=== PATIENT | female | born 1990 | race Caucasian/White ===

== ENCOUNTER 2022-08-12 18:39 | Emergency (ER) | payer OTHER, SELFPAY ==
[2022-08-12] VITALS (19 sets, daily range): BP systolic 127; BP diastolic 62; PULSE 65–81; RESP 13–24; TEMP 36.7; O2SAT 95–100; BMI 27.4
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
--- NOTE | 2022-08-12 19:44 | PC.NURSE ---
physician at bedside
--- NOTE | 2022-08-12 20:02 | ECG_ITS ---
The 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
== END 2022-08-12 22:10 | disposition home or self-care (01) ==
PROVIDERS: Emergency Provider Emergency Medicine; PCP Nurse Practitioner Family
DX: S40.012A Contusion of left shoulder, initial encounter (principal); S09.8XXA Other specified injuries of head, initial encounter; V86.65XA Passenger of 3- or 4- wheeled all-terrain vehicle (ATV) injured in nontraffic accident, initial encounter
CPT/HCPCS: 70450; 71101; 73030; 93005; 99284

== ENCOUNTER 2022-09-10 18:04 | Emergency (ER) | payer OTHER, SELFPAY ==
[2022-09-10 18:13] VITALS: BP 124/83; PULSE 79; RESP 16; TEMP 36.7; O2SAT 98; BMI 26.7
--- NOTE | 2022-09-10 18:18 | ED_ITS ---
HPI - General Adult General Chief complaint: Urogenital-Female Stated complaint: PRESSURE WHEN URINATING Time Seen by Provider: 09/10/22 18:16 Source: patient Mode of arrival: walk-in Limitations: no limitations History of Present Illness HPI narrative: patient is a 32-year-old female well-known to this emergency department who presents to the Emergency Room for two day history of abdominal pain, urinary urgency and dysuria. She states she has diffuse abdominal pain, nausea but no vomiting and has had some diarrhea. No fevers or upper respiratory symptoms. She is not concerned for . No medications taken prior to arrival. Her daughter is being evaluated for an unrelated complaint. Related Data Home Medications Medication Instructions Recorded Confirmed Unobtainable 09/10/22 09/10/22 Previous Rx's Medication Instructions Recorded ciprofloxacin HCl 500 mg tablet 500 mg PO BID #20 tabs 09/10/22 (Cipro) ondansetron 4 mg disintegrating 4 mg PO Q6H PRN nausea and 09/10/22 tablet vomiting #12 tabs phenazopyridine 200 mg tablet 200 mg PO Q8H 2 days #6 tabs 09/10/22 (Pyridium) Allergies Allergy/AdvReac Type Severity Reaction Status Date / Time cefaclor [From [facility]] Allergy Hives Verified 08/12/22 18:58 Review of Systems ROS Constitutional Denies: fever or chills Ears, nose, mouth, and throat Denies: throat pain or neck pain Cardiovascular Denies: chest pain Respiratory Denies: shortness of breath or cough Gastrointestinal Reports: abdominal pain, nausea and diarrhea; Denies: vomiting Genitourinary Reports: painful urination and urinary urgency Musculoskeletal Denies: back pain Integumentary/Breast Denies: rash PFSH PFS Surgical History (Updated 08/12/22 @ 21:07 by Ana Das) (2019) (2016) Social History Smoking status: Current every day smoker Exam Narrative Exam Narrative: Gen.: Awake, alert, in no distress Head: Normocephalic, atraumatic ENT: Moist mucous membranes Respiratory: No respiratory distress Gastrointestinal: Abdomen is soft, nondistended and diffusely mildly tender to palpation Extremities: Moves extremities equally Psych: Normal mood and affect Neuro: No focal neuro deficit Skin: Warm, dry, intact Constitutional Vital Signs - 24 hr 09/10/22 18:13 Temperature 98.0 F Pulse Rate [Monitor] 79 Respiratory Rate 16 Blood Pressure [Right Arm] 124/83 H Pulse Oximetry 98 Oxygen Delivery Method Room Air Course Vital Signs Vital signs: Vital Signs Temperature 98.0 F 09/10/22 18:13 Pulse Rate 79 09/10/22 18:13 Respiratory Rate 16 09/10/22 18:13 Blood Pressure 124/83 H 09/10/22 18:13 Pulse Oximetry 98 09/10/22 18:13 Oxygen Delivery Method Room Air 09/10/22 18:13 Temperature 98.0 F 09/10/22 18:13 Pulse Rate 79 09/10/22 18:13 Respiratory Rate 16 09/10/22 18:13 Blood Pressure 124/83 H 09/10/22 18:13 Pulse Oximetry 98 09/10/22 18:13 Oxygen Delivery Method Room Air 09/10/22 18:13 Medical Decision Making MDM Narrative Medical decision making narrative: labs are within normal limits although patient is noted to have a urinary tract infection. She is treated with Cipro, Pyridium, Zofran. Follow-up PCP and return to the Emergency Room if symptoms change or worsen. Medical Records Medical records reviewed: Yes I reviewed the patient's medical records Lab Data Lab results reviewed: Yes I reviewed the patient's lab results Labs: Lab Results 09/10/22 Range/Units 18:25 WBC 6.7 (4.0-11.0) 10^3/uL RBC 4.68 (4.20-5.40) 10^6/uL Hgb 14.4 (12.0-16.0) g/dL Hct 41.9 (36.0-48.0) % MCV 89.5 (81.0-99.0) fL MCH 30.8 (26.7-34.0) pg MCHC 34.4 (29.9-35.2) g/dL RDW 13.3 (11.0-15.0) % Plt Count 217 (150-450) 10^3/uL MPV 10.5 (9.5-13.5) fL Neut % (Auto) 65.0 (43.0-75.0) % Lymph % (Auto) 22.4 (20.5-60.0) % [place] % (Auto) 10.0 (1.7-12.0) % Eos % (Auto) 1.8 (0.9-7.0) % Baso % (Auto) 0.4 (0.2-2.0) % Neut # (Auto) 4.4 (1.4-6.5) 10^3/uL Lymph # (Auto) 1.5 (1.2-3.8) 10^3/uL Noble # (Auto) 0.7 (0.3-0.8) 10^3/uL Eos # (Auto) 0.1 (0.0-0.7) 10^3/uL Baso # (Auto) 0.0 (0.0-0.1) 10^3/uL Abs Immat Gran (auto) 0.03 (0.00-0.03) 10^3/uL Imm/Tot Granulo (auto) 0.4 (0.0-0.5) % Sodium 138 (136-145) mmol/L Potassium 3.8 (3.5-5.1) mmol/L Chloride 103 (98-107) mmol/L Carbon Dioxide 27.3 (21.0-32.0) mmol/L Anion Gap 11.5 BUN 13.0 (7.0-18.0) mg/dL Creatinine 0.86 (0.55-1.02) mg/dL Est GFR ( Amer) >60 (>=60) Est GFR (Non-Af Amer) >60 (>=60) BUN/Creatinine Ratio 15.1 Glucose 102 (74-106) mg/dL Calcium 8.8 (8.5-10.1) mg/dL Total Bilirubin 0.2 (0.2-1.0) mg/dL AST 20 (15-37) U/L ALT 24 (14-59) U/L Alkaline Phosphatase 71 (46-116) U/L Total Protein 7.3 (6.4-8.2) g/dL Albumin 3.5 (3.4-5.0) g/dL Globulin 3.8 g/dL Albumin/Globulin Ratio 0.9 Lipase 100.0 (73.0-393.0) U/L Urine Color Lt. yellow (YELLOW) Urine Clarity Clear (CLEAR) Urine pH 6.0 (5.0-9.0) Ur Specific [place] 1.020 (1.005-1.025) Urine Protein Negative (NEG/TRACE) mg/dL Urine Glucose (UA) Negative (NEGATIVE) mg/dL Urine Ketones Negative (NEGATIVE) mg/dL Urine Occult Blood Moderate A (NEGATIVE) Urine Nitrite Positive A (NEGATIVE) Urine Bilirubin Negative (NEGATIVE) Urine Urobilinogen 1.0 (0.2-1.0) EU/dL Ur Leukocyte Esterase Small A (NEGATIVE) Urine RBC 5-10 A (0-2) #/HPF Urine WBC 10-20 A (NONE SEEN) #/HPF Ur Squamous Epith Cells Few A (NONE/RARE) #/LPF Urine Crystals None seen (None Seen) #/HPF Urine Bacteria Moderate A (NONE SEEN) #/HPF Urine Casts None seen (NONE SEEN) #/LPF Urine Mucus None seen (NONE SEEN) Ur Culture Indicated? Yes Urine HCG, Qual Negative (NEGATIVE) Discharge Plan Discharge Chief Complaint: Urogenital-Female Clinical Impression: Urinary tract infection Patient Disposition: Home, Self-Care Time of Disposition Decision: 18:59 Condition: Good Prescriptions / Home Meds: New ciprofloxacin HCl [Cipro] 500 mg tablet 500 mg PO BID Qty: 20 0RF ondansetron 4 mg tablet,disintegrating 4 mg PO Q6H PRN (Reason: nausea and vomiting) Qty: 12 0RF phenazopyridine [Pyridium] 200 mg tablet 200 mg PO Q8H 2 Days Qty: 6 0RF No Action Unobtainable Instructions: Urinary Tract Infection in Women (ED) Stand Alone Forms: Portal Instructions Referrals: ARYA LOPEZ [Primary Care Provider] - 1 week
[2022-09-10] MEDS: KETOROLAC TROMETHAMINE 60 MG/2 ML VIAL IM (18:35)
[2022-09-10] MEDS: ONDANSETRON 4 MG RAPDIS TABLET PO (18:35)
[2022-09-10] MEDS: HYOSCYAMINE SULFATE 0.125 MG TAB.SUBL SL (18:35)
[2022-09-10 18:37] LABS: Basophils Percent Auto 0.4 % (0.2-2.0); Eosinophils Absolute Auto 0.1 10^3/uL (0.0-0.7); Eosinophils Percent Auto 1.8 % (0.9-7.0); Hematocrit 41.9 % (36.0-48.0); Hemoglobin 14.4 g/dL (12.0-16.0); Immature Granulocytes Abs Auto 0.03 10^3/uL (0.00-0.03); Immature Granulocytes Pct Auto 0.4 % (0.0-0.5); Lymphocytes Absolute Auto 1.5 10^3/uL (1.2-3.8); Lymphocytes Percent Auto 22.4 % (20.5-60.0); Mean Corpuscular HGB Conc 34.4 g/dL (29.9-35.2); Mean Corpuscular Hemoglobin 30.8 pg (26.7-34.0); Mean Corpuscular Volume 89.5 fL (81.0-99.0); Mean Platelet Volume 10.5 fL (9.5-13.5); Monocytes Absolute Auto 0.7 10^3/uL (0.3-0.8); Neutrophils Absolute Auto 4.4 10^3/uL (1.4-6.5); Platelet Count 217 10^3/uL (150-450); Red Blood Count 4.68 10^6/uL (4.20-5.40); Red Cell Distribution Width 13.3 % (11.0-15.0); White Blood Count 6.7 10^3/uL (4.0-11.0)
[2022-09-10 18:38] LABS: Bilirubin Urine NEGATIVE (NEGATIVE); Blood Urine MODERATE (NEGATIVE); Clarity Urine CLEAR (CLEAR); Color Urine LT. YELLOW (YELLOW); Glucose Urine UA NEGATIVE (NEGATIVE); Ketones Urine NEGATIVE (NEGATIVE); Leukocyte Esterase Urine SMALL (NEGATIVE); Nitrite Urine POSITIVE (NEGATIVE); Protein Urine NEGATIVE (NEG/TRACE)
[2022-09-10 18:42] LABS: HCG Qualitative Urine* NEGATIVE (NEGATIVE); Urine Microscopic Indicated YES
[2022-09-10 18:48] LABS: Alanine Aminotransferase 24 U/L (14-59); Albumin Globulin Ratio 0.9; Albumin Level 3.5 g/dL (3.4-5.0); Alkaline Phosphatase 71 U/L (46-116); Anion Gap 11.5; Aspartate Amino Transferase 20 U/L (15-37); BUN Creatinine Ratio 15.1; Bacteria Urine MODERATE #/HPF (NONE SEEN); Bilirubin Total 0.2 mg/dL (0.2-1.0); Calcium 8.8 mg/dL (8.5-10.1); Carbon Dioxide 27.3 mmol/L (21.0-32.0); Cast Seen? NONE SEEN #/LPF (NONE SEEN); Chloride 103 mmol/L (98-107); Crystals Seen? None Seen #/HPF (None Seen); Estimated GFR (African America >60 (>=60); Estimated GFR (Non-African Ame >60 (>=60); Globulin 3.8 g/dL; Glucose 102 mg/dL (74-106); Mucus Urine NONE SEEN (NONE SEEN); Potassium 3.8 mmol/L (3.5-5.1); Sodium 138 mmol/L (136-145); Squamous Epithelial Cell Urine FEW #/LPF (NONE/RARE); Total Protein 7.3 g/dL (6.4-8.2); Urine Culture Indicated YES
== END 2022-09-10 19:18 | disposition home or self-care (01) ==
PROVIDERS: Physician Assistant; Emergency Provider Emergency Medicine; PCP Nurse Practitioner Family
DX: N39.0 Urinary tract infection, site not specified (principal); F17.210 Nicotine dependence, cigarettes, uncomplicated
CPT/HCPCS: 36415; 80053; 81003; 81015; 83690; 84703; 85025; 87086; 87150; 87186; 96372; 99284

== ENCOUNTER 2022-09-28 15:33 | Emergency (ER) | payer OTHER, SELFPAY ==
[2022-09-28] VITALS (18 sets, daily range): BP systolic 78–130; BP diastolic 47–89; PULSE 68–109; RESP 11–30; TEMP 36.9; O2SAT 94–100; BMI 27.5
--- NOTE | 2022-09-28 15:45 | ECG_ITS ---
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
--- NOTE | 2022-09-28 15:54 | PC.NURSE ---
POISON CONTROL CALLED AT THIS TIME.
[2022-09-28 16:00] LABS: Basophils Percent Auto 0.3 % (0.2-2.0); Eosinophils Percent Auto 0.5 % (0.9-7.0); Hematocrit 42.5 % (36.0-48.0); Hemoglobin 14.1 g/dL (12.0-16.0); Immature Granulocytes Abs Auto 0.02 10^3/uL (0.00-0.03); Immature Granulocytes Pct Auto 0.3 % (0.0-0.5); Lymphocytes Absolute Auto 0.9 10^3/uL (1.2-3.8); Lymphocytes Percent Auto 15.9 % (20.5-60.0); Mean Corpuscular HGB Conc 33.2 g/dL (29.9-35.2); Mean Corpuscular Hemoglobin 30.5 pg (26.7-34.0); Mean Platelet Volume 9.3 fL (9.5-13.5); Monocytes Absolute Auto 0.7 10^3/uL (0.3-0.8); Neutrophils Absolute Auto 4.3 10^3/uL (1.4-6.5); Platelet Count 246 10^3/uL (150-450); Red Blood Count 4.62 10^6/uL (4.20-5.40); Red Cell Distribution Width 13.4 % (11.0-15.0); White Blood Count 5.9 10^3/uL (4.0-11.0)
[2022-09-28 16:08] LABS: Bilirubin Urine NEGATIVE (NEGATIVE); Blood Urine NEGATIVE (NEGATIVE); Clarity Urine CLEAR (CLEAR); Color Urine YELLOW (YELLOW); Glucose Urine UA NEGATIVE (NEGATIVE); Ketones Urine NEGATIVE (NEGATIVE); Leukocyte Esterase Urine NEGATIVE (NEGATIVE); Nitrite Urine NEGATIVE (NEGATIVE); Protein Urine NEGATIVE (NEG/TRACE); Specific Gravity Urine 1.015 (1.005-1.025); Urobilinogen Urine 0.2 EU/dL (0.2-1.0); pH Urine 6.5 (5.0-9.0)
[2022-09-28 16:11] LABS: Urine Microscopic Indicated NO
[2022-09-28 16:18] LABS: Amphetamine Screen Urine NEGATIVE (NEGATIVE); Barbiturates Screen Urine NEGATIVE (NEGATIVE); Benzodiazepines Screen Urine NEGATIVE (NEGATIVE); Buprenorphine Screen Urine NEGATIVE (NEGATIVE); Cannabinoid Screen Urine POSITIVE (NEGATIVE); Cocaine Screen Urine POSITIVE (NEGATIVE); Methadone Screen Urine NEGATIVE (NEGATIVE); Methamphetamines Screen Urine NEGATIVE (NEGATIVE); Opiate Screen Urine POSITIVE (NEGATIVE); Oxycodone Screen Urine NEGATIVE (NEGATIVE); Phencyclidine Screen Urine NEGATIVE (NEGATIVE); Tricyclic Antidepressant Urine NEGATIVE (NEGATIVE)
[2022-09-28 16:18] LABS: Alanine Aminotransferase 15 U/L (14-59); Albumin Globulin Ratio 1.1; Albumin Level 3.8 g/dL (3.4-5.0); Alkaline Phosphatase 57 U/L (46-116); Anion Gap 10.8; Aspartate Amino Transferase 13 U/L (15-37); BUN Creatinine Ratio 12.2; Bilirubin Total 0.5 mg/dL (0.2-1.0); Calcium 8.7 mg/dL (8.5-10.1); Carbon Dioxide 25.9 mmol/L (21.0-32.0); Chloride 104 mmol/L (98-107); Estimated GFR (African America >60 (>=60); Estimated GFR (Non-African Ame >60 (>=60); Globulin 3.5 g/dL; Glucose 95 mg/dL (74-106); Potassium 3.7 mmol/L (3.5-5.1); Salicylate <2.8 mg/dL (<=19.9); Sodium 137 mmol/L (136-145); Total Protein 7.3 g/dL (6.4-8.2)
[2022-09-28] MEDS: ONDANSETRON PF 4 MG/2 ML VIAL IV (16:21)
[2022-09-28 16:25] LABS: Troponin I High Sensitivity 74.5 pg/mL (4.0-51.3)
[2022-09-28 16:31] LABS: Acetaminophen <2.0 ug/mL (10.0-30.0); Ethanol <3 mg/dL
--- NOTE | 2022-09-28 17:00 | ED_ITS ---
Documented by User: LOLA Bakns 09/28/22 21:52 HPI - Psych General Chief Complaint: Psychiatric Symptoms Stated Complaint: suicidal Time Seen by Provider: 09/28/22 15:43 Source: Reports patient Mode of arrival: ambulance Limitations: Reports no limitations History of Present Illness HPI Narrative: patient is a 32-year-old female who presents to the emergency department by kelly snowden after an intentional overdose and suicidal ideation. Patient is well-known to this emergency department, she has a history of hypertrophic cardiomyopathy and defibrillator. She states she was seen this morning for chest pain at [place] emergency department and after discharge, she states she got into an argument with her so she went to her grandmother's home where they continued arguing and she took her regular prescribed medications, she states she took six tablets of Flexeril as well as 3-4 tablets of Neurontin and 3-4 tablets of trazodone. She is awake, alert and answering questions in no distress at time of initial interview. she is not concerned for , she states she has been hearing voices from her [id number]-wlg who has telling her that it is okay to go . Related Data Home Medications Medication Instructions Recorded Confirmed diclofenac sodium 1 % topical gel 2 g topical DAILY 09/28/22 09/28/22 diclofenac sodium 75 mg 75 mg PO DAILY 09/28/22 09/28/22 tablet,delayed release diphenhydramine HCl 25 mg tablet 25 mg PO DAILY 09/28/22 09/28/22 docusate sodium 100 mg capsule 100 mg PO DAILY 09/28/22 09/28/22 duloxetine 30 mg capsule,delayed 30 mg PO DAILY 09/28/22 09/28/22 release gabapentin 100 mg capsule 100 mg PO DAILY 09/28/22 09/28/22 hydroxyzine pamoate 50 mg capsule 50 mg PO DAILY 09/28/22 09/28/22 melatonin 5 mg tablet 5 mg PO DAILY 09/28/22 09/28/22 metoprolol succinate 50 mg 50 mg PO DAILY 09/28/22 09/28/22 tablet,extended release 24 hr nicotine (polacrilex) 4 mg gum 4 mg mucous membrane DAILY 09/28/22 09/28/22 olanzapine 5 mg tablet 5 mg PO DAILY 09/28/22 09/28/22 sertraline 50 mg tablet 50 mg PO DAILY 09/28/22 09/28/22 trazodone 50 mg tablet 50 mg PO DAILY 09/28/22 09/28/22 Allergies Allergy/AdvReac Type Severity Reaction Status Date / Time c[place] [[place] [facility] [place] Allergy Hives Verified 08/12/22 18:58 Review of Systems ROS Constitutional Denies: fever or chills Ears, nose, mouth, and throat Denies: throat pain or neck pain Respiratory Denies: shortness of breath Gastrointestinal Denies: nausea or vomiting Integumentary/Breast Denies: rash Psychiatric Reports: [facility] Medical History (Updated 09/28/22 @ 22:36 by Dena No) Surgical History (Updated 08/12/22 @ 21:07 by Ana Das) (2019) (2016) Social History Smoking status: Current every day smoker Exam Narrative Exam Narrative: Gen.: Awake, alert, in no distress Head: Normocephalic, atraumatic ENT: Moist mucous membranes Respiratory: No respiratory distress, lungs clear bilaterally Cardio: Regular rate and rhythm Gastrointestinal: Abdomen is soft, nondistended and nontender to palpation Extremities: Moves extremities equally, no injuries noted Psych: Normal mood and affect Neuro: No focal neuro deficit Skin: Warm, dry, intact Constitutional Vital Signs, click to edit/add: Last Vital Signs Temp 98.5 F 09/29/22 01:45 Pulse 80 09/29/22 05:23 Resp 16 09/29/22 05:23 BP 105/61 09/29/22 05:23 Pulse Ox 96 09/29/22 05:23 O2 Del Method Room Air 09/28/22 15:34 Course Vital Signs Vital signs: Vital Signs Blood Pressure 130/85 H 09/28/22 15:33 Temperature 98.5 F 09/29/22 01:45 Pulse Rate 80 09/29/22 05:23 Respiratory Rate 16 09/29/22 05:23 Blood Pressure 105/61 09/29/22 05:23 Pulse Oximetry 96 09/29/22 05:23 Oxygen Delivery Method Room Air 09/28/22 15:34 MDM - Psych MDM Narrative Medical decision making narrative: poison control was contacted immediately on the patient's arrival to the emergen cy department. Based on her ingestion, it was recommended that she be observed for 4-6 hours. Patient was observed for six hours from her initial presentation to the Emergency Department. She maintained stable vital signs, she is calm and cooperative in the Emergency Room. Labs were ordered showing the patient has an elevated troponin, although she has a drug screen is positive for cocaine and her previous lab studies were reviewed. Patient had multiple troponins taken on 06/06/22 for similar ingestion and she was noted to have three troponins at or above 100. A 2nd troponin was ordered for the patient in the Emergency Room, this has decreased. She has EKG showing ST depression which was present on a previous EKG from 06/06/22. Patient was treated with IV fluids, Zofran and Phenergan. She had no episodes of emesis in the emergency department, although due to her nausea she was not given any charcoal. Patient is medically clear for psychiatric evaluation and we anticipate transfer given the patient's intentional overdose and suicidal ideation with auditory hallucinations. 2150: case is turned over to attending physician at this time pending psychiatric evaluation and transfer. Lab Data Labs: Lab Results 09/28/22 09/28/22 09/28/22 Range/Units 15:45 15:53 15:57 WBC 5.9 (4.0-11.0) 10^3/uL RBC 4.62 (4.20-5.40) 10^6/uL Hgb 14.1 (12.0-16.0) g/dL Hct 42.5 (36.0-48.0) % MCV 92.0 (81.0-99.0) fL MCH 30.5 (26.7-34.0) pg MCHC 33.2 (29.9-35.2) g/dL RDW 13.4 (11.0-15.0) % Plt Count 246 (150-450) 10^3/uL MPV 9.3 L (9.5-13.5) fL Neut % (Auto) 72.0 (43.0-75.0) % Lymph % (Auto) 15.9 L (20.5-60.0) % [place] % (Auto) 11.0 (1.7-12.0) % Eos % (Auto) 0.5 L (0.9-7.0) % Baso % (Auto) 0.3 (0.2-2.0) % Neut # (Auto) 4.3 (1.4-6.5) 10^3/uL Lymph # (Auto) 0.9 L (1.2-3.8) 10^3/uL [place] # (Auto) 0.7 (0.3-0.8) 10^3/uL Eos # (Auto) 0.0 (0.0-0.7) 10^3/uL Baso # (Auto) 0.0 (0.0-0.1) 10^3/uL Abs Immat Gran (auto) 0.02 (0.00-0.03) 10^3/uL Imm/Tot Granulo (auto) 0.3 (0.0-0.5) % Sodium 137 (136-145) mmol/L Potassium 3.7 (3.5-5.1) mmol/L Chloride 104 (98-107) mmol/L Carbon Dioxide 25.9 (21.0-32.0) mmol/L Anion Gap 10.8 BUN 11.0 (7.0-18.0) mg/dL Creatinine 0.90 (0.55-1.02) mg/dL Est GFR ( Amer) >60 (>=60) Est GFR (Non-Af Amer) >60 (>=60) BUN/Creatinine Ratio 12.2 Glucose 95 (74-106) mg/dL Calcium 8.7 (8.5-10.1) mg/dL Total Bilirubin 0.5 (0.2-1.0) mg/dL AST 13 L (15-37) U/L ALT 15 (14-59) U/L Alkaline Phosphatase 57 (46-116) U/L Total Creatine Kinase (26-192) U/L CK-MB (CK-2) (<=3.60) ng/mL Troponin I High Sens 74.5 H* (4.0-51.3) pg/mL Total Protein 7.3 (6.4-8.2) g/dL Albumin 3.8 (3.4-5.0) g/dL Globulin 3.5 g/dL Albumin/Globulin Ratio 1.1 Urine Color Yellow (YELLOW) Urine Clarity Clear (CLEAR) Urine pH 6.5 (5.0-9.0) Ur Specific [place] 1.015 (1.005-1.025) Urine Protein Negative (NEG/TRACE) mg/dL Urine Glucose (UA) Negative (NEGATIVE) mg/dL Urine Ketones Negative (NEGATIVE) mg/dL Urine Occult Blood Negative (NEGATIVE) Urine Nitrite Negative (NEGATIVE) Urine Bilirubin Negative (NEGATIVE) Urine Urobilinogen 0.2 (0.2-1.0) EU/dL Ur Leukocyte Esterase Negative (NEGATIVE) Urine HCG, Qual Negative (NEGATIVE) Salicylates <2.8 (<=19.9) mg/dL Urine Opiates Screen Positive A (NEGATIVE) Ur Buprenorphine Scrn Negative (NEGATIVE) Ur Oxycodone Screen Negative (NEGATIVE) Urine Methadone Screen Negative (NEGATIVE) Ur Propoxyphene Screen Negative (NEGATIVE) Acetaminophen <2.0 L (10.0-30.0) ug/mL Ur Barbiturates Screen Negative (NEGATIVE) U Tricyclic Antidepress Negative (NEGATIVE) Ur Phencyclidine Scrn Negative (NEGATIVE) Ur Amphetamines Screen Negative (NEGATIVE) U Methamphetamines Scrn Negative (NEGATIVE) U Benzodiazepines Scrn Negative (NEGATIVE) Urine Cocaine Screen Positive A (NEGATIVE) U Cannabinoids Screen Positive A (NEGATIVE) Ethanol Quant <3 mg/dL 09/28/22 Range/Units 18:20 WBC (4.0-11.0) 10^3/uL RBC (4.20-5.40) 10^6/uL Hgb (12.0-16.0) g/dL Hct (36.0-48.0) % MCV (81.0-99.0) fL MCH (26.7-34.0) pg MCHC (29.9-35.2) g/dL RDW (11.0-15.0) % Plt Count (150-450) 10^3/uL MPV (9.5-13.5) fL Neut % (Auto) (43.0-75.0) % Lymph % (Auto) (20.5-60.0) % [place] % (Auto) (1.7-12.0) % Eos % (Auto) (0.9-7.0) % Baso % (Auto) (0.2-2.0) % Neut # (Auto) (1.4-6.5) 10^3/uL Lymph # (Auto) (1.2-3.8) 10^3/uL [place] # (Auto) (0.3-0.8) 10^3/uL Eos # (Auto) (0.0-0.7) 10^3/uL Baso # (Auto) (0.0-0.1) 10^3/uL Abs Immat Gran (auto) (0.00-0.03) 10^3/uL Imm/Tot Granulo (auto) (0.0-0.5) % Sodium (136-145) mmol/L Potassium (3.5-5.1) mmol/L Chloride (98-107) mmol/L Carbon Dioxide (21.0-32.0) mmol/L Anion Gap BUN (7.0-18.0) mg/dL Creatinine (0.55-1.02) mg/dL Est GFR ( Amer) (>=60) Est GFR (Non-Af Amer) (>=60) BUN/Creatinine Ratio Glucose (74-106) mg/dL Calcium (8.5-10.1) mg/dL Total Bilirubin (0.2-1.0) mg/dL AST (15-37) U/L ALT (14-59) U/L Alkaline Phosphatase (46-116) U/L Total Creatine Kinase 62 (26-192) U/L CK-MB (CK-2) 1.13 (<=3.60) ng/mL Troponin I High Sens 72.5 H* (4.0-51.3) pg/mL Total Protein (6.4-8.2) g/dL Albumin (3.4-5.0) g/dL Globulin g/dL Albumin/Globulin Ratio Urine Color (YELLOW) Urine Clarity (CLEAR) Urine pH (5.0-9.0) Ur Specific [place] (1.005-1.025) Urine Protein (NEG/TRACE) mg/dL Urine Glucose (UA) (NEGATIVE) mg/dL Urine Ketones (NEGATIVE) mg/dL Urine Occult Blood (NEGATIVE) Urine Nitrite (NEGATIVE) Urine Bilirubin (NEGATIVE) Urine Urobilinogen (0.2-1.0) EU/dL Ur Leukocyte Esterase (NEGATIVE) Urine HCG, Qual (NEGATIVE) Salicylates (<=19.9) mg/dL Urine Opiates Screen (NEGATIVE) Ur Buprenorphine Scrn (NEGATIVE) Ur Oxycodone Screen (NEGATIVE) Urine Methadone Screen (NEGATIVE) Ur Propoxyphene Screen (NEGATIVE) Acetaminophen (10.0-30.0) ug/mL Ur Barbiturates Screen (NEGATIVE) U Tricyclic Antidepress (NEGATIVE) Ur Phencyclidine Scrn (NEGATIVE) Ur Amphetamines Screen (NEGATIVE) U Methamphetamines Scrn (NEGATIVE) U Benzodiazepines Scrn (NEGATIVE) Urine Cocaine Screen (NEGATIVE) U Cannabinoids Screen (NEGATIVE) Ethanol Quant mg/dL Critical Care Time Critical Care Time Critical Care Time: Yes Total Critical Care Time: 35 Attestation: thirty-five minutes of critical care time attributed to this case for intentional overdose with multiple medications, continuous cardiac monitoring and bedside sitter for over six hours with transfer to tertiary care facility Discharge Plan Discharge Chief Complaint: Psychiatric Symptoms Clinical Impression: Intentional drug overdose, Suicidal ideation Patient Disposition: er Psychiatric Hosp Time of Disposition Decision: 21:52 [facility] Mode of Transportation: Mental Health Car Discharge Date/Time: 09/29/22 10:42 Documented by User: Dakotah Han MD 09/29/22 09:50 HPI - Psych General Chief Complaint: Psychiatric Symptoms Stated Complaint: suicidal Time Seen by Provider: 09/28/22 15:43 Related Data Home Medications Medication Instructions Recorded Confirmed diclofenac sodium 1 % topical gel 2 g topical DAILY 09/28/22 09/28/22 diclofenac sodium 75 mg 75 mg PO DAILY 09/28/22 09/28/22 tablet,delayed release diphenhydramine HCl 25 mg tablet 25 mg PO DAILY 09/28/22 09/28/22 docusate sodium 100 mg capsule 100 mg PO DAILY 09/28/22 09/28/22 duloxetine 30 mg capsule,delayed 30 mg PO DAILY 09/28/22 09/28/22 release gabapentin 100 mg capsule 100 mg PO DAILY 09/28/22 09/28/22 hydroxyzine pamoate 50 mg capsule 50 mg PO DAILY 09/28/22 09/28/22 melatonin 5 mg tablet 5 mg PO DAILY 09/28/22 09/28/22 metoprolol succinate 50 mg 50 mg PO DAILY 09/28/22 09/28/22 tablet,extended release 24 hr nicotine (polacrilex) 4 mg gum 4 mg mucous membrane DAILY 09/28/22 09/28/22 olanzapine 5 mg tablet 5 mg PO DAILY 09/28/22 09/28/22 sertraline 50 mg tablet 50 mg PO DAILY 09/28/22 09/28/22 trazodone 50 mg tablet 50 mg PO DAILY 09/28/22 09/28/22 Allergies Allergy/AdvReac Type Severity Reaction Status Date / Time cefaclor [From [facility]] Allergy Hives Verified 08/12/22 18:58 [facility] Medical History (Updated 09/28/22 @ 22:36 by Dena No) Surgical History (Updated 08/12/22 @ 21:07 by Ana Das) (2019) (2016) Social History Smoking status: Current every day smoker Exam Constitutional Vital Signs, click to edit/add: Last Vital Signs Temp 98.5 F 09/29/22 01:45 Pulse 80 09/29/22 05:23 Resp 16 09/29/22 05:23 BP 105/61 09/29/22 05:23 Pulse Ox 96 09/29/22 05:23 O2 Del Method Room Air 09/28/22 15:34 Course Vital Signs Vital signs: Vital Signs Blood Pressure 130/85 H 09/28/22 15:33 Temperature 98.5 F 09/29/22 01:45 Pulse Rate 80 09/29/22 05:23 Respiratory Rate 16 09/29/22 05:23 Blood Pressure 105/61 09/29/22 05:23 Pulse Oximetry 96 09/29/22 05:23 Oxygen Delivery Method Room Air 09/28/22 15:34 MDM - Psych MDM Narrative Medical decision making narrative: poison control was contacted immediately on the patient's arrival to the emergency department. Based on her ingestion, it was recommended that she be observed for 4-6 hours. Patient was observed for six hours from her initial presentation to the Emergency Department. She maintained stable vital signs, she is calm and cooperative in the Emergency Room. Labs were ordered showing the patient has an elevated troponin, although she has a drug screen is positive for cocaine and her previous lab studies were reviewed. Patient had multiple troponins taken on 06/06/22 for similar ingestion and she was noted to have three troponins at or above 100. A 2nd troponin was ordered for the patient in the Emergency Room, this has decreased. She has EKG showing ST depression which was present on a previous EKG from 06/06/22. Patient was treated with IV fluids, Zofran and Phenergan. She had no episodes of emesis in the emergency department, although due to her nausea she was not given any charcoal. Patient is medically clear for psychiatric evaluation and we anticipate transfer given the patient's intentional overdose and suicidal ideation with auditory hallucinations. 2149: case is turned over to attending physician Dr Austin at this time pending psychiatric evaluation and transfer. 94909/29/22 Dr HAN NOTE Patient will be picked up at approximately 10 AM for transfer. [facility] is [facility] to [facility], Dr. Harrington . There is concern that patient had positive illicit drugs in her urine drug testing. We have called children's services, Vannesa العراقي spoke to yvonne Saravanan From [place] children's services. There have been several other reports on this patient to children's services as well. Today's Emergency Room visit, urine drug testing was discussed with children's services on behalf of the safety of the children at home. Patient will be transferred to psychiatric facility for further evaluation and treatment. Patient had a mild headache, she is given Tylenol. Patient has been eating and drinking with breakfast no difficulty. There is been no difficulties to the night time babysitter for Dr. Austin as reported to me and transition this morning at 7 AM. Patient has been in the Emergency Room for over 19 hours. Critical care time >75 minutes exclusive from separate billable procedures that were performed. The following was considered in the determination of critical care but not limited to the level of medical decision making, intensive cardiac and/or respiratory monitoring, frequent vital sign monitoring, evaluation of laboratory studies, evaluation of radiographic studies, oxygen monitoring, and constant monitoring and speaking to family at bedside Lab Data Labs: Lab Results 09/28/22 09/28/22 09/28/22 Range/Units 15:45 15:53 15:57 WBC 5.9 (4.0-11.0) 10^3/uL RBC 4.62 (4.20-5.40) 10^6/uL Hgb 14.1 (12.0-16.0) g/dL Hct 42.5 (36.0-48.0) % MCV 92.0 (81.0-99.0) fL MCH 30.5 (26.7-34.0) pg MCHC 33.2 (29.9-35.2) g/dL RDW 13.4 (11.0-15.0) % Plt Count 246 (150-450) 10^3/uL MPV 9.3 L (9.5-13.5) fL Neut % (Auto) 72.0 (43.0-75.0) % Lymph % (Auto) 15.9 L (20.5-60.0) % [place] % (Auto) 11.0 (1.7-12.0) % Eos % (Auto) 0.5 L (0.9-7.0) % Baso % (Auto) 0.3 (0.2-2.0) % Neut # (Auto) 4.3 (1.4-6.5) 10^3/uL Lymph # (Auto) 0.9 L (1.2-3.8) 10^3/uL [place] # (Auto) 0.7 (0.3-0.8) 10^3/uL Eos # (Auto) 0.0 (0.0-0.7) 10^3/uL Baso # (Auto) 0.0 (0.0-0.1) 10^3/uL Abs Immat Gran (auto) 0.02 (0.00-0.03) 10^3/uL Imm/Tot Granulo (auto) 0.3 (0.0-0.5) % Sodium 137 (136-145) mmol/L Potassium 3.7 (3.5-5.1) mmol/L Chloride 104 (98-107) mmol/L Carbon Dioxide 25.9 (21.0-32.0) mmol/L Anion Gap 10.8 BUN 11.0 (7.0-18.0) mg/dL Creatinine 0.90 (0.55-1.02) mg/dL Est GFR ( Amer) >60 (>=60) Est GFR (Non-Af Amer) >60 (>=60) BUN/Creatinine Ratio 12.2 Glucose 95 (74-106) mg/dL Calcium 8.7 (8.5-10.1) mg/dL Total Bilirubin 0.5 (0.2-1.0) mg/dL AST 13 L (15-37) U/L ALT 15 (14-59) U/L Alkaline Phosphatase 57 (46-116) U/L Total Creatine Kinase (26-192) U/L CK-MB (CK-2) (<=3.60) ng/mL Troponin I High Sens 74.5 H* (4.0-51.3) pg/mL Total Protein 7.3 (6.4-8.2) g/dL Albumin 3.8 (3.4-5.0) g/dL Globulin 3.5 g/dL Albumin/Globulin Ratio 1.1 Urine Color Yellow (YELLOW) Urine Clarity Clear (CLEAR) Urine pH 6.5 (5.0-9.0) Ur Specific [place] 1.015 (1.005-1.025) Urine Protein Negative (NEG/TRACE) mg/dL Urine Glucose (UA) Negative (NEGATIVE) mg/dL Urine Ketones Negative (NEGATIVE) mg/dL Urine Occult Blood Negative (NEGATIVE) Urine Nitrite Negative (NEGATIVE) Urine Bilirubin Negative (NEGATIVE) Urine Urobilinogen 0.2 (0.2-1.0) EU/dL Ur Leukocyte Esterase Negative (NEGATIVE) Urine HCG, Qual Negative (NEGATIVE) Salicylates <2.8 (<=19.9) mg/dL Urine Opiates Screen Positive A (NEGATIVE) Ur Buprenorphine Scrn Negative (NEGATIVE) Ur Oxycodone Screen Negative (NEGATIVE) Urine Methadone Screen Negative (NEGATIVE) Ur Propoxyphene Screen Negative (NEGATIVE) Acetaminophen <2.0 L (10.0-30.0) ug/mL Ur Barbiturates Screen Negative (NEGATIVE) U Tricyclic Antidepress Negative (NEGATIVE) Ur Phencyclidine Scrn Negative (NEGATIVE) Ur Amphetamines Screen Negative (NEGATIVE) U Methamphetamines Scrn Negative (NEGATIVE) U Benzodiazepines Scrn Negative (NEGATIVE) Urine Cocaine Screen Positive A (NEGATIVE) U Cannabinoids Screen Positive A (NEGATIVE) Ethanol Quant <3 mg/dL 09/28/22 Range/Units 18:20 WBC (4.0-11.0) 10^3/uL RBC (4.20-5.40) 10^6/uL Hgb (12.0-16.0) g/dL Hct (36.0-48.0) % MCV (81.0-99.0) fL MCH (26.7-34.0) pg MCHC (29.9-35.2) g/dL RDW (11.0-15.0) % Plt Count (150-450) 10^3/uL MPV (9.5-13.5) fL Neut % (Auto) (43.0-75.0) % Lymph % (Auto) (20.5-60.0) % [place] % (Auto) (1.7-12.0) % Eos % (Auto) (0.9-7.0) % Baso % (Auto) (0.2-2.0) % Neut # (Auto) (1.4-6.5) 10^3/uL Lymph # (Auto) (1.2-3.8) 10^3/uL [place] # (Auto) (0.3-0.8) 10^3/uL Eos # (Auto) (0.0-0.7) 10^3/uL Baso # (Auto) (0.0-0.1) 10^3/uL Abs Immat Gran (auto) (0.00-0.03) 10^3/uL Imm/Tot Granulo (auto) (0.0-0.5) % Sodium (136-145) mmol/L Potassium (3.5-5.1) mmol/L Chloride (98-107) mmol/L Carbon Dioxide (21.0-32.0) mmol/L Anion Gap BUN (7.0-18.0) mg/dL Creatinine (0.55-1.02) mg/dL Est GFR ( Amer) (>=60) Est GFR (Non-Af Amer) (>=60) BUN/Creatinine Ratio Glucose (74-106) mg/dL Calcium (8.5-10.1) mg/dL Total Bilirubin (0.2-1.0) mg/dL AST (15-37) U/L ALT (14-59) U/L Alkaline Phosphatase (46-116) U/L Total Creatine Kinase 62 (26-192) U/L CK-MB (CK-2) 1.13 (<=3.60) ng/mL Troponin I High Sens 72.5 H* (4.0-51.3) pg/mL Total Protein (6.4-8.2) g/dL Albumin (3.4-5.0) g/dL Globulin g/dL Albumin/Globulin Ratio Urine Color (YELLOW) Urine Clarity (CLEAR) Urine pH (5.0-9.0) Ur Specific [place] (1.005-1.025) Urine Protein (NEG/TRACE) mg/dL Urine Glucose (UA) (NEGATIVE) mg/dL Urine Ketones (NEGATIVE) mg/dL Urine Occult Blood (NEGATIVE) Urine Nitrite (NEGATIVE) Urine Bilirubin (NEGATIVE) Urine Urobilinogen (0.2-1.0) EU/dL Ur Leukocyte Esterase (NEGATIVE) Urine HCG, Qual (NEGATIVE) Salicylates (<=19.9) mg/dL Urine Opiates Screen (NEGATIVE) Ur Buprenorphine Scrn (NEGATIVE) Ur Oxycodone Screen (NEGATIVE) Urine Methadone Screen (NEGATIVE) Ur Propoxyphene Screen (NEGATIVE) Acetaminophen (10.0-30.0) ug/mL Ur Barbiturates Screen (NEGATIVE) U Tricyclic Antidepress (NEGATIVE) Ur Phencyclidine Scrn (NEGATIVE) Ur Amphetamines Screen (NEGATIVE) U Methamphetamines Scrn (NEGATIVE) U Benzodiazepines Scrn (NEGATIVE) Urine Cocaine Screen (NEGATIVE) U Cannabinoids Screen (NEGATIVE) Ethanol Quant mg/dL Discharge Plan Discharge Chief Complaint: Psychiatric Symptoms Clinical Impression: Intentional drug overdose, Suicidal ideation Patient Disposition: Xfer Psychiatric Hosp Time of Disposition Decision: 21:52 [facility] Good Mode of Transportation: Mental Health Car Discharge Date/Time: 09/29/22 10:42 Documented by User: Rosita Rivas MD 09/30/22 19:28 HPI - Psych General Chief Complaint: Psychiatric Symptoms Stated Complaint: suicidal Time Seen by Provider: 09/28/22 15:43 Related Data Home Medications Medication Instructions Recorded Confirmed diclofenac sodium 1 % topical gel 2 g topical DAILY 09/28/22 09/28/22 diclofenac sodium 75 mg 75 mg PO DAILY 09/28/22 09/28/22 tablet,delayed release diphenhydramine HCl 25 mg tablet 25 mg PO DAILY 09/28/22 09/28/22 docusate sodium 100 mg capsule 100 mg PO DAILY 09/28/22 09/28/22 duloxetine 30 mg capsule,delayed 30 mg PO DAILY 09/28/22 09/28/22 release gabapentin 100 mg capsule 100 mg PO DAILY 09/28/22 09/28/22 hydroxyzine pamoate 50 mg capsule 50 mg PO DAILY 09/28/22 09/28/22 melatonin 5 mg tablet 5 mg PO DAILY 09/28/22 09/28/22 metoprolol succinate 50 mg 50 mg PO DAILY 09/28/22 09/28/22 tablet,extended release 24 hr nicotine (polacrilex) 4 mg gum 4 mg mucous membrane DAILY 09/28/22 09/28/22 olanzapine 5 mg tablet 5 mg PO DAILY 09/28/22 09/28/22 sertraline 50 mg tablet 50 mg PO DAILY 09/28/22 09/28/22 trazodone 50 mg tablet 50 mg PO DAILY 09/28/22 09/28/22 Allergies Allergy/AdvReac Type Severity Reaction Status Date / Time cefaclor [From [facility]] Allergy Hives Verified 08/12/22 18:58 [facility] Medical History (Updated 09/28/22 @ 22:36 by Dena No) Surgical History (Updated 08/12/22 @ 21:07 by Ana Das) (2019) (2015) Social History Smoking status: Current every day smoker Exam Constitutional Vital Signs, click to edit/add: Last Vital Signs Temp 98.5 F 09/29/22 01:45 Pulse 80 09/29/22 05:23 Resp 16 09/29/22 05:23 BP 105/61 09/29/22 05:23 Pulse Ox 96 09/29/22 05:23 O2 Del Method Room Air 09/28/22 15:34 Course Vital Signs Vital signs: Vital Signs Blood Pressure 130/85 H 09/28/22 15:33 Temperature 98.5 F 09/29/22 01:45 Pulse Rate 80 07/19/23 05:23 Respiratory Rate 16 09/29/22 05:23 Blood Pressure 105/61 09/29/22 05:23 Pulse Oximetry 96 09/29/22 05:23 Oxygen Delivery Method Room Air 09/28/22 15:34 MDM - Psych MDM Narrative Medical decision making narrative: poison control was contacted immediately on the patient's arrival to the emergency department. Based on her ingestion, it was recommended that she be observed for 4-6 hours. Patient was observed for six hours from her initial presentation to the Emergency Department. She maintained stable vital signs, she is calm and cooperative in the Emergency Room. Labs were ordered showing the patient has an elevated troponin, although she has a drug screen is positive for cocaine and her previous lab studies were reviewed. Patient had multiple troponins taken on 06/06/22 for similar ingestion and she was noted to have three troponins at or above 100. A 2nd troponin was ordered for the patient in the Emergency Room, this has decreased. She has EKG showing ST depression which was present on a previous EKG from 06/06/22. Patient was treated with IV fluids, Zofran and Phenergan. She had no episodes of emesis in the emergency department, although due to her nausea she was not given any charcoal. Patient is medically clear for psychiatric evaluation and we anticipate transfer given the patient's intentional overdose and suicidal ideation with auditory hallucinations. 2150: case is turned over to attending physician Dr Austin at this time pending psychiatric evaluation and transfer. 0950 09/29/22 Dr HAN NOTE Patient will be picked up at approximately 10 AM for transfer. Patient is going to [facility], Dr. Harrington . There is concern that patient had positive illicit drugs in her urine drug testing. We have called children's services, Vannesa العراقي spoke to show Saravanan From [place] [facility]. There have been several other reports on this patient to children's services as well. Today's Emergency Room visit, urine drug testing was discussed with children's services on behalf of the safety of the children at home. Patient will be transferred to psychiatric facility for further evaluation and treatme nt. Patient had a mild headache, she is given Tylenol. Patient has been eating and drinking with breakfast no difficulty. There is been no difficulties to the night time babysitter for Dr. Austin as reported to me and transition this morning at 7 AM. Patient has been in the Emergency Room for over 19 hours. Critical care time >75 minutes exclusive from separate billable procedures that were performed. The following was considered in the determination of critical care but not limited to the level of medical decision making, intensive cardiac and/or respiratory monitoring, frequent vital sign monitoring, evaluation of laboratory studies, evaluation of radiographic studies, oxygen monitoring, and constant monitoring and speaking to family at bedside Attending physician attestation I have reviewed the mid-level documentation, agree with the documentation, medical decision making and treatment plan as outlined by the mid-level provider. Lab Data Labs: Lab Results 09/28/22 09/28/22 09/28/22 Range/Units 15:45 15:53 15:57 WBC 5.9 (4.0-11.0) 10^3/uL RBC 4.62 (4.20-5.40) 10^6/uL Hgb 14.1 (12.0-16.0) g/dL Hct 42.5 (36.0-48.0) % MCV 92.0 (81.0-99.0) fL MCH 30.5 (26.7-34.0) pg MCHC 33.2 (29.9-35.2) g/dL RDW 13.4 (11.0-15.0) % Plt Count 246 (150-450) 10^3/uL MPV 9.3 L (9.5-13.5) fL Neut % (Auto) 72.0 (43.0-75.0) % Lymph % (Auto) 15.9 L (20.5-60.0) % [place] % (Auto) 11.0 (1.7-12.0) % Eos % (Auto) 0.5 L (0.9-7.0) % Baso % (Auto) 0.3 (0.2-2.0) % Neut # (Auto) 4.3 (1.4-6.5) 10^3/uL Lymph # (Auto) 0.9 L (1.2-3.8) 10^3/uL [place] # (Auto) 0.7 (0.3-0.8) 10^3/uL Eos # (Auto) 0.0 (0.0-0.7) 10^3/uL Baso # (Auto) 0.0 (0.0-0.1) 10^3/uL Abs Immat Gran (auto) 0.02 (0.00-0.03) 10^3/uL Imm/Tot Granulo (auto) 0.3 (0.0-0.5) % Sodium 137 (136-145) mmol/L Potassium 3.7 (3.5-5.1) mmol/L Chloride 104 (98-107) mmol/L Carbon Dioxide 25.9 (21.0-32.0) mmol/L Anion Gap 10.8 BUN 11.0 (7.0-18.0) mg/dL Creatinine 0.90 (0.55-1.02) mg/dL Est GFR ( Amer) >60 (>=60) Est GFR (Non-Af Amer) >60 (>=60) BUN/Creatinine Ratio 12.2 Glucose 95 (74-106) mg/dL Calcium 8.7 (8.5-10.1) mg/dL Total Bilirubin 0.5 (0.2-1.0) mg/dL AST 13 L (15-37) U/L ALT 15 (14-59) U/L Alkaline Phosphatase 57 (46-116) U/L Total Creatine Kinase (26-192) U/L CK-MB (CK-2) (<=3.60) ng/mL Troponin I High Sens 74.5 H* (4.0-51.3) pg/mL Total Protein 7.3 (6.4-8.2) g/dL Albumin 3.8 (3.4-5.0) g/dL Globulin 3.5 g/dL Albumin/Globulin Ratio 1.1 Urine Color Yellow (YELLOW) Urine Clarity Clear (CLEAR) Urine pH 6.5 (5.0-9.0) Ur Specific [place] 1.015 (1.005-1.025) Urine Protein Negative (NEG/TRACE) mg/dL Urine Glucose (UA) Negative (NEGATIVE) mg/dL Urine Ketones Negative (NEGATIVE) mg/dL Urine Occult Blood Negative (NEGATIVE) Urine Nitrite Negative (NEGATIVE) Urine Bilirubin Negative (NEGATIVE) Urine Urobilinogen 0.2 (0.2-1.0) EU/dL Ur Leukocyte Esterase Negative (NEGATIVE) Urine HCG, Qual Negative (NEGATIVE) Salicylates <2.8 (<=19.9) mg/dL Urine Opiates Screen Positive A (NEGATIVE) Ur Buprenorphine Scrn Negative (NEGATIVE) Ur Oxycodone Screen Negative (NEGATIVE) Urine Methadone Screen Negative (NEGATIVE) Ur Propoxyphene Screen Negative (NEGATIVE) Acetaminophen <2.0 L (10.0-30.0) ug/mL Ur Barbiturates Screen Negative (NEGATIVE) U Tricyclic Antidepress Negative (NEGATIVE) Ur Phencyclidine Scrn Negative (NEGATIVE) Ur Amphetamines Screen Negative (NEGATIVE) U Methamphetamines Scrn Negative (NEGATIVE) U Benzodiazepines Scrn Negative (NEGATIVE) Urine Cocaine Screen Positive A (NEGATIVE) U Cannabinoids Screen Positive A (NEGATIVE) Ethanol Quant <3 mg/dL 09/28/22 Range/Units 18:20 WBC (4.0-11.0) 10^3/uL RBC (4.20-5.40) 10^6/uL Hgb (12.0-16.0) g/dL Hct (36.0-48.0) % MCV (81.0-99.0) fL MCH (26.7-34.0) pg MCHC (29.9-35.2) g/dL RDW (11.0-15.0) % Plt Count (150-450) 10^3/uL MPV (9.5-13.5) fL Neut % (Auto) (43.0-75.0) % Lymph % (Auto) (20.5-60.0) % [place] % (Auto) (1.7-12.0) % Eos % (Auto) (0.9-7.0) % Baso % (Auto) (0.2-2.0) % Neut # (Auto) (1.4-6.5) 10^3/uL Lymph # (Auto) (1.2-3.8) 10^3/uL [place] # (Auto) (0.3-0.8) 10^3/uL Eos # (Auto) (0.0-0.7) 10^3/uL Baso # (Auto) (0.0-0.1) 10^3/uL Abs Immat Gran (auto) (0.00-0.03) 10^3/uL Imm/Tot Granulo (auto) (0.0-0.5) % Sodium (136-145) mmol/L Potassium (3.5-5.1) mmol/L Chloride (98-107) mmol/L Carbon Dioxide (21.0-32.0) mmol/L Anion Gap BUN (7.0-18.0) mg/dL Creatinine (0.55-1.02) mg/dL Est GFR ( Amer) (>=60) Est GFR (Non-Af Amer) (>=60) BUN/Creatinine Ratio Glucose (74-106) mg/dL Calcium (8.5-10.1) mg/dL Total Bilirubin (0.2-1.0) mg/dL AST (15-37) U/L ALT (14-59) U/L Alkaline Phosphatase (46-116) U/L Total Creatine Kinase 62 (26-192) U/L CK-MB (CK-2) 1.13 (<=3.60) ng/mL Troponin I High Sens 72.5 H* (4.0-51.3) pg/mL Total Protein (6.4-8.2) g/dL Albumin (3.4-5.0) g/dL Globulin g/dL Albumin/Globulin Ratio Urine Color (YELLOW) Urine Clarity (CLEAR) Urine pH (5.0-9.0) Ur Specific [place] (1.005-1.025) Urine Protein (NEG/TRACE) mg/dL Urine Glucose (UA) (NEGATIVE) mg/dL Urine Ketones (NEGATIVE) mg/dL Urine Occult Blood (NEGATIVE) Urine Nitrite (NEGATIVE) Urine Bilirubin (NEGATIVE) Urine Urobilinogen (0.2-1.0) EU/dL Ur Leukocyte Esterase (NEGATIVE) Urine HCG, Qual (NEGATIVE) Salicylates (<=19.9) mg/dL Urine Opiates Screen (NEGATIVE) Ur Buprenorphine Scrn (NEGATIVE) Ur Oxycodone Screen (NEGATIVE) Urine Methadone Screen (NEGATIVE) Ur Propoxyphene Screen (NEGATIVE) Acetaminophen (10.0-30.0) ug/mL Ur Barbiturates Screen (NEGATIVE) U Tricyclic Antidepress (NEGATIVE) Ur Phencyclidine Scrn (NEGATIVE) Ur Amphetamines Screen (NEGATIVE) U Methamphetamines Scrn (NEGATIVE) U Benzodiazepines Scrn (NEGATIVE) Urine Cocaine Screen (NEGATIVE) U Cannabinoids Screen (NEGATIVE) Ethanol Quant mg/dL Discharge Plan Discharge Chief Complaint: Psychiatric Symptoms Clinical Impression: Intentional drug overdose, Suicidal ideation Patient Disposition: Xfer Psychiatric Hosp Time of Disposition Decision: 21:52 [facility] Mode of Transportation: Mental Health Car Discharge Date/Time: 09/29/22 10:42
[2022-09-28 17:08] LABS: HCG Qualitative NEGATIVE (NEGATIVE)
[2022-09-28] MEDS: 0.9 % SODIUM CHLORIDE 1,000 ML 1000 ML IV (17:30)
[2022-09-28] MEDS: PROMETHAZINE HCL 25 MG/ML VIAL 12.5 MG IV (17:37)
[2022-09-28 18:49] LABS: Creatine Kinase 62 U/L (26-192); Creatine Kinase MB 1.13 ng/mL (<=3.60)
[2022-09-28 18:51] LABS: Troponin I High Sensitivity 72.5 pg/mL (4.0-51.3)
[2022-09-29 01:45] VITALS: BP 100/70; PULSE 74; RESP 16; TEMP 36.9; O2SAT 96
--- NOTE | 2022-09-29 04:44 | ED.PSYCH1 ---
HPI - Psych General Chief Complaint: Psychiatric Symptoms Stated Complaint: suicidal Time Seen by Provider: 09/28/22 15:43 Source: Reports patient Mode of arrival: ambulance Limitations: Reports no limitations History of Present Illness HPI Narrative: This 32-year-old female was seen and evaluated in conjunction with the physician front office medical assistant. She presents after she took an intentional overdose of trazodone, Flexeril and Neurontin in a suicide attempt after an argument with her .. She also has A history of cardiomyopathy and has a defibrillator. She is known to have elevated troponins. Additionally she tested positive for marijuana, cocaine and Opiates. Besides her elevated troponin and urine drug screen toxicology, she has been stable in the emergency department. She was medically cleared and pink slipped. [facility] has been evaluating her for placement. She has been stable in the emergency department and has slept throughout the majority of my shift. She has been forthcoming with the counselors and is aware that we are working towards getting her psychiatrically admitted. Patient was accepted at [facility] by Dr Harrington. Related Data Home Medications Medication Instructions Recorded Confirmed diclofenac sodium 1 % topical gel 2 g topical DAILY 09/28/22 09/28/22 diclofenac sodium 75 mg 75 mg PO DAILY 09/28/22 09/28/22 tablet,delayed release diphenhydramine HCl 25 mg tablet 25 mg PO DAILY 09/28/22 09/28/22 docusate sodium 100 mg capsule 100 mg PO DAILY 09/28/22 09/28/22 duloxetine 30 mg capsule,delayed 30 mg PO DAILY 09/28/22 09/28/22 release gabapentin 100 mg capsule 100 mg PO DAILY 09/28/22 09/28/22 hydroxyzine pamoate 50 mg capsule 50 mg PO DAILY 09/28/22 09/28/22 melatonin 5 mg tablet 5 mg PO DAILY 09/28/22 09/28/22 metoprolol succinate 50 mg 50 mg PO DAILY 09/28/22 09/28/22 tablet,extended release 24 hr nicotine (polacrilex) 4 mg gum 4 mg mucous membrane DAILY 09/28/22 09/28/22 olanzapine 5 mg tablet 5 mg PO DAILY 09/28/22 09/28/22 sertraline 50 mg tablet 50 mg PO DAILY 09/28/22 09/28/22 trazodone 50 mg tablet 50 mg PO DAILY 09/28/22 09/28/22 Allergies Allergy/AdvReac Type Severity Reaction Status Date / Time cefaclor [From [facility]] Allergy Hives Verified 08/12/22 18:[address] [facility] Medical History (Updated 09/28/22 @ 22:36 by Dena No) Surgical History (Updated 08/12/22 @ 21:07 by Ana Das) (2019) (2016) Social History Smoking status: Current every day smoker Exam Constitutional Vital Signs, click to edit/add: Last Vital Signs Temp 98.5 F 09/29/22 01:45 Pulse 80 09/29/22 05:23 Resp 16 09/29/22 05:23 BP 105/61 09/29/22 05:23 Pulse Ox 96 09/29/22 05:23 O2 Del Method Room Air 09/28/22 15:34 Course Vital Signs Vital signs: Vital Signs Blood Pressure 130/85 H 09/28/22 15:33 Temperature 98.5 F 09/29/22 01:45 Pulse Rate 80 09/29/22 05:23 Respiratory Rate 16 09/29/22 05:23 Blood Pressure 105/61 09/29/22 05:23 Pulse Oximetry 96 09/29/22 05:23 Oxygen Delivery Method Room Air 09/28/22 15:34 MDM - Psych Lab Data Labs: Lab Results 09/28/22 09/28/22 09/28/22 Range/Units 15:45 15:53 15:57 WBC 5.9 (4.0-11.0) 10^3/uL RBC 4.62 (4.20-5.40) 10^6/uL Hgb 14.1 (12.0-16.0) g/dL Hct 42.5 (36.0-48.0) % MCV 92.0 (81.0-99.0) fL MCH 30.5 (26.7-34.0) pg MCHC 33.2 (29.9-35.2) g/dL RDW 13.4 (11.0-15.0) % Plt Count 246 (150-450) 10^3/uL MPV 9.3 L (9.5-13.5) fL Neut % (Auto) 72.0 (43.0-75.0) % Lymph % (Auto) 15.9 L (20.5-60.0) % [place] % (Auto) 11.0 (1.7-12.0) % Eos % (Auto) 0.5 L (0.9-7.0) % Baso % (Auto) 0.3 (0.2-2.0) % Neut # (Auto) 4.3 (1.4-6.5) 10^3/uL Lymph # (Auto) 0.9 L (1.2-3.8) 10^3/uL [place] # (Auto) 0.7 (0.3-0.8) 10^3/uL Eos # (Auto) 0.0 (0.0-0.7) 10^3/uL Baso # (Auto) 0.0 (0.0-0.1) 10^3/uL Abs Immat Gran (auto) 0.02 (0.00-0.03) 10^3/uL Imm/Tot Granulo (auto) 0.3 (0.0-0.5) % Sodium 137 (136-145) mmol/L Potassium 3.7 (3.5-5.1) mmol/L Chloride 104 (98-107) mmol/L Carbon Dioxide 25.9 (21.0-32.0) mmol/L Anion Gap 10.8 BUN 11.0 (7.0-18.0) mg/dL Creatinine 0.90 (0.55-1.02) mg/dL Est GFR ( Amer) >60 (>=60) Est GFR (Non-Af Amer) >60 (>=60) BUN/Creatinine Ratio 12.2 Glucose 95 (74-106) mg/dL Calcium 8.7 (8.5-10.1) mg/dL Total Bilirubin 0.5 (0.2-1.0) mg/dL AST 13 L (15-37) U/L ALT 15 (14-59) U/L Alkaline Phosphatase 57 (46-116) U/L Total Creatine Kinase (26-192) U/L CK-MB (CK-2) (<=3.60) ng/mL Troponin I High Sens 74.5 H* (4.0-51.3) pg/mL Total Protein 7.3 (6.4-8.2) g/dL Albumin 3.8 (3.4-5.0) g/dL Globulin 3.5 g/dL Albumin/Globulin Ratio 1.1 Urine Color Yellow (YELLOW) Urine Clarity Clear (CLEAR) Urine pH 6.5 (5.0-9.0) Ur Specific [place] 1.015 (1.005-1.025) Urine Protein Negative (NEG/TRACE) mg/dL Urine Glucose (UA) Negative (NEGATIVE) mg/dL Urine Ketones Negative (NEGATIVE) mg/dL Urine Occult Blood Negative (NEGATIVE) Urine Nitrite Negative (NEGATIVE) Urine Bilirubin Negative (NEGATIVE) Urine Urobilinogen 0.2 (0.2-1.0) EU/dL Ur Leukocyte Esterase Negative (NEGATIVE) Urine HCG, Qual Negative (NEGATIVE) Salicylates <2.8 (<=19.9) mg/dL Urine Opiates Screen Positive A (NEGATIVE) Ur Buprenorphine Scrn Negative (NEGATIVE) Ur Oxycodone Screen Negative (NEGATIVE) Urine Methadone Screen Negative (NEGATIVE) Ur Propoxyphene Screen Negative (NEGATIVE) Acetaminophen <2.0 L (10.0-30.0) ug/mL Ur Barbiturates Screen Negative (NEGATIVE) U Tricyclic Antidepress Negative (NEGATIVE) Ur Phencyclidine Scrn Negative (NEGATIVE) Ur Amphetamines Screen Negative (NEGATIVE) U Methamphetamines Scrn Negative (NEGATIVE) U Benzodiazepines Scrn Negative (NEGATIVE) Urine Cocaine Screen Positive A (NEGATIVE) U Cannabinoids Screen Positive A (NEGATIVE) Ethanol Quant <3 mg/dL 09/28/22 Range/Units 18:20 WBC (4.0-11.0) 10^3/uL RBC (4.20-5.40) 10^6/uL Hgb (12.0-16.0) g/dL Hct (36.0-48.0) % MCV (81.0-99.0) fL MCH (26.7-34.0) pg MCHC (29.9-35.2) g/dL RDW (11.0-15.0) % Plt Count (150-450) 10^3/uL MPV (9.5-13.5) fL Neut % (Auto) (43.0-75.0) % Lymph % (Auto) (20.5-60.0) % [place] % (Auto) (1.7-12.0) % Eos % (Auto) (0.9-7.0) % Baso % (Auto) (0.2-2.0) % Neut # (Auto) (1.4-6.5) 10^3/uL Lymph # (Auto) (1.2-3.8) 10^3/uL [place] # (Auto) (0.3-0.8) 10^3/uL Eos # (Auto) (0.0-0.7) 10^3/uL Baso # (Auto) (0.0-0.1) 10^3/uL Abs Immat Gran (auto) (0.00-0.03) 10^3/uL Imm/Tot Granulo (auto) (0.0-0.5) % Sodium (136-145) mmol/L Potassium (3.5-5.1) mmol/L Chloride (98-107) mmol/L Carbon Dioxide (21.0-32.0) mmol/L Anion Gap BUN (7.0-18.0) mg/dL Creatinine (0.55-1.02) mg/dL Est GFR ( Amer) (>=60) Est GFR (Non-Af Amer) (>=60) BUN/Creatinine Ratio Glucose (74-106) mg/dL Calcium (8.5-10.1) mg/dL Total Bilirubin (0.2-1.0) mg/dL AST (15-37) U/L ALT (14-59) U/L Alkaline Phosphatase (46-116) U/L Total Creatine Kinase 62 (26-192) U/L CK-MB (CK-2) 1.13 (<=3.60) ng/mL Troponin I High Sens 72.5 H* (4.0-51.3) pg/mL Total Protein (6.4-8.2) g/dL Albumin (3.4-5.0) g/dL Globulin g/dL Albumin/Globulin Ratio Urine Color (YELLOW) Urine Clarity (CLEAR) Urine pH (5.0-9.0) Ur Specific [place] (1.005-1.025) Urine Protein (NEG/TRACE) mg/dL Urine Glucose (UA) (NEGATIVE) mg/dL Urine Ketones (NEGATIVE) mg/dL Urine Occult Blood (NEGATIVE) Urine Nitrite (NEGATIVE) Urine Bilirubin (NEGATIVE) Urine Urobilinogen (0.2-1.0) EU/dL Ur Leukocyte Esterase (NEGATIVE) Urine HCG, Qual (NEGATIVE) Salicylates (<=19.9) mg/dL Urine Opiates Screen (NEGATIVE) Ur Buprenorphine Scrn (NEGATIVE) Ur Oxycodone Screen (NEGATIVE) Urine Methadone Screen (NEGATIVE) Ur Propoxyphene Screen (NEGATIVE) Acetaminophen (10.0-30.0) ug/mL Ur Barbiturates Screen (NEGATIVE) U Tricyclic Antidepress (NEGATIVE) Ur Phencyclidine Scrn (NEGATIVE) Ur Amphetamines Screen (NEGATIVE) U Methamphetamines Scrn (NEGATIVE) U Benzodiazepines Scrn (NEGATIVE) Urine Cocaine Screen (NEGATIVE) U Cannabinoids Screen (NEGATIVE) Ethanol Quant mg/dL Discharge Plan Discharge Chief Complaint: Psychiatric Symptoms Clinical Impression: Intentional drug overdose, Suicidal ideation Patient Disposition: [facility] Time of Disposition Decision: 21:52 Condition: Good
[2022-09-29 05:23] VITALS: BP 105/61; PULSE 80; RESP 16; O2SAT 96
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
[2022-09-29] MEDS: ACETAMINOPHEN 500 MG TABLET 1000 MG PO (09:40)
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
== END 2022-09-29 10:42 ==
PROVIDERS: Emergency Medicine; Physician Assistant; Emergency Provider Emergency Medicine; PCP Nurse Practitioner Family
DX: T48.1X2A Poisoning by skeletal muscle relaxants [neuromuscular blocking agents], intentional self-harm, initial encounter (principal); T43.212A Poisoning by selective serotonin and norepinephrine reuptake inhibitors, intentional self-harm, initial encounter; T42.6X2A Poisoning by other antiepileptic and sedative-hypnotic drugs, intentional self-harm, initial encounter; R45.851 Suicidal ideations; R44.0 Auditory hallucinations; F17.210 Nicotine dependence, cigarettes, uncomplicated; I42.2 Other hypertrophic cardiomyopathy; Z95.810 Presence of automatic (implantable) cardiac defibrillator; Z79.899 Other long term (current) drug therapy
CPT/HCPCS: 36415; 80053; 80179; 80307; 80320; 80329; 81003; 82550; 82553; 84484; 84703; 85025; 93005; 99291

== ENCOUNTER 2022-10-05 21:44 | Emergency (ER) | payer OTHER, SELFPAY ==
[2022-10-05 21:51] VITALS: BP 143/108; PULSE 69; RESP 20; TEMP 36.8; O2SAT 97; BMI 27.4
--- NOTE | 2022-10-05 22:08 | ED_ITS ---
HPI - General Adult General Chief complaint: Psychiatric Symptoms Stated complaint: ANXIETY Time Seen by Provider: 10/05/22 22:08 Source: patient Mode of arrival: walk-in Limitations: no limitations History of Present Illness HPI narrative: She presents to emergency department complaining of suicidal ideation. Patient states she has felt like she wants car into her wrists. Patient was hospitalized in [place] 5 days ago for suicidal ideation and she was doing well but did not feel like she was ready to go home today. She voiced that to the facility but they still sent her in a cab to her grandmother's house. When she got to the grandma's house so the grandmother she was still having suicidal ideation and they came back to the emergency department to be admitted at [facility] which is her hospital of preference. Patient does not have any somatic complaints. She denies any auditory or visual hallucinations. Related Data Home Medications Medication Instructions Recorded Confirmed diclofenac sodium 1 % topical gel 2 g topical DAILY 09/28/22 10/05/22 diclofenac sodium 75 mg 75 mg PO DAILY 09/28/22 10/05/22 tablet,delayed release diphenhydramine HCl 25 mg tablet 25 mg PO DAILY 09/28/22 10/05/22 docusate sodium 100 mg capsule 100 mg PO DAILY 09/28/22 10/05/22 duloxetine 30 mg capsule,delayed 30 mg PO DAILY 09/28/22 10/05/22 release gabapentin 100 mg capsule 100 mg PO DAILY 09/28/22 10/05/22 hydroxyzine pamoate 50 mg capsule 50 mg PO DAILY 09/28/22 10/05/22 melatonin 5 mg tablet 5 mg PO DAILY 09/28/22 10/05/22 metoprolol succinate 50 mg 50 mg PO DAILY 09/28/22 10/05/22 tablet,extended release 24 hr nicotine (polacrilex) 4 mg gum 4 mg mucous membrane DAILY 09/28/22 10/05/22 olanzapine 5 mg tablet 5 mg PO DAILY 09/28/22 10/05/22 sertraline 50 mg tablet 50 mg PO DAILY 09/28/22 10/05/22 trazodone 50 mg tablet 100 mg PO DAILY 09/28/22 10/05/22 Allergies Allergy/AdvReac Type Severity Reaction Status Date / Time cefaclor [From [facility]] Allergy Hives Verified 07/25/23 21:57 Review of Systems ROS Status of ROS 10 or more systems reviewed and unremarkable except as noted in history and below [facility] Medical History (Updated 10/06/22 @ 06:21 by Rosita Rivas MD) Surgical History (Updated 08/12/22 @ 21:07 by Ana Das) (2019) (2016) Social History Smoking status: Former smoker Exam Narrative Exam Narrative: Nurses notes and vital signs reviewed and patient is not hypoxic. General: Nontoxic, Well-appearing and in no apparent distress. Skin: Warm, dry, no pallor noted. No Rash Head: Normocephalic, atraumatic. Neck: Supple, non-tender. Eye: Pupils are equal, round and EOMI. No scleral icterus. Ears, Nose, Mouth, and Throat: TM clear, no posterior oropharynx erythema or nasal mucosal hypertrophy, uvula is mid-line Oral mucosa is moist Cardiovascular: Regular Rate and Rhythm without murmur, gallop or rub. Respiratory: No accessory muscle use or respiratory distress. Lungs are clear to auscultation, no wheezing, rales or rhonchi Chest Wall: no tenderness Back: No midline thoracic or lumbar vertebral tenderness. No CVA tenderness Musculoskeletal: Multiple scabbed abrasions to the left ventral wrist.normal ROM, no calf or popliteal tenderness, no lower extremity edema/swelling GI: Abdomen is soft, non-distended. Normal bowel sounds. No masses appreciated. No tenderness to palpation. No rebound, guarding, or rigidity noted. Neurological: A&O x4. No cranial nerve dysfunction observed. No truncal ataxia. Moves all extremities. Sensation intact. Psychiatric: Cooperative and interactive. Normal mood and affect. Constitutional Vital Signs, click to edit/add: Last Vital Signs Temp 98.2 F 10/05/22 21:51 Pulse 89 10/06/22 04:20 Resp 16 10/06/22 04:20 BP 106/80 H 10/06/22 04:20 Pulse Ox 96 10/06/22 04:20 O2 Del Method Room Air 10/06/22 04:20 Course Vital Signs Vital signs: Vital Signs Temperature 98.2 F 10/05/22 21:51 Pulse Rate 69 10/05/22 21:51 Respiratory Rate 20 10/05/22 21:51 Blood Pressure 143/108 H 10/05/22 21:51 Pulse Oximetry 97 10/05/22 21:51 Oxygen Delivery Method Room Air 10/05/22 21:51 Temperature 98.2 F 10/05/22 21:51 Pulse Rate 89 10/06/22 04:20 Respiratory Rate 16 10/06/22 04:20 Blood Pressure 106/80 H 10/06/22 04:20 Pulse Oximetry 96 10/06/22 04:20 Oxygen Delivery Method Room Air 10/06/22 04:20 Medical Decision Making MDM Narrative Medical decision making narrative: Patient will be medically clear for psychiatric evaluation and treatment. She will be discussed with [facility]. The patient was accepted at [facility] psychiatry by Dr. Asif. She is medically clear for psychiatric evaluation and treatment[facility] at 10[facility]30 AM. She'll signed out to Dr. HIGGINS awaiting transportation. Medical Records Medical records reviewed: Yes I reviewed the patient's medical records Lab Data Lab results reviewed: Yes I reviewed the patient's lab results Labs: Lab Results 10/05/22 10/05/22 Range/Units 21:56 22:32 WBC 5.5 (4.0-11.0) 10^3/uL RBC 4.30 (4.20-5.40) 10^6/uL Hgb 13.3 (12.0-16.0) g/dL Hct 38.9 (36.0-48.0) % MCV 90.5 (81.0-99.0) fL MCH 30.9 (26.7-34.0) pg MCHC 34.2 (29.9-35.2) g/dL RDW 13.1 (11.0-15.0) % Plt Count 230 (150-450) 10^3/uL MPV 9.9 (9.5-13.5) fL Neut % (Auto) 58.2 (43.0-75.0) % Lymph % (Auto) 22.9 (20.5-60.0) % [place] % (Auto) 15.2 H (1.7-12.0) % Eos % (Auto) 2.2 (0.9-7.0) % Baso % (Auto) 0.6 (0.2-2.0) % Neut # (Auto) 3.2 (1.4-6.5) 10^3/uL Lymph # (Auto) 1.3 (1.2-3.8) 10^3/uL [place] # (Auto) 0.8 (0.3-0.8) 10^3/uL Eos # (Auto) 0.1 (0.0-0.7) 10^3/uL Baso # (Auto) 0.0 (0.0-0.1) 10^3/uL Abs Immat Gran (auto) 0.05 H (0.00-0.03) 10^3/uL Imm/Tot Granulo (auto) 0.9 H (0.0-0.5) % Sodium 138 (136-145) mmol/L Potassium 3.8 (3.5-5.1) mmol/L Chloride 102 (98-107) mmol/L Carbon Dioxide 26.7 (21.0-32.0) mmol/L Anion Gap 13.1 BUN 21.0 H (7.0-18.0) mg/dL Creatinine 0.87 (0.55-1.02) mg/dL Est GFR ( Amer) >60 (>=60) Est GFR (Non-Af Amer) >60 (>=60) BUN/Creatinine Ratio 24.1 Glucose 107 H (74-106) mg/dL Calcium 8.3 L (8.5-10.1) mg/dL Total Bilirubin 0.2 (0.2-1.0) mg/dL AST 45 H (15-37) U/L ALT 26 (14-59) U/L Alkaline Phosphatase 60 (46-116) U/L Total Protein 7.0 (6.4-8.2) g/dL Albumin 3.7 (3.4-5.0) g/dL Globulin 3.3 g/dL Albumin/Globulin Ratio 1.1 Urine Color Lt. yellow (YELLOW) Urine Clarity Clear (CLEAR) Urine pH 5.5 (5.0-9.0) Ur Specific [place] 1.010 (1.005-1.025) Urine Protein Negative (NEG/TRACE) mg/dL Urine Glucose (UA) Negative (NEGATIVE) mg/dL Urine Ketones Negative (NEGATIVE) mg/dL Urine Occult Blood Moderate A (NEGATIVE) Urine Nitrite Negative (NEGATIVE) Urine Bilirubin Negative (NEGATIVE) Urine Urobilinogen 0.2 (0.2-1.0) EU/dL Ur Leukocyte Esterase Negative (NEGATIVE) Urine RBC 0-2 (0-2) #/HPF Urine WBC 0-2 A (NONE SEEN) #/HPF Ur Squamous Epith Cells Rare (NONE/RARE) #/LPF Urine Crystals None seen (None Seen) #/HPF Urine Bacteria None seen (NONE SEEN) #/HPF Urine Casts None seen (NONE SEEN) #/LPF Urine Mucus None seen (NONE SEEN) Ur Culture Indicated? No Salicylates <2.8 (<=19.9) mg/dL Urine Opiates Screen Negative (NEGATIVE) Ur Buprenorphine Scrn Negative (NEGATIVE) Ur Oxycodone Screen Negative (NEGATIVE) Urine Methadone Screen Negative (NEGATIVE) Ur Propoxyphene Screen Negative (NEGATIVE) Acetaminophen <2.0 L (10.0-30.0) ug/mL Ur Barbiturates Screen Negative (NEGATIVE) U Tricyclic Antidepress Negative (NEGATIVE) Ur Phencyclidine Scrn Negative (NEGATIVE) Ur Amphetamines Screen Negative (NEGATIVE) U Methamphetamines Scrn Negative (NEGATIVE) U Benzodiazepines Scrn Negative (NEGATIVE) Urine Cocaine Screen Negative (NEGATIVE) U Cannabinoids Screen Positive A (NEGATIVE) Ethanol Quant <3 mg/dL ECG Data Attestation: I personally reviewed and interpreted this ECG as follows: Discharge Plan Discharge Chief Complaint: Psychiatric Symptoms Clinical Impression: Suicidal ideation, Bipolar disorder Patient Disposition: Still a Patient Prescriptions / Home Meds: No Action diphenhydramine HCl 25 mg tablet 25 mg PO DAILY diclofenac sodium 75 mg tablet,delayed release (DR/EC) 75 mg PO DAILY diclofenac sodium 1 % gel 2 g TOPICAL DAILY docusate sodium 100 mg capsule 100 mg PO DAILY duloxetine 30 mg capsule,delayed release(DR/EC) 30 mg PO DAILY gabapentin 100 mg capsule 100 mg PO DAILY hydroxyzine pamoate 50 mg capsule 50 mg PO DAILY melatonin 5 mg tablet 5 mg PO DAILY metoprolol succinate 50 mg tablet extended release 24 hr 50 mg PO DAILY nicotine (polacrilex) 4 mg gum 4 mg mucous membrane DAILY olanzapine 5 mg tablet 5 mg PO DAILY sertraline 50 mg tablet 50 mg PO DAILY trazodone 50 mg tablet 100 mg PO DAILY Referrals: ARYA LOPEZ [Primary Care Provider] - 1 week
[2022-10-05 22:14] VITALS: PULSE 111
--- NOTE | 2022-10-05 22:15 | ECG_ITS ---
The [facility] Test Date: 2022-10-05 Pat Name: LESTER ART Department: Room: - Gender: Female Department Mgr: : 1990 Requested By: ARYA LOPEZ Order Number: [id number] Reading MD: ANN HOUSTON Measurements Intervals [place] Rate: 107 P: 65 [place]: 172 QRS: 56 QRSD: 88 T: -40 QT: 334 QTc: 397 Interpretive Statements 1120 Sinus tachycardia [address] depression, can't exclude inferolateral ischemia 6120 Possible right atrial enlargement 9150 abnormal ECG Electronically Signed On 10-06-2022 7:08:08 EDT by ANN HOUSTON
[2022-10-05 22:28] VITALS: BP 138/80; PULSE 111; RESP 16
[2022-10-05 22:53] LABS: Basophils Percent Auto 0.6 % (0.2-2.0); Eosinophils Absolute Auto 0.1 10^3/uL (0.0-0.7); Eosinophils Percent Auto 2.2 % (0.9-7.0); Hematocrit 38.9 % (36.0-48.0); Hemoglobin 13.3 g/dL (12.0-16.0); Immature Granulocytes Abs Auto 0.05 10^3/uL (0.00-0.03); Immature Granulocytes Pct Auto 0.9 % (0.0-0.5); Lymphocytes Absolute Auto 1.3 10^3/uL (1.2-3.8); Lymphocytes Percent Auto 22.9 % (20.5-60.0); Mean Corpuscular HGB Conc 34.2 g/dL (29.9-35.2); Mean Corpuscular Hemoglobin 30.9 pg (26.7-34.0); Mean Corpuscular Volume 90.5 fL (81.0-99.0); Mean Platelet Volume 9.9 fL (9.5-13.5); Monocytes Absolute Auto 0.8 10^3/uL (0.3-0.8); Monocytes Percent Auto 15.2 % (1.7-12.0); Neutrophils Absolute Auto 3.2 10^3/uL (1.4-6.5); Neutrophils Percent Auto 58.2 % (43.0-75.0); Platelet Count 230 10^3/uL (150-450); Red Cell Distribution Width 13.1 % (11.0-15.0); White Blood Count 5.5 10^3/uL (4.0-11.0)
[2022-10-05 22:56] LABS: Bilirubin Urine NEGATIVE (NEGATIVE); Blood Urine MODERATE (NEGATIVE); Clarity Urine CLEAR (CLEAR); Color Urine LT. YELLOW (YELLOW); Glucose Urine UA NEGATIVE (NEGATIVE); Ketones Urine NEGATIVE (NEGATIVE); Leukocyte Esterase Urine NEGATIVE (NEGATIVE); Nitrite Urine NEGATIVE (NEGATIVE); Protein Urine NEGATIVE (NEG/TRACE); Urobilinogen Urine 0.2 EU/dL (0.2-1.0); pH Urine 5.5 (5.0-9.0)
[2022-10-05 22:59] LABS: Urine Microscopic Indicated YES
[2022-10-05 23:03] LABS: Bacteria Urine NONE SEEN #/HPF (NONE SEEN); Cast Seen? NONE SEEN #/LPF (NONE SEEN); Crystals Seen? None Seen #/HPF (None Seen); Mucus Urine NONE SEEN (NONE SEEN); RBC Urine 0-2 #/HPF (0-2); Squamous Epithelial Cell Urine RARE #/LPF (NONE/RARE); Urine Culture Indicated NO; WBC Urine 0-2 #/HPF (NONE SEEN)
[2022-10-05 23:04] LABS: Cannabinoid Screen Urine POSITIVE (NEGATIVE); Cocaine Screen Urine NEGATIVE (NEGATIVE); Phencyclidine Screen Urine NEGATIVE (NEGATIVE)
[2022-10-05 23:05] LABS: Amphetamine Screen Urine NEGATIVE (NEGATIVE); Barbiturates Screen Urine NEGATIVE (NEGATIVE); Benzodiazepines Screen Urine NEGATIVE (NEGATIVE); Buprenorphine Screen Urine NEGATIVE (NEGATIVE); Methadone Screen Urine NEGATIVE (NEGATIVE); Methamphetamines Screen Urine NEGATIVE (NEGATIVE); Opiate Screen Urine NEGATIVE (NEGATIVE); Oxycodone Screen Urine NEGATIVE (NEGATIVE); Tricyclic Antidepressant Urine NEGATIVE (NEGATIVE)
[2022-10-05 23:08] LABS: Alanine Aminotransferase 26 U/L (14-59); Albumin Globulin Ratio 1.1; Albumin Level 3.7 g/dL (3.4-5.0); Alkaline Phosphatase 60 U/L (46-116); Anion Gap 13.1; Aspartate Amino Transferase 45 U/L (15-37); BUN Creatinine Ratio 24.1; Bilirubin Total 0.2 mg/dL (0.2-1.0); Calcium 8.3 mg/dL (8.5-10.1); Carbon Dioxide 26.7 mmol/L (21.0-32.0); Chloride 102 mmol/L (98-107); Estimated GFR (African America >60 (>=60); Estimated GFR (Non-African Ame >60 (>=60); Globulin 3.3 g/dL; Glucose 107 mg/dL (74-106); Potassium 3.8 mmol/L (3.5-5.1); Sodium 138 mmol/L (136-145)
[2022-10-05 23:10] LABS: Salicylate <2.8 mg/dL (<=19.9)
[2022-10-05 23:12] LABS: Acetaminophen <2.0 ug/mL (10.0-30.0); Ethanol <3 mg/dL
--- NOTE | 2022-10-05 23:14 | PC.NURSE ---
Talked with Hotline. Sitter at cart side.
[2022-10-05 23:43] VITALS: BP 131/96; PULSE 100; RESP 16; O2SAT 97
--- NOTE | 2022-10-06 00:53 | ECG_ITS ---
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
[2022-10-06 04:20] VITALS: BP 106/80; PULSE 89; RESP 16; O2SAT 96
[2022-10-06 09:33] VITALS: BP 135/98; PULSE 104; RESP 20; O2SAT 98
== END 2022-10-06 09:36 ==
PROVIDERS: Emergency Provider Emergency Medicine; PCP Nurse Practitioner Family
DX: R45.851 Suicidal ideations (principal); F31.9 Bipolar disorder, unspecified; Z79.899 Other long term (current) drug therapy; Z87.891 Personal history of nicotine dependence
CPT/HCPCS: 36415; 80053; 80179; 80307; 80320; 80329; 81003; 81015; 85025; 93005; 99285

== ENCOUNTER 2023-03-21 13:18 | Emergency (ER) | payer OTHER, SELFPAY ==
[2023-03-21] VITALS (19 sets, daily range): BP systolic 116–117; BP diastolic 67–81; PULSE 67–96; RESP 11–22; O2SAT 96–100; BMI 25.6
--- NOTE | 2023-03-21 13:27 | XR_ITS ---
The [address] [address] Patient Name: LESTER ART MRN: [id number] date: 1990 Sex: F Assigned Patient Location: ER Current Patient Location: ER Accession/Order Number: [id number] Exam Date: 03/21/2023 14:00 Report Date: 03/21/2023 14:18 At the request of: RABIA HOLLINS Procedure: XR chest 1V EXAM: Chest x-ray HISTORY: . Dizziness . COMPARISON: 02/03/2022 TECHNIQUE: Single view of the chest FINDINGS: Heart and vascularity are unremarkable. Lungs are free of focal infiltrates. AICD is noted and unchanged. Grossly no bony abnormality is appreciated. XR/XR chest 1V IMPRESSION: No acute heart or lung disease identified. No change from the previous exam. Electronically authenticated by: KATHY DUMONT Date: 03/21/2023 14:18
--- NOTE | 2023-03-21 13:27 | ECG_ITS ---
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
--- NOTE | 2023-03-21 13:36 | ED.GENADUL1 ---
HPI - General Adult General Chief complaint: Dizziness Stated complaint: LOW BLOOD PRESSURE Time Seen by Provider: 03/21/23 13:21 Source: patient Mode of arrival: walk-in Limitations: no limitations History of Present Illness HPI narrative: patient is a 32-year-old female well-known to this emergency department who presents for one day history of dizziness. She has a history of hypertrophic cardiomyopathy and had a defibrillator placed with cardiology in [place] through [facility] approximately fifteen months ago. She has a follow-up appointment in two days. She called the office to report that she was feeling lightheaded, dizzy as though she is spinning and nauseous. She denies headache, chest pain, shortness of breath, fevers, chills, cough, congestion. She denies peripheral edema. No vomiting or diarrhea. No urinary symptoms. She is not concerned for . She states she checked her blood pressure at home and it was low with a systolic of one hundred. She states sometimes her blood pressure does fluctuate. She arrives to the Emergency Room with normal vital signs. Related Data Home Medications Medication Instructions Recorded Confirmed diclofenac sodium 1 % topical gel 2 g topical DAILY 09/28/22 10/05/22 diclofenac sodium 75 mg 75 mg PO DAILY 09/28/22 10/05/22 tablet,delayed release diphenhydramine HCl 25 mg tablet 25 mg PO DAILY 09/28/22 10/05/22 docusate sodium 100 mg capsule 100 mg PO DAILY 09/28/22 10/05/22 duloxetine 30 mg capsule,delayed 30 mg PO DAILY 09/28/22 10/05/22 release gabapentin 100 mg capsule 100 mg PO DAILY 09/28/22 10/05/22 hydroxyzine pamoate 50 mg capsule 50 mg PO DAILY 09/28/22 10/05/22 melatonin 5 mg tablet 5 mg PO DAILY 09/28/22 10/05/22 metoprolol succinate 50 mg 50 mg PO DAILY 09/28/22 10/05/22 tablet,extended release 24 hr nicotine (polacrilex) 4 mg gum 4 mg mucous membrane DAILY 09/28/22 10/05/22 olanzapine 5 mg tablet 5 mg PO DAILY 09/28/22 10/05/22 sertraline 50 mg tablet 50 mg PO DAILY 09/28/22 10/05/22 trazodone 50 mg tablet 100 mg PO DAILY 09/28/22 10/05/22 Previous Rx's Medication Instructions Recorded meclizine 25 mg chewable tablet 25 mg PO QID PRN dizziness #12 tabs 03/21/23 (Antivert) ondansetron 4 mg disintegrating 4 mg PO Q6H PRN nausea and 03/21/23 tablet vomiting #12 tabs Allergies Allergy/AdvReac Type Severity Reaction Status Date / Time Penicillins Allergy Severe Hives Verified 03/21/23 13:22 cefaclor [From Ceclor] Allergy Hives Verified 10/05/22 21:57 Review of Systems ROS Constitutional Denies: fever or chills Eyes Denies: change in vision Ears, nose, mouth, and throat Denies: throat pain Cardiovascular Denies: chest pain or palpitations Respiratory Denies: shortness of breath or cough Gastrointestinal Reports: nausea; Denies: vomiting or diarrhea Genitourinary Denies: painful urination Musculoskeletal Denies: back pain or neck pain Integumentary/Breast Denies: rash Neurological Reports: dizziness; Denies: headache Endocrine Denies: excessive urination Hematologic/Lymphatic Denies: easy bruising PFSH PFSH Medical History (Updated 03/21/23 @ 16:02 by LOLA Banks) Hypertrophic cardiomyopathy ?I42.2 - Other hypertrophic cardiomyopathy (ICD-10) Depression with suicidal ideation ?F32.A - Depression, unspecified (ICD-10) ?R45.851 - Suicidal ideations (ICD-10) Surgical History (Updated 08/12/22 @ 21:07 by Ana Das) History of cardiac defibrillator placement (2015) ?Z95.810 - Presence of automatic (implantable) cardiac defibrillator (ICD-10) History of cardiac defibrillator placement (2019) ?Z95.810 - Presence of automatic (implantable) cardiac defibrillator (ICD-10) Social History Smoking status: Former smoker Exam Narrative Exam Narrative: Gen.: Awake, alert, in no distress Head: Normocephalic, atraumatic ENT: Moist mucous membranes Respiratory: No respiratory distress, lungs clear bilaterally Cardio: Regular rate and rhythm Gastrointestinal: Abdomen is soft, nondistended and nontender to palpation Extremities: Moves extremities equally, no pedal edema Psych: Normal mood and affect Neuro: No focal neuro deficit Skin: Warm, dry, intact Constitutional Vital Signs, click to edit/add: Last Vital Signs Pulse 70 03/21/23 15:37 Resp 20 03/21/23 15:37 BP 116/67 03/21/23 15:37 Pulse Ox 100 03/21/23 15:20 O2 Del Method Room Air 03/21/23 13:23 Course Vital Signs Vital signs: Vital Signs Pulse Rate 83 03/21/23 13:23 Respiratory Rate 16 03/21/23 13:23 Blood Pressure 117/80 03/21/23 13:23 Pulse Oximetry 97 03/21/23 13:23 Oxygen Delivery Method Room Air 03/21/23 13:23 Pulse Rate 70 03/21/23 15:37 Respiratory Rate 20 03/21/23 15:37 Blood Pressure 116/67 03/21/23 15:37 Pulse Oximetry 100 03/21/23 15:20 Oxygen Delivery Method Room Air 03/21/23 13:23 Medical Decision Making MDM Narrative Medical decision making narrative: patient was stable vital signs in the emergency department. She is treated with IV fluids and Antivert. Her troponin is mildly elevated, this patient has a chronically elevated troponin, consistent with previous. Repeat troponin has decreased. She has no complaints of chest pain, syncope. She has an appointment in two days with her manager branch. She is discharged home with Antivert and nausea medication to follow-up with cardiology. Return to the Emergency Room if symptoms change or worsen. Medical Records Medical records reviewed: Yes I reviewed the patient's medical records Lab Data Lab results reviewed: Yes I reviewed the patient's lab results Labs: Lab Results 03/21/23 03/21/23 Range/Units 13:46 15:17 WBC 7.3 (4.0-11.0) 10^3/uL RBC 4.31 (4.20-5.40) 10^6/uL Hgb 13.6 (12.0-16.0) g/dL Hct 40.3 (36.0-48.0) % MCV 93.5 (81.0-99.0) fL MCH 31.6 (26.7-34.0) pg MCHC 33.7 (29.9-35.2) g/dL RDW 12.9 (11.0-15.0) % Plt Count 205 (150-450) 10^3/uL MPV 10.3 (9.5-13.5) fL Neut % (Auto) 80.4 H (43.0-75.0) % Lymph % (Auto) 10.9 L (20.5-60.0) % [place] % (Auto) 7.6 (1.7-12.0) % Eos % (Auto) 0.4 L (0.9-7.0) % Baso % (Auto) 0.3 (0.2-2.0) % Neut # (Auto) 5.9 (1.4-6.5) 10^3/uL Lymph # (Auto) 0.8 L (1.2-3.8) 10^3/uL [place] # (Auto) 0.6 (0.3-0.8) 10^3/uL Eos # (Auto) 0.0 (0.0-0.7) 10^3/uL Baso # (Auto) 0.0 (0.0-0.1) 10^3/uL Abs Immat Gran (auto) 0.03 (0.00-0.03) 10^3/uL Imm/Tot Granulo (auto) 0.4 (0.0-0.5) % Sodium 132 L (136-145) mmol/L Potassium 3.8 (3.5-5.1) mmol/L Chloride 101 (98-107) mmol/L Carbon Dioxide 25.8 (21.0-32.0) mmol/L Anion Gap 9.0 BUN 15.0 (7.0-18.0) mg/dL Creatinine 0.81 (0.55-1.02) mg/dL Est GFR ( Amer) >60 (>=60) Est GFR (Non-Af Amer) >60 (>=60) BUN/Creatinine Ratio 18.5 Glucose 85 (74-106) mg/dL Calcium 9.0 (8.5-10.1) mg/dL Total Bilirubin 0.6 (0.2-1.0) mg/dL AST 11 L (15-37) U/L ALT 13 L (14-59) U/L Alkaline Phosphatase 65 (46-116) U/L Troponin I High Sens 77.6 H* 76.4 H* (4.0-51.3) pg/mL Total Protein 7.3 (6.4-8.2) g/dL Albumin 3.7 (3.4-5.0) g/dL Globulin 3.6 g/dL Albumin/Globulin Ratio 1.0 TSH 1.619 (0.358-3.740) uIU/mL Serum HCG, Qual Negative (NEGATIVE) Ethanol Quant <3 mg/dL Imaging Data Chest x-ray: Attestation: I have reviewed the pertinent imaging results. Radiologist's impression: ITS Impressions Chest X-Ray 03/21/23 13:27 IMPRESSION: No acute heart or lung disease identified. No change from the previous exam. Electronically authenticated by: KATHY DUMONT Date: 03/21/2023 14:18 ECG Data Attestation: I personally reviewed and interpreted this ECG as follows: (normal sinus rhythm at a rate of seventy-eight, ST depression without ST elevation, no ectopy. No change from previous. EKG reviewed by attending physician) Discharge Plan Discharge Chief Complaint: Dizziness Clinical Impression: Dizziness Patient Disposition: Home, Self-Care Time of Disposition Decision: 16:02 Condition: Good Prescriptions / Home Meds: New ondansetron 4 mg tablet,disintegrating 4 mg PO Q6H PRN (Reason: nausea and vomiting) Qty: 12 0RF meclizine [Antivert] 25 mg tablet,chewable 25 mg PO QID PRN (Reason: dizziness) Qty: 12 0RF No Action diphenhydramine HCl 25 mg tablet 25 mg PO DAILY diclofenac sodium 75 mg tablet,delayed release (DR/EC) 75 mg PO DAILY diclofenac sodium 1 % gel 2 g TOPICAL DAILY docusate sodium 100 mg capsule 100 mg PO DAILY duloxetine 30 mg capsule,delayed release(DR/EC) 30 mg PO DAILY gabapentin 100 mg capsule 100 mg PO DAILY hydroxyzine pamoate 50 mg capsule 50 mg PO DAILY melatonin 5 mg tablet 5 mg PO DAILY metoprolol succinate 50 mg tablet extended release 24 hr 50 mg PO DAILY nicotine (polacrilex) 4 mg gum 4 mg mucous membrane DAILY olanzapine 5 mg tablet 5 mg PO DAILY sertraline 50 mg tablet 50 mg PO DAILY trazodone 50 mg tablet 100 mg PO DAILY Instructions: Dizziness (ED) Additional Instructions: Follow up with your manager branch on Wed as scheduled, make sure you are staying hydrated Stand Alone Forms: Portal Instructions Referrals: ARYA LOPEZ [Primary Care Provider] - 1 week
[2023-03-21] MEDS: 0.9 % SODIUM CHLORIDE 1,000 ML 999 ML IV (13:45)
[2023-03-21] MEDS: ONDANSETRON PF 4 MG/2 ML VIAL IV (13:46)
[2023-03-21] MEDS: MECLIZINE HCL 12.5 MG TABLET 25 MG PO (13:49)
[2023-03-21 13:53] LABS: Basophils Percent Auto 0.3 % (0.2-2.0); Eosinophils Percent Auto 0.4 % (0.9-7.0); Hematocrit 40.3 % (36.0-48.0); Hemoglobin 13.6 g/dL (12.0-16.0); Immature Granulocytes Abs Auto 0.03 10^3/uL (0.00-0.03); Immature Granulocytes Pct Auto 0.4 % (0.0-0.5); Lymphocytes Absolute Auto 0.8 10^3/uL (1.2-3.8); Lymphocytes Percent Auto 10.9 % (20.5-60.0); Mean Corpuscular HGB Conc 33.7 g/dL (29.9-35.2); Mean Corpuscular Hemoglobin 31.6 pg (26.7-34.0); Mean Corpuscular Volume 93.5 fL (81.0-99.0); Mean Platelet Volume 10.3 fL (9.5-13.5); Monocytes Absolute Auto 0.6 10^3/uL (0.3-0.8); Monocytes Percent Auto 7.6 % (1.7-12.0); Neutrophils Absolute Auto 5.9 10^3/uL (1.4-6.5); Neutrophils Percent Auto 80.4 % (43.0-75.0); Platelet Count 205 10^3/uL (150-450); Red Blood Count 4.31 10^6/uL (4.20-5.40); Red Cell Distribution Width 12.9 % (11.0-15.0); White Blood Count 7.3 10^3/uL (4.0-11.0)
[2023-03-21 14:13] LABS: HCG Qualitative NEGATIVE (NEGATIVE)
[2023-03-21 14:20] LABS: Alanine Aminotransferase 13 U/L (14-59); Albumin Level 3.7 g/dL (3.4-5.0); Alkaline Phosphatase 65 U/L (46-116); Aspartate Amino Transferase 11 U/L (15-37); BUN Creatinine Ratio 18.5; Bilirubin Total 0.6 mg/dL (0.2-1.0); Carbon Dioxide 25.8 mmol/L (21.0-32.0); Chloride 101 mmol/L (98-107); Estimated GFR (African America >60 (>=60); Estimated GFR (Non-African Ame >60 (>=60); Ethanol <3 mg/dL; Globulin 3.6 g/dL; Glucose 85 mg/dL (74-106); Potassium 3.8 mmol/L (3.5-5.1); Sodium 132 mmol/L (136-145); Thyroid Stimulating Hormone 1.619 uIU/mL (0.358-3.740); Total Protein 7.3 g/dL (6.4-8.2)
[2023-03-21 14:22] LABS: Troponin I High Sensitivity 77.6 pg/mL (4.0-51.3)
--- NOTE | 2023-03-21 14:22 | PC.NURSE ---
Troponin result received and relayed to Dr. Granados
[2023-03-21 15:57] LABS: Troponin I High Sensitivity 76.4 pg/mL (4.0-51.3)
== END 2023-03-21 16:15 | disposition home or self-care (01) ==
PROVIDERS: Physician Assistant; Emergency Provider Emergency Medicine Emergency Medical Services; PCP Nurse Practitioner Family
DX: R42 Dizziness and giddiness (principal); Z95.810 Presence of automatic (implantable) cardiac defibrillator; I42.2 Other hypertrophic cardiomyopathy; F32.A Depression, unspecified; Z87.891 Personal history of nicotine dependence; Z79.899 Other long term (current) drug therapy
CPT/HCPCS: 36415; 71045; 80053; 80307; 80320; 84443; 84484; 84703; 85025; 93005; 96361; 96374; 99285; J2405

== ENCOUNTER 2023-04-11 22:15 | Emergency (ER) | payer OTHER, SELFPAY ==
[2023-04-11 22:16] VITALS: BP 135/96; PULSE 111; RESP 20; TEMP 36.9; O2SAT 98
--- OUTSIDE RECORDS SUMMARY | 2023-04-11 22:23 | XMS_ITS | CCD ---
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 Name Role Phone WILLIE SHORT Consulting Unavailable WILLIE SHORT Admitting Unavailable WILLIE SHORT Attending Unavailable DINO HADDAD Primary Care Unavailable KATHY EMERY Referring Unavailable SR DINO HADDAD Primary Care Unavailable Sydney Lopez Primary Care Provider [phone] SYDNEY LOPEZ Primary Care Unavailable TRACY SIN Attending Unavailable IZABELLA Lopez Primary Care Provider MD Sukhjinder Schroeder Admit Provider MD Sukhjinder Schroeder Attending Provider [phone] IZABELLA Lopez Primary Care Provider MD Sukhjinder Schroeder Admit Provider MD Sukhjinder Schreoder Attending Provider [phone] SYDNEY LOPEZ Primary Care Unavailable RALPH FUNES Admitting Unavailable RALPH FUNES Attending Unavailable RALPH FUNES Consulting Unavailable DEJA Winchester, DR HAMILTON Consulting Unavailable SYDNEY LOPEZ Primary Care Unavailable ADRI BHATT Admitting Unavailable PRICE Winchester, ADRI Attending Unavailable ADRI BHATT Consulting Unavailable SYDNEY LOPEZ Primary Care Unavailable CARRI, DR BERNARD Shankar Admitting Unavailable CARRI, DR BERNARD Shankar Attending Unavailable CARRI, DR BERNARD Shankar Consulting Unavailable HOWIE RAMIREZ Consulting Unavailable SYDNEY LOPEZ Primary Care Unavailable PAY ., DR BRISENO Admitting Unavailable PAY ., DR BRISENO Attending Unavailable PAY ., DR BRISENO Consulting Unavailable PRICE ., ADRI Consulting Unavailable JOHN, SYDNEY Primary Care Unavailable CARRI, DR BERNARD Shankar Admitting Unavailable CARRI, DR BERNARD Shankar Attending Unavailable CARRI, DR BERNARD Shankar Consulting Unavailable KATHY CAMERON Consulting Unavailable GORDO [place] Consulting Unavailable BREANA LEW Consulting Unavailable BERNIE SALVADOR Attending Unavailable BERNIE SALVADOR Admitting Unavailable JOHN, SYDNEY S Primary Care Unavailable John, Sydney Mary Primary Care Unavailable Pedro Smith Attending Unavailab le Luis, Pedro Admitting Unavailab le John, Sydney Mary Primary Care Unavailable Sukhjinder Schroeder Attending Unavailable Sukhjinder Schroeder Admitting Unavailable Pedro Smith Attending Unavailab le Luis, Pedro Admitting Unavailab le John, Sydney Mary Primary Care Unavailable John [employer] TE[employer]ER-[place]ney KINCAID Primary Care Provider KARLA LOPEZELA S Primary Care Unavailable JOHN, SYDNEY S Referring Unavailable JOHN, SYDNEY S Primary Care Unavailable TIMBO BYRNES Attending Unavailable JOHN, SYDNEY S Referring Unavailable JOHN, SYDNEY S Primary Care Unavailable Allergies Allergy Classification Reported Allergen(s) Allergy Type Date of Onset Reaction(s) Facility (2 sources) Cefaclor Drug Allergy 4 [facility] (2 sources) Penicillin Drug Allergy [facility] (8 sources) Cefaclor; Translations: [CEFACLOR] Drug Allergy 4 Hives [facility] (7 sources) Doxycycline; Translations: [DOXYCYCLINE] Drug Allergy 6 Hives, Vomiting [facility] Work Phone: (8 sources) Penicillins; Translations: [Penicillins] Propensity to adverse reactions to drug 6 Hives [facility] Work Phone: (1 source) Doxycycline Drug Allergy 6 [facility] Repository (1 source) Cefaclor Drug Allergy 3 [facility] Repository (1 source) Doxycycline Drug Allergy 3 [facility] Repository Medications Current Medications Medication Drug Class(es) Dates Sig (Normalized) Sig (Original) ARIPiprazole 5 mg oral tablet (2 sources) Atypical Antipsychotic Start: 01-27-2023 take 1 tablet by mouth in the morning ARIPiprazole (ABILIFY) 5 mg tablet Take 1 tablet (5 mg total) by mouth in the morning. 0 01/27/2023 Active aspirin 81 mg delayed release oral tablet (1 source) Platelet Aggregation Inhibitor, Nonsteroidal Anti-inflammatory Drug Start: 08-13-2017 take 1 tablet by mouth once daily aspirin EC 81 MG EC tablet Indications: HTN in , chronic Take 1 tablet by mouth daily 30 tablet 3 08/13/2017 Active diclofenac sodium 0.01 mg/mg topical gel (6 sources) Nonsteroidal Anti-inflammatory Drug Start: 04-20-2022 apply 2 g topically four times daily Diclofenac Sodium Active 2 GM TOPICAL Four times daily April 20, 2022 1:00am Start: 04-10-2022 take 70 mg by mouth twice catina y Diclofenac Sodium Active 70 MG PO Twice daily April 10, 2022 1:00am Start: 08-20-2020 diclofenac sod ium (VOLTAREN) 1 % GEL take 1 tablet by shannon th twice daily diclofenac (VOLTAREN) 75 MG EC tablet Take 75 mg by mouth 2 times daily 0 Active diphenhydrAMINE hydrochloride 25 mg oral capsule (5 sources) Histamine-1 Receptor Antagonist Start: 04-20-2022 take 50 mg by mouth every twelve hours Diphenhydramine Hcl Active 50 MG PO Q12H April 20, 2022 1:00am take 2 capsules by m outh twice daily as needed diphenhydrAMINE (BENADRYL) 25 mg capsule Take 2 capsules (50 mg total) by mouth 2 (two) times a day as needed for itching. 0 Active docusate sodium 100 mg oral capsule (1 source) Start: 12-15-2017 STOOL SOFTENER 100 MG capsule docusate sodium 50 mg / sennosides, mcc 8.6 mg oral tablet (3 sources) Start: 11-06-2022 take 1 tablet by mouth in the morning sennosides-docusate sodium (SENOKOT-S) 8.6-50 mg Take 1 tablet by mouth in the morning. 30 tablet 0 11/06/2022 Active DULoxetine 30 mg delayed release oral capsule (5 sources) Serotonin and Norepinephrine Reuptake Inhibitor Start: 04-20-2022 take 30 mg by mouth twice daily Duloxetine Active 30 MG PO Twice daily 60 April 20, 2022 1:00am ergocalciferol 1.25 mg oral capsule (2 sources) Provitamin D2 Compound Start: 04-20-2022 take 1250 ug by mouth every week Ergocalciferol (Vitamin D2) Active 1250 MCG PO Q7D April 20, 2022 1:00am ethinyl estradiol 0.035 mg / norgestimate 0.25 mg oral tablet (1 source) Progestin, Estrogen Start: 07-17-2015 take 1 tablet by mouth once daily PREVIFEM 0.25-35 MG-MCG per tablet Take 1 tablet by mouth daily 12 07/17/2015 Active gabapentin 100 mg oral capsule (7 sources) Anti-epileptic Agent Start: 04-10-2022 End: 06-12-2022 take 100 mg by mouth once daily Gabapentin Discontinued 100 MG PO Daily April 10, 2022 1:00am June 12, 2022 10:37am Start: 10-07-2020 take 1 capsule by mo [facility] three times daily gabapentin (NEURONTIN) 100 mg capsule Take 1 capsule (100 mg total) by mouth 3 (three) times a day. 0 10/07/2020 Active Start: 08-31-2020 gabapentin (NE URONTIN) 300 MG capsule ibuprofen 800 mg oral tablet (3 sources) Nonsteroidal Anti-inflammatory Drug Start: 07-23-2022 take 1 tablet by mouth every six hours as needed for pain ibuprofen (MOTRIN) 800 mg tablet Take 1 tablet (800 mg total) by mouth every 6 (six) hours as needed for pain. 30 tablet 0 07/23/2022 Active Iron (1 source) Start: 04-13-2017 IRON PO lidocaine 0.05 mg/mg medicated patch (1 source) Antiarrhythmic, Amide Local Anesthetic Start: 08-31-2020 lidocaine (LIDODERM) 5 % melatonin 5 mg oral tablet (1 source) Start: 06-12-2022 take 5 mg by mouth once daily at bedtime Melatonin Active 5 MG PO Daily at bedtime June 12, 2022 12:00am 24 hr metoprolol succinate 50 mg extended release oral tablet (7 sources) beta-Adrenergic Romina Start: 04-10-2022 take 50 mg by mouth once daily Metoprolol Succinate Active 50 MG PO Daily April 10, 2022 1:00am Start: 01-11-2022 End: 03-23-2023 take 1 tablet by mouth every twenty-four hours in the morning metoprolol succinate XL (TOPROL XL) 50 mg 24 hr tablet Take 1 tablet (50 mg total) by mouth in the morning. 30 tablet 1 01/11/2022 03/23/2023 Discontinued (Reorder) Start: 12-22-2018 take 1 tablet by mouth once da connie metoprolol succinate (TOPROL XL) 100 MG extended release tablet Take 1 tablet by mouth daily 30 tablet 3 12/22/2018 Active nicotine 2 mg chewing gum (2 sources) Cholinergic Nicotinic Agonist Start: 04-20-2022 Nicotine (Polacrilex) Active 2 MG BUCCAL Every 2 hours April 20, 2022 1:00am OLANZapine 5 mg oral tablet (6 sources) Atypical Antipsychotic Start: 06-12-2022 take 5 mg by mouth twice daily Olanzapine Active 5 MG PO Twice daily 30 June 12, 2022 12:00am Start: 04-20-2022 take 5 mg by mouth e very six hours Olanzapine Active 5 MG PO Q6H April 20, 2022 1:00am Zrlwmzxt-Ygl-Hv-FA ( FORTE) TABS (1 source) Start: 08-17-2017 take 1 tablet by mouth once daily Ikksrasf-Fys-Yp-FA ( FORTE) TABS Indications: High-risk , second trimester Take 1 tablet by mouth Daily May substitute with any vit pt insurance will cover 30 tablet 12 08/17/2017 Active promethazine hydrochloride 12.5 mg oral tablet (1 source) Phenothiazine Start: 08-13-2017 take 1 tablet by mouth every eight hours as needed for nausea promethazine (PHENERGAN) 12.5 MG tablet Take 1 tablet by mouth every 8 hours as needed for Nausea 60 tablet 0 08/13/2017 Active riboflavin, vitamin B2, (VITAMIN B-2 ORAL) (3 sources) take 26951 [IU] by mouth every week riboflavin, vitamin B2, (VITAMIN B-2 ORAL) Take 50,000 Units by mouth once a week. 0 Active sertraline 50 mg oral tablet (9 sources) Serotonin Reuptake Inhibitor Start: 06-12-2022 take 150 mg by mouth once daily Sertraline Active 150 MG PO Daily 45 June 12, 2022 12:00am Start: 04-20-2022 End: 06-12-2022 take 100 mg by mouth once daily Sertraline Discontinue d 100 MG PO Daily April 20, 2022 1:00am June 12, 2022 10:37am Start: 04-10-2022 End: 04-20-2022 take 50 mg by mouth once daily Sertraline Discontinued 50 MG PO Daily April 10, 2022 1:00am April 20, 2022 12:49pm take 3 tablets by mo uth in the morning sertraline (ZOLOFT) 50 mg tablet Take 3 tablets (150 mg total) by mouth in the morning. 0 Active take 1 tablet by shannon th once daily sertraline (ZOLOFT) 50 MG tablet Take 50 mg by mouth daily 0 Active traZODone hydrochloride 100 mg oral tablet (5 sources) Serotonin Reuptake Inhibitor Start: 04-20-2022 take 100 mg by mouth once daily at bedtime Trazodone Active 100 MG PO Daily at bedtime April 20, 2022 1:00am take 1 tablet by shannon th once daily as needed for sleep traZODone (DESYREL) 50 mg tablet Take 1 tablet (50 mg total) by mouth nightly as needed for sleep. 0 Active 24 hr divalproex sodium 500 mg extended release oral tablet (2 sources) Mood Stabilizer, Anti-epileptic Agent Start: 04-20-2022 take 500 mg by mouth once daily at bedtime Divalproex Active 500 MG PO Daily at bedtime April 20, 2022 1:00am Completed/Discontinued Medications Medication Drug Class(es) Dates Sig (Normalized) Sig (Original) cyclobenzaprine hydrochloride 5 mg oral tablet (2 sources) Muscle Relaxant Start: 04-20-2022 End: 06-12-2022 take 5 mg by mouth twice daily Cyclobenzaprine Discontinued 5 MG PO Twice daily April 20, 2022 1:00am June 12, 2022 10:37am hydrOXYzine pamoate 50 mg oral capsule (5 sources) Antihistamine Start: 04-20-2022 End: 06-12-2022 take 50 mg by mouth every six hours Hydroxyzine Pamoate Discontinued 50 MG PO Q6H 60 April 20, 2022 1:00am June 12, 2022 10:37am take 1 tablet by shannon th once daily as needed hydrOXYzine (ATARAX) 50 mg tablet Take 1 tablet (50 mg total) by mouth nightly as needed for itching. 0 Active Problems Active Problems Problem Classification Problem Date Documented Da te Episodic/Chronic Cardiac dysrhythmias (1 source) Ventricular tachycardia; Translations: [VT (ventricular tachycardia)] Onset: 07-25-2015 07-25-2015 Chronic Complication of device; implant or graft (2 sources) Disorder of implantable defibrillator; Translations: [Unspecified complication of cardiac and vascular prosthetic device, implant and graft, initial encounter] Onset: 12-31-2021 Episodic Conditions associated with dizziness or vertigo (2 sources) Dizziness; Translations: [Dizziness and giddiness] Onset: 07-12-2013 Resolved: 07-14-2017 07-14-2017 Episodic Conduction disorders (11 sources) Automatic implantable cardiac defibrillator in situ; Translations: [Presence of automatic (implantable) cardiac defibrillator] Onset: 10-30-2015 10-30-2015 Chronic Coronary atherosclerosis and other heart disease (5 sources) History of myocardial infarction; Translations: [Old myocardial infarction] Onset: 07-14-2017 07-14-2017 Chronic Essential hypertension (1 source) Essential hypertension; Translations: [Essential (primary) hypertension] Onset: 07-14-2017 07-14-2017 Chronic Genitourinary symptoms and ill-defined conditions (1 source) Hematuria, unspecified; Translations: [HEMATURIA UNSPECIFIED] Onset: 07-20-2022 Episodic Hypertension complicating ; childbirth and the puerperium (1 source) Hypertension complicating ; Translations: [Unspecified maternal hypertension, first trimester] Onset: 07-20-2017 07-20-2017 Chronic Menstrual disorders (1 source) Dysmenorrhea, unspecified; Translations: [DYSMENORRHEA UNSPECIFIED] Onset: 07-20-2022 Chronic Mood disorders (12 sources) Recurrent major depression; Translations: [Major depressive disorder, recurrent, unspecified] Onset: 04-10-2022 04-10-2022 Chronic Mood disorders (1 source) Mood disorders; Translations: [DEPRESSION UNSPECIFIED] Onset: 04-12-2022 Other aftercare (1 source) Other prison (current) drug therapy; Translations: [OTH NETWORK LIAISON CURRENT DRUG THERAPY] Onset: 07-20-2022 Episodic Other circulatory disease (2 sources) Low blood pressure Onset: 03-20-2023 Episodic Other nervous system disorders (4 sources) Peripheral neuritis; Translations: [Other specified mononeuropathies] Onset: 03-30-2017 07-01-2017 Chronic Other nervous system disorders (4 sources) Neuropathy; Translations: [Polyneuropathy, unspecified] Onset: 07-14-2017 07-14-2017 Chronic Marie-; endo-; and myocarditis; cardiomyopathy (except that caused by tuberculosis or sexually transmitted disease) (7 sources) Hypertrophic cardiomyopathy; Translations: [Other hypertrophic cardiomyopathy] Onset: 07-12-2013 07-14-2017 Chronic Substance-related disorders (8 sources) Smoker; Translations: [Nicotine dependence, unspecified, uncomplicated] Onset: 07-14-2017 07-14-2017 Chronic Unclassified (1 source) CONTACT W/AND (SUSP) EXPOS COVID-19; Translations: [CONTACT W/AND (SUSP) EXPOS COVID-19] Onset: 04-12-2022 Unclassified (1 source) Device Check Onset: 03-23-2023 Urinary tract infections (1 source) Urinary tract infection, site not specified; Translations: [UTI SITE NOT SPECIFIED] Onset: 07-20-2022 Episodic Past or Other Problems Problem Classification Problem Date Documented Da te Episodic/Chronic Abdominal pain (7 sources) Pelvic and perineal pain; Translations: [Pain in pelvis] Onset: 06-07-2018 Episodic Calculus of urinary tract (3 sources) History of calculus of kidney; Translations: [Personal history of urinary calculi] Onset: 08-24-2017 08-24-2017 Episodic Cardiac dysrhythmias (1 source) Palpitations; Translations: [Palpitations] Onset: 06-28-2015 06-28-2015 Episodic Contraceptive and procreative management (3 sources) Sterilization requested; Translations: [Encounter for sterilization] Onset: 12-06-2017 Resolved: 02-08-2018 02-08-2018 Episodic E Codes: Fall (1 source) Fall (on) (from) unspecified stairs and steps, initial encounter; Translations: [FALL ON FROM UNS STAIRS STEPS INIT] Onset: 02-22-2022 Episodic Hemorrhoids (3 sources) Hemorrhoids; Translations: [Other hemorrhoids] Onset: 03-20-2018 03-20-2018 Episodic Malaise and fatigue (1 source) Fatigue; Translations: [Other fatigue] Onset: 07-12-2013 Resolved: 07-14-2017 07-14-2017 Episodic Nonspecific chest pain (10 sources) Chest pain; Translations: [Chest pain, unspecified] Onset: 06-28-2015 Resolved: 07-14-2017 07-14-2017 Episodic Other aftercare (3 sources) Patient encounter status; Translations: [Other terminal gauger (current) drug therapy] Onset: 04-20-2017 04-20-2017 Episodic Other circulatory disease (4 sources) H/O: hypertension; Translations: [Personal history of other diseases of the circulatory system] Onset: 08-24-2017 08-24-2017 Episodic Other circulatory disease (1 source) Personal history of other diseases of the circulatory system; Translations: [Personal history of other diseases of the circulatory system] Onset: 08-24-2017 Episodic Other complications of (1 source) High risk ; Translations: [Supervision of high risk , unspecified, first trimester] Onset: 07-14-2017 07-14-2017 Episodic Other complications of (4 sources) Heart disease in mother complicating , childbirth AND/OR puerperium; Translations: [Diseases of the circulatory system complicating , first trimester] Onset: 07-20-2017 Resolved: 02-08-2018 07-20-2017 Episodic Other complications of (4 sources) Hereditary disease in family possibly affecting fetus; Translations: [Maternal care for (suspected) hereditary disease in fetus, not applicable or unspecified] Onset: 07-20-2017 Resolved: 01-03-2018 07-20-2017 Episodic Other complications of (3 sources) Vomiting of ; Translations: [Vomiting of , unspecified] Onset: 08-24-2017 Resolved: 11-18-2017 11-18-2017 Episodic Other complications of (3 sources) Poor growth affecting management; Translations: [Maternal care for other known or suspected poor growth, third trimester, not applicable or unspecified] Onset: 11-18-2017 Resolved: 02-08-2018 02-08-2018 Episodic Other female genital disorders (3 sources) History of abnormal cervical Papanicolaou smear ; Translations: [Personal history of other diseases of the female genital tract] Onset: 08-24-2017 08-24-2017 Episodic Other gastrointestinal disorders (4 sources) Constipation, unspecified; Translations: [CONSTIPATION UNSPECIFIED] Onset: 01-15-2022 Episodic Other gastrointestinal disorders (3 sources) Slow transit constipation; Translations: [Slow transit constipation] Onset: 03-20-2018 03-20-2018 Episodic Other injuries and conditions due to external causes (3 sources) Traumatic injury; Translations: [Injury, unspecified, initial encounter] Onset: 08-29-2020 08-29-2020 Episodic Other conditions (4 sources) exposure to drug; Translations: [[place] affected by maternal noxious substance, unspecified] Onset: 07-14-2017 Resolved: 02-08-2018 07-14-2017 Episodic Other and delivery including normal (3 sources) Intrauterine ; Translations: [Encounter for supervision of normal , unspecified, unspecified trimester] Onset: 01-03-2018 Resolved: 02-08-2018 02-08-2018 Episodic Residual codes; unclassified (5 sources) Family history of ischemic heart disease; Translations: [Family history of ischemic heart disease and other diseases of the circulatory system] Onset: 07-14-2017 07-14-2017 Episodic Residual codes; unclassified (1 source) First trimester ; Translations: [Less than 8 weeks gestation of ] Onset: 07-01-2017 Resolved: 07-14-2017 07-14-2017 Episodic Residual codes; unclassified (3 sources) History of palpitations; Translations: [Personal history of other specified conditions] Onset: 08-24-2017 08-24-2017 Episodic Residual codes; unclassified (3 sources) Poor oral hygiene; Translations: [Other specified personal risk factors, not elsewhere classified] Onset: 08-24-2017 08-24-2017 Episodic Residual codes; unclassified (3 sources) High suicide risk; Translations: [Other specified personal risk factors, not elsewhere classified] Onset: 07-22-2022 07-22-2022 Episodic Residual codes; unclassified (1 source) Family history of ischemic heart disease and other diseases of the circulatory system; Translations: [Family history of ischemic heart disease and other diseases of the circulatory system] Onset: 08-24-2017 Episodic Screening and history of mental health and substance abuse codes (1 source) Personal history of nicotine dependence; Translations: [PERSONAL HISTORY OF NICOTINE DEPEND] Onset: 04-12-2022 Episodic Spondylosis; intervertebral disc disorders; other back problems (4 sources) Thoracic radiculopathy; Translations: [Radiculopathy, thoracic region] Onset: 08-13-2016 07-01-2017 Episodic Suicide and intentional self-inflicted injury (4 sources) Suicidal ideations; Translations: [SUICIDAL IDEATIONS] Onset: 04-09-2022 Episodic Superficial injury; contusion (1 source) Contusion of left front wall of thorax, initial encounter; Translations: [CONTUS LT FRONT WALL THORAX INITIAL] Onset: 02-22-2022 Episodic Results Test Name Value Interpretation Reference Range Facility CULTURE URINEon 07-19-2022 CULTURE URINE Isolate 1 Streptococcus agalactiae >100,000 cfu/mL of ORGANISM 1 Streptococcus agalactiae ANTIBIOTIC M.I.C RX STATUS Benzylpenicillin <=0.06 S F Ampicillin <=0.25 S F Cefotaxime <=0.12 S F Ceftriaxone <=0.12 S F Levofloxacin 0.5 S F Inducible Clindamycin Resistance Neg NEG F Erythromycin >=8 R F Clindamycin >=1 R F Linezolid <=2 S F Vancomycin 0.5 S F Tetracycline >=16 R F Normal [facility] Comment on above: Performed By: #### P REG #### [facility] [address] [place] [address] Dr. Jyoti Rojas ER URINE PROFILEon 3 Bilirubin Ql (U) Negative Normal NEGATIVE [facility] Comment on above: Performed By: #### V ALP #### [facility] [address] [place] [address] Dr. Jyoti Rojas Clarity (U) SL CLOUDY Abnormal CLEAR [facility] Comment on above: Performed By: #### V ALP #### [facility] [address] [place] [address] Dr. Jyoti Rojas Color (U) YELLOW Normal YELLOW [facility] Comment on above: Performed By: #### V ALP #### [facility] [address] [place] [address] DrAnnabella REBOLLEDO A micrscopic examination will be performed if indicated. Normal [facility] Comment on above: Performed By: #### V ALP #### [facility] [address] [place] [address] Dr. Jyoti Rojas Glucose Ql (U) Negative Normal NEGATIVE [facility] Comment on above: Performed By: #### V ALP #### [facility] [address] [place] [address] Dr. Jyoti Rojas Hemoglobin Ql (U) LARGE Abnormal NEGATIVE [facility] Comment on above: Performed By: #### V ALP #### [facility] [address] [place] [address] Dr. Jyoti Rojas Ketones Ql (U) Negative Normal NEGATIVE [facility] Comment on above: Performed By: #### V ALP #### [facility] [address] [place] [address] Dr. Jyoti Rojas LEUKOCYTES TRACE Abnormal NEGATIVE [facility] Comment on above: Performed By: #### V ALP #### [facility] [address] [place] [address] Dr. Jyoti Rojas Nitrite Ql (U) Negative Normal NEGATIVE [facility] Comment on above: Performed By: #### V ALP #### [facility] [address] [place] [address] Dr. Jyoti Rojas pH (U) 5.0 [pH] Normal 5-9 [facility] Comment on above: Performed By: #### V ALP #### [facility] [address] [place] [address] Dr. Jyoti Rojas Protein (U) [Mass/Vol] 100 mg/dL Abnormal NEGATIVE/ TRACE [facility] Comment on above: Performed By: #### V ALP #### [facility] [address] [place] [address] Dr. Jyoti Rojas SPEC GRAVITY >=1.030 Abnormal 1.005-<=1.02 5 [facility] Comment on above: Performed By: #### V ALP #### [facility] [address] [place] [address] Dr. Jyoti Rojas UR MICRO IND INDICATED Normal [facility] Comment on above: Performed By: #### V ALP #### [facility] [address] [place] [address] Dr. Jyoti Rojas Urobilinogen Qn (U) 0.2 {Ricardo'U}/dL Normal 0.2 - 1. 0 [facility] Comment on above: Performed By: #### V ALP #### [facility] [address] [place] [address] Dr. Jyoti Rojas URon 07-16-2022 , QUAL Negative Normal NEGATIVE The [facility] Comment on above: Performed By: #### E TH #### [facility] [address] [place] [address] Dr. Jyoti Rojas URINE MICROSCOPIC ONLYon BACTERIA SMALL Abnormal NONE SEEN [facility] Comment on above: Performed By: #### E TH #### [facility] [address] [place] [address] Dr. Jyoti Rojas Bacteria identified Cx Nom (U) INDICATED Normal [facility] Comment on above: Performed By: #### E TH #### [facility] [address] [place] [address] Dr. Jyoti Rojas CAST NONE SEEN Normal NONE SEEN [facility] Comment on above: Performed By: #### E TH #### [facility] [address] [place] [address] Dr. Jyoti Rojas Crystals LM Nom (Urine sed) NONE SEEN Normal NONE SEEN [facility] Comment on above: Performed By: #### E TH #### [facility] [address] [place] [address] Dr. Jyoti Rojas Epithelial cells LM Ql (Urine sed) MODERATE Abnormal NONE SEEN /RARE [facility] Comment on above: Performed By: #### E TH #### [facility] [address] [place] [address] Dr. Jyoti Rojas MUCOUS TRACE Abnormal NONE SEEN The [facility] Comment on above: Performed By: #### E TH #### [facility] [address] [place] [address] Dr. Jyoti Rojas RBC (U) [#/Vol] /uL Abnormal 0-2 The [facility] Comment on above: Performed By: #### E TH #### [facility] [address] [place], [place] [address] Dr. Jyoti Rojas WBC 20-50 Abnormal NONE SEEN The [facility] Comment on above: Performed By: #### E TH #### [facility] [address] [id number] Jyoti Rojas Cholesterol [Mass/volume] in Serum or PlasmaOrdered By: Sukhjinder Schroeder on 06-07-2022 Cholesterol [Mass/Vol] 134 mg/dL 140-200 [facility] Comment on above: Chol less than 200 m g/dl low riskChol 201-239 mg/dl borderline riskChol 240 mg/dl and greater high risk Cholesterol in LDL Calc [Mas s/Vol]Ordered By: Sukhjinder Schroeder on 06-07-2022 Cholesterol in LDL [Mass/Vol] 67 mg/dL 0-100 [facility] Comment on above: LDL ATP III CLASSIFI CATIONLDL less than 100 mg/dL OptimalLDL 100-129 mg/dL Near or above optimalLDL 130-159 mg/dL Borderline highLDL 160-189 mg/dL HighLDL greater than 189 mg/dL Very high Cholesterol in VLDL Calc [Ma ss/Vol]Ordered By: Sukhjinder Schroeder on 06-07-2022 Cholesterol in VLDL [Mass/Vol] 17 mg/dL [facility] Lipid Panelon 06-07-2022 Cholesterol [Mass/Vol] 134 mg/dL Low 140-200 [facility] Comment on above: Result Comment: Chol less than 200 mg/dl low risk Chol 201-239 mg/dl borderline risk Chol 240 mg/dl and greater high risk Performed By: #### L IPID, [id number], TSH3 wRFLX #### [facility] [address] Cholesterol in HDL [Mass/Vol] 50 mg/dL Normal 35-85 [facility] Comment on above: Result Comment: HDL CHOL ATP-III CLASSIFICATION Cardiovascular Risk HDL > or equal to 60 mg/dL LOW HDL < 40 mg/dL HIGH Performed By: #### L IPID, [id number], TSH3 wRFLX #### [facility] [address] Cholesterol.total/Cho lesterol in HDL [Mass ratio] 2.7 {ratio} Normal <5.0 [facility] Comment on above: Performed By: #### L IPID, [id number], TSH3 wRFLX #### [facility] [address] LDL Cholesterol,Calculate d 67 mg/dL Normal 0-100 [facility] Comment on above: Result Comment: LDL ATP III CLASSIFICATION LDL less than 100 mg/dL Optimal LDL 100-129 mg/dL Near or above optimal LDL 130-159 mg/dL Borderline high LDL 160-189 mg/dL High LDL greater than 189 mg/dL Very high Performed By: #### L IPID, [id number], TSH3 wRFLX #### [facility] [address] Triglyceride w/Reflex 86 mg/dL Normal 0-149 [facility] Comment on above: Result Comment: TRIG ATP III CLASSIFICATION TRIG less than 150 mg/dL Normal TRIG 150-199 mg/dL Borderline high TRIG 200-500 mg/dL High TRIG greater than 500 mg/dL Very high Standard traceable to the Center for Disease Conrtrol and Prevention (CDC) test method. Performed By: #### L IPID, [id number], TSH3 wRFLX #### [facility] [address] VLDL CHOLESTEROL 17 mg/dL Normal [facility] Comment on above: Performed By: #### L IPID, [id number], TSH3 wRFLX #### [facility] [address] Serum or plasma high density lipoprotein (HDL) cholesterol measurementOrdered By: Sukhjidner Schroeder on 06-07-2022 Cholesterol in HDL [Mass/Vol] 50 mg/dL 35-85 [facility] Comment on above: HDL CHOL ATP-III CLA SSIFICATION Cardiovascular RiskHDL > or equal to 60 mg/dL LOWHDL < 40 mg/dL HIGH Serum or plasma total choles terol/high density lipoprotein (HDL) cholesterol mass ratOrdered By: Sukhjinder Schroeder on 06-07-2022 Cholesterol.total/Cho lesterol in HDL [Mass ratio] 2.7 {ratio} <5.0 [facility] Thyroid Stim Hormone w/Rflxo n 06-07-2022 Thyroid Stim Hormone w/Rflx 1.65 u[iU]/mL Normal 0.45-5.33 [facility] Comment on above: Performed By: #### L IPID, [id number], TSH3 wRFLX #### [facility] [address] Thyrotropin [Units/volume] i n Serum or PlasmaOrdered By: Sukhjinder Schroeder on 06-07-2022 TSH Qn 1.65 m[IU]/L 0.45-5.33 [facility] Triglyceride [Mass/volume] i n Serum or PlasmaOrdered By: Sukhjinder Schroeder on 06-07-2022 Triglyceride [Mass/Vol] 86 mg/dL 0-149 [facility] Comment on above: TRIG ATP III CLASSIF ICATIONTRIG less than 150 mg/dL NormalTRIG 150-199 mg/dL Borderline highTRIG 200-500 mg/dL High TRIG greater than 500 mg/dL Very highStandard traceable to the Center for Disease Conrtrol and Prevention (CDC) test method. Vitamin D 25 Hydroxy Totalon 06-07-2022 Vitamin D 25 Hydroxy Total 25.0 ng/mL Low 30-100 [facility] Comment on above: Result Comment: BRIANA MIN D STATUS 25(OH)VITAMIN D RANGE (ng/mL) Deficient <20 Insufficient 20 to <30 Sufficient 30 to 100 Reference: Steven MF,Jesus NC, Sue VILLALTA, et al. Evaluation,treatment, and prevention of vitamin D deficiency; an Endocrine Society clinical practice guideline. JCEM. 2010; 96(7):1911-30. PERFORMED BY: [place] [address] PATHOLOGIST [employer] SAMUEL VELARDE M.D. Performed By: #### L IPID, [id number], TSH3 wRFLX #### [facility] [address] [place], [place] [id number] [facility] Vitamin D+Metabolites [Mass/ volume] in Serum or PlasmaOrdered By: Sukhjinder Alexandre on 06-07-2022 Vitamin D+Metabolites [Mass/Vol] 25.0 ng/mL 30-100 [facility] Comment on above: VITAMIN D STATUS 25( [place])VITAMIN D RANGE (ng/mL) Deficient <20 Insufficient 20 to <30Sufficient 30 to 100Reference: Steven MF,Jesus NC, Sue VILLALTA, et al. Evaluation,treatment, and prevention of vitamin D deficiency; an Endocrine Society clinical practice guideline. JCEM. 2010; 96(7):1911-30. ACETAMINOPHENon 06-06-2022 Acetaminophen [Mass/Vol] ug/mL Critically low 10.0-30.0 [facility] Comment on above: Performed By: #### P REG #### [facility] [address] [place] [address] Dr. Jyoti Rojas Acetaminophen [Mass/Vol] ug/mL Critically low 10.0-30.0 [facility] Comment on above: Performed By: #### V ALP #### [facility] [address] [place] [address] [address] Jyoti Rojas AMMONIAon 06-06-2022 Ammonia (P) [Moles/Vol] 23 umol/L Normal 11-32 [facility] Comment on above: Performed By: #### P REG #### [facility] [address] [place] [address] [address] Jyoti Rojas CARDIAC BERNARD ADMITon 023 CK [Catalytic activity/Vol] 120 U/L Normal 26-192 [facility] Comment on above: Performed By: #### E TH #### [facility] [address] [place] [address] [address] Jyoti Rojas CK.MB [Mass/Vol] 2.02 ng/mL Normal <=3.60 The [facility] Comment on above: Performed By: #### E TH #### [facility] [address] [place] [address] Dr. Jyoti Rojas HSTROP 109.3 pg/mL Critically high 4.0-51.3 The [facility] Comment on above: Result Comment: CUT- OFF POINTS HAVE BEEN ESTABLISHED BASED ON THE FOURTH UNIVERSAL DEFINITIONS OF MYOCARDIAL INFARCTION. THE UPPER REFERENCE LIMIT (URL) OF TROPONIN, DEFINED THE 99TH PERCENTILE OF cTnI DISTRIBUTION IN A REFERENCE POPULATION, HAS BEEN CONFIRMED THE DECISION THRESHOLD FOR CO DIAGNOSIS. Performed By: #### E TH #### [facility] [address] [place] [address] Dr. Jyoti Rojas KUSH 46 ng/mL Normal 9-82 [facility] Comment on above: Performed By: #### E TH #### [facility] [address] [place] [address] Dr. Jyoti Rojas CBC AUTO DIFFon 06-06-2022 BASO # 0.0 103/ul Normal 0.0-0.1 [facility] Comment on above: Performed By: #### P REG #### [facility] [address] [place] [address] Dr. Jyoti Rojas Basophils/100 WBC (Bld) 0.4 % Normal 0.2-2.0 [facility] Comment on above: Performed By: #### P REG #### [facility] [address] [place] [address] Dr. Jyoti Rojas EO # 0.1 103/ul Normal 0.0-0.7 [facility] Comment on above: Performed By: #### P REG #### [facility] [address] [place] [address] Dr. Jyoti Rojas Eosinophils/100 WBC (Bld) 2.0 % Normal 0.9-7.0 [facility] Comment on above: Performed By: #### P REG #### [facility] [address] [place] [address] Dr. Jyoti Rojas Erythrocyte distribution width (RBC) [Ratio] 12.7 % Normal 11.0-15.0 [facility] Comment on above: Performed By: #### P REG #### [facility] [address] [place] [address] Dr. Jyoti Rojas Hematocrit (Bld) [Volume fraction] 42.8 % Normal 36.0-48.0 [facility] Comment on above: Performed By: #### P REG #### [facility] [address] [place] [address] Dr. Jyoti Rjoas Hemoglobin (Bld) [Mass/Vol] 14.0 g/dL Normal 12.0-16.0 [facility] Comment on above: Performed By: #### P REG #### [facility] [address] [place] [address] Dr. Jyoti Rojas IG # 0.03 10e3/ul Normal 0.00-0.03 [facility] Comment on above: Performed By: #### P REG #### [facility] [address] [place] [address] Dr. Jyoti Rojas IG % 0.4 % Normal 0.0-0.5 [facility] Comment on above: Performed By: #### P REG #### [facility] [address] [place] [address] Dr. Jyoti Rojas LYMPH # 2.0 103/ul Normal 1.2-3.8 [facility] Comment on above: Performed By: #### P REG #### [facility] [address] [place] [address] Dr. Jyoti Rojas Lymphocytes/100 WBC (Bld) 27.8 % Normal 20.5-60.0 [facility] Comment on above: Performed By: #### P REG #### [facility] [address] [place] [address] Dr. Jyoti Rojas MANUAL DIFF REQ NO Normal The [facility] Comment on above: Performed By: #### P REG #### [facility] [address] [place] [address] Dr. Jyoti Rojas MCH (RBC) [Entitic mass] 30.2 pg Normal 26.7-34.0 [facility] Comment on above: Performed By: #### P REG #### [facility] [address] [place] [address] Dr. Jyoti Rojas MCHC (RBC) [Mass/Vol] 32.7 g/dL Normal 29.9-35.2 [facility] Comment on above: Performed By: #### P REG #### [facility] [address] [place] [address] Dr. Jyoti Rojas MCV (RBC) [Entitic vol] 92.4 fL Normal 81.0-99.0 [facility] Comment on above: Performed By: #### P REG #### [facility] [address] [place] [address] Dr. Jyoti Rojas MONO # 0.7 103/ul Normal 0.3-0.8 [facility] Comment on above: Performed By: #### P REG #### [facility] [address] [place] [address] Dr. Jyoti Rojas Monocytes/100 WBC (Bld) 9.2 % Normal 1.7-12.0 [facility] Comment on above: Performed By: #### P REG #### [facility] [address] [place] [address] Dr. Jyoti Rojas NEUT # 4.3 103/ul Normal 1.4-6.5 [facility] Comment on above: Performed By: #### P REG #### [facility] [address] [place] [address] Dr. Jyoti Rojas Neutrophils/100 WBC (Bld) 60.2 % Normal 43.0-75.0 [facility] Comment on above: Performed By: #### P REG #### [facility] [address] [place] [address] Dr. Jyoti Rojas Platelet mean volume (Bld) [Entitic vol] 9.2 fL Critically low 9.5-13.5 [facility] Comment on above: Performed By: #### P REG #### [facility] [address] [place] [address] Dr. Jyoti Rojas PLT 278 103/ul Normal 150-450 [facility] Comment on above: Performed By: #### P REG #### [facility] [address] [place] [address] Dr. Jyoti Rojas RBC 4.63 106/ul Normal 4.20-5.40 [facility] Comment on above: Performed By: #### P REG #### [facility] [address] [place] [address] Dr. Jyoti Rojas WBC 7.2 103/ul Normal 4.0-11.0 [facility] Comment on above: Performed By: #### P REG #### [facility] [address] [place] [address] Dr. Jyoti Rojas Covid-19 PCR ([facility])on 05-13 SARS-CoV-2 (COVID-19) RNA MADHAV+probe Ql (Unsp spec) Not detected Normal NOT DETECTED [facility] Comment on above: Result Comment: When diagnostic testing is negative, the possibility of a false negative should be considered in the context of a patient's recent exposures and the presence of clinical signs and symptoms consistent with SARS-CoV-2. This test is not yet approved or cleared by the [place] FDA. When there are no FDA-approved or cleared tests available, and other criteria are met, FDA can make tests available under an emergency access mechanism called an Emergency Use Authorization (EUA). The EUA for this test is supported by the [place] of Health and Human Service's declaration that circumstances exist to justify the emergency use of in vitro diagnostics for the detection and/or diagnosis of the virus that causes COVID-19. This EUA will remain in effect for the duration of the COVID-19 declaration justifying emergency of IVDs, unless it is terminated or revoked by the FDA (after which the test may no longer be used). Performed By: #### C VDTBH #### [facility] [address] [place] [address] Dr. Jyoti Rojas DEPAKENE/ VALPROIC ACIDon DEPAKENE <3.0 Critically low 50.0-100.0 [facility] Comment on above: Performed By: #### V ALP #### [facility] [address] [place] [address] Dr. Jyoti Rojas DRUG SCREEN RAPID (URINE)on 06-06-2022 AMP Negative Normal NEGATIVE [facility] Comment on above: Performed By: #### V ALP #### [facility] [address] [place] [address] Dr. Jyoti Rojas BAR Negative Normal NEGATIVE [facility] Comment on above: Performed By: #### V ALP #### [facility] [address] [place] [address] Dr. Jyoti Rojas BUP Negative Normal NEGATIVE [facility] Comment on above: Performed By: #### V ALP #### [facility] [address] [place] [address] Dr. Jyoti Rojas BZO Negative Normal NEGATIVE [facility] Comment on above: Performed By: #### V ALP #### [facility] [address] [place] [address] Dr. Jyoti Rojas QUINN Positive Abnormal NEGATIVE [facility] Comment on above: Performed By: #### V ALP #### [facility] [address] [place] [address] Dr. Jyoti Rojas CUT-OFFS SEE BELOW Normal [facility] Comment on above: Result Comment: AMP (Amphetamine): 500ng/mL, BAR (Barbituates): 200 ng/mL, BZO (Benzodiazepines): 150 ng/mL, BUP (Buprenorphine): 10 ng/mL, QUINN (Cocaine): 150 ng/mL, mAMP (Methamphetamine): 500 ng/mL, MTD (Methadone): 200 ng/mL, OPI (Opiates): 100 ng/mL, OXY (Oxycodone): 100 ng/mL, PCP (Phencyclidine): 25 ng/mL, PPX (Propoxyphene): 300 ng/mL, THC (Cannabinoids): 50 ng/mL, TCA (Trycyclic Antidepressants): 300 ng/mL Performed By: #### V ALP #### [facility] [address] [place] [address] Dr. Jyoti Rojas DRUG CUT HEADER DRUG CLASS TEST SYSTEM CUT-OFF CONCENTRATIONS ARE FOLLOWS: Normal [facility] Comment on above: Performed By: #### V ALP #### [facility] [address] [place] [address] Dr. Jyoti Rojas mAMP Negative Normal NEGATIVE [facility] Comment on above: Performed By: #### V ALP #### [facility] [address] [place] [address] Dr. Jyoti Rojas MTD Negative Normal NEGATIVE [facility] Comment on above: Performed By: #### V ALP #### [facility] [address] [place] [address] Dr. Jyoti Rojas OPI Negative Normal NEGATIVE [facility] Comment on above: Performed By: #### V ALP #### [facility] [address] [place] [address] Dr. Jyoti Rojas OXY Negative Normal NEGATIVE [facility] Comment on above: Performed By: #### V ALP #### [facility] [address] [place] [address] Dr. Jyoti Rojas PCP Negative Normal NEGATIVE [facility] Comment on above: Performed By: #### V ALP #### [facility] [address] [place] [address] Dr. Jyoti Rojas PPX Negative Normal NEGATIVE [facility] Comment on above: Performed By: #### V ALP #### [facility] [address] [place] [address] Dr. Jyoti Rojas TCA Positive Abnormal NEGATIVE [facility] Comment on above: Performed By: #### V ALP #### [facility] [address] [place] [address] Dr. Jyoti Rojas THC Positive Abnormal NEGATIVE [facility] Comment on above: Performed By: #### V ALP #### [facility] [address] [place] [address] Dr. Jyoti Rojas ER URINE PROFILEon 3 Bilirubin Ql (U) Negative Normal NEGATIVE [facility] Comment on above: Performed By: #### V ALP #### [facility] [address] [place] [address] Dr. Jyoti Rojas Clarity (U) CLEAR Normal CLEAR [facility] Comment on above: Performed By: #### V ALP #### [facility] [address] [place] [address] Dr. Jyoti Rojas Color (U) LT. YELLOW Normal YELLOW [facility] Comment on above: Performed By: #### V ALP #### [facility] [address] [place] [address] Dr. Jyoti REBOLLEDO A micrscopic examination will be performed if indicated. Normal [facility] Comment on above: Performed By: #### V ALP #### [facility] [address] [place] [address] Dr. Jyoti Rojas Glucose Ql (U) Negative Normal NEGATIVE [facility] Comment on above: Performed By: #### V ALP #### [facility] [address] [place] [address] Dr. Jyoti Rojas Hemoglobin Ql (U) Negative Normal NEGATIVE [facility] Comment on above: Performed By: #### V ALP #### [facility] [address] [place] [address] Dr. Jyoti Rojas Ketones Ql (U) Negative Normal NEGATIVE [facility] Comment on above: Performed By: #### V ALP #### [facility] [address] [place] [address] Dr. Jyoti Rojas LEUKOCYTES Negative Normal NEGATIVE [facility] Comment on above: Performed By: #### V ALP #### [facility] [address] [place] [address] Dr. Jyoti Rojas Nitrite Ql (U) Negative Normal NEGATIVE [facility] Comment on above: Performed By: #### V ALP #### [facility] [address] [place] [address] Dr. Jyoti Rojas pH (U) 6.0 [pH] Normal 5-9 [facility] Comment on above: Performed By: #### V ALP #### [facility] [address] [place] [address] Dr. Jyoti Rojas SPEC GRAVITY 1.025 Normal 1.005-<=1.02 5 [facility] Comment on above: Performed By: #### V ALP #### [facility] [address] [place] [address] Dr. Jyoti Rojas UA PROTEIN Negative Normal NEGATIVE/ TRACE [facility] Comment on above: Performed By: #### V ALP #### [facility] [address] [place] [address] Dr. Jyoti Rojas UR MICRO IND NOT INDICATED Normal [facility] Comment on above: Performed By: #### V ALP #### [facility] [address] [place] [address] Dr. Jyoti Rojas Urobilinogen Qn (U) 0.2 {Ricardo'U}/dL Normal 0.2 - 1. 0 [facility] Comment on above: Performed By: #### V ALP #### [facility] [address] [place] [address] Dr. Jyoti Rojas ETHANOL (BLD ALC)on 06-07-19 23 ALC NOTE NOTE: 80 mg/dl is th e legal limit for a blood alcohol level Normal [facility] Comment on above: Performed By: #### E TH #### [facility] [address] [place] [address] Dr. Jyoti Rojas Ethanol [Mass/Vol] mg/dL Normal [facility] Comment on above: Performed By: #### E TH #### [facility] [address] [place] [address] Dr. Jyoti Rojas PREG HCG QUALon 06-06-2022 , QUAL Negative Normal NEGATIVE [facility] Comment on above: Performed By: #### P REG #### [facility] [address] [place] [address] Dr. Jyoti Rojas PROF 14(COMP METB)on 023 Albumin [Mass/Vol] 3.9 g/dL Normal 3.4-5.0 [facility] Comment on above: Performed By: #### V ALP #### [facility] [address] [place] [address] Dr. Jyoti Rojas Albumin/Globulin [Mass ratio] 1.1 {ratio} Normal [facility] Comment on above: Performed By: #### V ALP #### [facility] [address] [place] [address] Dr. Jyoti Rojas ALP [Catalytic activity/Vol] 80 U/L Normal 46-116 [facility] Comment on above: Performed By: #### V ALP #### [facility] [address] [place] [address] Dr. Jyoti Rojas ALT [Catalytic activity/Vol] 14 U/L Normal 14-59 [facility] Comment on above: Performed By: #### V ALP #### [facility] [address] [place] [address] Dr. Jyoti Rojas Anion gap [Moles/Vol] 10.0 mmol/L Normal Th [facility] Comment on above: Performed By: #### V ALP #### [facility] [address] [place] [address] [address] Jyoti Rojas AST [Catalytic activity/Vol] 18 U/L Normal 15-37 [facility] Comment on above: Performed By: #### V ALP #### [facility] [address] [place] [address] [address] Jyoti Rojas Bilirubin [Mass/Vol] 0.3 mg/dL Normal 0.2-1.0 [facility] Comment on above: Performed By: #### V ALP #### [facility] [address] [place] [address] [address] Jyoti Rojas Calcium [Mass/Vol] 9.0 mg/dL Normal 8.5-10.1 [facility] Comment on above: Performed By: #### V ALP #### [facility] [address] [place] [address] [address] Jyoti Rojas Chloride [Moles/Vol] 101 mmol/L Normal 98-107 [facility] Comment on above: Performed By: #### V ALP #### [facility] [address] [place] [address] [address] Jyoti Rojas CO2 [Moles/Vol] 29.5 mmol/L Normal 21.0-32.0 [facility] Comment on above: Performed By: #### V ALP #### [facility] [address] [place] [address] [address] Jyoti Rojas Creatinine [Mass/Vol] 0.80 mg/dL Normal 0.55-1.02 [facility] Comment on above: Performed By: #### V ALP #### [facility] [address] [address] Dr. Jyoti Rojas EGFR-AF MALDIVIAN >60 Normal >=60 [facility] Comment on above: Performed By: #### V ALP #### [facility] [address] [address] [address] Jyoti Rojas EGFR-NON AF MALDIVIAN >60 Normal >=60 [facility] Comment on above: Performed By: #### V ALP #### [facility] [address] [address] [address] Jyoti Rojas Globulin (S) [Mass/Vol] 3.7 g/dL Normal [facility] Comment on above: Performed By: #### V ALP #### [facility] [address] [address] [address] Jyoti Rojas Glucose [Mass/Vol] 94 mg/dL Normal 74-106 [facility] Comment on above: Performed By: #### V ALP #### [facility] [address] [address] [address] Jyoti Rojas Potassium [Moles/Vol] 3.5 mmol/L Normal 3.5-5.1 [facility] Comment on above: Performed By: #### V ALP #### [facility] [address] [place] [address] Dr. Jyoti Rojas Protein [Mass/Vol] 7.6 g/dL Normal 6.4-8.2 [facility] Comment on above: Performed By: #### V ALP #### [facility] [address] [place] [address] Dr. Jyoti Rojas Sodium [Moles/Vol] 137 mmol/L Normal 136-145 [facility] Comment on above: Performed By: #### V ALP #### [facility] [address] [place] [address] Dr. Jyoti Rojas Urea nitrogen [Mass/Vol] 8.0 mg/dL Normal 7.0-18.0 [facility] Comment on above: Performed By: #### V ALP #### [facility] [address] [place] [address] Dr. Jyoti Rojas Urea nitrogen/Creatinine [Mass ratio] 10.0 mg/mg Normal [facility] Comment on above: Performed By: #### V ALP #### [facility] [address] [place] [address] Dr. Jyoti Rojas SALICYLATEon 06-06-2022 SALICYLATE <2.8 Normal <=19.9 [facility] Comment on above: Performed By: #### V ALP #### [facility] [id number] Jyoti Rojas TROPONIN, HIGH SENSITIVITYon 06-06-2022 HSTROP 100.6 pg/mL Critically high 4.0-51.3 [facility] Comment on above: Result Comment: CUT- OFF POINTS HAVE BEEN ESTABLISHED BASED ON THE FOURTH UNIVERSAL DEFINITIONS OF MYOCARDIAL INFARCTION. THE UPPER REFERENCE LIMIT (URL) OF TROPONIN, DEFINED THE 99TH PERCENTILE OF cTnI DISTRIBUTION IN A REFERENCE POPULATION, HAS BEEN CONFIRMED THE DECISION THRESHOLD FOR CO DIAGNOSIS. Performed By: #### V ALP #### [facility] [address] [address] [address] Jyoti Rojas HSTROP 99.1 pg/mL Critically high 4.0-51.3 [facility] Comment on above: Result Comment: CUT- OFF POINTS HAVE BEEN ESTABLISHED BASED ON THE FOURTH UNIVERSAL DEFINITIONS OF MYOCARDIAL INFARCTION. THE UPPER REFERENCE LIMIT (URL) OF TROPONIN, DEFINED THE 99TH PERCENTILE OF cTnI DISTRIBUTION IN A REFERENCE POPULATION, HAS BEEN CONFIRMED THE DECISION THRESHOLD FOR CO DIAGNOSIS. Performed By: #### H STROPN #### [facility] [id number] Jyoti Rojas Automated erythrocytes count in urine sediment (number/area)Ordered By: Pedro Smith on 04-14-2022 RBC Auto (Urine sed) [#/Area] 1-2 [HPF] 0-4 [facility] Automated leukocytes count i n urine sediment (number/area)Ordered By: Pedro Smith on 04-14-2022 WBC Auto (Urine sed) [#/Area] 3-4 [HPF] 0-4 [facility] Bilirubin Test strip Ql (U)O rdered By: Pedro Smith on 04-14-2022 Bilirubin Ql (U) Negative Negative [facility] Color Auto (U)Ordered By: Ab kamran Smith on 04-14-2022 Color (U) Yellow Yellow [facility] Dipstick and Microscopicon 0 04-14-2022 Appearance (U) Cloudy Critically abnormal Clear [facility] Comment on above: Order Comment: Name Collection Type:: Clean-Voided Midstream Performed By: #### A DDONUAPLUS #### [facility] [address] [place] [address] [place] Bacteria,Urine None Seen Normal None Seen [facility] Comment on above: Order Comment: Name Collection Type:: Clean-Voided Midstream Performed By: #### A DDONUAPLUS #### [facility] [address] [place] [address] [place] Bilirubin,Urine Negative Normal Negative [facility] Comment on above: Order Comment: Name Collection Type:: Clean-Voided Midstream Performed By: #### A DDONUAPLUS #### [place] [address] [place] Color (U) Yellow Normal Yellow [facility] Comment on above: Order Comment: Name Collection Type:: Clean-Voided Midstream Performed By: #### A DDONUAPLUS #### [place] [address] [place] Glucose Ql (U) Normal Normal Normal [facility] Comment on above: Order Comment: Name Collection Type:: Clean-Voided Midstream Performed By: #### A DDONUAPLUS #### [place] [address] [place] Hyaline Casts,Urine 0-8 Normal 0-8 [facility] Comment on above: Order Comment: Name Collection Type:: Clean-Voided Midstream Result Comment: PERF ORMED BY: [place] [address] PATHOLOGIST [employer] SAMUEL VELARDE M.D. Performed By: #### A DDONUAPLUS #### [facility] [address] [place] [address] [place] Ketones Ql (U) Negative Normal Negative [facility] Comment on above: Order Comment: Name Collection Type:: Clean-Voided Midstream Performed By: #### A DDONUAPLUS #### [facility] [address] [place] [address] [place] Leukocyte esterase Test strip Ql (U) Negative Normal Negative [facility] Comment on above: Order Comment: Name Collection Type:: Clean-Voided Midstream Performed By: #### A DDONUAPLUS #### [facility] [address] [place] [address] [place] Nitrite,Urine Negative Normal Negative [facility] Comment on above: Order Comment: Name Collection Type:: Clean-Voided Midstream Performed By: #### A DDONUAPLUS #### [place] [address] [place] Occult Blood,Urine Negative Normal Negative [facility] Comment on above: Order Comment: Name Collection Type:: Clean-Voided Midstream Result Comment: PERF ORMED BY: [place] [address] PATHOLOGIST [employer] SAMUEL VELARDE M.D. Performed By: #### A DDONUAPLUS #### [place] [address] [place] pH (U) 8.0 [pH] Normal 5.0-9.0 [facility] Comment on above: Order Comment: Name Collection Type:: Clean-Voided Midstream Performed By: #### A DDONUAPLUS #### [place] [address] [place] Protein,Urine Negative Normal Negative [facility] Comment on above: Order Comment: Name Collection Type:: Clean-Voided Midstream Performed By: #### A DDONUAPLUS #### [facility] [address] [place] [address] [place] RBC,Urine 1-2 Normal 0-4 [facility] Comment on above: Order Comment: Name Collection Type:: Clean-Voided Midstream Performed By: #### A DDONUAPLUS #### [facility] [address] [place] [address] [place] Specificy [place],Urine 1.017 Normal 1.001-1.030 [facility] Comment on above: Order Comment: Name Collection Type:: Clean-Voided Midstream Performed By: #### A DDONUAPLUS #### [place] [address] [place] Squamous Epithelial Cell,Urine 3-4 High 0-2 [facility] Comment on above: Order Comment: Name Collection Type:: Clean-Voided Midstream Performed By: #### A DDONUAPLUS #### [facility] [address] Urobilinogen,Urine Normal Normal Normal [facility] Comment on above: Order Comment: Name Collection Type:: Clean-Voided Midstream Performed By: #### A DDONUAPLUS #### [facility] [address] WBC,Urine 3-4 Normal 0-4 [facility] Comment on above: Order Comment: Name Collection Type:: Clean-Voided Midstream Performed By: #### A DDONUAPLUS #### [facility] [address] Ketones Auto test strip (U) [Mass/Vol]Ordered By: Pedro Smith on 04-14-2022 Ketones (U) [Mass/Vol] Negative Negative [facility] - UrinalysisOrder ed By: Pedro Smith on 04-14-2022 Hyaline casts LM Ql (Urine sed) 0-8 [LPF] 0-8 [facility] Nitrite Test strip Ql (U)Ord ered By: Pedro Smith on 04-14-2022 Nitrite Ql (U) Negative Negative [facility] Protein Auto test strip (U) [Mass/Vol]Ordered By: Pedro Smith on 04-14-2022 Protein (U) [Mass/Vol] Negative Negative [facility] Specific gravity Auto test s trip (U) [Rel density]Ordered By: Pedro Smith on 04-14-2022 Specific gravity (U) [Rel density] 1.017 1.001-1.030 [facility] Squamous epithelial cells de tection in urine sediment by light microscopyOrdered By: Pedro Smith on 04-14-2022 Epithelial cells.squamous LM Ql (Urine sed) 3-4 [HPF] 0-2 [facility] Urine bacteria detection by automated methodOrdered By: Pedro Smith on 04-14-2022 Bacteria Auto Ql (U) None seen None Seen [facility] Urine clarity by refractomet ry automatedOrdered By: Pedro Smith on 04-14-2022 Clarity Refractometry automated (U) Cloudy Clear [facility] Urine glucose measurement by automated test strip (mass/volume)Ordered By: Pedro Smith on 04-14-2022 Glucose Auto test strip (U) [Mass/Vol] Normal mg/dL Normal [facility] Urine hemoglobin detection b y automated test stripOrdered By: Pedro Smith on 04-14-2022 Hemoglobin Auto test strip Ql (U) Negative Negative [facility] Urine leukocyte esterase det ection by automated test stripOrdered By: Pedro Smith on 04-14-2022 Leukocyte esterase Auto test strip Ql (U) Negative Negative [facility] Urobilinogen Auto test strip (U) [Mass/Vol]Ordered By: Pedro Smith on 04-14-2022 Urobilinogen (U) [Mass/Vol] Normal mg/dL Normal [facility] pH Auto test strip (U)Ordere d By: Pedro Smith on 04-14-2022 pH (U) 8.0 [pH] 5.0-9.0 [facility] ACETAMINOPHENon 04-10-2022 Acetaminophen [Mass/Vol] ug/mL Normal 10.0-30.0 [facility] Comment on above: Performed By: #### A CET, SALYC, BMP, ETH #### [facility] [address] [place] [address] Dr. Jyoti Rojas CBC AUTO DIFFon 04-10-2022 BASO # 0.0 103/ul Normal 0.0-0.1 [facility] Comment on above: Performed By: #### C BC #### [facility] [address] [place] [address] Dr. Jyoti Rojas Basophils/100 WBC (Bld) 0.5 % Normal 0.2-2.0 [facility] Comment on above: Performed By: #### C BC #### [facility] [address] [place] [address] Dr. Jyoti Rojas EO # 0.1 103/ul Normal 0.0-0.7 [facility] Comment on above: Performed By: #### C BC #### [facility] [address] [place] [address] Dr. Jyoti Rojas Eosinophils/100 WBC (Bld) 1.9 % Normal 0.9-7.0 [facility] Comment on above: Performed By: #### C BC #### [facility] [address] [place] [address] Dr. Jyoti Rojas Erythrocyte distribution width (RBC) [Ratio] 12.4 % Normal 11.0-15.0 [facility] Comment on above: Performed By: #### C BC #### [facility] [address] [place] [address] Dr. Jyoti Rojas Hematocrit (Bld) [Volume fraction] 38.1 % Normal 36.0-48.0 [facility] Comment on above: Performed By: #### C BC #### [facility] [address] [place] [address] Dr. Jyoti Rojas Hemoglobin (Bld) [Mass/Vol] 13.6 g/dL Normal 12.0-16.0 [facility] Comment on above: Performed By: #### C BC #### [facility] [address] [place] [address] Dr. Jyoti Rojas IG # 0.03 10e3/ul Normal 0.00-0.03 [facility] Comment on above: Performed By: #### C BC #### [facility] [address] [place] [address] Dr. Jyoti Rojas IG % 0.5 % Normal 0.0-0.5 [facility] Comment on above: Performed By: #### C BC #### [facility] [address] [place] [address] Dr. Jyoti Rojas LYMPH # 1.7 103/ul Normal 1.2-3.8 [facility] Comment on above: Performed By: #### C BC #### [facility] [address] [place] [address] Dr. Jyoti Rojas Lymphocytes/100 WBC (Bld) 27.9 % Normal 20.5-60.0 [facility] Comment on above: Performed By: #### C BC #### [facility] [address] [place] [address] Dr. Jyoti Rojas MANUAL DIFF REQ NO Normal [facility] Comment on above: Performed By: #### C BC #### [facility] [address] [place] [address] Dr. Jyoti Rojas MCH (RBC) [Entitic mass] 31.1 pg Normal 26.7-34.0 [facility] Comment on above: Performed By: #### C BC #### [facility] [address] [place] [address] Dr. Jyoti Rojas MCHC (RBC) [Mass/Vol] 35.7 g/dL Critically high 29.9-35.2 [facility] Comment on above: Performed By: #### C BC #### [facility] [address] [place] [address] Dr. Jyoti Rojas MCV (RBC) [Entitic vol] 87.2 fL Normal 81.0-99.0 [facility] Comment on above: Performed By: #### C BC #### [facility] [address] [place] [address] Dr. Jyoti Rojas MONO # 0.7 103/ul Normal 0.3-0.8 [facility] Comment on above: Performed By: #### C BC #### [facility] [address] [place] [address] Dr. Jyoti Rojas Monocytes/100 WBC (Bld) 11.7 % Normal 1.7-12.0 [facility] Comment on above: Performed By: #### C BC #### [facility] [address] [place] [address] Dr. Jyoti Rojas NEUT # 3.6 103/ul Normal 1.4-6.5 [facility] Comment on above: Performed By: #### C BC #### [facility] [address] [place] [address] Dr. Jyoti Rojas Neutrophils/100 WBC (Bld) 57.5 % Normal 43.0-75.0 [facility] Comment on above: Performed By: #### C BC #### [facility] [address] [address] [address] Jyoti Rojas Platelet mean volume (Bld) [Entitic vol] 9.6 fL Normal 9.5-13.5 [facility] Comment on above: Performed By: #### C BC #### [facility] [address] [address] [address] Jyoti Rojas PLT 247 103/ul Normal 150-450 [facility] Comment on above: Performed By: #### C BC #### [facility] [address] [address] [address] Jyoti Rojas RBC 4.37 106/ul Normal 4.20-5.40 [facility] Comment on above: Performed By: #### C BC #### [facility] [address] [address] [address] Jyoti Rojas WBC 6.2 103/ul Normal 4.0-11.0 [facility] Comment on above: Performed By: #### C BC #### [facility] [address] [address] [address] Jyoti Rojas Cholesterol [Mass/volume] in Serum or PlasmaOrdered By: Sukhjinder Schroeder on 04-10-2022 Cholesterol [Mass/Vol] 149 mg/dL 140-200 [facility] Comment on above: Chol less than 200 m g/dl low riskChol 201-239 mg/dl borderline riskChol 240 mg/dl and greater high risk Cholesterol in LDL Calc [Mas s/Vol]Ordered By: Sukhjinder Schroeder on 04-10-2022 Cholesterol in LDL [Mass/Vol] 82 mg/dL 0-100 [facility] Comment on above: LDL ATP III CLASSIFI CATIONLDL less than 100 mg/dL OptimalLDL 100-129 mg/dL Near or above optimalLDL 130-159 mg/dL Borderline highLDL 160-189 mg/dL HighLDL greater than 189 mg/dL Very high Cholesterol in VLDL Calc [Ma ss/Vol]Ordered By: Sukhjinder Schroeder on 04-10-2022 Cholesterol in VLDL [Mass/Vol] 11 mg/dL [facility] Covid-19 PCR (CVDTB)on 03-15 SARS-CoV-2 (COVID-19) RNA MADHAV+probe Ql (Unsp spec) Not detected Normal NOT DETECTED [facility] Comment on above: Result Comment: When diagnostic testing is negative, the possibility of a false negative should be considered in the context of a patient's recent exposures and the presence of clinical signs and symptoms consistent with SARS-CoV-2. This test is not yet approved or cleared by the [place] FDA. When there are no FDA-approved or cleared tests available, and other criteria are met, FDA can make tests available under an emergency access mechanism called an Emergency Use Authorization (EUA). The EUA for this test is supported by the [place] of Health and Human Service's declaration that circumstances exist to justify the emergency use of in vitro diagnostics for the detection and/or diagnosis of the virus that causes COVID-19. This EUA will remain in effect for the duration of the COVID-19 declaration justifying emergency of IVDs, unless it is terminated or revoked by the FDA (after which the test may no longer be used). Performed By: #### V ALP #### [facility] [address] [place] [address] Dr. Jyoti Rojas DRUG SCREEN RAPID (URINE)on 04-10-2022 AMP Negative Normal NEGATIVE [facility] Comment on above: Performed By: #### P REG #### [facility] [address] [address] [address] Jyoti Rojas BAR Negative Normal NEGATIVE [facility] Comment on above: Performed By: #### P REG #### [facility] [address] [place] [address] Dr. Jyoti Rojas BUP Negative Normal NEGATIVE [facility] Comment on above: Performed By: #### P REG #### [facility] [address] [place] [address] Dr. Jyoti Rojas BZO Negative Normal NEGATIVE [facility] Comment on above: Performed By: #### P REG #### [facility] [address] [address] [address] Jyoti Rojas QUINN Negative Normal NEGATIVE [facility] Comment on above: Performed By: #### P REG #### [facility] [address] [place] [address] Dr. Jyoti Rojas CUT-OFFS SEE BELOW Normal [facility] Comment on above: Result Comment: AMP (Amphetamine): 500ng/mL, BAR (Barbituates): 200 ng/mL, BZO (Benzodiazepines): 150 ng/mL, BUP (Buprenorphine): 10 ng/mL, QUINN (Cocaine): 150 ng/mL, mAMP (Methamphetamine): 500 ng/mL, MTD (Methadone): 200 ng/mL, OPI (Opiates): 100 ng/mL, OXY (Oxycodone): 100 ng/mL, PCP (Phencyclidine): 25 ng/mL, PPX (Propoxyphene): 300 ng/mL, THC (Cannabinoids): 50 ng/mL, TCA (Trycyclic Antidepressants): 300 ng/mL Performed By: #### P REG #### [facility] [address] [place] [address] Dr. Jyoti Rojas DRUG CUT HEADER DRUG CLASS TEST SYSTEM CUT-OFF CONCENTRATIONS ARE FOLLOWS: Normal [facility] Comment on above: Performed By: #### P REG #### [facility] [address] [place] [address] Dr. Jyoti Rojas mAMP Negative Normal NEGATIVE [facility] Comment on above: Performed By: #### P REG #### [facility] [address] [place] [address] Dr. Jyoti Rojas MTD Negative Normal NEGATIVE [facility] Comment on above: Performed By: #### P REG #### [facility] [address] [place] [address] Dr. Jyoti Rojas OPI Negative Normal NEGATIVE [facility] Comment on above: Performed By: #### P REG #### [facility] [address] [place] [address] Dr. Jyoti Rojas OXY Negative Normal NEGATIVE [facility] Comment on above: Performed By: #### P REG #### [facility] [address] [place] [address] Dr. Jyoti Rojas PCP Negative Normal NEGATIVE [facility] Comment on above: Performed By: #### P REG #### [facility] [address] [address] [address] Jyoti Rojas PPX Negative Normal NEGATIVE [facility] Comment on above: Performed By: #### P REG #### [facility] [address] [address] [address] Jyoti Rojas TCA Negative Normal NEGATIVE [facility] Comment on above: Performed By: #### P REG #### [facility] [address] [address] [address] Jyoti Rojas THC Positive Abnormal NEGATIVE [facility] Comment on above: Performed By: #### P REG #### [facility] [address] [address] [address] Jyoti Rojas ECG 12 lead ECGon 04-10-2022 ECG 12 lead ECG [facility] [place] [address] Electrocardiograph Report Signed Patient: Jaquelin Hi MR#: [id number] : 1990 Acct:[id number] Age/Sex: 31 / F ADM Date: 04/10/22 Loc: Room: [address] [place] [address] Type: ADM IN Attending Dr: Sukhjinder Schroeder MD Ordering Provider: Sukhjinder Schroeder MD Date of Service: 04/10/22 ECG/ECG 12 lead ECG: antipsychotic therapy Copies to: Test Reason : Blood Pressure : / mmHG Vent. Rate : 050 BPM Atrial Rate : 050 BPM P-R Int : 192 ms QRS Dur : 088 ms QT Int : 460 ms P-R-T Axes : 041 053 206 degrees QTc Int : 419 ms Sinus bradycardia Abnormal ECG No previous ECGs available Confirmed by GENEVIEVE DING MD ([id number]) on 04/12/2022 1:11:03 PM Referred By: Electronically Signed By:GENEVIEVE IDNG MD Transcribed By: MUS Signed By Genevieve Ding MD 0 04/12/22 1311 Normal [facility] ER URINE PROFILEon 3 Bilirubin Ql (U) Negative Normal NEGATIVE [facility] Comment on above: Performed By: #### P REG #### [facility] [address] [place] [address] Dr. Jyoti Rojas Clarity (U) CLEAR Normal CLEAR [facility] Comment on above: Performed By: #### P REG #### [facility] [address] [place] [address] Dr. Jyoti Rojas Color (U) LT. YELLOW Normal YELLOW [facility] Comment on above: Performed By: #### P REG #### [facility] [address] [place] [address] Dr. Jyoti REBOLLEDO A micrscopic examination will be performed if indicated. Normal [facility] Comment on above: Performed By: #### P REG #### [facility] [address] [place] [address] Dr. Jyoti Rojas Glucose Ql (U) Negative Normal NEGATIVE [facility] Comment on above: Performed By: #### P REG #### [facility] [address] [place] [address] Dr. Jyoti Rojas Hemoglobin Ql (U) Negative Normal NEGATIVE [facility] Comment on above: Performed By: #### P REG #### [facility] [address] [place] [address] Dr. Jyoti Rojas Ketones Ql (U) Negative Normal NEGATIVE [facility] Comment on above: Performed By: #### P REG #### [facility] [address] [place] [address] Dr. Jyoti Rojas LEUKOCYTES Negative Normal NEGATIVE [facility] Comment on above: Performed By: #### P REG #### [facility] [address] [place] [address] Dr. Jyoti Rojas Nitrite Ql (U) Negative Normal NEGATIVE [facility] Comment on above: Performed By: #### P REG #### [facility] [address] [place] [address] Dr. Jyoti Rojas pH (U) 7.0 [pH] Normal 5-9 [facility] Comment on above: Performed By: #### P REG #### [facility] [address] [place] [address] Dr. Jyoti Rojas SPEC GRAVITY 1.020 Normal 1.005-<=1.02 5 [facility] Comment on above: Performed By: #### P REG #### [facility] [address] [place] [address] Dr. Jyoti Rojas UA PROTEIN Negative Normal NEGATIVE/ TRACE [facility] Comment on above: Performed By: #### P REG #### [facility] [address] [address] [address] Jyoti Rojas UR MICRO IND NOT INDICATED Normal [facility] Comment on above: Performed By: #### P REG #### [facility] [address] [place] [address] Dr. Jyoti Rojas Urobilinogen Qn (U) 0.2 {Ricardo'U}/dL Normal 0.2 - 1. 0 [facility] Comment on above: Performed By: #### P REG #### [facility] Laboratory [address] [place] [address] Dr. Jyoti Rojas ETHANOL (BLD ALC)on 04-10-19 ALC NOTE NOTE: 80 mg/dl is th e legal limit for a blood alcohol level Normal [facility] Comment on above: Performed By: #### A CET, SALYC, BMP, ETH #### [facility] [address] [place] [address] Dr. Jyoti Rojas Ethanol [Mass/Vol] mg/dL Normal [facility] Comment on above: Performed By: #### A CET, SALYC, BMP, ETH #### [facility] [address] [place] [address] Dr. Jyoti Rojas Lipid Panelon 04-10-2022 Cholesterol [Mass/Vol] 149 mg/dL Normal 140-200 [facility] Comment on above: Result Comment: Chol less than 200 mg/dl low risk Chol 201-239 mg/dl borderline risk Chol 240 mg/dl and greater high risk Performed By: #### L IPID, TSH3 wRFLX, [id number] #### [facility] [address] Cholesterol in HDL [Mass/Vol] 56 mg/dL Normal 35-85 [facility] Comment on above: Result Comment: HDL CHOL ATP-III CLASSIFICATION Cardiovascular Risk HDL > or equal to 60 mg/dL LOW HDL < 40 mg/dL HIGH Performed By: #### L IPID, TSH3 wRFLX, [id number] #### [facility] [address] Cholesterol.total/Cho lesterol in HDL [Mass ratio] 2.7 {ratio} Normal <5.0 [facility] Comment on above: Performed By: #### L IPID, TSH3 wRFLX, [id number] #### [facility] [address] LDL Cholesterol,Calculate d 82 mg/dL Normal 0-100 [facility] Comment on above: Result Comment: LDL ATP III CLASSIFICATION LDL less than 100 mg/dL Optimal LDL 100-129 mg/dL Near or above optimal LDL 130-159 mg/dL Borderline high LDL 160-189 mg/dL High LDL greater than 189 mg/dL Very high Performed By: #### L IPID, TSH3 wRFLX, [id number] #### [facility] [address] Triglyceride w/Reflex 56 mg/dL Normal 35-149 [facility] Comment on above: Result Comment: TRIG ATP III CLASSIFICATION TRIG less than 150 mg/dL Normal TRIG 150-199 mg/dL Borderline high TRIG 200-500 mg/dL High TRIG greater than 500 mg/dL Very high Standard traceable to the Center for Disease Conrtrol and Prevention (CDC) test method. Performed By: #### L IPID, TSH3 wRFLX, [id number] #### [facility] [address] [place] [id number] [facility] VLDL CHOLESTEROL 11 mg/dL Normal [facility] Comment on above: Performed By: #### L IPID, TSH3 wRFLX, [id number] #### [facility] [address] No Panel InformationOrdered By: Sukhjinder Schroeder on 04-10-2022 25-Hydroxy Vitamin D Total 13.8 ng/mL 30-100 [facility] Comment on above: VITAMIN D STATUS 25( [place])VITAMIN D RANGE (ng/mL) Deficient <20 Insufficient 20 to <30Sufficient 30 to 100Reference: Steven MF,Jesus NC, Sue VILLALTA, et al. Evaluation,treatment, and prevention of vitamin D deficiency; an Endocrine Society clinical practice guideline. JCEM. 2010; 96(7):1911-30. URon 04-10-2022 , QUAL Negative Normal NEGATIVE The [facility] Comment on above: Performed By: #### P REG #### [facility] [address] [place] [address] Dr. Jyoti Rojas PROF CHEM 8 (BAS METB)on Anion gap [Moles/Vol] 10.0 mmol/L Normal [facility] Comment on above: Performed By: #### A CET, SALYC, BMP, ETH #### [facility] [address] [place] [address] Dr. Jyoti Rojas Calcium [Mass/Vol] 8.7 mg/dL Normal 8.5-10.1 [facility] Comment on above: Performed By: #### A CET, SALYC, BMP, ETH #### [facility] [address] [address] [address] Jyoti Rojas Chloride [Moles/Vol] 103 mmol/L Normal 98-107 [facility] Comment on above: Performed By: #### A CET, SALYC, BMP, ETH #### [facility] [address] [address] [address] Jyoti Rojas CO2 [Moles/Vol] 29.0 mmol/L Normal 21.0-32.0 [facility] Comment on above: Performed By: #### A CET, SALYC, BMP, ETH #### [facility] [address] [address] [address] Jyoti Rojas Creatinine [Mass/Vol] 0.80 mg/dL Normal 0.55-1.02 [facility] Comment on above: Performed By: #### A CET, SALYC, BMP, ETH #### [facility] [address] [address] [address] Jyoti Rojas EGFR-AF MALDIVIAN >60 Normal >=60 [facility] Comment on above: Performed By: #### A CET, SALYC, BMP, ETH #### [facility] [address] [place] [address] Dr. Jyoti Rojas EGFR-NON AF MALDIVIAN >60 Normal >=60 [facility] Comment on above: Performed By: #### A CET, SALYC, BMP, ETH #### [facility] [address] [place] [address] Dr. Jyoti Rojas Glucose [Mass/Vol] 99 mg/dL Normal 74-106 [facility] Comment on above: Performed By: #### A CET, SALYC, BMP, ETH #### [facility] [address] [place] [address] Dr. Jyoti Rojas Potassium [Moles/Vol] 4.0 mmol/L Normal 3.5-5.1 [facility] Comment on above: Performed By: #### A CET, SALYC, BMP, ETH #### [facility] [address] [place] [address] Dr. Jyoti Rojas Sodium [Moles/Vol] 138 mmol/L Normal 136-145 [facility] Comment on above: Performed By: #### A CET, SALYC, BMP, ETH #### [facility] [address] [place] [address] Dr. Jyoti Rojas Urea nitrogen [Mass/Vol] 17.0 mg/dL Normal 7.0-18.0 [facility] Comment on above: Performed By: #### A CET, SALYC, BMP, ETH #### [facility] [address] [place] [address] Dr. Jyoti Rojas Urea nitrogen/Creatinine [Mass ratio] 21.2 mg/mg Normal [facility] Comment on above: Performed By: #### A CET, SALYC, BMP, ETH #### [facility] [address] [place] [address] Dr. Jyoti Rojas SALICYLATEon 04-10-2022 SALICYLATE <2.8 Normal <=19.9 [facility] Comment on above: Performed By: #### A CET, SALYC, BMP, ETH #### [facility] [address] [address] [address] Jyoti Rojas Serum or plasma high density lipoprotein (HDL) cholesterol measurementOrdered By: Sukhjinder Schroeder on 04-10-2022 Cholesterol in HDL [Mass/Vol] 56 mg/dL 35-85 [facility] Comment on above: HDL CHOL ATP-III CLA SSIFICATION Cardiovascular RiskHDL > or equal to 60 mg/dL LOWHDL < 40 mg/dL HIGH Serum or plasma total choles terol/high density lipoprotein (HDL) cholesterol mass ratOrdered By: Sukhjinder Schroeder on 04-10-2022 Cholesterol.total/Cho lesterol in HDL [Mass ratio] 2.7 {ratio} <5.0 [facility] TSH DL <= 0.005 mIU/L QnOrde red By: Sukhjinder Schroeder on 04-10-2022 TSH Qn 2.29 m[IU]/L 0.45-5.33 [facility] Thyroid Stim Hormone w/Rflxo n 04-10-2022 Thyroid Stim Hormone w/Rflx 2.29 u[iU]/mL Normal 0.45-5.33 [facility] Comment on above: Performed By: #### L IPID, TSH3 wRFLX, [id number] #### [address] Triglyceride [Mass/volume] i n Serum or PlasmaOrdered By: Sukhjinder Schroeder on 04-10-2022 Triglyceride [Mass/Vol] 56 mg/dL 35-149 [facility] Comment on above: TRIG ATP III CLASSIF ICATIONTRIG less than 150 mg/dL NormalTRIG 150-199 mg/dL Borderline highTRIG 200-500 mg/dL High TRIG greater than 500 mg/dL Very highStandard traceable to the Center for Disease Conrtrol and Prevention (CDC) test method. Vitamin D 25 Hydroxy Totalon 04-10-2022 Vitamin D 25 Hydroxy Total 13.8 ng/mL Low 30-100 [facility] Comment on above: Result Comment: BRIANA MIN D STATUS 25(OH)VITAMIN D RANGE (ng/mL) Deficient <20 Insufficient 20 to <30 Sufficient 30 to 100 Reference: Steven MF,Jesus DO, Sue VILLATLA, et al. Evaluation,treatment, and prevention of vitamin D deficiency; an Endocrine Society clinical practice guideline. JCEM. 2010; 96(7):1911-30. PERFORMED BY: [facility] [address] [place] [address] PATHOLOGIST [employer] SAMUEL VELARDE M.D. Performed By: #### L IPID, TSH3 wRFLX, [id number] #### [facility] [address] [place] [address] [facility] XR CHEST 2 Von 02-03-2022 XR CHEST 2 V EXAM: XR CHEST 2 V COMPARISON: 01/15/2022 CLINICAL INDICATION: Pain. FINDINGS: Unchanged left-sided AICD. The cardiomediastinal silhouette is within normal limits. No focal consolidation. No pleural effusion. No pneumothorax. No evidence of acute osseous abnormality. Visualized upper abdomen unremarkable. IMPRESSION: No radiographic evidence of acute abnormality. Electronically authenticated by: HOWIE RAMIREZ Date: 2022-02-03 20:18 Normal [facility] CT ABD/PELV W CONon 01-17-[address] ABD/PELV W CON EXAM: CT ABDOMEN PELVIS WITH IV CONTRAST CLINICAL INDICATION: CONSTIPATION, UNSPECIFIED COMPARISON: None. TECHNIQUE: Axial CT images were obtained through the abdomen and pelvis with IV contrast. Coronal and sagittal reformats were obtained. Dose reduction techniques were achieved by using automated exposure control and/or adjustment of mA and/or kV according to patient size and/or use of iterative reconstruction technique. FINDINGS: Lower thorax: Minimal dependent atelectasis. No acute lung finding. Normal heart size. Partially seen defibrillator lead anterior chest wall soft tissues. Liver: Small focus of low-attenuation in the anterior liver along the fissure for ligamentum teres, most consistent with focal fat. Otherwise unremarkable liver. Biliary: The gallbladder is unremarkable. No abnormal biliary dilatation seen. Spleen: Unremarkable. Pancreas: Unremarkable. Adrenals: Unremarkable. Kidneys and bladder: Kidneys enhance symmetrically. Small bilateral renal hypodensities, with the appearance of cysts. A few punctate nonobstructing bilateral renal calculi. No ureteral calculi or hydronephrosis. Unremarkable bladder. GI Tract: Moderate stool throughout the colon. Some segments of colon are nondistended not well assessed. Unremarkable appendix. A focal inflammatory process is not identified. No evidence of bowel obstruction. Lymph Nodes: No lymphadenopathy. Mesentery/peritoneum: No free fluid or free air. Retroperitoneum: No mass or fluid collection. Vasculature: No visible abdominal aortic or iliac artery aneurysm. Pelvis: No mass visible. Uterus appears somewhat heterogeneous with mild central uterine low-attenuation, and follicular changes of the left ovary seen. Right ovary not clearly seen. Possible small amount of free pelvic fluid, may be physiologic. Bones/Soft Tissues: No acute bony abnormality. Mild degenerative changes. No significant soft tissue abnormality. Small fat-containing umbilical hernia. IMPRESSION: 1. No evidence of an acute obstructive or inflammatory process in the abdomen or pelvis. 2. Moderate stool throughout the colon, correlate for constipation. 3. No evidence of bowel obstruction or free air. 4. Punctate nonobstructing bilateral renal calculi. Electronically authenticated by: GORDO [place] Date: 2022-01-15 23:32 Normal [facility] AMYLASEon 01-15-2022 Amylase [Catalytic activity/Vol] 56 U/L Normal 25-115 [facility] Comment on above: Performed By: #### P REG #### [facility] [address] [place] [address] Dr. Jyoti Rojas CBC AUTO DIFFon 01-15-2022 BASO # 0.0 103/ul Normal 0.0-0.1 [facility] Comment on above: Performed By: #### E TH #### [facility] [address] [place] [address] Dr. Jyoti Rojas Basophils/100 WBC (Bld) 0.3 % Normal 0.2-2.0 [facility] Comment on above: Performed By: #### E TH #### [facility] [address] [place] [address] Dr. Jyoti Rojas EO # 0.2 103/ul Normal 0.0-0.7 [facility] Comment on above: Performed By: #### E TH #### [facility] [address] [place] [address] Dr. Jyoti Rojas Eosinophils/100 WBC (Bld) 2.1 % Normal 0.9-7.0 [facility] Comment on above: Performed By: #### E TH #### [facility] [address] [place] [address] Dr. Jyoti Rojas Erythrocyte distribution width (RBC) [Ratio] 12.7 % Normal 11.0-15.0 [facility] Comment on above: Performed By: #### E #### [facility] [address] [place] [address] Dr. Jyoti Rojas Hematocrit (Bld) [Volume fraction] 35.6 % Critically low 36.0-48.0 [facility] Comment on above: Performed By: #### E #### [facility] [address] [place] [address] Dr. Jyoti Rojas Hemoglobin (Bld) [Mass/Vol] 12.2 g/dL Normal 12.0-16.0 [facility] Comment on above: Performed By: #### E #### [facility] [address] [place] [address] Dr. Jyoti Rojas IG # 0.04 10e3/ul Critically high 0.00-0.03 [facility] Comment on above: Performed By: #### E #### [facility] [address] [place] [address] Dr. Jyoti Rojas IG % 0.3 % Normal 0.0-0.5 [facility] Comment on above: Performed By: #### E #### [facility] [address] [place] [address] Dr. Jyoti Rojas LYMPH # 1.7 103/ul Normal 1.2-3.8 [facility] Comment on above: Performed By: #### E #### [facility] [address] [place] [address] Dr. Jyoti Rojas Lymphocytes/100 WBC (Bld) 14.4 % Critically low 20.5-60.0 [facility] Comment on above: Performed By: #### E #### [facility] [address] [place] [address] Dr. Jyoti Rojas MANUAL DIFF REQ NO Normal [facility] Comment on above: Performed By: #### E #### [facility] [address] [address] [address] Jyoti Rojas MCH (RBC) [Entitic mass] 32.1 pg Normal 26.7-34.0 [facility] Comment on above: Performed By: #### E TH #### [facility] [address] [place] [address] Dr. Jyoti Rojas MCHC (RBC) [Mass/Vol] 34.3 g/dL Normal 29.9-35.2 [facility] Comment on above: Performed By: #### E TH #### [facility] [address] [place] [address] Dr. Jyoti Rojas MCV (RBC) [Entitic vol] 93.7 fL Normal 81.0-99.0 [facility] Comment on above: Performed By: #### E TH #### [facility] [address] [place] [address] Dr. Jyoti Rojas MONO # 1.1 103/ul Critically high 0.3-0.8 The [facility] Comment on above: Performed By: #### E TH #### [facility] [address] [place] [address] Dr. Jyoti Rojas Monocytes/100 WBC (Bld) 9.2 % Normal 1.7-12.0 [facility] Comment on above: Performed By: #### E TH #### [facility] [address] [place] [address] Dr. Jyoti Rojas NEUT # 8.5 103/ul Critically high 1.4-6.5 [facility] Comment on above: Performed By: #### E TH #### [facility] [address] [place] [address] Dr. Jyoti Rojas Neutrophils/100 WBC (Bld) 73.7 % Normal 43.0-75.0 [facility] Comment on above: Performed By: #### E TH #### [facility] [address] [place] [address] Dr. Jyoti Rojas Platelet mean volume (Bld) [Entitic vol] 10.2 fL Normal 9.5-13.5 [facility] Comment on above: Performed By: #### E TH #### [facility] [address] [address] [address] Jyoti Rojas PLT 261 103/ul Normal 150-450 [facility] Comment on above: Performed By: #### E TH #### [facility] [id number] Jyoti Rojas RBC 3.80 106/ul Critically low 4.20-5.40 The [facility] Comment on above: Performed By: #### E TH #### [facility] [address] [address] [address] Jyoti Rojas WBC 11.5 103/ul Critically high 4.0-11.0 [facility] Comment on above: Performed By: #### E TH #### [facility] [address] [address] [address] Jyoti Rojas LIPASEon 01-15-2022 Lipase [Catalytic activity/Vol] 72.0 U/L Critically low 73.0-393.0 [facility] Comment on above: Performed By: #### P REG #### [facility] [address] [place] [address] Dr. Jyoti Rojas XR ABD FLAT UP_PA Morgan 01-15 XR ABD FLAT UP_PA CH EXAMINATION: XR ABD FLAT UP_PA CH HISTORY: Left flank pain COMPARISON: Chest x-ray 07/16/2019 TECHNIQUE: PA chest and 2 views of the abdomen FINDINGS: The lung parenchyma is free of consolidation or infiltrate. No pneumothorax or pleural effusion. Left-sided AICD. The cardiac, mediastinal and hilar contours are normal. The bowel gas pattern is nonobstructed. No free intraperitoneal air. Stool throughout the colon and rectum. No visualized intra-abdominal calcification. The visualized osseous structures exhibit no gross abnormality. IMPRESSION: Stool throughout the colon and rectum. Electronically authenticated by: KATHY CAMERON Date: 2022-01-15 19:48 Normal [facility] BMPon 12-31-2021 Anion gap [Moles/Vol] 10 mmol/L 9 - 17 mmol/L [facility] Calcium [Mass/Vol] 9.2 mg/dL 8.6 - 10. 4 mg/dL [facility] Chloride [Moles/Vol] 103 mmol/L 98 - 10 7 mmol/L [facility] CO2 [Moles/Vol] 24 mmol/L 20 - 31 mmol/L [facility] Creatinine [Mass/Vol] 0.85 mg/dL 0.5 - 0.9 mg/dL [facility] GFR/1.73 sq M.predicted MDRD (S/P/Bld) [Vol rate/Area] - PINF [facility] Comment on above: Effective Dec 14, 2021 These results are not intended for use in patients <18 years of age. eGFR results are calculated without a race factor using the 2020 CKD-EPI equation. Careful clinical correlation is recommended, particularly when comparing to results calculated using previous equations. The CKD-EPI equation is less accurate in patients with extremes of muscle mass, extra-renal metabolism of creatine, excessive creatine ingestion, or following therapy that affects renal tubular secretion. Glucose [Mass/Vol] 93 mg/dL 70 - 99 mg/dL [facility] Interpretation and review of laboratory results Abnormal [facility] Potassium [Moles/Vol] 4.2 mmol/L 3.7 - 5.3 mmol/L [facility] Sodium [Moles/Vol] 137 mmol/L 135 - 144 mmol/L [facility] Urea nitrogen (BldV) [Mass/Vol] 19 mg/dL 6 - 20 mg/dL [facility] Urea nitrogen/Creatinine (Bld) [Mass ratio] 22 High - 20 [facility] Basic Metabolic Profon 12-31 Anion gap [Moles/Vol] 10 mmol/L Normal -17 [facility] Comment on above: Performed By: #### B FELICITA OSWALD, TROPI #### [facility] Lab [address] [place] [address] [employer] Support Equipment Repairer: Kathy Mohr MD BUN/CRE Ratio 22 High 9-20 [facility] Comment on above: Performed By: #### B MARGRET CDP, TROPI #### [facility] [address] [place] [address] [employer]r: Kathy Mohr MD Calcium [Mass/Vol] 9.2 mg/dL Normal 8.6-10.4 [facility] Comment on above: Performed By: #### B FELICITA OSWALD, TROPI #### [facility] [address] [place], [place] [id number] [employer]r: Kathy Mohr MD Chloride [Moles/Vol] 103 mmol/L Normal 98-107 [facility] Comment on above: Performed By: #### B FELICITA OSWALD, TROPI #### [facility] [address] [place], [place] [phone] [employer]r: Kathy Mohr MD CO2 [Moles/Vol] 24 mmol/L Normal 20-31 [facility] Comment on above: Performed By: #### B FELICITA OSWALD, TROPI #### [facility] [address] [place], [place] [phone] [employer]r: Kathy Mohr MD Creatinine [Mass/Vol] 0.85 mg/dL Normal 0.50-0.90 [facility] Comment on above: Performed By: #### B FELICITA OSWALD, TROPI #### [facility] [address] [place], [place] [phone] [employer]r: Kathy Mohr MD GFR/1.73 sq M.predicted among non-blacks MDRD (S/P/Bld) [Vol rate/Area] mL/min/{1.73_m2} Normal >60 [facility] Comment on above: Result Comment: Effective Dec 14, 2021 These results are not intended for use in patients <18 years of age. eGFR results are calculated without a race factor using the 2020 CKD-EPI equation. Careful clinical correlation is recommended, particularly when comparing to results calculated using previous equations. The CKD-EPI equation is less accurate in patients with extremes of muscle mass, extra-renal metabolism of creatine, excessive creatine ingestion, or following therapy that affects renal tubular secretion. Performed By: #### B FELICITA OSWALD, TROPI #### [facility] [address] [place], [place] [phone] [employer]r: Kathy Mohr MD Glucose [Mass/Vol] 93 mg/dL Normal 70-99 [facility] Comment on above: Performed By: #### B FELICITA OSWALD, TROPI #### [facility] [address] [place], [place] [phone] [employer]r: Kathy Mohr MD Potassium [Moles/Vol] 4.2 mmol/L Normal 3.7-5.3 [facility] Comment on above: Performed By: #### B FELICITA SOWALD, TROPI #### [facility] [address] [place], [place] [phone] [employer]r: Kathy Mohr MD Sodium [Moles/Vol] 137 mmol/L Normal 135-144 [facility] Comment on above: Performed By: #### B FELICITA OSWALD, TROPI #### [facility] [address] [place], [place] [phone] [employer]r: Kathy Mohr MD Urea nitrogen [Mass/Vol] 19 mg/dL Normal 6-20 [facility] Comment on above: Performed By: #### B FELICITA OSWALD, TROPI #### [facility] [address] [place], [place] [phone] [employer]r: Kathy Mohr MD CBC with Auto Differentialon 12-31-2021 Absolute Eos # 0.06 [place] [facility] Absolute Immature Granulocyte 0.07 [facility] Absolute Lymph # 1.46 [facility] Absolute [place] # 0.94 [facility] RS [facility] Basophils (Bld) [#/Vol] 0.04 10*3/uL [facility] Basophils/100 WBC (Bld) 0 % 0 - 2 % [facility] Eosinophils/100 WBC (Bld) 1 % 1 - 4 % [facility] Hematocrit (Bld) [Volume fraction] 44.0 % 36.3 - 47.1 % [facility] Hemoglobin (Bld) [Mass/Vol] 14.8 g/dL 11.9 - 15.1 g/dL [facility] Immature granulocytes/100 WBC (Bld) 1 % High 0 [facility] Interpretation and review of laboratory results Abnormal [facility] Lymphocytes/100 WBC (Bld) 11 % Low 24 - 43 % [facility] MCH (RBC) [Entitic mass] 32.1 pg 25.2 - 33.5 pg [facility] MCHC (RBC) [Mass/Vol] 33.6 g/dL 28.4 - 34.8 g/dL [facility] MCV (RBC) [Entitic vol] 95.4 fL 82.6 - 102.9 fL [facility] Monocytes/100 WBC (Bld) 7 % 3 - 12 % [facility] NRBC Automated 0.0 0.0 per 100 WBC [facility] Platelet distribution width (Bld) [Ratio] 12.6 % 11.8 - 14.4 % [facility] Platelet mean volume (Bld) [Entitic vol] 10.0 fL 8.1 - 13.5 fL [facility] Platelets (Bld) [#/Vol] 222 10*3/uL [facility] [facility] RBC (Bld) [#/Vol] 4.61 10*6/uL 3.95 - 5.1 1 m/uL [facility] Segmented neutrophils/100 WBC (Bld) 80 % High 36 - 65 % [facility] Segs Absolute 10.74 High [facility] WBC (Bld) [#/Vol] 13.3 10*3/uL High [facility] CBC with Diffon 12-31-2021 Abs. Basophil 0.04 k/uL Normal 0.00-0.20 [facility] Comment on above: Performed By: #### B FELICITA OSWALD TROPI #### [facility] [address] [place] [address] [employer]airer: Kathy Mohr MD Abs.Imm.Granulocyte 0.07 k/uL Normal 0.00-0.30 [facility] Comment on above: Performed By: #### B MP, CDP, TROPI #### [facility] [address] [place] [address] Dr. [place], [facility]83 [employer] Repairer: Kathy Mohr MD Abs.Neutrophil (Seg) 10.74 k/uL High 1.50-8.10 [facility] Comment on above: Performed By: #### B MP, CDP, TROPI #### [address] [place], [place] [address] [employer]r: Kathy Mohr MD Basophils/100 WBC (Bld) 0 % Normal 0-2 [facility] Comment on above: Performed By: #### B MARGRET CDP, TROPI #### [address] [place], [place] [address] [employer]airer: Kathy Mohr MD Eosinophils (Bld) [#/Vol] 0.06 10*3/uL Normal 0.00-0.44 [facility] Comment on above: Performed By: #### B MARGRET CDP, TROPI #### [address] [place], [facility]83 [employer]airer: Kathy Mohr MD Eosinophils/100 WBC (Bld) 1 % Normal 1-4 [facility] Comment on above: Performed By: #### B FELICITA OSWALD, TROPI #### [address] [place], [facility]83 [employer]r: Kathy Mohr MD Erythrocyte distribution width (RBC) [Ratio] 12.6 % Normal 11.8-14.4 [facility] Comment on above: Performed By: #### B MARGRET CDP, TROPI #### [address] [place], [facility]83 [employer]airer: Kathy Mohr MD Hematocrit (Bld) [Volume fraction] 44.0 % Normal 36.3-47.1 [facility] Comment on above: Performed By: #### B MARGRET, CDP, TROPI #### [address] [place], [place] [phone] [employer]r: Kathy Mohr MD Hemoglobin (Bld) [Mass/Vol] 14.8 g/dL Normal 11.9-15.1 [facility] Comment on above: Performed By: #### B MP, CDP, TROPI #### [address] [place], [place] [phone] [employer]r: Kathy Mohr MD Immature granulocytes/100 WBC (Bld) 1 % High 0 [facility] Comment on above: Performed By: #### B MP, CDP, TROPI #### [address] [place], [facility]83 [employer] Repairer: Kathy Mohr MD Lymphocytes (Bld) [#/Vol] 1.46 10*3/uL Normal 1.10-3.70 [facility] Comment on above: Performed By: #### B MARGRET CDP, TROPI #### [address] [place], [facility]83 [employer] Repairer: Kathy Mohr MD Lymphocytes/100 WBC (Bld) 11 % Low 24-43 [facility] Comment on above: Performed By: #### B MP, CDP, TROPI #### [address] [place], [facility]83 [employer] Repairer: Kathy Mohr MD MCH (RBC) [Entitic mass] 32.1 pg Normal 25.2-33.5 [facility] Comment on above: Performed By: #### B MP, CDP, TROPI #### [address] [place], [place] [phone] [employer]airer: Kathy Mohr MD MCHC (RBC) [Mass/Vol] 33.6 g/dL Normal 28.4-34.8 [facility] Comment on above: Performed By: #### B MP, CDP, TROPI #### [address] [place] 1989683 [employer]r: Kathy Mohr MD MCV (RBC) [Entitic vol] 95.4 fL Normal 82.6-102.9 [facility] Comment on above: Performed By: #### B MARGRET CDP, TROPI #### [facility] [address] [place], [place] [phone] [employer]r: Kathy Mohr MD Monocytes (Bld) [#/Vol] 0.94 10*3/uL Normal 0.10-1.20 [facility] Comment on above: Performed By: #### B FELICITA OSWALD, TROPI #### [address] [place], [place] [phone] [employer]airer: Kathy Mohr MD Monocytes/100 WBC (Bld) 7 % Normal 3-12 [facility] Comment on above: Performed By: #### B FELICITA OSWALD, TROPI #### [address] [place], [place] [phone] [employer]airer: Kathy Mohr MD Neutrophil (Seg) 80 % High 36-65 [facility] Comment on above: Performed By: #### B FELICITA OSWALD, TROPI #### [address] [place], [place] [phone] [employer] Equipment Repairer: Kathy Mohr MD NRBC Automated 0.0 per 100 WBC Normal 0.0 [facility] Comment on above: Performed By: #### B FELICITA OSWALD, TROPI #### [facility] [address] [place] [address] Dr. [place], [place] [phone] [employer]airer: Kathy Mohr MD Platelet mean volume (Bld) [Entitic vol] 10.0 fL Normal 8.1-13.5 [facility] Comment on above: Performed By: #### B FELICITA OSWALD, TROPI #### [address] [place], [place] [phone] [employer]airer: Kathy Mohr MD Platelets (Bld) [#/Vol] 222 10*3/uL Normal 138-453 [facility] Comment on above: Performed By: #### B FELICITA OSWALD, TROPI #### [facility] [address] [place], [place] [phone] [employer] Repairer: Kathy Mohr MD RBC (Bld) [#/Vol] 4.61 10*6/uL Normal 3.95-5.11 [facility] Comment on above: Performed By: #### B FELICITA OSWALD, TROPI #### [facility] [address] [place], [place] [phone] [employer] Repairer: Kathy Mohr MD WBC (Bld) [#/Vol] 13.3 10*3/uL High 3.5-11.3 [facility] Comment on above: Performed By: #### B FELICITA OSWALD, TROPI #### [facility] [address] [place], [place] [phone] [employer] Repairer: Kathy Mohr MD Troponinon 12-31-2021 Troponin, High Sens 8 ng/L Normal 0-14 [facility] Comment on above: Result Comment: High Sensitivity Troponin values cannot be compared with other Troponin methodologies. Patients with high levels of Biotin oral intake (i.e >5mg/day) may have falsely decreased Troponin levels. Samples collected within 8 hours of biotin intake may require additional information for diagnosis. Performed By: #### B FELICITA OSWALD, TROPI #### [facility] [address] [place], [place] [phone] [employer] Repairer: Kathy Mohr MD Troponin, High Sensitivity 8 ng/L 0 - 14 ng/L [facility] Comment on above: High Sensitivity Troponin values cannot be compared with other Troponin methodologies. Patients with high levels of Biotin oral intake (i.e >5mg/day) may have falsely decreased Troponin levels. Samples collected within 8 hours of biotin intake may require additional information for diagnosis. [facility] XR CHEST PORTABLEon 01-01-20 XR CHEST PORTABLE EXAMINATION: ONE XRAY VIEW OF THE CHEST 12/31/2021 9:35 am COMPARISON: Chest x-ray dated 12 December 2010 HISTORY: ORDERING SYSTEM PROVIDED HISTORY: chest pain TECHNOLOGIST PROVIDED HISTORY: chest pain FINDINGS: External pacer device on the left. No acute airspace infiltrate. No pneumothorax or pleural effusion. IMPRESSION: No acute cardiopulmonary findings Interpreted by: Kyrie Horan MD Signed by: Kyrie Horan MD 12/31/21 Final result Normal [facility] No acute cardiopulmonary findings [facility] RIS CONSOLIDATED EXAMINATION: ONE XRAY VIEW OF THE CHEST 12/31/2021 9:35 am COMPARISON: Chest x-ray dated 12 December 2010 HISTORY: ORDERING SYSTEM PROVIDED HISTORY: chest pain TECHNOLOGIST PROVIDED HISTORY: chest pain FINDINGS: External pacer device on the left. No acute airspace infiltrate. No pneumothorax or pleural effusion. PN RIS CONSOLIDATED Kyrie Horan M D - 12/31/2021 EXAMINATION: ONE XRAY VIEW OF THE CHEST 12/31/2021 9:35 am COMPARISON: Chest x-ray dated 12 December 2010 HISTORY: ORDERING SYSTEM PROVIDED HISTORY: chest pain TECHNOLOGIST PROVIDED HISTORY: chest pain FINDINGS: External pacer device on the left. No acute airspace infiltrate. No pneumothorax or pleural effusion. IMPRESSION: No acute cardiopulmonary findings [employer] Phone: Radiology Study observation (narrative) [facility] [employer] Phone: XR CHEST PORTABLEOrdered By: Kyrie Horan on 12-31-2021 [facility]: Coding Summary.on 11-04-2020 Coding Summary. CD:[id number] G h0bWw+PGhlYWQ+HC4JSJO mS51dgJMckU2GV6qYTS3K ZNKFTTCCHV1PKE2acGP3G CizZ4BhalAe LehgtTXfDQ51GSi4ZNZ5o RptPHjvtH1aqLBbJ0d0Go TsCN01zF46OJpzNEDaCrS 3LjZpbjsgbWFy M1sbXlAjkZNkPow+PHRhY mxlIHdpZHRoPScxMDAlJy VbhGpnMK4bQf9wHHNxYCU vbGxhcHNlOiBj t0tbYBIrEKdsAF7srPflG 5XpvLG3FJFos5p8Zl90pE I+KGSiDRG0mWlfPNlhe96 7TvFuo4oeDYF5 nKQzGEboXGX6A18jx3Y4E BQcTFLtFCB1oKK3wP3yjI egxzoxM5EsoHSsYqG1KEI 3zWWhyZ5ymEqs bnwgfC1rZjw+F38DND5YP DXQHX7WJql6Y1EmOuckcE I+HC14LBGtBQ79qNAcmZG iw1quvYz9HvTo NGFiTUT8yVxpEYqgq3IgQ MEyW24arKQgk0E2GZLzkZ fjqKEeNmRdaLZ7tE9jBGs wbnrec0qdrnav Vysvw7dbxa05tI00Z40mY OknEBVdFYA2FKNyKBNipA ddyo8deK9dHe8+MDoqs8b mm0scoPo3YxFs DHVzzdLskKvcNHN9b7PaQ s59E6FprOryy4OcOoz9bz 17yLUcd7H3jIW0ANgrULB cuC7qLExfYvL1 YUJwAhZchD23iRUvZHpvY g0mxIifyAojKF1sJUZbgz nvWOFzcA8cIYCrwRVfeBt fLP5xFZOrsfvu j965KuSvEJD9BAMfiRItO 9PodB4lOnTkTSPyQOYaO4 TtqQYpOKpfF914RXflJuK 6UNOtppSbW0Ip IALtvVymUkC9o7P8Gx5Hi 3ZiqvljZJP6MMqgUZN3Vs F9NzLxMdL4X4LrJeq7DFD ovWqiCC7mI1Lv NCDidddurwkyfLK5VCDtY GQfgU63yLFtOHpsWw0ia8 E6v519FLSjTRQdlO59Pa2 udDogMTBwdCBU cZ1jecxhv1ntjahbCgUtH QJdIMs0ONb0KWLraLozAk JuDSY5MaT2NRV4zVAjjP6 odWzrnblvqF6k Oyc+C96oeA8aSKJ7ABY9n xjzWQKionFoEI10NO20P1 RyPjwvdGFibGU+PGRpdiB qyXwhEM0gOkGy x8hlz1UwZMudE0VnDAByB OurOes1RDNmAOD9fJO1aO 9pSBEcDJxgr5S5uGO7U4L nkhGnpf7kl7py EIMxKNgvO42gdSXje6O5Q GIwbQA9IPQukRhuVxWbmP 93Oyc+XVRktNgja2CeGky hg9knt8mxrRs4 VlOeSADkuzDbvEiuHCT1t 3BkSf99C44wEBlvXCAsLV HkHXDnUWWulJrysb6keL8 wIi8+PGNvbCB3 gQH8xW3oYCLbXzL8QYkaD 396DsUsqUWmOqngh1vkc7 xutFw6UzEyEUZdzyLcsWx eKSA4x8GxMk01 Z85rIWncXJRnXZLkQSEcU IMhqUkcnf3rzY6uFg9+PC 1ha3rqoh97fB88hBH+PHR nAUW3tZuxZZba QMCjmP9vSGzbRbP9AIYmZ hDrxS01nUScINmhIe9llW tfhZcpJF2sNOJvvyfva49 9SjGat0fiFBUp cAZrPNvoCRG2G46kz8S9U FHmAYOtMID2gLX9kO2ukZ lnbjogbGVmdDsgdmVydGl qWZlhIRiyB239 IHRvcDsnPlBhdGllbnQgT mGqRFk6W9ToGbf4LGGfvC zrGJ2waFAdHPgyXp3stVi saSmxQB9vCXEt ptahr348HrFin7nnSTKzu VNdWQucJTI1J39gt5Q5MX UgXFWiZTF5wVH6cL7ayQd nbjogbGVmdDsg eaBswVwdOEflHRijE151S HRvcDsnPkJpcnRoIERhdG R3UK83ZO14wZUqi5Z2wPL 5W5DsUEDvlhhc qdsgeYK1PEJoCEPpuK91G f7ljSlgLr6cFLPpMEU8CF ZaxBFlQ8FynC2xLzZmNHE oHNWhE6VziXJh EQnrS480AHdfBvM5KNHrz jFhE3MpOUYdvIurXcF9x6 O4Uh6SR0A0OG02QJ03lHQ zn2Z4kQA9R2Xf JTVttfqbbgaopOA2WSPsH LHhnH74Fc6jkApqJv4rPJ WqLPB1TTFtwNEqP6AlxC3 yOiAjMDAwMDAw O4IgoIPoKIalT199NQocB pD2CTSmokQtO3PpKDMcnC grTdI7y9S5Ou3PAPz7SA1 0OI96hBLyy2Z3 gSD1B1HhJHXlekgdspozx FW0FQKjBNHoiK13Pq8pqZ inVp4xJLDeYMP9PIXwoLU dJ9QupO2oPgRi CIFzSJCeJ4CczLRkBTcoX 309KMgsIcU5BBKftgWxF4 NeYIYgpDzmLkD9z2X0Pg3 JRVTbPK94HKK3 uFB3SQ61KQ24N5PnCwizf GFibGU+PHRhYmxlIHdpZH RoPScxMDAlJyBzdHlsZT0 lXa0rFQEyFGIa iTfooFZpRaCik5vuHRDbB LivTU2uwYazN0JnaIP7YA Riw0h8Lg96M21iE6PwzTM +SQChfEB0gHZ5 hF8wOzKhKhC8PUefW088P oWobRCgUdije7eeu6tbjY u4TiQ3JLRcjpBsdObsDPL 3k6NrYg24A09n IHdpZHRoPSIxNSUiIHZhb Mqhes3qjH3uIn7+PGNvbC K4bBB9yG0oWdPkMwR4YGk hR873QaQhfRBd Pifoa2car7dotXn1LzQpI ONsotEgaVcpLMK8f0FxAd 74I8UqiUujh4TtZxr8tf7 3oPRdq8W5jAY1 D9FaDZUxmriqfBHsrQjyP W0zWLQryrhxAWXsuM4qBR WyV4v2XfQyGzK7ILduP6C lnuH2AWFkeFJz KBlxBTR6T18ib5W0MFBfW VWdWRU6bJB4jO6usJlrxy ogbGVmdDsgdmVydGljYWw aVTjjJ798EUDf gNrwYAJxhO0cYCQbtYXry SuqIN8yMYTgxdcrAwACI5 lHDPpfZpRCA84TX5PoIdu vdGQ+PHRkIHN0 iRsaUOncWVHkuX9hOGLeN 3k3CvUsNmX8VRgqA7AlYV DavkasOc44hB2yDzIdPxO 3OCphC6FumyD9 FOCqoPKdETomGFY9M56zs 4S5TFGdSZIlPZU9vAN5dI 1hbGlnbjogbGVmdDsgdmV ydGljYWwtYWxp F923VAIhkPtcZtZ5GdQmO pA3ISG0M4PxYis3FWYteR pcPC9muQKmSMrrQw8ecCl wrVgjRT7eOMUu kiwhBAKzlI6kVOOlzLVjv KltNH7aXFNdkcrix224Kb EwXDV8BFTjbRKwO6QqpJ1 yOiAjMDAwMDAw W7TyxCStLDacD973HXsoD wL5ICFjbkTzL8FhRLJxgL ceIyR9p9M2Iu2hFTEEQHF yczwvdGQ+PHRk NPA1fXrlYQpxJAGnbP9xL EAvF5k2KyMoAdW3FHakO0 AvLXYvaxskVv18jC3wAeV bOsD2QSylP7Fl gjP0ISNikKKqKAszUHP8L 14ud1M4PZSrNTEnNTK9rG Z7gR2ypJzmhvxmrNStgOj gdmVydGljYWwt NVohP431GPNnvFhgJrBjg WFsZTwvdGQ+LVWjMWT1dN zzBJzeWVVjyV6gDYXoA6q 1WpIjMoI1DYjh R6VeUMTzuqipPl76gR7fR jHpFtX0WYjdL7FznkI1NZ AhjGNbYMrrMIQ9Y60lm6I 9QASeHJKyIWF5 jFD0sQ1mmGimbrkzwJYfg DsgdmVydGljYWwtYWxpZ2 46IHAhuQylFfPfEHBwTY6 jeTwvdGQ+PC90 xx03U5QzAkigZfx2XJRwG JT8qUU3fJ3uELExMSrfj9 N1kHZ7I3TexkCtix4qi5a zYCHaHOcgF47l lLNvs8G9CIFgnVU7JJUdx VupJnKdgM37Mfm+PGNvbG mov7TwIktgi2wka7gngAj 9IjMwJSIgdmFs pNbzGCF1b0HfIk58F59eM HdpZHRoPSIzMCUiIHZhbG hndg0gmJ0gCi6+PGNvbCB 0dFT9bA4hRvFu IfL6RSleL782VbDzeWNfB jksj0tzq6hwoHw3EmKmKO YzvtKliRujMAB7d4JxDf9 2N9SoeFeas1Aw Fpf1ff51jLWli9F2vGW4N 3BhZGRpbmctbGVmdDogMC 8jWBIzeskjHXFemW0rMDC fT7u4KiQmAhS8 XYlvJ3UtqyB6RAHieXYoS WXjkTPMeA1oysbsq0mdka ipIxYkTBPjQNx2KTe6PLY saWduOiBsZWZ0 BaB1RZD2nHObgO4juLxzs snwsH9xOpv+FDz4w2iegY LmKL3cyKI3LZ36NF22jBE rp3I4zTP2U0Vg LBWelvdcnpymxVF5VLPtE LZkbS55Au4gxQjdRk5yWV PfKUX8HNBvbIWwX4MrkY8 yOiAjMDAwMDAw I6PnxLWgHLmwB742LPuuS gC2MUKlgzPtU4KrAZGvdO suPdO9y6Z6Jz8FTP55XI5 5IL69iKRgy8L0 gNZ9R6AuPHJwvrgbjvczm JG2AIFhFMIhrR03Gh4mzC lsQm2lEXCqLQQ9LLVqqIG rD5ParU3jQtTx VPCsFNCzO3HrbMAyIOwnC 526RUzmEuV7BSAlazKyX4 QdFYEujBdlQpR7e0J4Rj2 OEw88XM23UP33 xPEwg0O3iGN0C9VaEWJaq itejwutvLI7JWXzVLOabD 52Pf0mwFwsVx2iQYVbFVI 3WTPpaVHtR2Tq yG6oMgXwSNEhZSIxC6Qbw BElECizZ739BIivLrF6HC FqviXmG2PgQAYleSbxWfK 1o9N9Eu2OSSsz yzo9U8QhEhuuhXP+PC90Y VPaIK59xOEctNBlh5durV i4TrDpAGUgUAX5lGhyFPb oy8NdDNVgA69w bGFw (more content not included)... Normal [facility] Outside Records Officeon Outside Records Office [id number]:127 Normal [facility] Radiology Outside Office Facility Supervisor yon 11-03-2020 Radiology Outside Office Copy [id number] .[id number]:127 Normal [facility] Referrals Officeon Referrals Office [id number] .[id number]:127 Normal [facility] .Manual Abson 10-26-2020 Basophils/Leukocytes Manual cnt (Bld) [Pure # fraction] 0.0 E9/L Normal 0.0-0.2 [facility] Comment on above: Performed By: #### 1 [id number], 0382582, 9830556, 75139749, 2148649, 75800623 ####[facility] [address] [place] [address] Eosinophils/Leukocyte s Manual cnt (Bld) [Pure # fraction] 0.1 E9/L Normal 0.0-0.5 [facility] Comment on above: Performed By: #### 1 2173834, 1173716, 9242763, 39032615, 3753506, 48348954 ####[facility] [address] [place] [address] Lymphocytes/Leukocyte s Manual cnt (Bld) [Pure # fraction] 2.9 E9/L Normal 1.0-4.0 [facility] Comment on above: Performed By: #### 1 [id number], 4232939, 5584128, 69987728, 8893783, 23215125 ####[facility] [address] [place] [address] Monocytes/Leukocytes Manual cnt (Bld) [Pure # fraction] 0.7 E9/L Normal 0.2-1.0 [facility] Comment on above: Performed By: #### 1 5574677, 8241485, 1120011, 35577749, 8713387, 85434171 ####[facility] [address] [place] [address] Neutrophils/Leukocyte s Auto (Bld) [Pure # fraction] 2.0 E9/L Normal 2.0-7.5 [facility] Comment on above: Performed By: #### 1 4436388, 3123144, 9938994, 56430458, 0344070, 02458818 ####[facility] [address] [place] [address] B hCG Qualon 10-26-2020 Beta hCG Ql Negative Normal [facility] Comment on above: Performed By: #### 1 6706567, 6353865, 3827448, 21660759, 1476635, 13040245 ####[facility] [address] [place] [address] BMPon 10-26-2020 Creatinine [Mass/Vol] 0.9 mg/dL Normal 0.5-1.[address] [facility] Comment on above: Performed By: #### 1 8510496, 8409322, 8428889, 55523501, 3822202, 28729767 ####[facility] [address] [place] [address] Urea nitrogen [Mass/Vol] 16 mg/dL Normal 5-21 [facility] Comment on above: Performed By: #### 1 8335589, 9247835, 3349658, 91891634, 7166846, 54924413 ####[facility] [address] [place] [address] Urea nitrogen/Creatinine [Mass ratio] 18 No Units Normal 10-20 [facility] Comment on above: Performed By: #### 1 2096181, 7723289, 0742599, 78577555, 6485931, 30574794 ####[facility] [address] [place] [address] Anion gap [Moles/Vol] 8 mmol/L Normal 6-[address] [facility] Comment on above: Performed By: #### 1 4417997, 5969588, 4989584, 78420588, 2561977, 19731793 ####[facility] [address] [place] [address] Calcium [Mass/Vol] 8.5 mg/dL Low 8.9-11.1 [facility] Comment on above: Performed By: #### 1 6377340, 3175956, 4720079, 36067273, 3064154, 58753361 ####[facility] [address] [place] [address] Chloride [Moles/Vol] 105 mmol/L Normal 101-111 [facility] Comment on above: Performed By: #### 1 1738967, 1337366, 1671290, 11631100, 1571732, 37922118 ####[facility] [address] [place] [address] CO2 [Moles/Vol] 26 mmol/L Normal 21-31 [facility] Comment on above: Performed By: #### 1 0633296, 8985050, 5572885, 33683463, 9511114, 65950617 ####[facility] [address] [place] [address] Glucose [Mass/Vol] 105 mg/dL Normal 55-199 [facility] Comment on above: Result Comment: If t his glucose result represents a fasting glucose, interpretation should refer to the following reference range: 55-99 mg/dL Performed By: #### 1 3164887, 5977273, 9702894, 00071075, 7197344, 31788468 ####[facility] [address] [place] [address] Potassium [Moles/Vol] 3.6 mmol/L Normal 3.5-5.[address] [facility] Comment on above: Performed By: #### 1 5463577, 1794503, 3162400, 32198579, 2067323, 21390256 ####[facility] [address] [place] [address] Sodium [Moles/Vol] 135 mmol/L Normal 135-145 [facility] Comment on above: Performed By: #### 1 6704677, 6069821, 3610168, 08399952, 0321654, 98580583 ####[facility] [address] [place] [address] CBC w/ Auto Diffon Erythrocyte distribution width (RBC) [Ratio] 13.7 % Normal 10.9-14.2 [facility] Comment on above: Performed By: #### 1 6619402, 2363942, 3502305, 81937925, 1266936, 67566788 ####[place] [address] [place] [id number] Hematocrit (Bld) [Volume fraction] 40.3 % Normal 34.0-46.0 [facility] Comment on above: Performed By: #### 1 2646135, 1086343, 7277370, 96367303, 4259163, 61177200 ####[address] [address] Hemoglobin (Bld) [Mass/Vol] 13.3 g/dL Normal 12.0-16.0 [facility] Comment on above: Performed By: #### 1 [id number], 0188855, 5790960, 83018945, 2413632, [id number] ####[address] [address] MCH (RBC) [Entitic mass] 30.7 pg Normal 27.0-34.0 [facility] Comment on above: Performed By: #### 1 [id number], 5744350, 9675868, 73155796, 8112292, [id number] ####[address] [address] MCHC (RBC) [Mass/Vol] 33.1 g/dL Normal 31.4-36.[address] [facility] Comment on above: Performed By: #### 1 [id number], 8200058, 8425742, 12580506, 9843145, [id number] ####[address] [address] MCV (RBC) [Entitic vol] 92.8 fL Normal 80.0-100.0 [facility] Comment on above: Performed By: #### 1 [id number], 6213701, 1673455, 61136940, 8745933, [id number] ####[facility] [address] [place] [address] Platelet mean volume (Bld) [Entitic vol] 7.8 fL Normal 6.4-10.8 [facility] Comment on above: Performed By: #### 1 [id number], 0555211, 4451679, 88914913, 5185619, [id number] ####[place] [address] [place] [address] Platelets (Bld) [#/Vol] 202.0 E9/L Normal 150.0-500.0 [facility] Comment on above: Performed By: #### 1 [id number], 2657429, 5467242, 50837082, 4539725, 62997353 ####[place] [address] [place] [address] RBC (Bld) [#/Vol] 4.3 E12/L Normal 4.3-5.9 [facility] Comment on above: Performed By: #### 1 [id number], 9318385, 0488543, 62707528, 4967875, 13416995 ####[place] [address] [place] [address] WBC corrected for nucl RBC Auto (Bld) [#/Vol] 5.6 E9/L Normal 4.0-11.0 [facility] Comment on above: Performed By: #### 1 [id number], 6398065, 8659879, 74529188, 7675413, 16739587 ####[place] [address] [place] [address] Consent for Treatmenton 10-12 Consent for Treatment [id number] .[id number]:127 Normal [facility] Discharge Instructionson Discharge Instructions [id number] .[id number]:127 Normal [facility] ED Clinical Summaryon 2020 ED Clinical Summary [place] [id number] ED Clinical Summary Person Information Name: JAQUELIN [place] Age: 30 Years : 1990 Sex: Female Language: Divehi PCP: SYDNEY LOPEZ CNP Marital Status: Single Visit Id: Visit Reason: Cough; bad cough, sob Speciality: Acuity: 3 Enc Type: Emergency Med Service: Emergency Arrival: 10/25/2020 22:48:29 Discharge: 10/26/2020 04:38:56 LOS: 000 05:50 Checkin: 10/25/2020 22:48:29 Checkout: 10/26/2020 04:38:56 Dispo Type: Home (Routine DC) EVENTS: Event Name Event Status Request Date/Time Start Date/Time Complete Date/Time Arrive Complete 10/25/2020 22:48:29 10/25/2020 22:48:29 10/25/2020 22:48:29 Document Home Meds Request 10/25/2020 22:48:29 Triage Complete 10/25/2020 22:48:29 10/25/2020 23:03:26 10/25/2020 23:03:26 Registration Complete 10/25/2020 23:05:02 10/25/2020 23:05:02 10/25/2020 23:05:02 Reg Complete Request 10/25/2020 23:05:02 Reg Bed Request Complete 10/25/2020 23:05:02 10/25/2020 23:05:02 10/25/2020 23:05:02 Bed Assign Complete 10/26/2020 02:11:02 10/26/2020 02:11:02 10/26/2020 02:11:02 Dr Exam Complete 10/26/2020 02:11:02 10/26/2020 02:16:10 10/26/2020 02:16:10 RN Exam Complete 10/26/2020 02:11:02 10/26/2020 02:37:24 10/26/2020 02:37:24 Registration Complete 10/26/2020 02:16:10 10/26/2020 02:17:25 10/26/2020 02:17:25 Pending Labs Complete 10/26/2020 02:28:06 10/26/2020 03:57:29 Lab Complete 10/26/2020 02:28:06 10/26/2020 03:57:29 X-Ray Complete 10/26/2020 02:28:06 10/26/2020 03:05:57 10/26/2020 03:15:49 Pending Labs Complete 10/26/2020 03:14:44 10/26/2020 03:14:44 10/26/2020 03:34:39 Lab Complete 10/26/2020 03:14:44 10/26/2020 03:14:44 10/26/2020 03:34:39 Wet Read Request 10/26/2020 03:15:49 Pending Labs Complete 10/26/2020 03:49:39 10/26/2020 03:49:39 10/26/2020 03:57:29 Lab Complete 10/26/2020 03:49:39 10/26/2020 03:49:39 10/26/2020 03:57:29 Pending Labs Complete 10/26/2020 03:49:39 10/26/2020 03:49:39 10/26/2020 03:57:29 Meds Admin Complete 10/26/2020 04:17:43 10/26/2020 04:22:28 Discharge Complete 10/26/2020 04:18:33 10/26/2020 04:39:09 10/26/2020 04:39:09 Transfer Complete 10/26/2020 04:39:09 10/26/2020 04:39:09 10/26/2020 04:39:09 ADDRESS: [address] [id number] [facility] DOC NOTES: MEDICAL INFORMATION: Prescriptions Given: New Medications Printed Prescriptions levofloxacin (Levaquin 500 mg Tab) 1 Tablets By Mouth every 24 hours for 10 Days. Refills: 0. Medications to Continue with No Changes Other Medications diclofenac (diclofenac sodium 75 mg Oral EC Tab) 1 Tablets By Mouth 2 times a day. gabapentin (Neurontin 100 mg Cap) 1 Capsules By Mouth every day. metoprolol (Metoprolol succinate 100 mg ER Tablet) sertraline (Zoloft 50 mg Tab) PATIENT EDUCATION INFORMATION: Instructions: Community-Acquired Pneumonia, Adult Follow up: With: Address: When: SYDNEY LOPEZ [address] [place] [address] [phone] Business (1) In 3 days 10/29/2020 DIAGNOSIS: 1:Pneumonia Normal [facility] ED Note-Physicianon 10-27-19 ED Note-Physician Basic Information Time Seen: Ralph Funes MD 10/26/2020 02:16 Chief Complaint complains of cough for several days. just finished zpak. states hurts to cough. denies fever. productive cough History of Present Illness patient ill for the past week with productive cough. Prescribed zpak by her PCP and has not improved. No fever. Feels she is getting worse and it hurts to cough Review of Systems Constitutional: no fever, no chills, no sweats, no weakness Respiratory: no shortness of breath, moderate cough, no orthopnea, no wheezing Cardiovascular: no chest pain, no palpitations, no edema Additional ROS info: Except as noted in the above Review of Systems and in the History of Present Illness all other systems have been reviewed and are negative or noncontributory. Physical Exam Vitals & Measurements T: 36.9 ?C (Oral) HR: 90(Peripheral) RR: 18 BP: 103/70 SpO2: 99% HT: 158 cm HT: 158.0 cm WT: 53.1 kg WT: 53.1 kg BMI: 21.27 General: alert, no acute distress Skin: warm, dry Head: no trauma, normocephalic Neck: Trachea midline, no adenopathy, no tenderness Eye: normal conjunctiva, sclera clear ENMT: , oral mucosa moist, Cardiovascular: regular rate and rhythm, normal peripheral perfusion Respiratory: Lungs CTA, respirations non labored Chest wall: no deformity. Gastrointestinal: soft, non distended, no tenderness, no guarding. Back: No tenderness, Normal ROM, Normal alignment. Extremities: no deformity, no trauma Neurological: oriented x 4, LOC appropriate for age, CN intact, motor strength equal & normal bilaterally, sensation equal & normal bilaterally, speech normal Psychiatric: cooperative, affect appropriate for age, normal judgement, normal psychiatric thoughts. Medical Decision Making patient presents with productive cough. COVID19 antigent neg. xray with small infiltrate left chest. Patient treated with levaquin . she is in no distress and clinically stable Assessment/Plan 1. Pneumonia (J18.9: Pneumonia, unspecified organism) Orders: levofloxacin, 500 mg = 1 tab(s), Tab, Oral, Once, Stop date 10/26/20 4:17:00 EDT, STAT, Start date 10/26/20 4:17:00 EDT, 10/26/20 4:17:00 EDT levofloxacin, 500 mg = 1 tab(s), Oral, q24hr, X 10 day(s), # 10 tab(s), Refills(s) 0 .Manual Abs Basic Metabolic Panel Beta hCG Qual CBC w/ Auto Diff eGFR Manual Diff Rapid COVID Antigen ([facility] XR Chest 2 Views Disposition Plan Discharge Prescription List Prescriptions Levaquin 500 mg Tab, 500 mg= 1 tab(s), Oral, q24hr Follow-up With When Contact Information SYDNEY LOPEZ In 3 days 10/29/2020 EDT [address], [place] [address]- [phone] Business (1) Additional Instructions: Patient Education Community-Acquired Pneumonia, Adult Problem List/Past Medical History Ongoing Cardiomyopathy, hypertrophic Cervicalgia Depression Endometriosis Fibromyalgia GERD (gastroesophageal reflux disease) Hearing impairment History of kidney stones Hypertension Neuropathy Right axillary swelling Smoker Historical Hypertrophic cardiomyopathy Medications Inpatient Levaquin 500 mg Tab, 500 mg= 1 tab(s), Oral, Once Home diclofenac sodium 75 mg Oral EC Tab, 75 mg= 1 tab(s), Oral, BID Levaquin 500 mg Tab, 500 mg= 1 tab(s), Oral, q24hr Metoprolol succinate 100 mg ER Tablet Neurontin 100 mg Cap, 100 mg= 1 cap(s), Oral, Daily Zoloft 50 mg Tab Allergies No Known Allergies No Known Medication Allergies Social History Tobacco 4 or less cigarettes(less than 1/4 pack)/day in last 30 days Tobacco Use:. Never Smokeless Tobacco Use:. Cigarettes, 10/08/2020 5-9 cigarettes (between 1/4 to 1/2 pack)/day in last 30 days Tobacco Use:. Never Smokeless Tobacco Use:. Cigarettes, 10/07/2020 Lab Results WBC: 5.6 E9/L (10/26/20 03:05:00) RBC: 4.3 E12/L (10/26/20 03:05:00) Hgb: 13.3 gm/dL (10/26/20 03:05:00) Hct: 40.3 % (10/26/20 03:05:00) MCV: 92.8 fL (10/26/20 03:05:00) MCH: 30.7 pg (10/26/20 03:05:00) MCHC: 33.1 gm/dL (10/26/20 03:05:00) RDW: 13.7 % (10/26/20 03:05:00) Platelet: 202 E9/L (10/26/20 03:05:00) MPV: 7.8 fL (10/26/20 03:05:00) Segs Man: 35 % Low (10/26/20 03:05:00) Band Man: 0 % (10/26/20 03:05:00) Lymph Man: 44 % (10/26/20 03:05:00) Monocyte Man: 13 % (10/26/20 03:05:00) Eos Man: 1 % (10/26/20 03:05:00) Basophil Man: 0 % (10/26/20 03:05:00) React Lymph Man: 7 % (10/26/20 03:05:00) Segs Abs Man: 2 E9/L (10/26/20 03:05:00) Lymph Abs Man: 2.9 E9/L (10/26/20 03:05:00) [place] Abs Man: 0.7 E9/L (10/26/20 03:05:00) Eos Abs Man: 0.1 E9/L (10/26/20 03:05:00) Basophil Abs Man: 0 E9/L (10/26/20 03:05:00) RBC Morph: Normal (10/26/20 03:05:00) Glucose Lvl: 105 mg/dL (10/26/20 03:05:00) BUN: 16 mg/dL (10/26/20 03:05:00) Creatinine: 0.9 mg/dL (10/26/20 03:05:00) eGFR: >60 (10/26/20 03:05:00) eGFR AA: >60 (10/26/20 03:05:00) BUN/Creat Ratio: 18 (10/26/20 03:05:00) Sodium Lvl: 135 mmol/L (10/26/20 03:05:00) Potassium Lvl: 3.6 mmol/L (10/26/20 03:05: (more content not included)... Normal [facility] Comment on above: Result Comment: Elec tronically Signed By: Marin DAVE, Ralph\.br\Date and Time Signed: 10/26/20 04:20 EDT ED Patient Education Noteon 10-26-2020 ED Patient Education Note Infectious Disease Community-Acquired Pneumonia, Adult Pneumonia is a type of lung infection that causes swelling in the airways of the lungs. Mucus and fluid may also build up inside the airways. This may cause coughing and difficulty breathing. There are different types of pneumonia. One type can develop while a person is in a hospital. A different type is called community-acquired pneumonia. It develops in people who are not, and have not recently been, in the hospital or another type of health care facility. What are the causes? This condition may be caused by: ? Viruses. This is the most common cause of pneumonia. ? Bacteria. Community-acquired pneumonia is often caused by Streptococcus pneumoniae bacteria. These bacteria are often passed from one person to another by breathing in droplets from the cough or sneeze of an infected person. ? Fungi. This is the least common cause of pneumonia. What increases the risk? The following factors may make you more likely to develop this condition: ? Having a chronic disease, such as chronic obstructive pulmonary disease (COPD), asthma, congestive heart failure, cystic fibrosis, diabetes, or kidney disease. ? Having early-stage or late-stage HIV. ? Having sickle cell disease. ? Having had your spleen removed (splenectomy). ? Having poor dental hygiene. ? Having a medical condition that increases the risk of breathing in (aspirating) secretions from your own mouth and nose. ? Having a weakened body defense system (immune system). ? Being a smoker. ? Traveling to areas where pneumonia-causing germs commonly exist. ? Being around animal habitats or animals that have pneumonia-causing germs, including birds, bats, rabbits, cats, and farm animals. What are the signs or symptoms? Symptoms of this condition include: ? A dry cough. ? A wet (productive) cough. ? Fever. ? Sweating. ? Chest pain, especially when breathing deeply or coughing. ? Rapid breathing or difficulty breathing. ? Shortness of breath. ? Shaking chills. ? Fatigue. ? Muscle aches. How is this diagnosed? This condition may be diagnosed based on: ? Your medical history. ? A physical exam. You may also have tests, including: ? Chest X-rays. ? Tests of your blood oxygen level and other blood gases. ? Tests on blood, mucus (sputum), fluid around your lungs (pleural fluid), and urine. If your pneumonia is severe, other tests may be done to find the exact cause of your illness. How is this treated? Treatment for this condition depends on many factors, such as the cause of your pneumonia, the medicines you take, and other medical conditions that you have. For most adults, treatment and recovery from pneumonia may occur at home. In some cases, treatment must happen in a hospital. Treatment may include: ? Medicines that are given by mouth or through an IV, including: ? Antibiotic medicines, if the pneumonia was caused by bacteria. ? Antiviral medicines, if the pneumonia was caused by a virus. ? Being given extra oxygen. ? Respiratory therapy. Although rare, treating severe pneumonia may include: ? Using a machine to help you breathe (mechanical ventilation). This is done if you are not breathing well on your own and you cannot maintain a safe blood oxygen level. ? Thoracentesis. This is a procedure to remove fluid from around one lung or both lungs to help you breathe better. Follow these instructions at home: Medicines ? Take ycjr-jpg-trmpivw and prescription medicines only as told by your health care provider. ? Only take cough medicine if you are losing sleep. Be aware that cough medicine can prevent your body's natural ability to remove mucus from your lungs. ? If you were prescribed an antibiotic medicine, take it as told by your health care provider. Do not stop taking the antibiotic even if you start to feel better. General instructions ? Sleep in a semi-upright position at night. Try sleeping in a reclining chair, or place a few pillows under your head. ? Rest as needed and get at least 8 hours of sleep each night. ? Drink enough water to keep your urine pale yellow. This will help to thin out mucus secretions in your lungs. ? Eat a healthy diet that includes plenty of vegetables, fruits, whole grains, low-fat dairy products, and lean protein. ? Do not use any products that contain nicotine or tobacco, such as cigarettes, e-cigarettes, and chewing tobacco. If you need help quitting, ask your health care provider. ? Keep all follow-up visits as told by your health care provider. This is important. How is this prevented? You can lower your risk of developing community-acquired pneumonia by: ? Getting a pneumococcal vaccine. There are different types and schedules of pneumococcal vaccines. Ask your health care provider which option is best for you. Consider getting t (more content not included)... Normal [facility] ED Patient Summaryon 021 ED Patient Summary [place] [id number] Patient Discharge Instructions Person Information Name: JAQUELIN HI Age: 30 Years Arrival Date: 10/25/2020 22:48:29 Discharge Diagnosis: 1:Pneumonia Primary Care Physician: SYDNEY LOPEZ CNP Provider Information Primary Provider: Ralph Funes MD Advanced Edi Coordinator:None The exam and treatment you received in the Emergency Department were for an urgent problem and are not intended as complete care. It is important that you follow up with a doctor, nurse practitioner, or physician?s assistant food service director for ongoing care. If your symptoms become worse or you do not improve as expected and you are unable to reach your usual health care provider, you should return to the Emergency Department. We are available 24 hours a day. JAQUELIN HI has been given the following list of patient education materials, prescriptions and follow-up instructions: Follow-up Instructions: With: Address: When: SYDNEY LOPEZ [address] [place] [address] [phone] Business (1) In 3 days 10/29/2020 In the event that this physician does not participate in your insurance network, please consult with your insurance company to find a nearby participating provider. Patient Education Materials: Community-Acquired Pneumonia, Adult A MESSAGE TO ALL PATIENTS REGARDING OPIOIDS PRESCRIPTION OPIOIDS: WHAT YOU NEED TO KNOW Prescription opioids can be used to help relieve odcywbtc-wa-erpbgf pain and are often prescribed following a surgery or injury, or for certain health conditions. These medications can be an important part of the treatment but also come with serious risks. It is important to work with your healthcare provider to make sure you are getting the safest, most effective care. WHAT ARE THE RISKS AND SIDE EFFECTS OF OPIOID USE? Prescription opioids carry serious risks of addiction and overdose, especially with prolonged use. An opioid overdose, often marked by slowed breathing, can cause sudden . The use of prescription opioids can have a number of side effects as well, even when taken as directed: ? Tolerance?meaning you might need to take more of the medication for the same pain relief ? Physical dependence?meaning you have symptoms of withdrawal when a medication is stopped ? Increased sensitivity to pain ? Constipation ? Nausea, vomiting, and dry mouth ? Sleepiness and dizziness ? Confusion ? Depression ? Low levels of testosterone that can result in lower sex drive, energy, and strength ? Itching and sweating RISKS ARE GREATER WITH: ? History of drug misuse, substance use disorder, or overdose ? Mental health conditions (such as depression or anxiety) ? Sleep apnea ? Older age (65 years and older) ? Avoid alcohol while taking prescription opioids. Also, unless specifically advised by your health care provider, medications to avoid include: ? Benzodiazepines (such as Xanax or Valium) ? Muscle relaxants (such as Soma or Flexeril) ? Hypnotics (such as Ambien or Lunesta) ? Other prescription opioids KNOW YOUR OPTIONS Talk to your health care provider about ways to manage your pain that don?t involve prescription opioids. Some of these options may actually work better and have fewer risks and side effects. Options may include: ? Pain relievers such as acetaminophen, ibuprofen, and naproxen ? Some medication that are also used for depression or seizures ? Physical therapy and exercise ? Cognitive behavioral therapy, a psychological, goal-directed approach, in which patients learn how to modify physical, behavioral, and emotional triggers of pain and stress. IF YOU ARE PRESCRIBED OPIOIDS FOR PAIN: ? Never take opioids in greater amounts or more often than prescribed. ? Follow up with your primary health care provider. o Work together to create a plan on how to manage your pain. o Talk about ways to help manage your pain that don?t involve prescription opioids. o Talk about any and all concerns and side effects. ? Help prevent misuse and abuse o Never sell or share prescription opioids. o Never use another person?s prescription opioids. ? Store prescription opioids in a secure place and out of reach of others (this may include visitors, children, friends, and family). ? Safely dispose of unused prescription opioids: Find your community drug take-back program or your pharmacy mail-back program, or flush them down the toilet, following guidance from the Food and Drug Administration (www.fda.gov/Drugs/Re sourcesForYou). ? Visit www.cdc.gov/drugoverd ose to learn about the risks of opioids abuse and overdose. ? If you believe you may be struggling with addiction, tell your health caretaker and ask for guidance or call [facility]?S popAD Helpline at 9-708-643-NFNE. z Source: Department of (more content not included)... Normal [facility] Manual Diffon 10-26-2020 Band form neutrophils/100 WBC (Bld) 0 % Normal 0-10 [facility] Comment on above: Order Comment: Order Added by Discern Expert. Performed By: #### 1 [id number], [id number], [id number], [id number], [id number] ####[facility] [address] [place] [address] Basophils/100 WBC (Bld) 0 % Normal 0-2 [facility] Comment on above: Order Comment: Order Added by Discern Expert. Performed By: #### 1 [id number], [id number], [id number], [id number], [id number] ####[facility] [address] [place] [address] Eosinophils/100 WBC (Bld) 1 % Normal 0-8 [facility] Comment on above: Order Comment: Order Added by Discern Expert. Performed By: #### 1 [id number], [id number], [id number], [id number], [id number], [id number] ####[facility] [address] [place] [address] Lymphocytes/100 WBC (Bld) 44 % Normal 14-50 [facility] Comment on above: Order Comment: Order Added by Discern Expert. Performed By: #### 1 [id number], [id number], [id number], [id number], [id number] ####[facility] [address] [place] [address] Monocytes/100 WBC (Bld) 13 % Normal 4-14 [facility] Comment on above: Order Comment: Order Added by Discern Expert. Performed By: #### 1 [id number], [id number], 4721631, [id number], 1367962, [id number] ####[facility] [address] [place] [address] Morphology Basil (Bld) [Interp] Normal Normal [facility] Comment on above: Order Comment: Order Added by Discern Expert. Performed By: #### 1 [id number], [id number], [id number], [id number], [id number], [id number] ####[facility] [address] [place] [address] Segmented neutrophils/100 WBC (Bld) 35 % Low 36-75 [facility] Comment on above: Order Comment: Order Added by Discern Expert. Performed By: #### 1 [id number], 7281412, 2962740, [id number], 1826140, [id number] ####[facility] [address] [place] [address] Variant lymphocytes LM Ql (Bld) 7 % Invalid Interpretation Code [facility] Comment on above: Order Comment: Order Added by Discern Expert. Performed By: #### 1 [id number], [id number], [id number], [id number], [id number], [id number] ####[facility] [address] [place] [address] Rapid COVID Antigen (MC)on 10-26-2020 Rapid COV Int NEG Ctl Pass Normal [facility] Comment on above: Performed By: #### 2 [id number] ####[facility] [address] [place] [address] Rapid COV Int POS Ctl Pass Normal [facility] Comment on above: Performed By: #### 2 [id number] ####[facility] [address] [place] [address] SARS-CoV-2 (COVID-19) RNA MADHAV+probe Ql (Unsp spec) Not detected Normal Not Detected [facility] Comment on above: Result Comment: The [employer] (Droppy)? System for Rapid Detection of SARS-CoV-2 is a chromatographic digital immunoassay intended for the direct and qualitative detection of SARS-CoV-2 nucleocapsid antigens in nasal swabs from individuals who are suspected of COVID-19 by their healthcare provider within the first five days of the onset of symptoms. Negative results should be treated as presumptive, do not rule out SARS-CoV-2 infection and should not be used as the sole basis for treatment or patient management decisions, including infection control decisions. Negative results should be considered in the context of a patient?s recent exposures, history and the presence of clinical signs and symptoms consistent with COVID-19, and confirmed with a molecular assay, if necessary, for patient management. For in vitro diagnostic use. In the [place], only for use under an Emergency Use Authorization. In the [place], this test has not been FDA cleared or approved; this test has been authorized by FDA under an EUA for use by authorized laboratories; use by laboratories certified under the CLIA, 42 U.S.C. ?263a, that meet requirements to perform moderate, high, or waived complexity tests and at the Point of Care (POC), i.e., in patient care settings operating under a CLIA Certificate of Waiver, Certificate of Compliance, or Certificate of Accreditation. This test has been authorized only for the detection of proteins from SARS-CoV-2, not for any other viruses or pathogens; and, in the [place], this test is only authorized for the duration of the declaration that circumstances exist justifying the authorization of emergency use of in vitro diagnostics for detection and/or diagnosis of the virus that causes COVID-19 under Section 564(b)(1) of the Act, 21 U.S.C. ? 360bbb-3(b)(1), unless the authorization is terminated or revoked sooner. Performed By: #### 2 [id number] ####[facility] [address] [place] [address] Employed in Healthcare NO Normal [facility] Comment on above: Performed By: #### 2 [id number] ####[facility] [address] [facility] [place] [address] First Test Unknown Normal [facility] Comment on above: Performed By: #### 2 [id number] ####[facility] [address] [facility] [place] [address] Hospitalized? NO Normal [facility] Comment on above: Performed By: #### 2 [id number] ####[facility] [address] [facility] [place] [address] ICU NO Normal [facility] Comment on above: Performed By: #### 2 [id number] ####[facility] [address] [facility] [place] [address] ? Unknown Normal [facility] Comment on above: Performed By: #### 2 [id number] ####[facility] [address] [place] [address], [place] [address] Resides in a [facility] Care Setting NO Normal [facility] Comment on above: Performed By: #### 2 [id number] ####[facility] [address] [facility] [place] [address] Symptomatic as defined by CDC YES Normal [facility] Comment on above: Performed By: #### 2 [id number] ####[facility] [address] [place] [address] XR Chest 2 Viewson XR Chest 2 Views Exam Date/Time: 10/26/2020 03:15 EDT Reason for Exam: Cough Report IMPRESSION: No acute radiographic abnormality. EXAMINATION: XR Chest 2 Views Clinical History: Cough. Congestion. Comparison: None RESULT: No consolidation. No pleural effusion. No pneumothorax. Normal pulmonary vascular pattern. Normal cardiomediastinal silhouette. No acute osseous findings. ICD device left chest wall FINAL REPORT Dictated: 10/26/2020 10:55 am Joe Botello MD Signed (Electronic Signature): 10/26/2020 10:55 am Signed by: Joe Botello MD Transcribed by: ANTONELLA Technologist: MMYariel Normal [facility] eGFRon 10-26-2020 GFR/1.73 sq M.predicted among blacks MDRD (S/P/Bld) [Vol rate/Area] mL/min/{1.73_m2} Normal >=59 [facility] Comment on above: Order Comment: Order added by Discern Expert. Result Comment: eGFR is race adjusted. AA=. Performed By: #### 1 [id number], [id number], [id number], [id number], [id number], [id number] ####[facility] [address] [place] [address] GFR/1.73 sq M.predicted among non-blacks MDRD (S/P/Bld) [Vol rate/Area] mL/min/{1.73_m2} Normal >=59 [facility] Comment on above: Order Comment: Order added by Discern Expert. Result Comment: Quail Farmer omid kidney disease could be indicated at eGFR's of less than 60 mL/min/1.73m2. Kidney failure is indicated at less than 15 mL/min/1.73m2. Performed By: #### 1 [id number], [id number], [id number], [id number], [id number], [id number] ####[facility] [address] [place] [address] [facility] October 15, 2020 SYDNEY LOPEZ, [address] [place] [address] Re: JAQUELIN HI Date of : 1990 Thank you for your referral of Jaquelin Hi who was seen on consultation on 10/08/2020, for Right axilla lump. I have enclosed my consultation note for your review. I will be happy to follow Jaquelin should her symptoms persist. Sincerely, Gordo Neff MD General Surgery Normal [facility] Facesheeton 10-09-2020 Facesheet [id number]:127 Normal [facility] Ambulatory Clinical Summaryo n 10-08-2020 Ambulatory Clinical Summary {[id number]}CD:[id number] [facility] Physician Referralon 021 Physician Referral [id number]:127 [facility] Provider Letteron 06-16-2020 Provider Letter June 16, 2020 JAQUELIN HI [address] [place] [address] JAQUELIN HI 1990 Dear Jaquelin Hi, You missed your scheduled appointment on: 06/16/[address] Jaramillo and the purpose of this letter is to inform you of our *No Show Policy*. Our appointment slots fill rapidly and when we have a no show appointment that time is lost. We could have used that time slot to care for a patient who needed to see one of our providers. Therefore, we ask that you call 24 hours in advance to cancel your appointment. This policy is in place so that we can meet the needs of all of our patients and we do appreciate your understanding. Sincerely, [facility] [address], [place] [address] [facility] CNOVon 08-23-2018 CNOV Office Visit (PAMAVN ) JAQUELIN HI ([id number]) 1990 F Date Time Provider Department 08/23/18 2:15 PM NIXON LOCKE During your visit today, we recorded the following information about you: Pulse Respiration Blood pressure Weight 77/minute 16/minute 113/62 52.2 kg Height 1.549 m Nixon Locke MD 08/23/2018 2:38 PM Signed [facility] Initial Evaluation Subjective: This appointment was request by LOLA Suresh 100[address] Arron Mcmullen [address] [address] for my opinion regarding the evaluation and management of the patient's Jaquelin Hi problems, and my final recommendation will be communicated back to the requesting physician by way of shared medical record or letter. A 28 year old Ms. Hi presents to [facility] Pain Management Department, accompanied by grandmother, for an initial evaluation of chronic thoracic radiculopathy. The symptoms began 3 years ago and were associated with following a surgical procedure (defibrillator put in). This episode: Location: Thoracic left side, including buttock and radiates to armpit, buttock, left breast along anterior aspect, lateral aspect and posterior aspect to the level of fingers, can't sleep on left side Pattern: Constant Character: burning;dull;sharp;et c.: Burning, Sharp and Shooting Severity:VAS pain : 8 Current, 10 worst,7 best Aggravated by lifting and lying down. Mitigated by unable to pinpoint positions/factors that are mitigating. Associated Signs/Symptoms:Sleep disturbance; awakens during night due to pain. Sensory/Motor Changes:Tingling, Numbness or Increased sensation Changes in Sharon/Bladder Control?: No. Number of hours of sleep per night: 5 Is sleep interrupted by pain? Yes. ACTIVITY LIMITATIONS: ADLs PREVIOUS TREATMENTS: None with no success. PREVIOUS TREATMENTS LASTING SIX WEEKS IN THE LAST SIX MONTHS ACTIVE CONSERVATIVE THERAPY LASTING 6 WEEKS IN THE LAST SIX MONTHS (SEE BELOW) 1. PHYSICAL THERAPY: No 2. HOME EXERCISE PROGRAM AFTER PHYSICAL THERAPY: No 3. OCCUPATIONAL THERAPY: No 4. A PHYSICIAN SUPERVISED HOME EXERCISE PROGR (HEP): No 5. NURSE PRACTITIONER ADULT: No PASSIVE CONSERVATIVE THERAPY LASTING 6 WEEKS IN THE LAST SIX MONTHS (SEE BELOW) 1. MEDICAL DEVISES: No 2. ACUPUNCTURE: No 3. TENS UNIT: No 4. PRESCRIPTION PAIN MEDICATION: No 5. 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 No past surgical history on file. González Shea Ma I have reviewed the above notes and am aware of medical, surgical and family and social history. As above, in addition, Had defibrillator implant in 2016 due to hypertrophic cardiomyopathy. After implant, she has persistent pain at her left later chest wall and left gluteal region. She went to pain clinic and treated with Neurontin. It became less effective. The medication was stopped after she was . She didn't see any benefit from the medication. She never had PHYSICAL THERAPY . Pain on the left side of her body. OBJECTIVE: PHYSICAL EXAMINATION: Blood pressure 113/62, pulse 77, resp. rate 16, height 154.9 cm (5' 1 ), weight 52.2 kg (115 lb). Body mass index is 21.73 kg/m?. General appearance: well appearing, in no acute distress and alert Psychiatric: Mood: open Affect: appropriate, orientation to time, place and person. Skin: Skin color, texture, turgor normal. No rashes or lesions. Eyes: conjunctivae/corneas clear Cardiovascular: Regular rate and rhythym, Edema :Negative Respiratory: lungs clear to auscultation Gastrointestinal: Soft, Nontender and Not distended Musculoskeletal: Ambulate with none assistant food service director device. Defibrillator noted at the the inferior of the left axillary. There is hypersensitive to light tough over the defibrillator implant area. The fascial is very tight on the left chest and extended to the left gluteal region. Full ROM of upper and lower extremities. Neurological: Cranial nerve exam: Normal Motor exam: Deltoid 5, Biceps 5, Triceps 5, Metal Window Screen Assembler 5 and Finger Extension 5 ASSESSMENT: Myofascial pain (primary encounter diagnosis) PLAN: . Refer to PHYSICAL THERAPY for ROM and stretch exercise. May use heating pad to local area before stretch. Follow up after PT for for an office visit. The above plan and management options were discussed at length with the patient. Patient is in agreement with the above and verbalized understanding. Thank you Dr. Darlyn Foster, LOLA [address] [address] for allowing me to participate in Jaquelin Hi's care. Nixon Locke MD Referring Provider: DARLYN FOSTER [[id number]] Allergies As of Date: 08/23/2018 Noted Allergy Reaction CECLOR (CEFACLOR) 08/23/2018 2 - Rash Date Reviewed: 08/23/2018 Reviewed by: Nixon Locke - Fully Assessed Reason for Visit: New Patient Evaluation [154] Cmt: thoracic radiculopathy, intercostal neuritis Primary Visit Diagnosis:Myofascial pain [M79.18] Order(s):CONSULT TO PHYSICAL THERAPY [9032] Order #: [id number]: 1 Prescriptions as of 08/23/2018 Sig: METOPROLOL SUCCINATE ER 100 M* Take 100 mg by mouth once lui* Problem List As Of Date: 08/23/2018 (None) Encounter Status:Closed by NIXON LOCKE MD on 08/23/18 Normal [facility] PROGRESSon 08-23-2018 PROGRESS HNO ID: [id number] Author: Nixon Locke Service: ? Author Type: Physician Type: Progress Notes Filed: 08/23/2018 2:38 PM Note Text: [facility] Initial Evaluation Subjective: This appointment was request by LOLA Suresh [address] [place] [address] [facility] [address] [facility] [address] for my opinion regarding the evaluation and management of the patient's Jaquelin Hi problems, and my final recommendation will be communicated back to the requesting physician by way of shared medical record or letter. A 28 year old Ms. Hi presents to [facility] Pain Management Department, accompanied by grandmother, for an initial evaluation of chronic thoracic radiculopathy. The symptoms began 3 years ago and were associated with following a surgical procedure (defibrillator put in). This episode: Location: Thoracic left side, including buttock and radiates to armpit, buttock, left breast along anterior aspect, lateral aspect and posterior aspect to the level of fingers, can't sleep on left side Pattern: Constant Character: burning;dull;sharp;et c.: Burning, Sharp and Shooting Severity:VAS pain : 8 Current, 10 worst,7 best Aggravated by lifting and lying down. Mitigated by unable to pinpoint positions/factors that are mitigating. Associated Signs/Symptoms:Sleep disturbance; awakens during night due to pain. Sensory/Motor Changes:Tingling, Numbness or Increased sensation Changes in Sharon/Bladder Control?: No. Number of hours of sleep per night: 5 Is sleep interrupted by pain? Yes. ACTIVITY LIMITATIONS: ADLs PREVIOUS TREATMENTS: None with no success. PREVIOUS TREATMENTS LASTING SIX WEEKS IN THE LAST SIX MONTHS ACTIVE CONSERVATIVE THERAPY LASTING 6 WEEKS IN THE LAST SIX MONTHS (SEE BELOW) 1. PHYSICAL THERAPY: No 2. HOME EXERCISE PROGRAM AFTER PHYSICAL THERAPY: No 3. OCCUPATIONAL THERAPY: No 4. A PHYSICIAN SUPERVISED HOME EXERCISE PROGR (HEP): No 5. NURSE PRACTITIONER ADULT: No PASSIVE CONSERVATIVE THERAPY LASTING 6 WEEKS IN THE LAST SIX MONTHS (SEE BELOW) 1. MEDICAL DEVISES: No 2. ACUPUNCTURE: No 3. TENS UNIT: No 4. PRESCRIPTION PAIN MEDICATION: No 5. 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 No past surgical history on file. González Shea Ma I have reviewed the above notes and am aware of medical, surgical and family and social history. As above, in addition, Had defibrillator implant in 2016 due to hypertrophic cardiomyopathy. After implant, she has persistent pain at her left later chest wall and left gluteal region. She went to pain clinic and treated with Neurontin. It became less effective. The medication was stopped after she was . She didn't see any benefit from the medication. She never had PHYSICAL THERAPY . Pain on the left side of her body. OBJECTIVE: PHYSICAL EXAMINATION: Blood pressure 113/62, pulse 77, resp. rate 16, height 154.9 cm (5' 1 ), weight 52.2 kg (115 lb). Body mass index is 21.73 kg/m?. General appearance: well appearing, in no acute distress and alert Psychiatric: Mood: open Affect: appropriate, orientation to time, place and person. Skin: Skin color, texture, turgor normal. No rashes or lesions. Eyes: conjunctivae/corneas clear Cardiovascular: Regular rate and rhythym, Edema :Negative Respiratory: lungs clear to auscultation Gastrointestinal: Soft, Nontender and Not distended Musculoskeletal: Ambulate with none assistant food service director device. Defibrillator noted at the the inferior of the left axillary. There is hypersensitive to light tough over the defibrillator implant area. The fascial is very tight on the left chest and extended to the left gluteal region. Full ROM of upper and lower extremities. Neurological: Cranial nerve exam: Normal Motor exam: Deltoid 5, Biceps 5, Triceps 5, Metal Window Screen Assembler 5 and Finger Extension 5 ASSESSMENT: Myofascial pain (primary encounter diagnosis) PLAN: . Refer to PHYSICAL THERAPY for ROM and stretch exercise. May use heating pad to local area before stretch. Follow up after PT for for an office visit. The above plan and management options were discussed at length with the patient. Patient is in agreement with the above and verbalized understanding. Thank you Dr. Darlyn Foster, LOLA [address] [place] [address] for allowing me to participate in Jaquelin Hi's care. Nixon Locke MD Normal [facility] Vital Signs Date Time Vital Sign Value Performing Clinician Facility 03-23-2023 11:29-0500 Body height 157.5 cm Timbo GASTON Work Phone: [facility] 03-23-2023 11:29-0500 Body mass index (BMI) [Ratio] 27.44 kg/m2 Timbo GATSON Work Phone: [facility] 03-23-2023 11:29-0500 Body weight 68.04 kg iTmbo GASTON Work Phone: [facility] 03-23-2023 11:29-0500 Diastolic blood pressure 90 mm[Hg] Timbo GASTON Work Phone: [facility] 03-23-2023 11:29-0500 Heart rate 90 /min Timbo Byrnes APRNSport EnduranceSANJIV Work Phone: [facility] 03-23-2023 11:29-0500 SaO2% (BldA) [Mass fraction] 97 % Timbo Byrnes PUBLIC HEALTH AIDES TEACHER-PATTERNMAKER Work Phone: [facility] 03-23-2023 11:29-0500 Systolic blood pressure 142 mm[Hg] Timbo Byrnes PUBLIC HEALTH AIDES TEACHER-PATTERNMAKER Work Phone: [facility] 06-12-2022 07:30-0400 Body temperature 97.7 [degF] SHELL MACHINE OPERATOR-C Sydney John Work Phone: [facility] 06-12-2022 07:30-0400 Diastolic blood pressure 75 mm[Hg] SHELL MACHINE OPERATOR-C Sydney John Work Phone: [facility] 06-12-2022 07:30-0400 Heart rate 84 /min SHELL MACHINE OPERATOR-C Sydney John Work Phone: [facility] 06-12-2022 07:30-0400 SaO2% (BldA) [Mass fraction] 96 % SHELL MACHINE OPERATOR-C Sydney John Work Phone: [facility] 06-12-2022 07:30-0400 Systolic blood pressure 114 mm[Hg] SHELL MACHINE OPERATOR-C Sydney John Work Phone: [facility] 06-11-2022 20:16-0400 Respiratory rate 16 /min SHELL MACHINE OPERATOR-C Sydney John Work Phone: [facility] 06-08-2022 15:19-0400 Body height 157.48 cm SHELL MACHINE OPERATOR-C Sydney John Work Phone: [facility] 06-07-2022 09:00-0400 Body weight 64.41 kg SHELL MACHINE OPERATOR-C Sydney John Work Phone: [facility] 04-20-2022 07:30-0500 Body temperature 97.9 [degF] SHELL MACHINE OPERATOR-C Sydney John Work Phone: [facility] 04-20-2022 07:30-0500 Diastolic blood pressure 90 mm[Hg] SHELL MACHINE OPERATOR-C Sydney John Work Phone: [facility] 04-20-2022 07:30-0500 Heart rate 84 /min SHELL MACHINE OPERATOR-C Sydney Lopez Work Phone: [facility] 04-20-2022 07:30-0500 Respiratory rate 18 /min SHELL MACHINE OPERATOR-C Sydney Lopez Work Phone: [facility] 04-20-2022 07:30-0500 SaO2% (BldA) [Mass fraction] 98 % SHELL MACHINE OPERATOR-C Sydney Lopez Work Phone: [facility] 04-20-2022 07:30-0500 Systolic blood pressure 129 mm[Hg] SHELL MACHINE OPERATOR-C Sydney Lopez Work Phone: [facility] 04-19-2022 15:20-0500 Body height 157.48 cm SHELL MACHINE OPERATOR-C Sydney Lopez Work Phone: [facility] 04-19-2022 08:50-0500 Body weight 62.14 kg SHELL MACHINE OPERATOR-C Sydney Lopez Work Phone: [facility] 12-31-2021 11:01-0400 Diastolic blood pressure 63 mm[Hg] Tracy Sin DO Work Phone: [facility] [employer] 12-31-2021 11:01-0400 SaO2% (BldA) [Mass fraction] 98 % Tracy Sin DO Work Phone: [facility] [employer] 12-31-2021 11:01-0400 Systolic blood pressure 106 mm[Hg] Tracy Sin DO Work Phone: [facility] [employer] 12-31-2021 09:00-0400 Body temperature 97.11 [degF] Tracy Sin DO Work Phone: [facility] [employer] 12-31-2021 09:00-0400 Heart rate 60 /min Tracy Sin DO Work Phone: [facility] [employer] 12-31-2021 09:00-0400 Respiratory rate 16 /min Tracy Sin DO Work Phone: [facility] Encounters Encounter Date Encounter Type Care Provider Facility Start: 03-23-2023 End: 03-23-2023 ambulatory TIMBO COHENHART [facility] Start: 03-23-2023 End: 03-23-2023 Office outpatient visit 25 minutes Timbo Byrnes PUBLIC HEALTH AIDES TEACHER-PATTERNMAKER Work Phone: [facility] Comment on above: Presence of automati c (implantable) cardiac defibrillator (Primary Dx); Family history of first-degree relative with cardiomyopathy; History of hypertension; Hypertrophic cardiomyopathy (CMS-HCC) Start: 03-23-2023 End: 03-23-2023 Clinical Support [facility] Comment on above: Presence of automati c (implantable) cardiac defibrillator (Primary Dx) Start: 03-22-2023 Telephone encounter Aurelia Pinon [facility] Start: 03-20-2023 End: 03-21-2023 Emergency department patient visit SYDNEY LOPEZ [facility] Start: 10-05-2022 ambulatory Pedro iLcea acility:[facility] Start: 09-29-2022 Evaluation and manag ement of inpatient [facility] Start: 07-16-2022 End: 07-16-2022 ambulatory SYDNEYLATANYA LOPEZ Facility:[facility] Start: 06-06-2022 End: 06-12-2022 Evaluation and management of inpatient Sydney Lopez Facility:[facility] Start: 06-06-2022 End: 06-12-2022 Evaluation and management of inpatient SHELL MACHINE OPERATOR-C Sydney Lopez Work Phone: [facility] Work Phone: Start: 06-06-2022 End: 06-06-[address] WILLIE SHORT . Facility:[facility] Start: 04-10-2022 End: 04-20-2022 Evaluation and management of inpatient Sydney Lopez Facility:[facility] Start: 04-10-2022 End: 04-20-2022 Evaluation and management of inpatient SHELL MACHINE OPERATOR-C Sydney Bobomer Work Phone: [facility] Work Phone: Start: 04-09-2022 End: 04-10-2022 ambulatory SYDNEY LOPEZ Facility:[facility] Start: 02-03-2022 End: 02-03-2022 ambulatory SYDNEY LOPEZ Facility:[facility] Start: 01-15-2022 End: 01-16-2022 ambulatory SYDNEY LOPEZ Facility:[facility] Start: 12-31-2021 End: 12-31-2021 Emergency department patient visit SYDNEY LOPEZ [facility] Start: 12-31-2021 End: 12-31-2021 Emergency department patient visit Tracy J Sin DO Work Phone: [facility] ED Comment on above: Disorder of implanta ble defibrillator, initial encounter (Primary Dx) Start: 01-06-2018 End: 01-07-2018 Patient encounter procedure KATHY EMERY [facility] Start: 04-23-2017 End: 04-23-2017 Patient encounter procedure WILLIE SHORT Facility:[facility] Procedures Date Procedure Procedure Detail Performing Clinician Start: 03-23-2023 DEVICE INTERROGATION Timbo Byrnes PUBLIC HEALTH AIDES TEACHER-PATTERNMAKER Work Phone: Start: 03-23-2023 Follow-up visit Follow-up TIMBO BYRNES Start: 12-31-2021 Radiologic exam chest single view Tracy J Sin DO Work Phone: Start: 12-31-2021 Basic metabolic panel calcium total Tracy J Sin DO Work Phone: Start: 12-31-2021 Ecg routine ecg w/least 12 lds w/i&r Tracy J Sin DO Work Phone: Start: 08-05-2021 Microscopic observation [Identifier] in Cervix by Cyto stain Aurelia Akers PLANTING SUPERVISOR Start: 02-08-2018 H/O: tubal ligation S/P tubal ligation Aurelia Akers PLANTING SUPERVISOR Start: 01-06-2018 Doppler echo spectral display complete KATHY EMERY Start: 08-24-2017 H/O: section Previous section Aurelia Akers PLANTING SUPERVISOR Start: 07-20-2017 H/O: section Previous delivery, antepartum condition or complication Tracy Sin DO Work Phone: Start: 07-14-2017 H/O: section History of section Tracy Sin DO Work Phone: Plan of Treatment Date Care Activity Detail Author Start: 01-14-2028 DTaP,Tdap and Td Vaccines (3 - Td or Tdap) DTaP,Tdap and Td Vaccines (3 - Td or Tdap) [facility] Start: 01-14-2028 DTaP/Tdap/Td vaccine (3 - Td or Tdap) DTaP/Tdap/Td vaccine (3 - Td or Tdap) [employer] Start: 08-05-2024 Screening for malignant neoplasm of cervix [facility] Start: 03-20-2024 Tobacco Screening [facility]ening [facility] Start: 02-14-2024 Adult BMI Screening Adult [facility] Screening [facility] Start: 03-23-2023 End: 03-23-2023 [facility] Start: 11-12-2022 Influenza vaccination Influenza Vaccine [facility] Start: 06-12-2022 [facility] Start: 06-06-2022 Hospital admission [facility] Start: 04-20-2022 [facility] Start: 04-10-2022 Hospital admission [facility] Start: 01-21-2022 End: 01-21-2022 Patient encounter procedure 01/21/2022 Office Visit Pediatric Cardiology Hayder Mcallister MD [address] [place] [address] [place] [address] [facility] [employer] Start: 10-12-2021 Influenza vaccination Flu vaccine (#1) [facility] Start: 08-11-2019 Screening for malignant neoplasm of cervix [facility] Start: 2010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 Medical History Ongoing Cardiomyopathy, hypertrophic Cervicalgia Depression Endometriosis Fibromyalgia GERD (gastroesophageal reflux disease) Hearing impairment History of kidney stones Hypertension Neuropathy Right axillary swelling Historical No qualifying data Medications diclofenac sodium 75 mg Oral EC Tab, 75 mg= 1 tab(s), Oral, BID Metoprolol succinate 100 mg ER Tablet Neurontin 100 mg Cap, 100 mg= 1 cap(s), Oral, Daily Zoloft 50 mg Tab Allergies No Known Allergies No Known Medication Allergies Social History Tobacco 4 or less cigarettes(less than 1/4 pack)/day in last 30 days Tobacco Use:. Never Smokeless Tobacco Use:. Cigarettes, 10/08/2020 5-9 cigarettes (between 1/4 to 1/2 pack)/day in last 30 days Tobacco Use:. Never Smokeless Tobacco Use:. Cigarettes, [facility]2020[facility]Result Comment: Electronically Signed By: CAMRYN DAVE, Gordo [place]\Date and Time Signed: 10/08/20 15:12 EDTEvaluation note* Diagnosis Disorder of implantable defibrillator, initial encounter- Primary documented in this encounter [facility] Work Phone: evaluation note* Diagnosis Onset Date Resolution Status Major depressive disorder, recurrent acute [facility] Work Phone: Evaluation note* Diagnosis Onset Date Resolution Status Major depressive disorder, recurrent acute Major depressive disorder, recurrent acute [facility] Work Phone: Evaluation note* Diagnosis Presence of automatic (implantable) cardiac defibrillator- Primary Family history of first-degree relative with cardiomyopathy History of hypertension Personal history of other diseases of circulatory system Hypertrophic cardiomyopathy (CMS-HCC) Other primary cardiomyopathies [facility] Diagnosis Presence of automatic (implantable) cardiac defibrillator- Primary [facility] Additional Instructions Regular Diet No Activity [facility] Work Phone: InstructionsNot on filedocumented in this encounter [facility] [place] SystemInstructionsNot on filedocumented in this encounter [facility] [place] SystemInstructionsNot on filedocumented in this encounter [facility] [place] [facility] Summary Purpose Family History No Family History Records FoundNo Family History Records FoundNo Family History Records FoundNo Family History Records FoundNo Family History Records FoundNo Family History Records FoundNo Family History Records FoundNo Family History Records FoundNo Family History Records Found Advance Directives No Advanced Directives Records Found Advance Directive Response Recorded Date/ Time Advance Directives No April 10, 2022 1:41am Advance Directive Response Recorded Date/ Time Advance Directives No April 10, 2022 2:41am Latest Code Status on File Code Status Date Activated Date Inactivated Comments Full Code 07/22/2022 11:26 AM 07/23/2022 5:02 PM Code Status History Code Status Date Activated Date Inactivated Comments Full Code 01/01/2022 2:22 AM 01/05/2022 10:08 PM Full Code 08/29/2020 2:16 AM 08/31/2020 10:31 PM Latest Code Status on File Code Status Date Activated Date Inactivated Comments Full Code 07/22/2022 11:26 AM 07/23/2022 5:02 PM Code Status History Code Status Date Activated Date Inactivated Comments Full Code 01/01/2022 2:22 AM 01/05/2022 10:08 PM Full Code 08/29/2020 2:16 AM 08/31/2020 10:31 PM Chief Complaint and Reason for Visit Chief Complaint MDD Reason for Visit Major depressive dis order, recurrent Chief Complaint MDD MDD Reason for Visit Major depressive dis order, recurrent Major depressive disorder, recurrent Reason for Referral Specialty Diagnoses / Procedures Referred By Contjames t Referred To Contact Diagnoses Presence of automatic (implantable) cardiac defibrillator ICD (implantable cardioverter-defibrillator) in place Family history of first-degree relative with cardiomyopathy History of CO (myocardial infarction) History of hypertension Hypertrophic cardiomyopathy (CMS-HCC) Procedures Device Interrogation Timbo Byrnes, [employer] 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 DATE CREATED AUTHOR AUTHOR'S ORGANIZ ATION 11/05/2020 [facility] DATE CREATED AUTHOR AUTHOR'S ORGANIZ ATION 01/04/2022 [facility] DATE CREATED AUTHOR AUTHOR'S ORGANIZ ATION 07/21/2022 [facility] DATE CREATED AUTHOR AUTHOR'S ORGANIZ ATION [facility] DATE CREATED AUTHOR AUTHOR'S ORGANIZ ATION 03/17/2023 [facility] DATE CREATED AUTHOR AUTHOR'S ORGANIZ ATION 03/27/2023 [facility] Reason for Visit (unrecogniz ed section and content) Reason Comments Chest Pain Patient has a defibr illator in place and states she feel small shocks occurring and increasing shocks over the past month causing increased chest pain. Reason Comments Follow-up EST PT OV/MEDTRONIC DEVICE CHECK SCHED OTILIA PER DARLYN Specialty Diagnoses / Procedures Referred By Aishwarya merlos Referred To Contact Cardiology Diagnoses Presence of automatic (implantable) cardiac defibrillator ICD (implantable cardioverter-defibrillator) in place Family history of first-degree relative with cardiomyopathy History of CO (myocardial infarction) History of hypertension Hypertrophic cardiomyopathy (CMS-HCC) Jose Waters MD [address] [facility] [address] [place] [address] [facility] Cardiology [address] [facility] [address] [place] [address] Referral ID Status Reason Start Date Expiration Date Visits Requested Visits Authorized [id number] Pending Review Specialty Services Required 3 03/01/2024 12 12 Reason Comments Device Check Care Teams (unrecognized sec tion and content) Team Status: Active Member Role Status Dates Sydney Lopez NP-C Primary Care Provider Active Team Status: Inactive Member Role Status Dates IZABELLA Lewis Primary Care Provider Active Sukhjinder Schroeder MD Admit Provider, Attending Provider Active Churn Drill Operator Relationship Specialty Start Date End Date Sydney Lopez [address] [place] [address] PCP - General 11/20/20 Churn Drill Operator Relationship Specialty Start Date End Date Sydney Lopez, [employer] TEACHER-PATTERNMAKER [address] [facility] [place] [address] PCP - General Family Medicine 04/06/22 Churn Drill Operator Relationship Specialty Start Date End Date Sydney Lopez APRN-CNP [address] [facility] [place] [address] PCP - General Family Medicine 04/06/22 Churn Drill Operator Relationship Specialty Start Date End Date Sydney Lopez, ALEK [address] [facility], [place] [address] PCP - General Family Medicine 04/06/22 FOR RECORDS PERTAINING TO PATIENTS WHO ARE OR HAVE BEEN ENROLLED IN A CHEMICAL DEPENDENCY/SUBSTANCEABUSE PROGRAM, SOME INFORMATION MAY BE OMITTED. This clinical summary was aggregated from multiple sources. Caution should be exercised in using it in the provision of clinical care. This summary normalizes information from multiple sources, and as a consequence, information in this document may materially change the coding, format and clinical context of patient data. In addition, data may be omitted in some cases. CLINICAL DECISIONS SHOULD BE BASED ON THE PRIMARY CLINICAL RECORDS. [employer] [facility]. provides no warranty or guarantee of the accuracy or completeness of information in this document.
[2023-04-11 22:30] VITALS: PULSE 110
--- NOTE | 2023-04-11 22:39 | ECG_ITS ---
[facility] Test Date: 2023-04-11 Pat Name: LESTER ART Department: Room: - Gender: Female Pin Inserter Regulator: : 1990 Requested By: ARYA LOPEZ Order Number: [id number] Reading MD: LISANDRO BROWN Measurements Intervals [place] Rate: 98 P: 51 WV: 188 QRS: 69 QRSD: 80 T: -54 QT: 316 QTc: 371 Interpretive Statements 1100 Sinus rhythm [address] depression 4564 Twave abnormality, possible lateral ischemia 4664 Twave abnormality, possible inferior ischemia 6120 Possible right atrial enlargement 9150 abnormal ECG Compared to ECG 03/21/2023 13:28:24 No significant changes Electronically Signed On 04-13-2023 6:44:58 EST by LISANDRO BROWN
--- NOTE | 2023-04-11 22:40 | ED.PSYCH1 ---
HPI - Psych General Chief Complaint: Psychiatric Symptoms Stated Complaint: MENTAL HEALTH Time Seen by Provider: 04/11/23 22:39 Source: Reports patient Mode of arrival: walk-in Limitations: Reports no limitations History of Present Illness HPI Narrative: patient presents depressed and is requesting admission to psych unit. Admits she self discontinued her psych meds a couple of days ago as she did not feel they were helping. Past history of self mutilation and now she has been scratching abrasions on her legs. She feels suicidal but not plan. Denies overdosing on any medication prior to coming in Related Data Home Medications Medication Instructions Recorded Confirmed diclofenac sodium 1 % topical gel 2 g topical DAILY 09/28/22 10/05/22 diclofenac sodium 75 mg 75 mg PO DAILY 09/28/22 10/05/22 tablet,delayed release diphenhydramine HCl 25 mg tablet 25 mg PO DAILY 09/28/22 10/05/22 docusate sodium 100 mg capsule 100 mg PO DAILY 09/28/22 10/05/22 duloxetine 30 mg capsule,delayed 30 mg PO DAILY 09/28/22 10/05/22 release gabapentin 100 mg capsule 100 mg PO DAILY 09/28/22 10/05/22 hydroxyzine pamoate 50 mg capsule 50 mg PO DAILY 09/28/22 10/05/22 melatonin 5 mg tablet 5 mg PO DAILY 09/28/22 10/05/22 metoprolol succinate 50 mg 50 mg PO DAILY 09/28/22 10/05/22 tablet,extended release 24 hr nicotine (polacrilex) 4 mg gum 4 mg mucous membrane DAILY 09/28/22 10/05/22 olanzapine 5 mg tablet 5 mg PO DAILY 09/28/22 10/05/22 sertraline 50 mg tablet 50 mg PO DAILY 09/28/22 10/05/22 trazodone 50 mg tablet 100 mg PO DAILY 09/28/22 10/05/22 aripiprazole 5 mg tablet mg 04/11/23 duloxetine 60 mg capsule,delayed mg PO 04/11/23 release ergocalciferol (vitamin D2) 1,250 04/11/23 mcg (50,000 unit) capsule lamotrigine 25 mg tablet mg 04/11/23 Previous Rx's Medication Instructions Recorded meclizine 25 mg chewable tablet 25 mg PO QID PRN dizziness #12 tabs 03/21/23 (Antivert) ondansetron 4 mg disintegrating 4 mg PO Q6H PRN nausea and 03/21/23 tablet vomiting #12 tabs Allergies Allergy/AdvReac Type Severity Reaction Status Date / Time Penicillins Allergy Severe Hives Verified 04/11/23 22:23 cefaclor [From Ceclor] Allergy Hives Verified 04/11/23 22:23 Review of Systems ROS Status of ROS 10 or more systems reviewed and unremarkable except as noted in history and below [facility] Medical History (Updated 04/12/23 @ 00:47 by Rodrigue Funes MD) Hypertrophic cardiomyopathy ?I42.2 - Other hypertrophic cardiomyopathy (ICD-10) Depression with suicidal ideation ?F32.A - Depression, unspecified (ICD-10) ?R45.851 - Suicidal ideations (ICD-10) Surgical History (Updated 08/12/22 @ 21:07 by Ana Das) History of cardiac defibrillator placement (2015) ?Z95.810 - Presence of automatic (implantable) cardiac defibrillator (ICD-10) History of cardiac defibrillator placement (2019) ?Z95.810 - Presence of automatic (implantable) cardiac defibrillator (ICD-10) Social History Smoking status: Current every day smoker Exam Constitutional Vital Signs, click to edit/add: Last Vital Signs Temp 98.4 F 04/11/23 22:16 Pulse 88 04/12/23 00:47 Resp 20 04/11/23 22:16 BP 100/66 04/12/23 00:47 Pulse Ox 98 04/12/23 00:47 O2 Del Method Room Air 04/11/23 22:16 Common normals: no apparent distress, average body habitus, oriented x3, no limitations, healthy appearing and alert [facility] Common normals: normocephalic and head/scalp atraumatic Eye Common normals: EOMs intact bilaterally and conjunctivae normal Respiratory Common normals: normal respiratory effort, no retractions, no use of accessory muscles and clear to auscultation bilaterally Cardio Common normals: regular rate, regular rhythm, S1 normal heart sound and S2 normal heart sound GI Common normals: Normal to inspection, nondistended, normoactive bowel sounds present, soft to palpation and non-tender Extremity Common normals: normal to inspection and full ROM Neuro Common normals: oriented x3, CN's II-XII intact bilaterally, moves all extremities and no focal motor deficits Psych Common normals: cooperative Appearance: unkempt Course Vital Signs Vital signs: Vital Signs Temperature 98.4 F 04/11/23 22:16 Pulse Rate 111 H 04/11/23 22:16 Respiratory Rate 20 04/11/23 22:16 Blood Pressure 135/96 H 04/11/23 22:16 Pulse Oximetry 98 04/11/23 22:16 Oxygen Delivery Method Room Air 04/11/23 22:16 Temperature 98.4 F 04/11/23 22:16 Pulse Rate 88 04/12/23 00:47 Respiratory Rate 20 04/11/23 22:16 Blood Pressure 100/66 04/12/23 00:47 Pulse Oximetry 98 04/12/23 00:47 Oxygen Delivery Method Room Air 04/11/23 22:16 MDM - Psych MDM Narrative Medical decision making narrative: patient presents depressed with suicidal thoughts and is requesting voluntary admission to psychiatry. She did talk to mental health and she has been accepted for in patient stay Lab Data Labs: Lab Results 04/11/23 04/11/23 Range/Units 22:30 22:47 WBC 9.6 (4.0-11.0) 10^3/uL RBC 4.63 (4.20-5.40) 10^6/uL Hgb 14.4 (12.0-16.0) g/dL Hct 43.3 (36.0-48.0) % MCV 93.5 (81.0-99.0) fL MCH 31.1 (26.7-34.0) pg MCHC 33.3 (29.9-35.2) g/dL RDW 12.4 (11.0-15.0) % Plt Count 279 (150-450) 10^3/uL MPV 9.8 (9.5-13.5) fL Neut % (Auto) 71.8 (43.0-75.0) % Lymph % (Auto) 17.8 L (20.5-60.0) % Bourbon % (Auto) 9.5 (1.7-12.0) % Eos % (Auto) 0.3 L (0.9-7.0) % Baso % (Auto) 0.3 (0.2-2.0) % Neut # (Auto) 6.9 H (1.4-6.5) 10^3/uL Lymph # (Auto) 1.7 (1.2-3.8) 10^3/uL Bourbon # (Auto) 0.9 H (0.3-0.8) 10^3/uL Eos # (Auto) 0.0 (0.0-0.7) 10^3/uL Baso # (Auto) 0.0 (0.0-0.1) 10^3/uL Abs Immat Gran (auto) 0.03 (0.00-0.03) 10^3/uL Imm/Tot Granulo (auto) 0.3 (0.0-0.5) % Sodium 138 (136-145) mmol/L Potassium 3.6 (3.5-5.1) mmol/L Chloride 104 (98-107) mmol/L Carbon Dioxide 25.7 (21.0-32.0) mmol/L Anion Gap 11.9 BUN 12.0 (7.0-18.0) mg/dL Creatinine 1.03 H (0.55-1.02) mg/dL Est GFR ( Amer) >60 (>=60) Est GFR (Non-Af Amer) >60 (>=60) BUN/Creatinine Ratio 11.7 Glucose 126 H (74-106) mg/dL Calcium 9.2 (8.5-10.1) mg/dL Total Bilirubin 0.4 (0.2-1.0) mg/dL AST 11 L (15-37) U/L ALT 9 L (14-59) U/L Alkaline Phosphatase 70 (46-116) U/L Total Protein 7.7 (6.4-8.2) g/dL Albumin 3.9 (3.4-5.0) g/dL Globulin 3.8 g/dL Albumin/Globulin Ratio 1.0 Salicylates <2.8 (<=19.9) mg/dL Urine Opiates Screen Negative (NEGATIVE) Ur Buprenorphine Scrn Negative (NEGATIVE) Ur Oxycodone Screen Negative (NEGATIVE) Urine Methadone Screen Negative (NEGATIVE) Acetaminophen <2.0 L (10.0-30.0) ug/mL Ur Barbiturates Screen Negative (NEGATIVE) U Tricyclic Antidepress Negative (NEGATIVE) Ur Phencyclidine Scrn Negative (NEGATIVE) Ur Amphetamines Screen Negative (NEGATIVE) U Methamphetamines Scrn Negative (NEGATIVE) U Benzodiazepines Scrn Negative (NEGATIVE) Urine Cocaine Screen Negative (NEGATIVE) U Cannabinoids Screen Positive A (NEGATIVE) Ethanol Quant <3 mg/dL Discharge Plan Discharge Chief Complaint: Psychiatric Symptoms Clinical Impression: Suicidal ideation, Depression Patient Disposition: [facility] Acute Care Hospital Discharge Date/Time: 04/12/23 01:16
--- NOTE | 2023-04-11 22:51 | PC.NURSE ---
Pt walked down to ER by ICU nurse for mental breakdown On arrival in the hallway pt is tearful and directed into a room Per RN from upstairs pt had stated she was afraid of the person in the room with her Pt was here vising her grandma who was a pt in ICU and this pt's boyfriend showed up After talking with pt her and this boyfriend have been together for 17 years They had their kids removed from their home in September of 2022 Pt states sometimes I don't feel safe around my boyfriend, and sometimes he's a great man Pt states she loves him and does not want to leave him, yet had our security agent escort him out of the hospital and stated she was scared to see him because he would be mad Pt does not give this nurse clear answers as to why she is fearful of him Pt states she has an extensive mental health history including anxiety and depression, borderline personality disorder, bi-polar, and suicidal ideation Pt states she has not taken her medications in over a week, including her heart and blood pressure meds Pt states she got the word that her grandmothers condition was getting worse and this triggered her as a well as missing her kids Pt states she has had substance abuse problems in the past but states 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 Pt changed from her clothing into our safe scrubs, belongings taken by security and security seated at bedside as a constant observer at this time EKG, urine, and lab work obtained
[2023-04-11 23:00] LABS: Basophils Percent Auto 0.3 % (0.2-2.0); Eosinophils Percent Auto 0.3 % (0.9-7.0); Hematocrit 43.3 % (36.0-48.0); Hemoglobin 14.4 g/dL (12.0-16.0); Immature Granulocytes Abs Auto 0.03 10^3/uL (0.00-0.03); Immature Granulocytes Pct Auto 0.3 % (0.0-0.5); Lymphocytes Absolute Auto 1.7 10^3/uL (1.2-3.8); Lymphocytes Percent Auto 17.8 % (20.5-60.0); Mean Corpuscular HGB Conc 33.3 g/dL (29.9-35.2); Mean Corpuscular Hemoglobin 31.1 pg (26.7-34.0); Mean Corpuscular Volume 93.5 fL (81.0-99.0); Mean Platelet Volume 9.8 fL (9.5-13.5); Monocytes Absolute Auto 0.9 10^3/uL (0.3-0.8); Monocytes Percent Auto 9.5 % (1.7-12.0); Neutrophils Absolute Auto 6.9 10^3/uL (1.4-6.5); Neutrophils Percent Auto 71.8 % (43.0-75.0); Platelet Count 279 10^3/uL (150-450); Red Blood Count 4.63 10^6/uL (4.20-5.40); Red Cell Distribution Width 12.4 % (11.0-15.0); White Blood Count 9.6 10^3/uL (4.0-11.0)
[2023-04-11 23:00] LABS: Amphetamine Screen Urine NEGATIVE (NEGATIVE); Barbiturates Screen Urine NEGATIVE (NEGATIVE); Benzodiazepines Screen Urine NEGATIVE (NEGATIVE); Buprenorphine Screen Urine NEGATIVE (NEGATIVE); Cannabinoid Screen Urine POSITIVE (NEGATIVE); Cocaine Screen Urine NEGATIVE (NEGATIVE); Methadone Screen Urine NEGATIVE (NEGATIVE); Methamphetamines Screen Urine NEGATIVE (NEGATIVE); Opiate Screen Urine NEGATIVE (NEGATIVE); Oxycodone Screen Urine NEGATIVE (NEGATIVE); Phencyclidine Screen Urine NEGATIVE (NEGATIVE); Tricyclic Antidepressant Urine NEGATIVE (NEGATIVE)
[2023-04-11] MEDS: ACETAMINOPHEN 325 MG TABLET 650 MG PO (23:14)
[2023-04-11 23:17] LABS: Acetaminophen <2.0 ug/mL (10.0-30.0); Alanine Aminotransferase 9 U/L (14-59); Albumin Level 3.9 g/dL (3.4-5.0); Alkaline Phosphatase 70 U/L (46-116); Anion Gap 11.9; Aspartate Amino Transferase 11 U/L (15-37); BUN Creatinine Ratio 11.7; Bilirubin Total 0.4 mg/dL (0.2-1.0); Calcium 9.2 mg/dL (8.5-10.1); Carbon Dioxide 25.7 mmol/L (21.0-32.0); Chloride 104 mmol/L (98-107); Estimated GFR (African America >60 (>=60); Estimated GFR (Non-African Ame >60 (>=60); Ethanol <3 mg/dL; Globulin 3.8 g/dL; Glucose 126 mg/dL (74-106); Potassium 3.6 mmol/L (3.5-5.1); Salicylate <2.8 mg/dL (<=19.9); Sodium 138 mmol/L (136-145); Total Protein 7.7 g/dL (6.4-8.2)
[2023-04-12 00:47] VITALS: BP 100/66; PULSE 88; O2SAT 98
== END 2023-04-12 01:16 ==
PROVIDERS: Emergency Provider Internal Medicine; PCP Nurse Practitioner Family
DX: R45.851 Suicidal ideations (principal); F32.A Depression, unspecified; Z91.52 Personal history of nonsuicidal self-harm; Z79.899 Other long term (current) drug therapy; I42.2 Other hypertrophic cardiomyopathy; Z95.810 Presence of automatic (implantable) cardiac defibrillator; F17.210 Nicotine dependence, cigarettes, uncomplicated
CPT/HCPCS: 36415; 80053; 80179; 80307; 80320; 80329; 85025; 93005; 99285

== ENCOUNTER 2024-02-25 22:36 | Emergency (ER) | payer OTHER, SELFPAY ==
--- OUTSIDE RECORDS SUMMARY | 2024-02-25 22:43 | XMS_ITS | CCD ---
Author Organization [facility] Care Team Providers Care Help Desk Agent Name Role Phone WILLIE SHORT Consulting Unavailable WILLIE SHORT Admitting Unavailable WILLIE SHORT Attending Unavailable DINO HADDAD Primary Care Unavailable KATHY EMERY Referring Unavailable BOO, SR DINO Briones Primary Care Unavailable Sydney Lopez Primary Care Provider [phone] SYDNEY LOPEZ Primary Care Unavailable TRACY SIN Attending Unavailable IZABELLA Lopez Primary Care Provider MD Sukhjinder Schroeder Admit Provider MD Sukhjinder Schroeder Attending Provider IZABELLA Lopez Primary Care Provider MD Sukhjinder Schroeder Admit Provider [phone] MD Sukhjinder Schroeder Attending Provider [phone] SYDNEY LOPEZ Primary Care Unavailable RALPH FUNES Admitting Unavailable RALPH FUNES Attending Unavailable RALPH FUNES Consulting Unavailable DEJA ., DR HAMILTON Consulting Unavailable SYDNEY LOPEZ Primary Care Unavailable ADRI BHATT Admitting Unavailable ADRI BHATT Attending Unavailable ADRI BHATT Consulting Unavailable SYDNEY LOPEZ Primary Care Unavailable CARRI, DR BERNARD Shankar Admitting Unavailable CARRI, DR BERNARD Shankar Attending Unavailable CARRI, DR BERNARD Shankar Consulting Unavailable HOWIE RAMIREZ Consulting Unavailable SYDNEY LOPEZ Primary Care Unavailable PAY ., DR BRISENO Admitting Unavailable PAY ., DR BRISENO Attending Unavailable PAY ., DR BRISENO Consulting Unavailable ADRI BHATT Consulting Unavailable SYDNEY LOPEZ Primary Care Unavailable CARRI, DR BERNARD Shankar Admitting Unavailable CARRI, DR BERNARD Shankar Attending Unavailable CARRI, DR BERNARD Shankar Consulting Unavailable KATHY CAMERON Consulting Unavailable GORDO [place] Consulting Unavailable BREANA LEW Consulting Unavailable BERNIE SALVADOR Attending Unavailable BERNIE SALVADOR Admitting Unavailable JOHN, SYDNEY S Primary Care Unavailable John SWITCH MAKER-ROLLER INSPECTOR AND MENDER, Sydney S Primary Care Provider JOHN, SYDNEY S Primary Care Unavailable BOBBY STEPHEN Attending Unavailable JOHN, SYDNEY S Primary Care Unavailable DEL ROSARIOGEE Attending Unavailable DEL ROSARIO, GEE Attending Unavailable DEL ROSARIO, GEE Referring Unavailable JOHN, SYDNEY S Primary Care Unavailable DASHA ANGULO Attending Unavailable LUCA, [place] Primary Care Unavailable LUCA, [place] Primary Care Unavailable JOHN, SYDNEY S Primary Care Unavailable JOHN, SYDNEY S Referring Unavailable JOHN, SYDNEY S Primary Care Unavailable TIMBO BYRNES Attending Unavailable JOHN, SYDNEY S Referring Unavailable JOHN, SYDNEY S Primary Care Unavailable JOHN, SYDNEY S Primary Care Unavailable BROOKS MEDEL Attending Unavailable Luis, Pedro Admitting Unavailab le John, Sydney Mary Primary Care Unavailable Sukhjinder Schroeder Attending Unavailable Luis, Pedro Admitting Unavailab le Luis, Pedro Attending Unavailab le John, Sydney Mary Primary Care Unavailable Luca SWITCH MAKER-SEWER, [place] Primary Care Provider [phone] Allergies Allergy Classification Reported Allergen(s) Allergy Type Date of Onset Reaction(s) Facility (2 sources) Cefaclor Drug Allergy 4 [facility] (2 sources) Penicillin Drug Allergy [facility] (9 sources) Cefaclor; Translations: [CEFACLOR] Drug Allergy 4 Hives [facility] (8 sources) Doxycycline; Translations: [DOXYCYCLINE] Drug Allergy 6 Hives, Vomiting [facility] [employer] Work Phone: (9 sources) Penicillins; Translations: [PENICILLINS] Propensity to adverse reactions to drug 6 Hives [facility] [employer] Work Phone: (1 source) Doxycycline Drug Allergy 6 [facility] (1 source) Cefaclor Drug Allergy 3 [facility] Rep[facility] (1 source) Doxycycline Drug Allergy 3 [facility] Rep[facility] Medications Current Medications Medication Drug Class(es) Dates Sig (Normalized) Sig (Original) acetaminophen 500 mg oral tablet (1 source) Start: 06-27-2023 take 1 tablet by mouth every six hours as needed for pain acetaminophen (TYLENOL EXTRA STRENGTH) 500 mg tablet Take 1 tablet (500 mg total) by mouth every 6 (six) hours as needed for pain. 30 tablet 06/27/2023 Active ARIPiprazole 5 mg oral tablet (2 sources) [...] mouth daily 30 tablet 3 08/13/2017 Active 24 hr desvenlafaxine succinate 50 mg extended release oral tablet (1 source) Serotonin and Norepinephrine Reuptake Inhibitor take 1 tablet by mouth every twenty-four hours in the morning desvenlafaxine (PRISTIQ) 50 mg 24 hr tablet Take 1 tablet (50 mg total) by mouth in the morning. Active diclofenac sodium 0.01 mg/mg topical gel (6 sources) Nonsteroidal Anti-inflammatory Drug Start: 04-20-2022 apply 2 g topically four times daily Diclofenac Sodium Active 2 GM TOPICAL Four times daily 50 April 20, 2022 1:00am Start: 04-10-2022 take [...] capsule docusate sodium 50 mg / sennosides, jail 8.6 mg oral tablet (4 sources) Start: 11-06-2022 take 1 tablet by mouth in the morning sennosides-docusate sodium (SENOKOT-S) 8.6-50 mg Take 1 tablet by mouth in the morning. 30 tablet 11/06/2022 Active DULoxetine 30 mg delayed release [...] 10:37am Start: 10-07-2020 take 1 capsule by [facility] three times daily gabapentin (NEURONTIN) 100 mg [...] Iron (1 source) Start: 04-13-2017 IRON PO ketorolac tromethamine 10 mg oral tablet (1 source) Nonsteroidal Anti-inflammatory Drug, Cyclooxygenase Inhibitor Start: 06-27-2023 take 1 tablet by mouth every six hours as needed for pain ketorolac (TORADOL) 10 mg tablet Take 1 tablet (10 mg total) by mouth every 6 (six) hours as needed for pain. 20 tablet 06/27/2023 Active lamoTRIgine 25 mg oral tablet (1 source) Mood Stabilizer, Anti-epileptic Agent take 2 tablets by mouth in the morning lamoTRIgine (LaMICtal) 25 mg tablet Take 2 tablets (50 mg total) by mouth in the morning. Active lidocaine 0.05 mg/mg medicated patch (1 source) Antiarrhythmic, Amide Local Anesthetic Start: 08-31-2020 lidocaine (LIDODERM) 5 % melatonin 5 mg oral tablet (1 source) Start: 06-12-2022 take 5 mg by mouth once daily at bedtime Melatonin Active 5 MG PO Daily at bedtime June 12, 2022 12:00am 24 hr metoprolol succinate 50 mg extended release oral tablet (8 sources) beta-Adrenergic Romina Start: 04-10-2022 take 50 mg by mouth once daily Metoprolol Succinate Active 50 MG PO Daily April 10, 2022 1:00am Start: 01-11-2022 End: 03-23-2023 take 1 tablet by mouth every twenty-four hours in the morning metoprolol succinate XL (TOPROL XL) 50 mg 24 hr tablet Take 1 tablet (50 mg total) by mouth in the morning. 90 tablet 3 03/23/2023 Active Start: 12-22-2018 take 1 tablet by mouth once da connie metoprolol succinate (TOPROL XL) 100 MG extended release tablet Take 1 tablet by mouth daily 30 tablet 3 12/22/2018 Active nicotine 2 mg chewing gum (2 sources) Cholinergic Nicotinic Agonist Start: 04-20-2022 Nicotine (Polacrilex) Active 2 MG BUCCAL Every 2 hours April 20, 2022 1:00am OLANZapine 5 mg oral tablet (7 sources) Atypical Antipsychotic Start: 06-12-2022 take 5 mg by mouth twice daily Olanzapine Active 5 MG PO Twice daily June 12, 2022 12:00am Start: 04-20-2022 take 5 mg by mouth e very six hours Olanzapine Active 5 MG PO Q6H April 20, 2022 1:00am Wqwcurtv-Fvj-Nk-FA ( FORTE) TABS (1 source) Start: 08-17-2017 take 1 tablet by mouth once daily Vwrszxyj-Mur-Ow-FA ( FORTE) TABS Indications: High-risk , second [...] for Nausea 60 tablet 0 08/13/2017 Active QUEtiapine 25 mg oral tablet (1 source) Atypical Antipsychotic take 1 tablet by mouth three times daily QUEtiapine (SEROquel) 25 mg tablet Take 1 tablet (25 mg total) by mouth 3 (three) times a day. Active riboflavin, vitamin B2, (VITAMIN B-2 ORAL) (4 sources) take 23998 [IU] by mouth every week riboflavin, vitamin B2, (VITAMIN B-2 ORAL) Take 50,000 Units by mouth once a week. Active take 07079 [IU] by mouth every w [facility] riboflavin, vitamin B2, (VITAMIN B-2 ORAL) Take 50,000 Units by mouth once a week. 0 Active sertraline 50 mg oral tablet (10 sources) Serotonin Reuptake Inhibitor Start: 06-12-2022 take [...] mg total) by mouth in the morning. Active take 1 tablet by shannon th once daily sertraline (ZOLOFT) 50 MG tablet Take 50 mg by mouth daily 0 Active traZODone hydrochloride 100 mg oral tablet (6 sources) Serotonin Reuptake Inhibitor Start: 04-20-2022 take 100 mg by mouth once daily at bedtime Trazodone Active 100 MG PO Daily at bedtime April 20, 2022 1:00am take 1 tablet by shannon th once daily as needed for sleep traZODone (DESYREL) 50 mg tablet Take 1 tablet (50 mg total) by mouth nightly as needed for sleep. Active 24 hr divalproex sodium 500 mg extended release oral tablet (2 sources) Mood Stabilizer, Anti-epileptic Agent Start: 04-20-2022 take 500 mg by mouth once daily at bedtime Divalproex Active 500 MG PO Daily at bedtime April 20, 2022 1:00am ziprasidone 20 mg oral capsule (1 source) Atypical Antipsychotic take 2 capsules by mouth in the morning, then take 2 capsules by mouth at mealtime ziprasidone (GEODON) 20 mg capsule Take 2 capsules (40 mg total) by mouth in the morning and 2 capsules (40 mg total) in the evening. Take with meals. Active Completed/Discontinued Medications Medication Drug Class(es) Dates Sig (Normalized) Sig (Original) cyclobenzaprine hydrochloride 5 mg oral tablet (2 sources) Muscle Relaxant Start: 04-20-2022 End: 06-12-2022 take 5 mg by mouth twice daily Cyclobenzaprine Discontinued 5 MG PO Twice daily 60 April 20, 2022 1:00am June 12, 2022 10:37am hydrOXYzine pamoate 50 mg oral capsule (6 sources) Antihistamine Start: 04-20-2022 End: 06-12-2022 take 50 mg by mouth every six hours Hydroxyzine Pamoate Discontinued 50 MG PO Q6H 60 April 20, 2022 1:00am June 12, 2022 10:37am take 1 tablet by shannon th once daily as needed hydrOXYzine (ATARAX) 50 mg tablet Take 1 tablet (50 mg total) by mouth nightly as needed for itching. Active Problems Active Problems Problem Classification Problem Date Documented Da te Episodic/Chronic Cardiac dysrhythmias (1 source) Ventricular tachycardia; Translations: [VT (ventricular tachycardia)] Onset: 07-25-2015 07-25-2015 Chronic Complication of device; implant or graft (2 sources) Disorder of implantable defibrillator; Translations: [Unspecified complication of cardiac and vascular prosthetic device, implant and graft, initial encounter] Onset: 12-31-2021 Episodic Conduction disorders (13 sources) Automatic implantable cardiac defibrillator in situ; Translations: [Presence of automatic (implantable) cardiac defibrillator] Onset: 10-30-2015 10-30-2015 Chronic Coronary atherosclerosis and other heart disease (6 sources) History of myocardial infarction; Translations: [Old myocardial infarction] Onset: 07-14-2017 07-14-2017 Chronic Disorders of teeth and jaw (3 sources) Dental caries, unspecified; Translations: [Disorder of teeth and supporting structures, unspecified] Onset: 06-25-2023 Episodic Essential hypertension (1 source) Essential hypertension; Translations: [Essential (primary) hypertension] Onset: 07-14-2017 07-14-2017 Chronic Genitourinary symptoms and ill-defined conditions (2 sources) Hematuria, unspecified; Translations: [Urinary frequency] Onset: 07-20-2022 Episodic Headache; including migraine (1 source) Headache Onset: 05-29-2023 Episodic Headache; including migraine (1 source) Headache; including migraine; Translations: [Headache, unspecified] Onset: 05-29-2023 Hypertension complicating ; childbirth and the puerperium (1 source) Hypertension complicating ; Translations: [Unspecified maternal hypertension, first trimester] Onset: 07-20-2017 07-20-2017 Chronic Menstrual disorders (1 source) Dysmenorrhea, unspecified; Translations: [DYSMENORRHEA UNSPECIFIED] Onset: 07-20-2022 Chronic Mood disorders (11 sources) Recurrent major depression; Translations: [Major depressive disorder, recurrent, unspecified] Onset: 09-29-2022 04-10-2022 Chronic Mood disorders (1 source) Mood disorders; Translations: [DEPRESSION UNSPECIFIED] Onset: 04-12-2022 Other aftercare (1 source) Other emt intermediate (current) drug therapy; Translations: [OTH INSULATION BLOWER CURRENT DRUG THERAPY] Onset: 05-09-2023 Episodic Other nervous system disorders (5 sources) Peripheral neuritis; Translations: [Other specified mononeuropathies] Onset: 03-30-2017 07-01-2017 Chronic Other nervous system disorders (5 sources) Neuropathy; Translations: [Polyneuropathy, unspecified] Onset: 07-14-2017 07-14-2017 Chronic Other nervous system disorders (1 source) Other chronic pain; Translations: [Other chronic pain] Onset: 06-25-2023 Chronic Other skin disorders (1 source) Localized swelling, mass and lump, head; Translations: [Localized swelling, mass and lump, head] Onset: 06-27-2023 Episodic Other skin disorders (1 source) Facial swelling Onset: 06-27-2023 Episodic Marie-; endo-; and myocarditis; cardiomyopathy (except that caused by tuberculosis or sexually transmitted disease) (8 sources) Hypertrophic cardiomyopathy; Translations: [Other hypertrophic cardiomyopathy] Onset: 07-12-2013 07-14-2017 Chronic Personality disorders (1 source) Borderline personality disorder; Translations: [Borderline personality disorder] Onset: 04-12-2023 Chronic Substance-related disorders (10 sources) Smoker; Translations: [Nicotine dependence, unspecified, uncomplicated] Onset: 07-14-2017 07-14-2017 Chronic Suicide and intentional self-inflicted injury (5 sources) Suicidal ideations; Translations: [SUICIDAL IDEATIONS] Onset: 04-09-2022 Episodic Unclassified (1 source) CONTACT W/AND (SUSP) EXPOS COVID-19; Translations: [CONTACT W/AND (SUSP) EXPOS COVID-19] Onset: 04-12-2022 Unclassified (1 source) NAUSEA, URINE SMELLS FUNNY Onset: 05-10-2023 Unclassified (1 source) Suicidal Onset: 04-26-2023 Unclassified (1 source) Device Check Onset: 03-23-2023 Urinary tract infections (2 sources) Urinary tract infection, site not specified; Translations: [Acute cystitis without hematuria] Onset: 07-20-2022 Episodic Past or Other Problems Problem Classification Problem Date Documented Da te Episodic/Chronic Abdominal pain (8 sources) Pelvic and perineal pain; Translations: [Pain in pelvis] Onset: 06-07-2018 Episodic Calculus of urinary tract (4 sources) History of calculus of kidney; Translations: [Personal history of urinary calculi] Onset: 08-24-2017 08-24-2017 Episodic Cardiac dysrhythmias (1 source) Palpitations; Translations: [Palpitations] Onset: 06-28-2015 06-28-2015 Episodic Conditions associated with dizziness or vertigo (2 sources) Dizziness; Translations: [Dizziness and giddiness] Onset: 07-12-2013 Resolved: 07-14-2017 07-14-2017 Episodic Contraceptive and procreative management (4 sources) Sterilization requested; Translations: [Encounter for sterilization] Onset: 12-06-2017 Resolved: 02-08-2018 02-08-2018 Episodic E Codes: Fall (1 source) Fall (on) (from) unspecified stairs and steps, initial encounter; Translations: [FALL ON FROM UNS STAIRS STEPS INIT] Onset: 02-22-2022 Episodic Hemorrhoids (4 sources) Hemorrhoids; Translations: [Other hemorrhoids] Onset: 03-20-2018 03-20-2018 Episodic Malaise and fatigue (1 source) Fatigue; Translations: [Other fatigue] Onset: 07-12-2013 Resolved: 07-14-2017 07-14-2017 Episodic Nonspecific chest pain (12 sources) Chest pain; Translations: [Chest pain, unspecified] Onset: 06-28-2015 Resolved: 07-14-2017 07-14-2017 Episodic Other aftercare (4 sources) Patient encounter status; Translations: [Other intermediate (current) drug therapy] Onset: 04-20-2017 04-20-2017 Episodic Other circulatory disease (5 sources) H/O: hypertension; Translations: [Personal history of other diseases of the circulatory system] Onset: 08-24-2017 08-24-2017 Episodic Other circulatory disease (1 source) Personal history of other diseases of the circulatory system; Translations: [Personal history of other diseases of the circulatory system] Onset: 08-24-2017 Episodic Other circulatory disease (1 source) Low blood pressure Onset: 03-20-2023 Episodic Other complications of (1 source) High risk ; Translations: [Supervision of high risk , unspecified, first trimester] Onset: 07-14-2017 07-14-2017 Episodic Other complications of (5 sources) Heart disease in mother complicating , childbirth AND/OR puerperium; Translations: [Diseases of the circulatory system complicating , first trimester] Onset: 07-20-2017 Resolved: 02-08-2018 07-20-2017 Episodic Other complications of (5 sources) Hereditary disease in family possibly affecting fetus; Translations: [Maternal care for (suspected) hereditary disease in fetus, not applicable or unspecified] Onset: 07-20-2017 Resolved: 01-03-2018 07-20-2017 Episodic Other complications of (3 sources) Vomiting of ; Translations: [Vomiting of , unspecified] Onset: 08-24-2017 Resolved: 11-18-2017 11-18-2017 Episodic Other complications of (4 sources) Poor growth affecting management; Translations: [Maternal care for other known or suspected poor growth, third trimester, not applicable or unspecified] Onset: 11-18-2017 Resolved: 02-08-2018 02-08-2018 Episodic Other complications of (1 source) Vomiting of , unspecified; Translations: [Mild hyperemesis gravidarum, unspecified as to episode of care or not applicable] Onset: 08-24-2017 Resolved: 11-18-2017 11-18-2017 Episodic Other female genital disorders (4 sources) History of abnormal cervical Papanicolaou smear ; Translations: [Personal history of other diseases of the female genital tract] Onset: 08-24-2017 08-24-2017 Episodic Other gastrointestinal disorders (4 sources) Constipation, unspecified; Translations: [CONSTIPATION UNSPECIFIED] Onset: 01-15-2022 Episodic Other gastrointestinal disorders (4 sources) Slow transit constipation; Translations: [Slow transit constipation] Onset: 03-20-2018 03-20-2018 Episodic Other injuries and conditions due to external causes (4 sources) Traumatic injury; Translations: [Injury, unspecified, initial encounter] Onset: 08-29-2020 08-29-2020 Episodic Other conditions (5 sources) exposure to drug; Translations: [Liberty affected by maternal noxious substance, unspecified] Onset: 07-14-2017 Resolved: 02-08-2018 07-14-2017 Episodic Other and delivery including normal (4 sources) Intrauterine ; Translations: [Encounter for supervision of normal , unspecified, unspecified trimester] Onset: 01-03-2018 Resolved: 02-08-2018 02-08-2018 Episodic Residual codes; unclassified (6 sources) Family history of ischemic heart disease; Translations: [Family history of ischemic heart disease and other diseases of the circulatory system] Onset: 07-14-2017 07-14-2017 Episodic Residual codes; unclassified (1 source) First trimester ; Translations: [Less than 8 weeks gestation of ] Onset: 07-01-2017 Resolved: 07-14-2017 07-14-2017 Episodic Residual codes; unclassified (4 sources) History of palpitations; Translations: [Personal history of other specified conditions] Onset: 08-24-2017 08-24-2017 Episodic Residual codes; unclassified (4 sources) Poor oral hygiene; Translations: [Other specified personal risk factors, not elsewhere classified] Onset: 08-24-2017 08-24-2017 Episodic Residual codes; unclassified (4 sources) High suicide risk; Translations: [Other specified [...] Spondylosis; intervertebral disc disorders; other back problems (5 sources) Thoracic radiculopathy; Translations: [Radiculopathy, thoracic region] Onset: 08-13-2016 07-01-2017 Episodic Superficial injury; contusion (1 source) Contusion of left front wall of thorax, initial encounter; Translations: [CONTUS LT FRONT WALL THORAX INITIAL] Onset: 02-22-2022 Episodic Results Test Name Value Interpretation Reference Range Facility BASIC METABOLIC PANLon 05-28 Anion gap [Moles/Vol] 10 mmol/L Normal 5-15 [facility] Comment on above: Performed By: #### C BCA, 3298-7, 5643-2, BMP, 4024-6 #### [facility] ([id number]) [address] [place] [address], [place] [address] #### [id number] #### [facility] ([id number]) [address], [address] [place] [address] Calcium [Mass/Vol] 9.0 mg/dL Normal 8.5-10.5 [facility] Comment on above: Performed By: #### C BCA, 3298-7, 5643-2, BMP, 4024-6 #### [facility] ([id number]) [address] [place] [address] #### [id number] #### [facility] ([id number]) [address], [address] [place] [address] Chloride [Moles/Vol] 105 mmol/L Normal 98-109 [facility] Comment on above: Performed By: #### C BCA, 3298-7, 5643-2, BMP, 4024-6 #### [facility] ([id number]) [address] [place] [address] #### [id number] #### [facility] ([id number]) [address], [address] [place] [address] CO2 [Moles/Vol] 22 mmol/L Normal 22-32 [facility] Comment on above: Performed By: #### C BCA, 3298-7, 5643-2, BMP, 4024-6 #### [facility] ([id number]) [address] [place] [address] #### 19446-5 #### [facility] ([id number]) [address], [address] [place] [address] Creatinine [Mass/Vol] 0.93 mg/dL Normal 0.40-1.00 [facility] Comment on above: Result Comment: METH OD TRACEABLE TO IDMS STANDARD Performed By: #### C BCA, 3298-7, 5643-2, BMP, 4024-6 #### [facility] ([id number]) [address] [place] [address] [place] [address] #### [id number] #### [facility] ([id number]) [address], [address] [place] [address] GFR/1.73 sq M.predicted among non-blacks MDRD (S/P/Bld) [Vol rate/Area] 83 mL/min/{1.73_m2} Normal >59 [facility] Comment on above: Result Comment: Reported eGFR is based on the CKD-EPI 2020 equation that does not use a race coefficient. Performed By: #### C BCA, 3298-7, 5643-2, BMP, 4024-6 #### [facility] ([id number]) [address] [place] [address] #### [id number] #### [facility] ([id number]) [address], [address] [place] [address] Glucose [Mass/Vol] 115 mg/dL High 65-99 [facility] Comment on above: Performed By: #### C BCA, 3298-7, 5643-2, BMP, 4024-6 #### [facility] ([id number]) [address] [place] [address] #### [id number] #### [facility] ([id number]) [address], [address] [place] [address] Potassium [Moles/Vol] 3.1 mmol/L Low 3.5-5.0 [facility] Comment on above: Performed By: #### C BCA, 3298-7, 5643-2, BMP, 4024-6 #### [facility] ([id number]) [address] [place] [address] #### 16730-3 #### [facility] ([id number]) [address], [address] [place] [address] Sodium [Moles/Vol] 137 mmol/L Normal 134-146 [facility] Comment on above: Performed By: #### C BCA, 3298-7, 5643-2, BMP, 4024-6 #### [facility] ([id number]) [address] [place] [address] #### 57877-9 #### [facility] ([id number]) [address], [address] [place] [address] Urea nitrogen [Mass/Vol] 13 mg/dL Normal 5-23 [facility] Comment on above: Performed By: #### C BCA, 3298-7, 5643-2, BMP, 4024-6 #### [facility] ([id number]) [address] [place] [address] #### 05360-5 #### [facility] ([id number]) [address] [facility], [address] [place] [address] CBC AND AUTO DIFFon 05-29-19 24 ABSOLUTE BASOPHIL 0.0 X10E9/L Normal 0.0-0.2 [facility] Comment on above: Performed By: #### C BCA, 3298-7, 5643-2, BMP, 4024-6 #### [facility] ([id number]) [address] [place] [address] #### 35569-0 #### [facility] ([id number]) [address], [address] [place] [address] ABSOLUTE NEUTROPHIL 5.2 X10E9/L Normal 1.5-6.6 [facility] Comment on above: Performed By: #### C BCA, 3298-7, 5643-2, BMP, 4024-6 #### [facility] ([id number]) [address] [place] [address] #### 93902-9 #### [facility] ([id number]) [address] [facility], [address] [place] [address] Basophils/100 WBC (Bld) 0.4 % Normal [facility] Comment on above: Performed By: #### Ami AUGUSTIN, 329-, 5643-2, BMP, 402-6 #### [facility] ([id number]) [address] [place] [address] 66053 #### 73246-6 #### [facility] ([id number]) [address] [facility], [address] [place] [address] Eosinophils (Bld) [#/Vol] 0.1 10*3/uL Normal 0.0-0.4 [facility] Comment on above: Performed By: #### C DEMETRIA, 32910-18, 5643-2, BMP, 402-6 #### [facility] ([id number]) [address] [place] [address] 44879 #### 05992-6 #### [facility] ([id number]) [address] [facility], [address] [place] [address] Eosinophils/100 WBC (Bld) 0.8 % Normal [facility] Comment on above: Performed By: #### Ami AUGUSTIN, 329-, 5643-2, BMP, 4024-6 #### [facility] ([id number]) [address] [place] [address] 77704 #### 74072-2 #### [facility] ([id number]) [address] [facility], [address] [place] [address] Erythrocyte distribution width (RBC) [Ratio] 13.4 % Normal 11.5-15.0 [facility] Comment on above: Performed By: #### Ami AUGUSTIN, 32910-18, 5643-2, BMP, 402-6 #### [facility] ([id number]) [address] [place] [address] 47553 #### 49425-8 #### [facility] ([id number]) [address], [address] [place] [address] Hematocrit (Bld) [Volume fraction] 39.8 % Normal 35-47 [facility] Comment on above: Performed By: #### Ami AUGUSTIN, 3298-7, 5643-2, BMP, 4024-6 #### [facility] ([id number]) [address] [place] [address] 93635 #### 83011-6 #### [facility] ([id number]) [address], [address] [place] [address] Hemoglobin (Bld) [Mass/Vol] 13.8 g/dL Normal 11.7-15.5 [facility] Comment on above: Performed By: #### C DEMETRIA, 3298-7, 5643-2, BMP, 4024-6 #### [facility] ([id number]) [address] [place] [address] 23145 #### 21919-8 #### [facility] ([id number]) [address], [address] [place] [address] Lymphocytes (Bld) [#/Vol] 1.8 10*3/uL Normal 1.0-3.5 [facility] Comment on above: Performed By: #### Ami AUGUSTIN, 3298-7, 5643-2, BMP, 4024-6 #### [facility] ([id number]) [address] [place] [address] 69684 #### 43715-5 #### [facility] ([id number]) [address], [address] [place] [address] Lymphocytes/100 WBC (Bld) 22.3 % Normal [facility] Comment on above: Performed By: #### Ami AUGUSTIN, 3298-7, 5643-2, BMP, 4024-6 #### [facility] ([id number]) [address] [place] [address] 54213 #### 24087-7 #### [facility] ([id number]) [address] [facility], [address] [place] [address] MCH (RBC) [Entitic mass] 32.1 pg Normal 27-34 [facility] Comment on above: Performed By: #### Ami AUGUSTIN, 3298-7, 5643-2, BMP, 4024-6 #### [facility] ([id number]) [address] [place] [address] 78523 #### 10056-8 #### [facility] ([id number]) [address] [facility], [address] [place] [address] MCHC (RBC) [Mass/Vol] 34.7 g/dL Normal 32-36 [facility] Comment on above: Performed By: #### Ami AUGUSTIN, 3298-7, 5643-2, BMP, 4024-6 #### [facility] ([id number]) [address] [place] [address] 22713 #### 21144-4 #### [facility] ([id number]) [address] [facility], [address] [place] [address] MCV (RBC) [Entitic vol] 92 fL Normal 80-100 [facility] Comment on above: Performed By: #### Ami AUGUSTIN, 3298-7, 5643-2, BMP, 4024-6 #### [facility] ([id number]) [address] [place] [address] 19443 #### 32138-7 #### [facility] ([id number]) [address] [facility], [address] [place] [address] Monocytes (Bld) [#/Vol] 0.9 10*3/uL Normal 0-0.9 [facility] Comment on above: Performed By: #### Ami AUGUSTIN, 3298-7, 5643-2, BMP, 4024-6 #### [facility] ([id number]) [address] [place] [address] 88302 #### 83484-4 #### [facility] ([id number]) [address], [address] [place] [address] Monocytes/100 WBC (Bld) 10.9 % Normal [facility] Comment on above: Performed By: #### C BCA, 3298-7, 5643-2, BMP, 4024-6 #### [facility] ([id number]) [address] [place] [address] 75248 #### 22204-1 #### [facility] ([id number]) [address], [address] [place] [address] Neutrophils/100 WBC (Bld) 65.6 % Normal [facility] Comment on above: Performed By: #### C BCA, 3298-7, 5643-2, BMP, 4024-6 #### [facility] ([id number]) [address] [place] [address] 43858 #### 17712-9 #### [facility] ([id number]) [address], [address] [place] [address] Platelet mean volume (Bld) [Entitic vol] 8.0 fL Normal 7-12 [facility] Comment on above: Performed By: #### C BCA, 3298-7, 5643-2, BMP, 4024-6 #### [facility] ([id number]) [address] [place] [address] 48668 #### 46429-7 #### [facility] ([id number]) [address], [address] [place] [address] Platelets (Bld) [#/Vol] 262 10*3/uL Normal 150-450 [facility] Comment on above: Performed By: #### C BCA, 3298-7, 5643-2, BMP, 4024-6 #### [facility] ([id number]) [address] [place] [address] 44938 #### 51408-5 #### [facility] ([id number]) [address], [address] [place] [address] RBC COUNT 4.31 X10E12/L Normal 3.80-5.20 [facility] Comment on above: Performed By: #### C BCA, 3298-7, 5643-2, BMP, 4024-6 #### [facility] ([id number]) [address] [place] [address] 20418 #### 92663-3 #### [facility] ([id number]) [address], [address] [place] [address] WBC (Bld) [#/Vol] 8.0 10*3/uL Normal 4.0-11.0 [facility] Comment on above: Performed By: #### C DEMETRIA, 3298-7, 5643-2, BMP, 4024-6 #### [facility] ([id number]) [address] [place] [address] 38383 #### 47932-8 #### [facility] ([id number]) [address], [address] [place] [address] CRP [Mass/Vol]on 05-29-2023 C REACTIVE PROTEIN 0.6 mg/dL Normal 0.000-0.744 [facility] Comment on above: Performed By: #### C BCA, 3298-7, 5643-2, BMP, 4024-6 #### [facility] ([id number]) [address] [place] [address] 86657 #### 79785-0 #### [facility] ([id number]) [address], [address] [place] [address] CT BRAIN WO CONTon CT BRAIN WO CONT CT BRAIN WO CONT CT BRAIN WO CONT HISTORY: Headache COMPARISON: None TECHNIQUE: * CT brain without intravenous contrast. Automated exposure control was utilized. * All CT scans at this facility use dose modulation, iterative reconstruction, and/or weight based dosing when appropriate to reduce radiation dose to as low as reasonably achievable. FINDINGS: No acute intracranial hemorrhage, territorial infarct, mass effect, or shift of midline structure. 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 Intraorbital contents appear unremarkable. Mucous retention cyst right maxillary sinus. Remaining paranasal sinuses and mastoid air cells appear well aerated. IMPRESSION: * Few stigmata which can be associated with idiopathic intracranial hypertension. Recommend clinical correlation and MRI may be helpful in further evaluation. 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 * No acute intracranial process. Chronic right maxillary sinus disease Approved by Resident: Mynor Yee MD on 05/29/2023 12:19 AM IAta MD have personally reviewed the image(s) and agree with and/or edited the report Finalized by Ata Cleary MD on 05/29/2023 12:40 AM Normal [facility] ESR Photometric method (Bld) [Velocity]on 05-29-2023 ESR, ERYTHROCYTE SEDIMENTATION RATE 3 mm/h Normal 0-20 [facility] Comment on above: Performed By: #### C DEMETRIA, 3298-7, 5643-2, BMP, 4024-6 #### [facility] ([id number]) [address] [place] [address], [place] [address] #### 97330-3 #### [facility] ([id number]) [address] [facility], [address] [place] [address] HCG ( test) Ql (U)o n 05-10-2023 Beta HCG ( test) Ql (U) Negative Normal NEG [facility] Comment on above: Performed By: #### C BCA, 3298-7, 5643-2, BMP, 4024-6 #### [facility] ([id number]) [address] [place] [address] 58812 #### 70310-9 #### [facility] ([id number]) [address] [facility], [address] [place] [address] URN MACROSCOPIC NURon 2023 BILIRUBIN DANYELL Negative Normal NEG [facility] Comment on above: Performed By: #### N UM #### [facility] ([id number]) [address] [place] [address] BLOOD/HGB DANYELL Trace Abnormal NEG [facility] Comment on above: Performed By: #### N UM #### [facility] ([id number]) [address] [place] [address] 04299 GLUCOSE DANYELL Negative Normal NEG [facility] Comment on above: Performed By: #### N UM #### [facility] ([id number]) [address] [place] [address] [place] [address] KETONES DANYELL Trace Abnormal NEG [facility] Comment on above: Performed By: #### N UM #### [facility] ([id number]) [address] [place] [address] [place] [address] LEUKOCYTE ESTERASE DANYELL Small Abnormal NEG [facility] Comment on above: Performed By: #### N UM #### [facility] ([id number]) [address] [place] [address] [place] [address] NITRITE DANYELL Negative Normal NEG [facility] Comment on above: Performed By: #### N UM #### [facility] ([id number]) [address] [place] [address]329 PH DANYELL 7.0 Normal 5.0-8.5 [facility] Comment on above: Performed By: #### N UM #### [facility] ([id number]) [address] [place] [address] 92371 PROTEIN DANYELL Trace Abnormal NEG [facility] Comment on above: Performed By: #### N UM #### [facility] ([id number]) [address] [place] [address] 49702 SPECIFIC GRAVITY DANYELL 1.025 Normal 1.003-1.035 [facility] Comment on above: Performed By: #### N UM #### [facility] ([id number]) [address] [place] [address] 09082 UROBILINOGEN DANYELL 2.0 eu/dL High <1.1 [facility] Comment on above: Performed By: #### N UM #### [facility] ([id number]) [address] [place] [address] 683[address] ACETAMINOPHENon 04-26-2023 Acetaminophen [Mass/Vol] 2.8 ug/mL Low 10.0-30.0 [facility] Comment on above: Result Comment: Refe rence ranges are for therapeutic limits. Performed By: #### C BCA, 3298-7, 5643-2, BMP, 4024-6 #### [facility] ([id number]) [address] [place] [address] 68090 #### 65757-0 #### [facility] ([id number]) [address] [facility], [address] [place] [address] BASIC METABOLIC PANLon 04-26 Anion gap [Moles/Vol] 9 mmol/L Normal 5-15 [facility] Comment on above: Performed By: #### C BCA, 3298-7, 5643-2, BMP, 4024-6 #### [facility] ([id number]) [address] [place] [address] 07076 #### 15212-9 #### [facility] ([id number]) [address] [facility], [address] [place] [address] Calcium [Mass/Vol] 8.6 mg/dL Normal 8.5-10.5 [facility] Comment on above: Performed By: #### C BCA, 3298-7, 5643-2, BMP, 4024-6 #### [facility] ([id number]) [address] [place] [address] 92260 #### 72196-4 #### [facility] ([id number]) [address] [facility], [address] [place] [address] Chloride [Moles/Vol] 104 mmol/L Normal 98-109 [facility] Comment on above: Performed By: #### C BCA, 329-7, 5643-2, BMP, 4024-6 #### [facility] ([id number]) [address] [place] [address] 74857 #### 58849-4 #### [facility] ([id number]) [address] [place] [address], [address] [place] [address] CO2 [Moles/Vol] 24 mmol/L Normal 22-32 [facility] Comment on above: Performed By: #### C BCA, 329-7, 5643-2, BMP, 4024-6 #### [facility] ([id number]) [address] [place] [address] 31871 #### 07033-8 #### [facility] ([id number]) [address] [place] [address], [address] [place] [address] Creatinine [Mass/Vol] 0.94 mg/dL Normal 0.40-1.00 [facility] Comment on above: Result Comment: METH OD TRACEABLE TO IDMS STANDARD Performed By: #### C BCA, 329-7, 5643-2, BMP, 4024-6 #### [facility] ([id number]) [address] [place] [address] 46017 #### 88971-4 #### [facility] ([id number]) [address], [address] [place] [address] GFR/1.73 sq M.predicted among non-blacks MDRD (S/P/Bld) [Vol rate/Area] 82 mL/min/{1.73_m2} Normal >59 [facility] Comment on above: Result Comment: Reported eGFR is based on the CKD-EPI 2020 equation that does not use a race coefficient. Performed By: #### C BCA, 3298-7, 5643-2, BMP, 4024-6 #### [facility] ([id number]) [address] [place] [address] 30577 #### 55067-3 #### [facility] ([id number]) [address] [facility], [address] [place] [address] Glucose [Mass/Vol] 86 mg/dL Normal 65-99 [facility] Comment on above: Performed By: #### C BCA, 3298-7, 5643-2, BMP, 4024-6 #### [facility] ([id number]) [address] [place] [address] 19914 #### 45730-1 #### [facility] ([id number]) [address] [facility], [address] [place] [address] Potassium [Moles/Vol] 4.3 mmol/L Normal 3.5-5.0 [facility] Comment on above: Performed By: #### C BCA, 3298-7, 5643-2, BMP, 4024-6 #### [facility] ([id number]) [address] [place] [address] 73096 #### 53577-1 #### [facility] ([id number]) [address], [address] [place] [address] Sodium [Moles/Vol] 137 mmol/L Normal 134-146 [facility] Comment on above: Performed By: #### C BCA, 3298-7, 5643-2, BMP, 4024-6 #### [facility] ([id number]) [address] [place] [address] 21407 #### 04731-7 #### [facility] ([id number]) [address], [address] [place] [address] Urea nitrogen [Mass/Vol] 12 mg/dL Normal 5-23 [facility] Comment on above: Performed By: #### C BCA, 3298-7, 5643-2, BMP, 4024-6 #### [facility] ([id number]) [address] [place] [address] 87105 #### 75348-9 #### [facility] ([id number]) [address], [address] [place] [address] CBC AND AUTO DIFFon 04-26-19 24 ABSOLUTE BASOPHIL 0.0 X10E9/L Normal 0.0-0.2 [facility] Comment on above: Performed By: #### C BCA, 3298-7, 5643-2, BMP, 4024-6 #### [facility] ([id number]) [address] [place] [address] 77173 #### 66792-6 #### [facility] ([id number]) [address], [address] [place] [address] ABSOLUTE NEUTROPHIL 7.8 X10E9/L High 1.5-6.6 [facility] Comment on above: Performed By: #### C BCA, 3298-7, 5643-2, BMP, 4024-6 #### [facility] ([id number]) [address] [place] [address] 87261 #### 65806-4 #### [facility] ([id number]) [address], [address] [place] [address] Basophils/100 WBC (Bld) 0.3 % Normal [facility] Comment on above: Performed By: #### C DEMETRIA, 329-7, 5643-2, BMP, 4024-6 #### [facility] ([id number]) [address] [place] [address] 71538 #### 98637-0 #### [facility] ([id number]) [address], [address] [place] [address] Eosinophils (Bld) [#/Vol] 0.1 10*3/uL Normal 0.0-0.4 [facility] Comment on above: Performed By: #### C DEMETRIA, 32910-18, 5643-2, BMP, 4024-6 #### [facility] ([id number]) [address] [place] [address] 01829 #### 15627-9 #### [facility] ([id number]) [address] [facility], [address] [place] [address] Eosinophils/100 WBC (Bld) 0.8 % Normal [facility] Comment on above: Performed By: #### Ami AUGUSTIN, 329-7, 5643-2, BMP, 4024-6 #### [facility] ([id number]) [address] [place] [address] 57410 #### 47401-6 #### [facility] ([id number]) [address] [facility], [address] [place] [address] Erythrocyte distribution width (RBC) [Ratio] 13.2 % Normal 11.5-15.0 [facility] Comment on above: Performed By: #### Ami AUGUSTIN, 329-, 5643-2, BMP, 4024-6 #### [facility] ([id number]) [address] [place] [address] 22608 #### 50216-9 #### [facility] ([id number]) [address], [address] [place] [address] Hematocrit (Bld) [Volume fraction] 38.4 % Normal 35-47 [facility] Comment on above: Performed By: #### Ami AUGUSTIN, 3298-7, 5643-2, BMP, 4024-6 #### [facility] ([id number]) [address] [place] [address] 53294 #### 42504-5 #### [facility] ([id number]) [address], [address] [place] [address] Hemoglobin (Bld) [Mass/Vol] 13.0 g/dL Normal 11.7-15.5 [facility] Comment on above: Performed By: #### C DEMETRIA, 3298-7, 5643-2, BMP, 4024-6 #### [facility] ([id number]) [address] [place] [address] 56111 #### 50403-6 #### [facility] ([id number]) [address], [address] [place] [address] Lymphocytes (Bld) [#/Vol] 1.7 10*3/uL Normal 1.0-3.5 [facility] Comment on above: Performed By: #### C DEMETRIA, 3298-7, 5643-2, BMP, 4024-6 #### [facility] ([id number]) [address] [place] [address] 31828 #### 17314-0 #### [facility] ([id number]) [address], [address] [place] [address] Lymphocytes/100 WBC (Bld) 15.9 % Normal [facility] Comment on above: Performed By: #### Ami AUGUSTIN, 3298-7, 5643-2, BMP, 4024-6 #### [facility] ([id number]) [address] [place] [address] 41316 #### 32971-6 #### [facility] ([id number]) [address], [address] [place] [address] MCH (RBC) [Entitic mass] 31.2 pg Normal 27-34 [facility] Comment on above: Performed By: #### C DEMETRIA, 3298-7, 5643-2, BMP, 4024-6 #### [facility] ([id number]) [address] [place] [address] 02508 #### 45274-2 #### [facility] ([id number]) [address] [facility], [address] [place] [address] MCHC (RBC) [Mass/Vol] 33.8 g/dL Normal 32-36 [facility] Comment on above: Performed By: #### C DEMETRIA, 329-7, 5643-2, BMP, 4024-6 #### [facility] ([id number]) [address] [place] [address] 61522 #### 43059-8 #### [facility] ([id number]) [address] [facility], [address] [place] [address] MCV (RBC) [Entitic vol] 92 fL Normal 80-100 [facility] Comment on above: Performed By: #### Ami AUGUSTIN, 3298-7, 5643-2, BMP, 4024-6 #### [facility] ([id number]) [address] [place] [address] 91074 #### 02901-7 #### [facility] ([id number]) [address] [facility], [address] [place] [address] Monocytes (Bld) [#/Vol] 1.2 10*3/uL High 0-0.9 [facility] Comment on above: Performed By: #### Ami AUGUSTIN, 3298-7, 5643-2, BMP, 4024-6 #### [facility] ([id number]) [address] [place] [address] 87418 #### 02751-9 #### [facility] ([id number]) [address] [facility], [address] [place] [address] Monocytes/100 WBC (Bld) 11.2 % Normal [facility] Comment on above: Performed By: #### Ami AUGUSTIN, 3298-7, 5643-2, BMP, 4024-6 #### [facility] ([id number]) [address] [place] [address] 17100 #### 44067-1 #### [facility] ([id number]) [facility], [address] [place] [address] Neutrophils/100 WBC (Bld) 71.8 % Normal [facility] Comment on above: Performed By: #### Ami AUGUSTIN, 3298-7, 5643-2, BMP, 4024-6 #### [facility] ([id number]) [address] [place] [address] 16352 #### 11615-4 #### [facility] ([id number]) [facility], [address] [place] [address] Platelet mean volume (Bld) [Entitic vol] 7.5 fL Normal 7-12 [facility] Comment on above: Performed By: #### Ami AUGUSTIN, 3298-7, 5643-2, BMP, 4024-6 #### [facility] ([id number]) [address] [place] [address] 82818 #### 27727-0 #### [facility] ([id number]) [address] [facility], [address] [place] [address] Platelets (Bld) [#/Vol] 366 10*3/uL Normal 150-450 [facility] Comment on above: Performed By: #### Ami AUGUSTIN, 3298-7, 5643-2, BMP, 4024-6 #### [facility] ([id number]) [address] [place] [address] 18160 #### 97937-5 #### [facility] ([id number]) [address], [address] [place] [address] RBC COUNT 4.17 X10E12/L Normal 3.80-5.20 [facility] Comment on above: Performed By: #### C BCA, 3298-7, 5643-2, BMP, 4024-6 #### [facility] ([id number]) [address] [place] [address] #### [id number] #### [facility] ([id number]) [address], [address] [place] [address] WBC (Bld) [#/Vol] 10.9 10*3/uL Normal 4.0-11.0 [facility] Comment on above: Performed By: #### C BCA, 3298-7, 5643-2, [facility], 4024-6 #### [facility] ([id number]) [address] [place] [address]75[address] #### 14332-3 #### [facility] ([id number]) [address], [address] [place] [address] DRUG SCREEN, URINEon 024 AMPHETAMINE/METHAMP Negative Normal NEG [facility] Comment on above: Result Comment: AMPH /METH screening cut off = 1000 ng/mL Performed By: #### D SALINAS #### [facility] ([id number]) [address] [place] [address] BARBITURATES Negative Normal NEG [facility] Comment on above: Result Comment: Aria iturates screening cut off value = 200 ng/mL Performed By: #### D SALINAS #### [facility] ([id number]) [address] [place] [address] BENZODIAZEPINES Negative Normal NEG [facility] Comment on above: Result Comment: Rusty odiazepines screening cut off value = 200 ng/mL Performed By: #### D SALINAS #### [facility] ([id number]) [address] [place] [address]64 CANNABINOIDS Positive Abnormal NEG [facility] Comment on above: Result Comment: Conf irmation available upon request. Cannabinoids/THC screening cut off value = 50 ng/mL Performed By: #### D SALINAS #### [facility] ([id number]) [address] [place] [address] COCAINE METABOLITE Positive Abnormal NEG [facility] Comment on above: Result Comment: Conf irmation available upon request. Cocaine screening cut off value = 300 ng/mL Performed By: #### D SALINAS #### [facility] ([id number]) [address] [place] [address] ECSTASY Negative Normal [facility] Comment on above: Result Comment: Ecst asy screening cut off value = 500 ng/mL This report is intended for use in clinical monitoring or management of patients. Performed By: #### D SALINAS #### [facility] ([id number]) [address] [place] [address] METHADONE Negative Normal NEG [facility] Comment on above: Result Comment: Meth adone screening cut off value = 300 ng/mL. Performed By: #### D SALINAS #### [facility] ([id number]) [address] [place] [address] OPIATES Negative Normal NEG [facility] Comment on above: Result Comment: Opia cathie screening cut off value = 300 ng/mL NOTE: This test is used for the detection of codeine, hydrocodone (>1000 ng/mL), morphine and hydromorphone (>900 ng/mL) in urine. Performed By: #### D SALINAS #### [facility] ([id number]) [address] [place] [address] OXYCODONE Negative Normal NEG [facility] Comment on above: Result Comment: Oxyc odone screening cut off value = 300 ng/mL NOTE: This test is used for the detection of oxycodone and oxymorphone in urine. Performed By: #### D SALINAS #### [facility] ([id number]) [address] [place] [address] PHENCYCLIDINE Negative Normal NEG [facility] Comment on above: Result Comment: Phen cyclidine screening cut off value = 25 ng/mL Performed By: #### D SALINAS #### [facility] ([id number]) [address] [place] [address] ETHANOLon 04-26-2023 Ethanol [Mass/Vol] mg/dL Normal 0.00-0.08 [facility] Comment on above: Result Comment: This report is intended for use in clinical monitoring or management of patients. Performed By: #### C BCA, 3298-7, 5643-2, BMP, 4024-6 #### [facility] ([id number]) [address] [place] [address] #### [id number] #### [facility] ([id number]) [address], [address] [place] [address] HCG ( test) Ql (U)o n 04-26-2023 Beta HCG ( test) Ql (U) Negative Normal NEG [facility] Comment on above: Performed By: #### 2 106-3 #### [facility] ([id number]) [address] [place] [address] 11095 SARS/FLU A+B/RSV by NAAT/Mol ecularon 04-26-2023 SARS/FLU A+B/RSV by NAAT/Molecular FLU A PCR Negative (qualifier value) FLU B PCR Negative (qualifier value) RSV by PCR Negative (qualifier value) SARS CoV 2 Not detected (qualifier value) NOTE The Xpert Xpress SARS-CoV-2/Flu/RSV Plus test is a rapid, multiplexed real-time RT-PCR test intended for the simultaneous qualitative detection and differentiation of SARS-CoV-2, influenza A, influenza B and respiratory syncytial virus (RSV) viral RNA from individuals suspected of respiratory viral infection consistent with COVID-19 by their healthcare provider. This test has not been validated in asymptomatic patients. The Xpert Xpress SARS-CoV-2 test is intended for use by qualified and trained operators who are performing tests using either [employer] or [employer] systems and is limited to laboratories that meet the CLIA requirements to perform high and moderate complexity tests. The Xpert Xpress SARS-CoV-2/Flu/RSV Plus is only for use under the Food and Drug Administration's Emergency Use Authorization. Results are for the simultaneous detection and differentiation of SARS-CoV-2, influenza A, influenza B and RSV nucleic acids in clinical specimens. SARS-CoV-2, influenza A, influenza B and RSV RNA identified by this test are generally detectable in upper respiratory samples during the acute phase of infection. Positive results are indicative of the presence of the identified virus, but do not rule out bacterial infection or co-infection with other pathogens not detected by this test. Clinical correlation with patient history and other diagnostic information is necessary to determine patient infection status. The agent detected may not be the definite cause of disease. Negative results do not preclude SARS-CoV-2, influenza A, influenza B and RSV infection and should not be used as the sole basis for treatment or other patient management decisions. Negative results must be combined with clinical observations, patient history and epidemiological information. An Invalid result may occur with specimen-associated inhibition unable to be resolved with specimen repeat. Fact Sheet for Healthcare Providers: https://www.fda.gov/m edia/602324/download Fact Sheet for Patients: https://www.fda.gov/m edia/228056/download Normal [facility] Comment on above: Performed By: #### C OVFLR #### [facility] ([id number]) [address] [place] [address], [place] [address] Salicylates [Mass/Vol]on SALICYLATE <4.0 Normal 2.0-25.0 [facility] Comment on above: Result Comment: Refe rence ranges are for therapeutic limits. Performed By: #### C DEMETRIA, 3298-7, 5643-2, BMP, 4024-6 #### [facility] ([id number]) [address] [place] [address] #### [id number] #### [facility] ([id number]) [address] [address], [address] [place] [address] Tricyclic antidepressants [M ass/Vol]on 04-26-2023 TRICYCLICS Negative Normal NEG [facility] Comment on above: Performed By: #### C DEMETRIA, 3298-7, 5643-2, BMP, 4024-6 #### [facility] ([id number]) [address] [place] [address] #### [id number] #### [facility] ([id number]) [address], [address] [place] [address] Lipid Panelon 04-12-2023 Cholesterol [Mass/Vol] 115 mg/dL Low 140-200 [facility] Comment on above: Result Comment: Chol less than 200 mg/dl low risk Chol 201-239 mg/dl borderline risk Chol 240 mg/dl and greater high risk Performed By: #### V [id number], LIPID, TSH3 wRFLX #### [facility] [address] [place] [address] [place] Cholesterol in HDL [Mass/Vol] 41 mg/dL Normal 23-92 [facility] Comment on above: Result Comment: HDL CHOL ATP-III CLASSIFICATION Cardiovascular Risk HDL > or equal to 60 mg/dL LOW HDL < 40 mg/dL HIGH Performed By: #### V [id number], LIPID, TSH3 wRFLX #### [facility] [address] [place] [address] [place] Cholesterol.total/Cho lesterol in HDL [Mass ratio] 2.8 {ratio} Normal <5.0 [facility] Comment on above: Performed By: #### V [id number], LIPID, TSH3 wRFLX #### [facility] [address] LDL Cholesterol,Calculate d 61 mg/dL Normal 0-100 [facility] Comment on above: Result Comment: LDL ATP III CLASSIFICATION LDL less than 100 mg/dL Optimal LDL 100-129 mg/dL Near or above optimal LDL 130-159 mg/dL Borderline high LDL 160-189 mg/dL High LDL greater than 189 mg/dL Very high Performed By: #### V [id number], LIPID, TSH3 wRFLX #### [facility] [address] Triglyceride w/Reflex 63 mg/dL Normal 0-149 [facility] Comment on above: Result Comment: TRIG ATP III CLASSIFICATION TRIG less than 150 mg/dL Normal TRIG 150-199 mg/dL Borderline high TRIG 200-500 mg/dL High TRIG greater than 500 mg/dL Very high Standard traceable to the Center for Disease Conrtrol and Prevention (CDC) test method. Performed By: #### V [id number], LIPID, TSH3 wRFLX #### [facility] [address] VLDL CHOLESTEROL 12 mg/dL Normal [facility] Comment on above: Performed By: #### V [id number], LIPID, TSH3 wRFLX #### [facility] [address] [place] [id number] [facility] Thyroid Stim Hormone w/Rflxo n 04-12-2023 Thyroid Stim Hormone w/Rflx 2.02 u[iU]/mL Normal 0.45-5.33 [facility] Comment on above: Performed By: #### V [id number], LIPID, TSH3 wRFLX #### [facility] [address] [place] [id number] [facility] Vitamin D 25 Hydroxy Totalon 04-12-2023 Vitamin D 25 Hydroxy Total 38.6 ng/mL Normal 30-100 [facility] Comment on above: Result Comment: BRIANA MIN D STATUS 25(OH)VITAMIN D RANGE (ng/mL) Deficient <20 Insufficient 20 to <30 Sufficient 30 to 100 Reference: Steven MF,Jesus DO, Sue VILLALTA, et al. Evaluation,treatment, and prevention of vitamin D deficiency; an Endocrine Society clinical practice guideline. JCEM. 2010; 96(7):1911-30. PERFORMED BY: [place] [address] PATHOLOGIST EXHIBITION DESIGNER SAMUEL VELARDE M.D. Performed By: #### V [id number], LIPID, TSH3 wRFLX #### [address] CULTURE URINEon 07-19-2022 CULTURE URINE Isolate 1 [...] S F Tetracycline >=16 R F Normal [facility] Comment on above: Performed By: #### P REG #### [facility] [address] [place] [address] Dr. Jyoti EDGE URINE PROFILEon 3 Bilirubin Ql (U) Negative Normal NEGATIVE [facility] Comment on above: Performed By: #### V ALP #### [facility] [address] [place] [address] Dr. Jyoti Rojas Clarity (U) SL CLOUDY Abnormal CLEAR [facility] Comment on above: Performed By: #### V ALP #### [facility] [address] [place] [address] Dr. Jyoti Rojas Color (U) YELLOW Normal YELLOW [facility] Comment on above: Performed By: #### V ALP #### [facility] [address] [place] [address] Dr. Jyoti REBOLLEDO A micrscopic examination will be performed if indicated. Normal [facility] Comment on above: Performed By: #### V ALP #### [facility] [address] [place] [address] Dr. Jyoti Rojas Glucose Ql (U) Negative Normal NEGATIVE [facility] Comment on above: Performed By: #### V ALP #### [facility] [address] [place] [address] Dr. Jyoti Rojas Hemoglobin Ql (U) LARGE Abnormal NEGATIVE [facility] Comment on above: Performed By: #### V ALP #### [facility] [address] [place] [address] Dr. Jyoti Rojas Ketones Ql (U) Negative Normal NEGATIVE [facility] Comment on above: Performed By: #### V ALP #### [facility] [address] [place] [address] Dr. Jyoti Rojas LEUKOCYTES TRACE Abnormal NEGATIVE [facility] Comment on above: Performed By: #### V ALP #### [facility] [address] [place] [address] Dr. Jyoti Rojas Nitrite Ql (U) Negative Normal NEGATIVE [facility] Comment on above: Performed By: #### V ALP #### [facility] [address] [place] [address] Dr. Jyoti Rojas pH (U) 5.0 [pH] Normal 5-9 [facility] Comment on above: Performed By: #### V ALP #### [facility] [address] [place] [address] Dr. Jyoti Rojas Protein (U) [Mass/Vol] 100 mg/dL Abnormal NEGATIVE/ TRACE The [facility] Comment on above: Performed By: #### V ALP #### [facility] [address] [place] [address] Dr. Jyoti Rojas SPEC GRAVITY >=1.030 Abnormal 1.005-<=1.02 5 [facility] Comment on above: Performed By: #### V ALP #### [facility] [address] [place] [address] Dr. Jyoti Rojas UR MICRO IND INDICATED Normal [facility] Comment on above: Performed By: #### V ALP #### [facility] [address] [place] [address] Dr. Jyoti Rojas Urobilinogen Qn (U) 0.2 {Ricardo'U}/dL Normal 0.2 - 1. 0 [facility] Comment on above: Performed By: #### V ALP #### [facility] [address] [place] [address] Dr. Jyoti Rojas URon 07-16-2022 , QUAL Negative Normal NEGATIVE [facility] Comment on above: Performed By: #### E #### [facility] [address] [place] [address] Dr. Jyoti Rojas URINE MICROSCOPIC ONLYon BACTERIA SMALL Abnormal NONE SEEN The [facility] Comment on above: Performed By: #### E #### [facility] [address] [place] [address] Dr. Jyoti Rojas Bacteria identified Cx Nom (U) INDICATED Normal [facility] Comment on above: Performed By: #### E TH #### [facility] [address] [place] [address] Dr. Jyoti Rojas CAST NONE SEEN Normal NONE SEEN The [facility] Comment on above: Performed By: #### E #### [facility] [address] [place] [address] Dr. Jyoti Rojas Crystals LM Nom (Urine sed) NONE SEEN Normal NONE SEEN The [facility] Comment on above: Performed By: #### E TH #### [facility] [address] [place] [address] Dr. Jyoti Rojas Epithelial cells LM Ql (Urine sed) MODERATE Abnormal NONE SEEN /RARE The [facility] Comment on above: Performed By: #### E #### [facility] [address] [place] [address] Dr. Jyoti Rojas MUCOUS TRACE Abnormal NONE SEEN The [facility] Comment on above: Performed By: #### E #### [facility] [address] [place] [address] Dr. Jyoti Rojas RBC (U) [#/Vol] /uL Abnormal 0-2 [facility] Comment on above: Performed By: #### E #### [facility] [address] [place] [address] Dr. Jyoti Rojas WBC 20-50 Abnormal NONE SEEN The [facility] Comment on above: Performed By: #### E TH #### [facility] [address] [place] [address] [address] Jyoti Rojas Cholesterol [Mass/volume] in Serum or PlasmaOrdered By: Sukhjinder Schroeder on 06-07-2022 Cholesterol [Mass/Vol] 134 mg/dL 140-200 [facility] Comment on above: Chol less than 200 m g/dl low riskChol 201-239 mg/dl borderline riskChol 240 mg/dl and greater high risk Cholesterol in LDL Calc [Mas s/Vol]Ordered By: Sukhjinder Schroeder on 06-07-2022 Cholesterol in LDL [Mass/Vol] 67 mg/dL 0-100 [facility] Comment on above: LDL ATP III CLASSIFI CATIONLDL less than 100 mg/dL OptimalLDL 100-129 mg/dL Near or above optimalLDL 130-159 mg/dL Borderline highLDL 160-189 mg/dL HighLDL greater than 189 mg/dL Very high Cholesterol in VLDL Calc [Ma ss/Vol]Ordered By: Sukhjinder Schroeder on 06-07-2022 Cholesterol in VLDL [Mass/Vol] 17 mg/dL [facility] Serum or plasma high density lipoprotein (HDL) cholesterol measurementOrdered By: Sukhjinder Schroeder on 06-07-2022 Cholesterol in HDL [Mass/Vol] 50 mg/dL 35-85 [facility] Comment on above: HDL CHOL ATP-III CLA SSIFICATION Cardiovascular RiskHDL > or equal to 60 mg/dL LOWHDL < 40 mg/dL HIGH Serum or plasma total choles terol/high density lipoprotein (HDL) cholesterol mass ratOrdered By: Sukhjinder Schroeder on 06-07-2022 Cholesterol.total/Cho lesterol in HDL [Mass ratio] 2.7 {ratio} <5.0 [facility] Thyrotropin [Units/volume] i n Serum or PlasmaOrdered By: Sukhjinder Schroeder on 06-07-2022 TSH Qn 1.65 m[IU]/L 0.45-5.33 [facility] Triglyceride [Mass/volume] i n Serum or PlasmaOrdered By: Sukhjinder Schroeder on 06-07-2022 Triglyceride [Mass/Vol] 86 mg/dL 0-149 [facility] Comment on above: TRIG ATP III CLASSIF ICATIONTRIG less than 150 mg/dL NormalTRIG 150-199 mg/dL Borderline highTRIG 200-500 mg/dL High TRIG greater than 500 mg/dL Very highStandard traceable to the Center for Disease Conrtrol and Prevention (CDC) test method. Vitamin D+Metabolites [Mass/ volume] in Serum or PlasmaOrdered By: Sukhjinder Schroeder on 06-07-2022 Vitamin D+Metabolites [Mass/Vol] 25.0 ng/mL 30-100 [facility] Comment on above: VITAMIN D STATUS 25( [place])VITAMIN D RANGE (ng/mL) Deficient <20 Insufficient 20 to <30Sufficient 30 to 100Reference: Steven MF,Jesus DO, Sue VILLALTA, et al. Evaluation,treatment, and prevention of vitamin D deficiency; an Endocrine Society clinical practice guideline. JCEM. 2010; 96(7):1911-30. ACETAMINOPHENon 06-06-2022 Acetaminophen [Mass/Vol] ug/mL Critically low 10.0-30.0 [facility] Comment on above: Performed By: #### P REG #### [facility] [address] [address] [address] Jyoti Rojas Acetaminophen [Mass/Vol] ug/mL Critically low 10.0-30.0 [facility] Comment on above: Performed By: #### V ALP #### [facility] [address] [address] [address] Jyoti Rojas AMMONIAon 06-06-2022 Ammonia (P) [Moles/Vol] 23 umol/L Normal 11-32 [facility] Comment on above: Performed By: #### P REG #### [facility] [address] [place] [address] [address] Jyoti Rojas CARDIAC BERNARD ADMITon 023 CK [Catalytic activity/Vol] 120 U/L Normal 26- [facility] Comment on above: Performed By: #### E TH #### [facility] [address] [place] [address] [address] Jyoti Rojas CK.MB [Mass/Vol] 2.02 ng/mL Normal <=3.60 [facility] Comment on above: Performed By: #### E TH #### [facility] [address] [place] [address] Dr. Jyoti Rojas HSTROP 109.3 pg/mL Critically high 4.0-51.3 [facility] Comment on above: Result Comment: CUT- OFF POINTS HAVE BEEN ESTABLISHED BASED ON THE FOURTH UNIVERSAL DEFINITIONS OF MYOCARDIAL INFARCTION. THE UPPER REFERENCE LIMIT (URL) OF TROPONIN, DEFINED THE 99TH PERCENTILE OF cTnI DISTRIBUTION IN A REFERENCE POPULATION, HAS BEEN CONFIRMED THE DECISION THRESHOLD FOR [place] DIAGNOSIS. Performed By: #### E TH #### [facility] [address] [place] [address] Dr. Jyoti Rojas KUSH 46 ng/mL Normal 9-82 [facility] Comment on above: Performed By: #### E TH #### [facility] [address] [place] [address] Dr. Jyoti Rojas CBC AUTO DIFFon 06-06-2022 BASO # 0.0 103/ul Normal 0.0-0.1 [facility] Comment on above: Performed By: #### P REG #### [facility] [address] [place] [address] Dr. Jyoti Rojas Basophils/100 WBC (Bld) 0.4 % Normal 0.2-2.0 [facility] Comment on above: Performed By: #### P REG #### [facility] [address] [place] [address] Dr. Jyoti Rojas EO # 0.1 103/ul Normal 0.0-0.7 [facility] Comment on above: Performed By: #### P REG #### [facility] [address] [place] [address] Dr. Jyoti Rojas Eosinophils/100 WBC (Bld) 2.0 % Normal 0.9-7.0 [facility] Comment on above: Performed By: #### P REG #### [facility] [address] [place] [address] Dr. Jyoti Rojas Erythrocyte distribution width (RBC) [Ratio] 12.7 % Normal 11.0-15.0 [facility] Comment on above: Performed By: #### P REG #### [facility] [address] [place] [address] Dr. Jyoti Rojas Hematocrit (Bld) [Volume fraction] 42.8 % Normal 36.0-48.0 [facility] Comment on above: Performed By: #### P REG #### [facility] [address] [place] [address] Dr. Jyoti Rojas Hemoglobin (Bld) [Mass/Vol] 14.0 g/dL Normal 12.0-16.0 [facility] Comment on above: Performed By: #### P REG #### [facility] [address] [place] [address] Dr. Jyoti Rojas IG # 0.03 10e3/ul Normal 0.00-0.03 [facility] Comment on above: Performed By: #### P REG #### [facility] [address] [place] [address] Dr. Jyoti Rojas IG % 0.4 % Normal 0.0-0.5 [facility] Comment on above: Performed By: #### P REG #### [facility] [address] [place] [address] Dr. Jyoti Rojas LYMPH # 2.0 103/ul Normal 1.2-3.8 [facility] Comment on above: Performed By: #### P REG #### [facility] [address] [place] [address] Dr. Jyoti Rojas Lymphocytes/100 WBC (Bld) 27.8 % Normal 20.5-60.0 [facility] Comment on above: Performed By: #### P REG #### [facility] [address] [place] [address] Dr. Jyoti Rojas MANUAL DIFF REQ NO Normal [facility] Comment on above: Performed By: #### P REG #### [facility] [address] [place] [address] Dr. Jyoti Rojas MCH (RBC) [Entitic mass] 30.2 pg Normal 26.7-34.0 [facility] Comment on above: Performed By: #### P REG #### [facility] [address] [place] [address] Dr. Jyoti Rojas MCHC (RBC) [Mass/Vol] 32.7 g/dL Normal 29.9-35.2 [facility] Comment on above: Performed By: #### P REG #### [facility] [address] [place] [address] Dr. Jyoti Rojas MCV (RBC) [Entitic vol] 92.4 fL Normal 81.0-99.0 [facility] Comment on above: Performed By: #### P REG #### [facility] [address] [place] [address] Dr. Jyoti Rojas MONO # 0.7 103/ul Normal 0.3-0.8 [facility] Comment on above: Performed By: #### P REG #### [facility] [address] [place] [address] Dr. Jyoti Rojas Monocytes/100 WBC (Bld) 9.2 % Normal 1.7-12.0 [facility] Comment on above: Performed By: #### P REG #### [facility] [address] [place] [address] Dr. Jyoti Rojas NEUT # 4.3 103/ul Normal 1.4-6.5 [facility] Comment on above: Performed By: #### P REG #### [facility] [address] [place] [address] Dr. Jyoti Rojas Neutrophils/100 WBC (Bld) 60.2 % Normal 43.0-75.0 [facility] Comment on above: Performed By: #### P REG #### [facility] [address] [place] [address] Dr. Jyoti Rojas Platelet mean volume (Bld) [Entitic vol] 9.2 fL Critically low 9.5-13.5 [facility] Comment on above: Performed By: #### P REG #### [facility] [address] [place] [address] Dr. Jyoti Rojas PLT 278 103/ul Normal 150-450 [facility] Comment on above: Performed By: #### P REG #### [facility] [address] [place], [place] [id number] Dr. Jyoti Rojas RBC 4.63 106/ul Normal 4.20-5.40 [facility] Comment on above: Performed By: #### P REG #### [facility] [address] [place] [address] Dr. Jyoti Rojas WBC 7.2 103/ul Normal 4.0-11.0 [facility] Comment on above: Performed By: #### P REG #### [facility] [address] [place] [address] Dr. Jyoti Rojas Covid-19 PCR (CVDTB)on 05-13 SARS-CoV-2 (COVID-19) RNA MADHAV+probe Ql (Unsp spec) Not detected Normal NOT DETECTED [facility] Comment on above: Result Comment: When diagnostic [...] for this test is supported by the Engineer Assistant of Health and Human Service's declaration that [...] By: #### C VDTBH #### [facility] [address] [place] [address] Dr. Jyoti Rojas DEPAKENE/ VALPROIC ACIDon DEPAKENE <3.0 Critically low 50.0-100.0 [facility] Comment on above: Performed By: #### V ALP #### [facility] [address] [place] [address] Dr. Jyoti Rojas DRUG SCREEN RAPID (URINE)on 06-06-2022 AMP Negative Normal NEGATIVE [facility] Comment on above: Performed By: #### V ALP #### [facility] [address] [place] [address] Dr. Jyoti Rojas BAR Negative Normal NEGATIVE [facility] Comment on above: Performed By: #### V ALP #### [facility] [address] [place] [address] Dr. Jyoti Rojas BUP Negative Normal NEGATIVE [facility] Comment on above: Performed By: #### V ALP #### [facility] [address] [place] [address] Dr. Jyoti Rojas BZO Negative Normal NEGATIVE [facility] Comment on above: Performed By: #### V ALP #### [facility] [address] [place] [address] Dr. Jyoti Rojas QUINN Positive Abnormal NEGATIVE [facility] Comment on above: Performed By: #### V ALP #### [facility] [address] [place] [address] Dr. Jyoti Rojas CUT-OFFS SEE BELOW Normal [facility] Comment on above: Result Comment: AMP (Amphetamine): [...] By: #### V ALP #### [facility] [address] [place] [address] Dr. Jyoti Rojas DRUG CUT HEADER DRUG CLASS TEST SYSTEM CUT-OFF CONCENTRATIONS ARE FOLLOWS: Normal [facility] Comment on above: Performed By: #### V ALP #### [facility] [address] [place] [address] Dr. Jyoti Rojas mAMP Negative Normal NEGATIVE [facility] Comment on above: Performed By: #### V ALP #### [facility] [address] [place] [address] Dr. Jyoti Rojas MTD Negative Normal NEGATIVE [facility] Comment on above: Performed By: #### V ALP #### [facility] [address] [place] [address] Dr. Jyoti Rojas OPI Negative Normal NEGATIVE [facility] Comment on above: Performed By: #### V ALP #### [facility] [address] [place] [address] Dr. Jyoti Rojas OXY Negative Normal NEGATIVE [facility] Comment on above: Performed By: #### V ALP #### [facility] [address] [place] [address] Dr. Jyoti Rojas PCP Negative Normal NEGATIVE [facility] Comment on above: Performed By: #### V ALP #### [facility] [address] [place] [address] Dr. Jyoti Rojas PPX Negative Normal NEGATIVE [facility] Comment on above: Performed By: #### V ALP #### [facility] [address] [place] [address] Dr. Jyoti Rojas TCA Positive Abnormal NEGATIVE [facility] Comment on above: Performed By: #### V ALP #### [facility] [address] [place] [address] Dr. Jyoti Rojas THC Positive Abnormal NEGATIVE [facility] Comment on above: Performed By: #### V ALP #### [facility] [address] [place] [address] Dr. Jyoti Rojas ER URINE PROFILEon 3 Bilirubin Ql (U) Negative Normal NEGATIVE [facility] Comment on above: Performed By: #### V ALP #### [facility] [address] [place] [address] Dr. Jyoti Rojas Clarity (U) CLEAR Normal CLEAR [facility] Comment on above: Performed By: #### V ALP #### [facility] [address] [place] [address] Dr. Jyoti Rojas Color (U) LT. YELLOW Normal YELLOW [facility] Comment on above: Performed By: #### V ALP #### [facility] [address] [place] [address] Dr. Jyoti REBOLLEDO A micrscopic examination will be performed if indicated. Normal [facility] Comment on above: Performed By: #### V ALP #### [facility] [address] [address] [address] Jyoti Rojas Glucose Ql (U) Negative Normal NEGATIVE [facility] Comment on above: Performed By: #### V ALP #### [facility] [address] [place] [address] Dr. Jyoti Rojas Hemoglobin Ql (U) Negative Normal NEGATIVE [facility] Comment on above: Performed By: #### V ALP #### [facility] [address] [place] [address] Dr. Jyoti Rojas Ketones Ql (U) Negative Normal NEGATIVE [facility] Comment on above: Performed By: #### V ALP #### [facility] [address] [place] [address] Dr. Jyoti Rojas LEUKOCYTES Negative Normal NEGATIVE [facility] Comment on above: Performed By: #### V ALP #### [facility] [address] [place] [address] Dr. Jyoti Rojas Nitrite Ql (U) Negative Normal NEGATIVE [facility] Comment on above: Performed By: #### V ALP #### [facility] [address] [place] [address] Dr. Jyoti Rojas pH (U) 6.0 [pH] Normal 5-9 [facility] Comment on above: Performed By: #### V ALP #### [facility] [address] [place] [address] Dr. Jyoti Rojas SPEC GRAVITY 1.025 Normal 1.005-<=1.02 5 [facility] Comment on above: Performed By: #### V ALP #### [facility] [address] [place] [address] Dr. Jyoti Rojas UA PROTEIN Negative Normal NEGATIVE/ TRACE [facility] Comment on above: Performed By: #### V ALP #### [facility] [address] [place] [address] Dr. Jyoti Rojas UR MICRO IND NOT INDICATED Normal [facility] Comment on above: Performed By: #### V ALP #### [facility] [address] [place] [address] Dr. Jyoti Rojas Urobilinogen Qn (U) 0.2 {Ricardo'U}/dL Normal 0.2 - 1. 0 [facility] Comment on above: Performed By: #### V ALP #### [facility] [address] [place] [address] Dr. Jyoti Rojas ETHANOL (BLD ALC)on 06-07-19 23 ALC NOTE NOTE: 80 mg/dl is th e legal limit for a blood alcohol level Normal [facility] Comment on above: Performed By: #### E TH #### [facility] [address] [place] [address] Dr. Jyoti Rojas Ethanol [Mass/Vol] mg/dL Normal [facility] Comment on above: Performed By: #### E TH #### [facility] [address] [place] [address] Dr. Jyoti Rojas PREG HCG QUALon 06-06-2022 , QUAL Negative Normal NEGATIVE [facility] Comment on above: Performed By: #### P REG #### [facility] [address] [place] [address] Dr. Jyoti Rojas PROF 14(COMP METB)on 023 Albumin [Mass/Vol] 3.9 g/dL Normal 3.4-5.0 [facility] Comment on above: Performed By: #### V ALP #### [facility] [address] [place] [address] Dr. Jyoti Rojas Albumin/Globulin [Mass ratio] 1.1 {ratio} Normal [facility] Comment on above: Performed By: #### V ALP #### [facility] [address] [place] [address] Dr. Jyoti Rojas ALP [Catalytic activity/Vol] 80 U/L Normal 46-116 [facility] Comment on above: Performed By: #### V ALP #### [facility] [address] [place] [address] Dr. Jyoti Rojas ALT [Catalytic activity/Vol] 14 U/L Normal 14-59 [facility] Comment on above: Performed By: #### V ALP #### [facility] [address] [place] [address] Dr. Jyoti Rojas Anion gap [Moles/Vol] 10.0 mmol/L Normal [facility] Comment on above: Performed By: #### V ALP #### [facility] [address] [place] [address] Dr. Jyoti Rojas AST [Catalytic activity/Vol] 18 U/L Normal 15-37 [facility] Comment on above: Performed By: #### V ALP #### [facility] [address] [place] [address] Dr. Jyoti Rojas Bilirubin [Mass/Vol] 0.3 mg/dL Normal 0.2-1.0 [facility] Comment on above: Performed By: #### V ALP #### [facility] [address] [place] [address] Dr. Jyoti Rojas Calcium [Mass/Vol] 9.0 mg/dL Normal 8.5-10.1 [facility] Comment on above: Performed By: #### V ALP #### [facility] [address] [place] [address] Dr. Jyoti Rojas Chloride [Moles/Vol] 101 mmol/L Normal 98-107 [facility] Comment on above: Performed By: #### V ALP #### [facility] [address] [place] [address] Dr. Jyoti Rojas CO2 [Moles/Vol] 29.5 mmol/L Normal 21.0-32.0 [facility] Comment on above: Performed By: #### V ALP #### [facility] [address] [place] [address] Dr. Jyoti Rojas Creatinine [Mass/Vol] 0.80 mg/dL Normal 0.55-1.02 [facility] Comment on above: Performed By: #### V ALP #### [facility] [address] [place] [address] Dr. Jyoti Rojas EGFR-AF CYMRO >60 Normal >=60 [facility] Comment on above: Performed By: #### V ALP #### [facility] [address] [address] [address] Jyoti Rojas EGFR-NON AF CYMRO >60 Normal >=60 [facility] Comment on above: Performed By: #### V ALP #### [facility] [address] [address] [address] Jyoti Rojas Globulin (S) [Mass/Vol] 3.7 g/dL Normal [facility] Comment on above: Performed By: #### V ALP #### [facility] [address] [address] [address] Jyoti Rojas Glucose [Mass/Vol] 94 mg/dL Normal 74-106 [facility] Comment on above: Performed By: #### V ALP #### [facility] [address] [place] [address] Dr. Jyoti Rojas Potassium [Moles/Vol] 3.5 mmol/L Normal 3.5-5.1 [facility] Comment on above: Performed By: #### V ALP #### [facility] [address] [address] [address] Jyoti Rojas Protein [Mass/Vol] 7.6 g/dL Normal 6.4-8.2 [facility] Comment on above: Performed By: #### V ALP #### [facility] [address] [address] [address] Jyoti Rojas Sodium [Moles/Vol] 137 mmol/L Normal 136-145 [facility] Comment on above: Performed By: #### V ALP #### [facility] [address] [address] [address] Jyoti Rojas Urea nitrogen [Mass/Vol] 8.0 mg/dL Normal 7.0-18.0 [facility] Comment on above: Performed By: #### V ALP #### [facility] [address] [address] [address] Jyoti Rojas Urea nitrogen/Creatinine [Mass ratio] 10.0 mg/mg Normal [facility] Comment on above: Performed By: #### V ALP #### [facility] [address] [address] [address] Jyoti Rojas SALICYLATEon 06-06-2022 SALICYLATE <2.8 Normal <=19.9 [facility] Comment on above: Performed By: #### V ALP #### [facility] [address] [address] [address] Jyoti Rojas TROPONIN, HIGH SENSITIVITYon 06-06-2022 HSTROP 100.6 pg/mL Critically high 4.0-51.3 [facility] Comment on above: Result Comment: CUT- OFF POINTS HAVE BEEN ESTABLISHED BASED ON THE FOURTH UNIVERSAL DEFINITIONS OF MYOCARDIAL INFARCTION. THE UPPER REFERENCE LIMIT (URL) OF TROPONIN, DEFINED THE 99TH PERCENTILE OF cTnI DISTRIBUTION IN A REFERENCE POPULATION, HAS BEEN CONFIRMED THE DECISION THRESHOLD FOR [place] DIAGNOSIS. Performed By: #### V ALP #### [facility] [address] [address] [address] Jyoti Rojas HSTROP 99.1 pg/mL Critically high 4.0-51.3 [facility] Comment on above: Result Comment: CUT- OFF POINTS HAVE BEEN ESTABLISHED BASED ON THE FOURTH UNIVERSAL DEFINITIONS OF MYOCARDIAL INFARCTION. THE UPPER REFERENCE LIMIT (URL) OF TROPONIN, DEFINED THE 99TH PERCENTILE OF cTnI DISTRIBUTION IN A REFERENCE POPULATION, HAS BEEN CONFIRMED THE DECISION THRESHOLD FOR AK DIAGNOSIS. Performed By: #### H STROPN #### [facility] [address] [address] [address] Jyoti Rojas Automated erythrocytes count in urine sediment (number/area)Ordered By: Pedro Smith on 04-14-2022 RBC Auto (Urine sed) [#/Area] 1-2 [HPF] 0-4 [facility] Automated leukocytes count i n urine sediment (number/area)Ordered By: Pedro Smith on 04-14-2022 WBC Auto (Urine sed) [#/Area] 3-4 [HPF] 0-4 [facility] Bilirubin Test strip Ql (U)O rdered By: Pedro Smith on 04-14-2022 Bilirubin Ql (U) Negative Negative [facility] Color Auto (U)Ordered By: Ab kamran Smith on 04-14-2022 Color (U) Yellow Yellow [facility] Ketones Auto test strip (U) [Mass/Vol]Ordered By: Pedro Smith on 04-14-2022 Ketones (U) [Mass/Vol] Negative Negative [facility] - UrinalysisOrder ed By: Pedro Smith on 04-14-2022 Hyaline casts LM Ql (Urine sed) 0-8 [LPF] 0-8 [facility] Nitrite Test strip Ql (U)Ord ered By: Pedro Smith on 04-14-2022 Nitrite Ql (U) Negative Negative [facility] Protein Auto test strip (U) [Mass/Vol]Ordered By: Pedro Smith on 04-14-2022 Protein (U) [Mass/Vol] Negative Negative [facility] Specific gravity Auto test s trip (U) [Rel density]Ordered By: Pedro Smith on 04-14-2022 Specific gravity (U) [Rel density] 1.017 1.001-1.030 [facility] Squamous epithelial cells de tection in urine sediment by light microscopyOrdered By: Pedro Smith on 04-14-2022 Epithelial cells.squamous LM Ql (Urine sed) 3-4 [HPF] 0-2 [facility] Urine bacteria detection by automated methodOrdered By: Pedro Smith on 04-14-2022 Bacteria Auto Ql (U) None seen None Seen [facility] Urine clarity by refractomet ry automatedOrdered By: Pedro Smith on 04-14-2022 Clarity Refractometry automated (U) Cloudy Clear [facility] Urine glucose measurement by automated test strip (mass/volume)Ordered By: Pedro Smith on 04-14-2022 Glucose Auto test strip (U) [Mass/Vol] Normal mg/dL Normal [facility] Urine hemoglobin detection b y automated test stripOrdered By: Pedro Smith on 04-14-2022 Hemoglobin Auto test strip Ql (U) Negative Negative [facility] Urine leukocyte esterase det ection by automated test stripOrdered By: Pedro Smith on 04-14-2022 Leukocyte esterase Auto test strip Ql (U) Negative Negative [facility] Urobilinogen Auto test strip (U) [Mass/Vol]Ordered By: Pedro Smith on 04-14-2022 Urobilinogen (U) [Mass/Vol] Normal mg/dL Normal [facility] pH Auto test strip (U)Ordere d By: Pedro Smith on 04-14-2022 pH (U) 8.0 [pH] 5.0-9.0 [facility] ACETAMINOPHENon 04-10-2022 Acetaminophen [Mass/Vol] ug/mL Normal 10.0-30.0 [facility] Comment on above: Performed By: #### A CET, SALYC, BMP, ETH #### [facility] [address] [place] [address] Dr. Jyoti Rojas CBC AUTO DIFFon 04-10-2022 BASO # 0.0 103/ul Normal 0.0-0.1 [facility] Comment on above: Performed By: #### C BC #### [facility] [address] [place] [address] Dr. Jyoti Rojas Basophils/100 WBC (Bld) 0.5 % Normal 0.2-2.0 [facility] Comment on above: Performed By: #### C BC #### [facility] [address] [place] [address] Dr. Jyoti Rojas EO # 0.1 103/ul Normal 0.0-0.7 [facility] Comment on above: Performed By: #### C BC #### [facility] [address] [place] [address] Dr. Jyoti Rojas Eosinophils/100 WBC (Bld) 1.9 % Normal 0.9-7.0 [facility] Comment on above: Performed By: #### C BC #### [facility] [address] [place] [address] Dr. Jyoti Rojas Erythrocyte distribution width (RBC) [Ratio] 12.4 % Normal 11.0-15.0 [facility] Comment on above: Performed By: #### C BC #### [facility] [address] [place] [address] Dr. Jyoti Rojas Hematocrit (Bld) [Volume fraction] 38.1 % Normal 36.0-48.0 [facility] Comment on above: Performed By: #### C BC #### [facility] [address] [place] [address] Dr. Jyoti Rojas Hemoglobin (Bld) [Mass/Vol] 13.6 g/dL Normal 12.0-16.0 [facility] Comment on above: Performed By: #### C BC #### [facility] [address] [place] [address] Dr. Jyoti Rojas IG # 0.03 10e3/ul Normal 0.00-0.03 [facility] Comment on above: Performed By: #### C BC #### [facility] [address] [place] [address] Dr. Jyoti Rojas IG % 0.5 % Normal 0.0-0.5 [facility] Comment on above: Performed By: #### C BC #### [facility] [address] [place] [address] Dr. Jyoti Rojas LYMPH # 1.7 103/ul Normal 1.2-3.8 [facility] Comment on above: Performed By: #### C BC #### [facility] [address] [place] [address] Dr. Jyoti Rojas Lymphocytes/100 WBC (Bld) 27.9 % Normal 20.5-60.0 [facility] Comment on above: Performed By: #### C BC #### [facility] [address] [place] [address] Dr. Jyoti Rojas MANUAL DIFF REQ NO Normal [facility] Comment on above: Performed By: #### C BC #### [facility] [address] [place] [address] Dr. Jyoti Rojas MCH (RBC) [Entitic mass] 31.1 pg Normal 26.7-34.0 [facility] Comment on above: Performed By: #### C BC #### [facility] [address] [address] [address] Jyoti Rojas MCHC (RBC) [Mass/Vol] 35.7 g/dL Critically high 29.9-35.2 [facility] Comment on above: Performed By: #### C BC #### [facility] [address] [address] [address] Jyoti Rojas MCV (RBC) [Entitic vol] 87.2 fL Normal 81.0-99.0 [facility] Comment on above: Performed By: #### C BC #### [facility] [address] [address] [address] Jyoti Rojas MONO # 0.7 103/ul Normal 0.3-0.8 [facility] Comment on above: Performed By: #### C BC #### [facility] [address] [place] [address] Dr. Jyoti Rojas Monocytes/100 WBC (Bld) 11.7 % Normal 1.7-12.0 [facility] Comment on above: Performed By: #### C BC #### [facility] [address] [place] [address] Dr. Jyoti Rojas NEUT # 3.6 103/ul Normal 1.4-6.5 [facility] Comment on above: Performed By: #### C BC #### [facility] [address] [place] [address] Dr. Jyoti Rojas Neutrophils/100 WBC (Bld) 57.5 % Normal 43.0-75.0 [facility] Comment on above: Performed By: #### C BC #### [facility] [address] [address] [address] Jyoti Rojas Platelet mean volume (Bld) [Entitic vol] 9.6 fL Normal 9.5-13.5 [facility] Comment on above: Performed By: #### C BC #### [facility] [address] [place] [address] Dr. Jyoti Rojas PLT 247 103/ul Normal 150-450 [facility] Comment on above: Performed By: #### C BC #### [facility] [address] [place], [place] [address] Dr. Jyoti Rojas RBC 4.37 106/ul Normal 4.20-5.40 [facility] Comment on above: Performed By: #### C BC #### [facility] [address] [place], [place] [address] Dr. Jyoti Rojas WBC 6.2 103/ul Normal 4.0-11.0 [facility] Comment on above: Performed By: #### C BC #### [facility] [address] [place], [place] [address] Dr. Jyoti Rojas Cholesterol [Mass/volume] in Serum or PlasmaOrdered By: Sukhjinder Schroeder on 04-10-2022 Cholesterol [Mass/Vol] 149 mg/dL 140-200 [facility] Comment on above: Chol less than 200 m g/dl low riskChol 201-239 mg/dl borderline riskChol 240 mg/dl and greater high risk Cholesterol in LDL Calc [Mas s/Vol]Ordered By: Sukhjinder Schroeder on 04-10-2022 Cholesterol in LDL [Mass/Vol] 82 mg/dL 0-100 [facility] Comment on above: LDL ATP III CLASSIFI CATIONLDL less than 100 mg/dL OptimalLDL 100-129 mg/dL Near or above optimalLDL 130-159 mg/dL Borderline highLDL 160-189 mg/dL HighLDL greater than 189 mg/dL Very high Cholesterol in VLDL Calc [Ma ss/Vol]Ordered By: Sukhjinder Schroeder on 04-10-2022 Cholesterol in VLDL [Mass/Vol] 11 mg/dL [facility] Covid-19 PCR (CVDTBH)on 03-15 SARS-CoV-2 (COVID-19) RNA MADHAV+probe Ql (Unsp spec) Not detected Normal NOT DETECTED [facility] Comment on above: Result Comment: When diagnostic [...] for this test is supported by the [place] of Health and Human Service's declaration that [...] By: #### V ALP #### [facility] [address] [place] [address] Dr. Jyoti Rojas DRUG SCREEN RAPID (URINE)on 04-10-2022 AMP Negative Normal NEGATIVE [facility] Comment on above: Performed By: #### P REG #### [facility] [address] [place] [address] Dr. Jyoti Rojas BAR Negative Normal NEGATIVE [facility] Comment on above: Performed By: #### P REG #### [facility] [address] [place] [address] Dr. Jyoti Rojas BUP Negative Normal NEGATIVE [facility] Comment on above: Performed By: #### P REG #### [facility] [address] [place] [address] Dr. Jyoti Rojas BZO Negative Normal NEGATIVE [facility] Comment on above: Performed By: #### P REG #### [facility] [address] [place] [address] Dr. Jyoti Rojas QUINN Negative Normal NEGATIVE [facility] Comment on above: Performed By: #### P REG #### [facility] [address] [place] [address] Dr. Jyoti Rojas CUT-OFFS SEE BELOW Normal [facility] Comment on above: Result Comment: AMP (Amphetamine): [...] By: #### P REG #### [facility] [address] [place] [address] Dr. Jyoti Rojas DRUG CUT HEADER DRUG CLASS TEST SYSTEM CUT-OFF CONCENTRATIONS ARE FOLLOWS: Normal [facility] Comment on above: Performed By: #### P REG #### [facility] [address] [place] [address] Dr. Jyoti Rojas mAMP Negative Normal NEGATIVE [facility] Comment on above: Performed By: #### P REG #### [facility] [address] [place] [address] Dr. Jyoti Rojas MTD Negative Normal NEGATIVE [facility] Comment on above: Performed By: #### P REG #### [facility] [address] [place] [address] Dr. Jyoti Rojas OPI Negative Normal NEGATIVE [facility] Comment on above: Performed By: #### P REG #### [facility] [address] [place] [address] Dr. Jyoti Rojas OXY Negative Normal NEGATIVE [facility] Comment on above: Performed By: #### P REG #### [facility] [address] [place] [address] Dr. Jyoti Rojas PCP Negative Normal NEGATIVE [facility] Comment on above: Performed By: #### P REG #### [facility] [address] [place] [address] Dr. Jyoti Rojas PPX Negative Normal NEGATIVE [facility] Comment on above: Performed By: #### P REG #### [facility] [address] [place] [address] Dr. Jyoti Rojas TCA Negative Normal NEGATIVE [facility] Comment on above: Performed By: #### P REG #### [facility] [address] [place] [address] Dr. Jyoti Rojas THC Positive Abnormal NEGATIVE [facility] Comment on above: Performed By: #### P REG #### [facility] [address] [place] [address] Dr. Jyoti Rojas ER URINE PROFILEon 3 Bilirubin Ql (U) Negative Normal NEGATIVE [facility] Comment on above: Performed By: #### P REG #### [facility] [address] [place] [address] Dr. Jyoti Rojas Clarity (U) CLEAR Normal CLEAR [facility] Comment on above: Performed By: #### P REG #### [facility] [address] [place] [address] Dr. Jyoti Rojas Color (U) LT. YELLOW Normal YELLOW [facility] Comment on above: Performed By: #### P REG #### [facility] [address] [place] [address] Dr. Jyoti REBOLLEDO A micrscopic examination will be performed if indicated. Normal [facility] Comment on above: Performed By: #### P REG #### [facility] [address] [place] [address] Dr. Jyoti Rojas Glucose Ql (U) Negative Normal NEGATIVE [facility] Comment on above: Performed By: #### P REG #### [facility] [address] [place] [address] Dr. Jyoti Rojas Hemoglobin Ql (U) Negative Normal NEGATIVE [facility] Comment on above: Performed By: #### P REG #### [facility] [address] [place] [address] Dr. Jyoti Rojas Ketones Ql (U) Negative Normal NEGATIVE [facility] Comment on above: Performed By: #### P REG #### [facility] [address] [place] [address] Dr. Jyoti Rojas LEUKOCYTES Negative Normal NEGATIVE [facility] Comment on above: Performed By: #### P REG #### [facility] [address] [place] [address] Dr. Jyoti Rojas Nitrite Ql (U) Negative Normal NEGATIVE [facility] Comment on above: Performed By: #### P REG #### [facility] [address] [place] [address] Dr. Jyoti Rojas pH (U) 7.0 [pH] Normal 5-9 [facility] Comment on above: Performed By: #### P REG #### [facility] [address] [place] [address] Dr. Jyoti Rojas SPEC GRAVITY 1.020 Normal 1.005-<=1.02 5 [facility] Comment on above: Performed By: #### P REG #### [facility] [address] [place] [address] Dr. Jyoti Rojas UA PROTEIN Negative Normal NEGATIVE/ TRACE [facility] Comment on above: Performed By: #### P REG #### [facility] [address] [place] [address] Dr. Jyoti Rojas UR MICRO IND NOT INDICATED Normal [facility] Comment on above: Performed By: #### P REG #### [facility] [address] [place] [address] Dr. Jyoti Rojas Urobilinogen Qn (U) 0.2 {Ricardo'U}/dL Normal 0.2 - 1. 0 [facility] Comment on above: Performed By: #### P REG #### [facility] [address] [place] [address] Dr. Jyoti Rojas ETHANOL (BLD ALC)on 04-10-19 23 ALC NOTE NOTE: 80 mg/dl is th e legal limit for a blood alcohol level Normal [facility] Comment on above: Performed By: #### A CETWILDER, BMP, ETH #### [facility] [address] [place] [address] Dr. Jyoti Rojas Ethanol [Mass/Vol] mg/dL Normal [facility] Comment on above: Performed By: #### A CETWILDER, BMP, ETH #### [facility] [address] [place] [address] Dr. Jyoti Rojas No Panel InformationOrdered By: Sukhjinder Schroeder on 04-10-2022 25-Hydroxy Vitamin D Total 13.8 ng/mL 30-100 [facility] Comment on above: VITAMIN D STATUS 25( [place])VITAMIN D RANGE (ng/mL) Deficient <20 Insufficient 20 to <30Sufficient 30 to 100Reference: Steven MF,Jesus NC, Sue VILLALTA, et al. Evaluation,treatment, and prevention of vitamin D deficiency; an Endocrine Society clinical practice guideline. JCEM. 2010; 96(7):1911-30. URon 04-10-2022 , QUAL Negative Normal NEGATIVE [facility] Comment on above: Performed By: #### P REG #### [facility] [address] [address] [address] Jyoti Rojas PROF CHEM 8 (BAS METB)on Anion gap [Moles/Vol] 10.0 mmol/L Normal [facility] Comment on above: Performed By: #### A CET, SALYC, BMP, ETH #### [facility] [address] [address] [address] Jyoti Rojas Calcium [Mass/Vol] 8.7 mg/dL Normal 8.5-10.1 [facility] Comment on above: Performed By: #### A CET, SALYC, BMP, ETH #### [facility] [address] [address] [address] Jyoti Rojas Chloride [Moles/Vol] 103 mmol/L Normal 98-107 [facility] Comment on above: Performed By: #### A CET, SALYC, BMP, ETH #### [facility] [address] [address] [address] Jyoti Rojas CO2 [Moles/Vol] 29.0 mmol/L Normal 21.0-32.0 [facility] Comment on above: Performed By: #### A CET, SALYC, BMP, ETH #### [facility] [address] [address] [address] Jyoti Rojas Creatinine [Mass/Vol] 0.80 mg/dL Normal 0.55-1.02 [facility] Comment on above: Performed By: #### A CET, SALYC, BMP, ETH #### [facility] [address] [address] [address] Jyoti Rojas EGFR-AF CYMRO >60 Normal >=60 [facility] Comment on above: Performed By: #### A CET, SALYC, BMP, ETH #### [facility] [address] [address] [address] Jyoti Roajs EGFR-NON AF CYMRO >60 Normal >=60 [facility] Comment on above: Performed By: #### A CET, SALYC, BMP, ETH #### [facility] [address] [address] [address] Jyoti Rojas Glucose [Mass/Vol] 99 mg/dL Normal 74-106 [facility] Comment on above: Performed By: #### A CET, SALYC, BMP, ETH #### [facility] [address] [address] [address] Jyoti Rojas Potassium [Moles/Vol] 4.0 mmol/L Normal 3.5-5.1 [facility] Comment on above: Performed By: #### A CET, SALYC, BMP, ETH #### [facility] [address] [place] [address] Dr. Jyoti Rojas Sodium [Moles/Vol] 138 mmol/L Normal 136-145 [facility] Comment on above: Performed By: #### A CET, SALYC, BMP, ETH #### [facility] [address] [place] [address] Dr. Jyoti Rojas Urea nitrogen [Mass/Vol] 17.0 mg/dL Normal 7.0-18.0 [facility] Comment on above: Performed By: #### A CET, SALYC, BMP, ETH #### [facility] [address] [place] [address] Dr. Jyoti Rojas Urea nitrogen/Creatinine [Mass ratio] 21.2 mg/mg Normal [facility] Comment on above: Performed By: #### A CET, SALYC, BMP, ETH #### [facility] [address] [place] [address] Dr. Jyoti Rojas SALICYLATEon 04-10-2022 SALICYLATE <2.8 Normal <=19.9 [facility] Comment on above: Performed By: #### A CET, SALYC, BMP, ETH #### [facility] [address] [address] [address] Jyoti Rojas Serum or plasma high density lipoprotein (HDL) cholesterol measurementOrdered By: Sukhjinder Schroeder on 04-10-2022 Cholesterol in HDL [Mass/Vol] 56 mg/dL 35-85 [facility] Comment on above: HDL CHOL ATP-III CLA SSIFICATION Cardiovascular RiskHDL > or equal to 60 mg/dL LOWHDL < 40 mg/dL HIGH Serum or plasma total choles terol/high density lipoprotein (HDL) cholesterol mass ratOrdered By: Sukhjinder Schroeder on 04-10-2022 Cholesterol.total/Cho lesterol in HDL [Mass ratio] 2.7 {ratio} <5.0 [facility] TSH DL <= 0.005 mIU/L QnOrde red By: Sukhjinder Schroeder on 04-10-2022 TSH Qn 2.29 m[IU]/L 0.45-5.33 [facility] Triglyceride [Mass/volume] i n Serum or PlasmaOrdered By: Sukhjinder Schroeder on 04-10-2022 Triglyceride [Mass/Vol] 56 mg/dL 35-149 [facility] Comment on above: TRIG ATP III CLASSIF ICATIONTRIG less than 150 mg/dL NormalTRIG 150-199 mg/dL Borderline highTRIG 200-500 mg/dL High TRIG greater than 500 mg/dL Very highStandard traceable to the Center for Disease Conrtrol and Prevention (CDC) test method. XR CHEST 2 Von 02-03-2022 XR CHEST [...] by: HOWIE RAMIREZ Date: 2022-02-03 20:18 Normal [facility] CT ABD/PELV W CONon 01-17-20 CT ABD/PELV W CON EXAM: CT ABDOMEN [...] Date: 2022-01-15 23:32 Normal [facility] AMYLASEon 01-15-2022 Amylase [Catalytic activity/Vol] 56 U/L Normal 25-115 [facility] Comment on above: Performed By: #### P REG #### [facility] [address] [place] [address] Dr. Jyoti Rojas CBC AUTO DIFFon 01-15-2022 BASO # 0.0 103/ul Normal 0.0-0.1 [facility] Comment on above: Performed By: #### E TH #### [facility] [address] [address] [address] Jyoti Rojas Basophils/100 WBC (Bld) 0.3 % Normal 0.2-2.0 [facility] Comment on above: Performed By: #### E #### [facility] [address] [place] [address] Dr. Jyoti Rojas EO # 0.2 103/ul Normal 0.0-0.7 [facility] Comment on above: Performed By: #### E #### [facility] [address] [place] [address] Dr. Jyoti Rojas Eosinophils/100 WBC (Bld) 2.1 % Normal 0.9-7.0 [facility] Comment on above: Performed By: #### E #### [facility] [address] [place] [address] Dr. Jyoti Rojas Erythrocyte distribution width (RBC) [Ratio] 12.7 % Normal 11.0-15.0 [facility] Comment on above: Performed By: #### E #### [facility] [address] [place] [address] Dr. Jyoti Rojas Hematocrit (Bld) [Volume fraction] 35.6 % Critically low 36.0-48.0 [facility] Comment on above: Performed By: #### E #### [facility] [address] [place] [address] Dr. Jyoti Rojas Hemoglobin (Bld) [Mass/Vol] 12.2 g/dL Normal 12.0-16.0 [facility] Comment on above: Performed By: #### E #### [facility] [address] [place] [address] Dr. Jyoti Rojas IG # 0.04 10e3/ul Critically high 0.00-0.03 [facility] Comment on above: Performed By: #### E #### [facility] [address] [place] [address] Dr. Jyoti Rojas IG % 0.3 % Normal 0.0-0.5 [facility] Comment on above: Performed By: #### E #### [facility] [address] [place] [address] Dr. Jyoti Rojas LYMPH # 1.7 103/ul Normal 1.2-3.8 [facility] Comment on above: Performed By: #### E #### [facility] [address] [place] [address] Dr. Jyoti Rojas Lymphocytes/100 WBC (Bld) 14.4 % Critically low 20.5-60.0 [facility] Comment on above: Performed By: #### E #### [facility] [address] [place] [address] Dr. Jyoti Rojas MANUAL DIFF REQ NO Normal [facility] Comment on above: Performed By: #### E #### [facility] [address] [place] [address] Dr. Jyoti Rojas MCH (RBC) [Entitic mass] 32.1 pg Normal 26.7-34.0 [facility] Comment on above: Performed By: #### E #### [facility] [address] [place] [address] Dr. Jyoti Rojas MCHC (RBC) [Mass/Vol] 34.3 g/dL Normal 29.9-35.2 [facility] Comment on above: Performed By: #### E #### [facility] [address] [place] [address] Dr. Jyoti Rojas MCV (RBC) [Entitic vol] 93.7 fL Normal 81.0-99.0 [facility] Comment on above: Performed By: #### E #### [facility] [address] [place] [address] Dr. Jyoti Rojas MONO # 1.1 103/ul Critically high 0.3-0.8 [facility] Comment on above: Performed By: #### E #### [facility] [address] [place] [address] Dr. Jyoti Rojas Monocytes/100 WBC (Bld) 9.2 % Normal 1.7-12.0 [facility] Comment on above: Performed By: #### E TH #### [facility] [address] [address] [address] Jyoti Rojas NEUT # 8.5 103/ul Critically high 1.4-6.5 [facility] Comment on above: Performed By: #### E TH #### [facility] [address] [place] [address] Dr. Jyoti Rojas Neutrophils/100 WBC (Bld) 73.7 % Normal 43.0-75.0 [facility] Comment on above: Performed By: #### E TH #### [facility] [address] [place] [address] Dr. Jyoti Rojas Platelet mean volume (Bld) [Entitic vol] 10.2 fL Normal 9.5-13.5 [facility] Comment on above: Performed By: #### E TH #### [facility] [address] [place] [address] Dr. Jyoti Rojas PLT 261 103/ul Normal 150-450 [facility] Comment on above: Performed By: #### E TH #### [facility] [address] [place] [address] Dr. Jyoti Rojas RBC 3.80 106/ul Critically low 4.20-5.40 [facility] Comment on above: Performed By: #### E TH #### [facility] [address] [place] [address] Dr. Jyoti Rojas WBC 11.5 103/ul Critically high 4.0-11.0 [facility] Comment on above: Performed By: #### E TH #### [facility] [address] [place] [address] Dr. Jyoti Rojas LIPASEon 01-15-2022 Lipase [Catalytic activity/Vol] 72.0 U/L Critically low 73.0-393.0 [facility] Comment on above: Performed By: #### P REG #### [facility] [address] [place] [address] Dr. Jyoti Rojas XR ABD FLAT UP_PA [...] by: KATHY CAMERON Date: 2022-01-15 19:48 Normal [facility] BMPon 12-31-2021 Anion gap [Moles/Vol] 10 mmol/L 9 - 17 mmol/L [facility] Calcium [Mass/Vol] 9.2 mg/dL 8.6 - 10. 4 mg/dL [facility] Chloride [Moles/Vol] 103 mmol/L 98 - 10 7 mmol/L [facility] CO2 [Moles/Vol] 24 mmol/L 20 - 31 mmol/L [facility] Creatinine [Mass/Vol] 0.85 mg/dL 0.5 - 0.9 mg/dL [facility] GFR/1.73 sq M.predicted MDRD (S/P/Bld) [Vol rate/Area] - PINF [facility] Comment on above: Effective Dec 14, 2021 [...] [Mass/Vol] 93 mg/dL 70 - 99 mg/dL [facility] Interpretation and review of laboratory results Abnormal [facility] Potassium [Moles/Vol] 4.2 mmol/L 3.7 - 5.3 mmol/L [facility] Sodium [Moles/Vol] 137 mmol/L 135 - 144 mmol/L [facility] Urea nitrogen (BldV) [Mass/Vol] 19 mg/dL 6 - 20 mg/dL [facility] Urea nitrogen/Creatinine (Bld) [Mass ratio] 22 High 9 - 20 [facility] Basic Metabolic Profon 12-31 Anion gap [Moles/Vol] 10 mmol/L Normal 9-17 [facility] Comment on above: Performed By: #### B MP, CDP, TROPI #### [facility] [address] [place], [place] [id number] Pasteuriser Operator: Kathy Mohr MD BUN/CRE Ratio 22 High 9-20 [facility] Comment on above: Performed By: #### B MP, CDP, TROPI #### [facility] [address] [place], [place] [id number] Pasteuriser Operator: Kathy Mohr MD Calcium [Mass/Vol] 9.2 mg/dL Normal 8.6-10.4 [facility] Comment on above: Performed By: #### B MP, CDP, TROPI #### [facility] [address] [place], [place] [id number] Pasteuriser Operator: Kathy Mohr MD Chloride [Moles/Vol] 103 mmol/L Normal 98-107 [facility] Comment on above: Performed By: #### B MP, CDP, TROPI #### [facility] [address] [place], [place] [id number] Pasteuriser Operator: Ktahy Mohr MD CO2 [Moles/Vol] 24 mmol/L Normal 20-31 [facility] Comment on above: Performed By: #### B MP, CDP, TROPI #### [facility] [address] [place] [address] Pasteuriser Operator: Kathy Mohr MD Creatinine [Mass/Vol] 0.85 mg/dL Normal 0.50-0.90 [facility] Comment on above: Performed By: #### B MP, CDP, TROPI #### [facility] [address] [place], [place] [id number] Pasteuriser Operator: Kathy Mohr MD GFR/1.73 sq M.predicted among non-blacks MDRD (S/P/Bld) [Vol rate/Area] mL/min/{1.73_m2} Normal >60 [facility] Comment on above: Result Comment: Effective Dec [...] By: #### B FELICITA OSWALD, TROPI #### [address] [place] [address] Pasteuriser Operator: Kathy Mohr MD Glucose [Mass/Vol] 93 mg/dL Normal 70-99 [facility] Comment on above: Performed By: #### B FELICITA OSWALD, TROPI #### [address] [place] [address] Pasteuriser Operator: Kathy Mohr MD Potassium [Moles/Vol] 4.2 mmol/L Normal 3.7-5.3 [facility] Comment on above: Performed By: #### B FELICITA OSWALD, TROPI #### [address] [place] [address] Pasteuriser Operator: Kathy Mohr MD Sodium [Moles/Vol] 137 mmol/L Normal 135-144 [facility] Comment on above: Performed By: #### B FELICITA OSWALD, TROPI #### [address] [place] [address] Pasteuriser Operator: Kathy Mohr MD Urea nitrogen [Mass/Vol] 19 mg/dL Normal 6-20 [facility] Comment on above: Performed By: #### B FELICITA OSWALD, TROPI #### [address] [place] [address] Pasteuriser Operator: Kathy Mohr MD CBC with Auto Differentialon 12-31-2021 Absolute Eos # 0.06 [facility] Absolute Immature Granulocyte 0.07 [facility] Absolute Lymph # 1.46 [facility] Absolute Rock # 0.94 [facility] [facility] Basophils (Bld) [#/Vol] 0.04 10*3/uL [facility] Basophils/100 WBC (Bld) 0 % 0 - 2 % [facility] Eosinophils/100 WBC (Bld) 1 % 1 - 4 % [facility] Hematocrit (Bld) [Volume fraction] 44.0 % 36.3 - 47.1 % [facility] Hemoglobin (Bld) [Mass/Vol] 14.8 g/dL 11.9 - 15.1 g/dL [facility] Immature granulocytes/100 WBC (Bld) 1 % High 0 [facility] Interpretation and review of laboratory results Abnormal [facility] Lymphocytes/100 WBC (Bld) 11 % Low 24 - 43 % [facility] MCH (RBC) [Entitic mass] 32.1 pg 25.2 - 33.5 pg [facility] MCHC (RBC) [Mass/Vol] 33.6 g/dL 28.4 - 34.8 g/dL [facility] MCV (RBC) [Entitic vol] 95.4 fL 82.6 - 102.9 fL [facility] Monocytes/100 WBC (Bld) 7 % 3 - 12 % [facility] NRBC Automated 0.0 0.0 per 100 WBC [facility] Platelet distribution width (Bld) [Ratio] 12.6 % 11.8 - 14.4 % [facility] Platelet mean volume (Bld) [Entitic vol] 10.0 fL 8.1 - 13.5 fL [facility] Platelets (Bld) [#/Vol] 222 10*3/uL [facility] RBC (Bld) [#/Vol] 4.61 10*6/uL 3.95 - 5.1 1 m/uL [facility] Segmented neutrophils/100 WBC (Bld) 80 % High 36 - 65 % [facility] Segs Absolute 10.74 High [facility] WBC (Bld) [#/Vol] 13.3 10*3/uL High [facility] CBC with Diffon 12-31-2021 Abs. Basophil 0.04 k/uL Normal 0.00-0.20 [facility] Comment on above: Performed By: #### B FELICITA OSWALD, TROPI #### [facility] [address] [place] [address] Pasteuriser Operator: Kathy Mohr MD Abs.Imm.Granulocyte 0.07 k/uL Normal 0.00-0.30 [facility] Comment on above: Performed By: #### B FELICITA OSWALD, TROPI #### [address] [place] [address] Pasteuriser Operator: Kathy Mohr MD Abs.Neutrophil (Seg) 10.74 k/uL High 1.50-8.10 [facility] Comment on above: Performed By: #### B FELICITA OSWALD, TROPI #### [address] [place], [place] [id number] Pasteuriser Operator: Kathy Mohr MD Basophils/100 WBC (Bld) 0 % Normal 0-2 [facility] Comment on above: Performed By: #### B FELICITA OSWALD, TROPI #### [facility] [address] [place] [address] Dr[place], [place] [id number] Pasteuriser Operator: Kathy Mohr MD Eosinophils (Bld) [#/Vol] 0.06 10*3/uL Normal 0.00-0.44 [facility] Comment on above: Performed By: #### B FELICITA OSWALD, TROPI #### [facility] [address] [place] [address] Pasteuriser Operator: Kathy Mohr MD Eosinophils/100 WBC (Bld) 1 % Normal 1-4 [facility] Comment on above: Performed By: #### B FELICITA OSWALD, TROPI #### [facility] [address] [place], [place] [address] Pasteuriser Operator: Kathy Mohr MD Erythrocyte distribution width (RBC) [Ratio] 12.6 % Normal 11.8-14.4 [facility] Comment on above: Performed By: #### B FELICITA OSWALD, TROPI #### [facility] [address] [place], [place] [address] Pasteuriser Operator: Kathy Mohr MD Hematocrit (Bld) [Volume fraction] 44.0 % Normal 36.3-47.1 [facility] Comment on above: Performed By: #### B FELICITA OSWALD, TROPI #### [address] [place], [place] [address] Pasteuriser Operator: Kathy Mohr MD Hemoglobin (Bld) [Mass/Vol] 14.8 g/dL Normal 11.9-15.1 [facility] Comment on above: Performed By: #### B FELICITA OSWALD, TROPI #### [address] [place], [place] [address] Pasteuriser Operator: Kathy Mohr MD Immature granulocytes/100 WBC (Bld) 1 % High 0 [facility] Comment on above: Performed By: #### B FELICITA OSWALD, TROPI #### [facility] [address] [place] [address] Dr[place], [place] [address] Pasteuriser Operator: Kathy Mohr MD Lymphocytes (Bld) [#/Vol] 1.46 10*3/uL Normal 1.10-3.70 [facility] Comment on above: Performed By: #### B FELICITA OSWALD, TROPI #### [facility] [address] [place], [place] [id number] Pasteuriser Operator: Kathy Mohr MD Lymphocytes/100 WBC (Bld) 11 % Low 24-43 [facility] Comment on above: Performed By: #### B FELICITA OSWALD, TROPI #### [address] [place] [address] Pasteuriser Operator: Kathy Mohr MD MCH (RBC) [Entitic mass] 32.1 pg Normal 25.2-33.5 [facility] Comment on above: Performed By: #### B MARGRET CDP, TROPI #### [address] [place], [place] [address] Pasteuriser Operator: Kathy Mohr MD MCHC (RBC) [Mass/Vol] 33.6 g/dL Normal 28.4-34.8 [facility] Comment on above: Performed By: #### B FELICITA OSWALD, TROPI #### [address] [place], [facility] Pasteuriser Operator: Kathy Mohr MD MCV (RBC) [Entitic vol] 95.4 fL Normal 82.6-102.9 [facility] Comment on above: Performed By: #### B FELICITA OSWALD, TROPI #### [address] [place], [place] [address] Pasteuriser Operator: Kathy Mohr MD Monocytes (Bld) [#/Vol] 0.94 10*3/uL Normal 0.10-1.20 [facility] Comment on above: Performed By: #### B FELICITA OSWALD, TROPI #### [address] [place], [facility] Pasteuriser Operator: Kathy Mohr MD Monocytes/100 WBC (Bld) 7 % Normal 3-12 [facility] Comment on above: Performed By: #### B FELICITA OSWALD, TROPI #### [address] [place], [facility] Pasteuriser Operator: Kathy Mohr MD Neutrophil (Seg) 80 % High 36-65 [facility] Comment on above: Performed By: #### B MARGRET CDP, TROPI #### [facility] [address] [place], [place] [id number] Pasteuriser Operator: Kathy Mohr MD NRBC Automated 0.0 per 100 WBC Normal 0.0 [facility] Comment on above: Performed By: #### B MP CDP, TROPI #### [facility] [address] [place], [place] [id number] Pasteuriser Operator: Kathy Mohr MD Platelet mean volume (Bld) [Entitic vol] 10.0 fL Normal 8.1-13.5 [facility] Comment on above: Performed By: #### B FELICITA OSWALD, TROPI #### [facility] [address] [place], [place] [address] Pasteuriser Operator: Kathy Mohr MD Platelets (Bld) [#/Vol] 222 10*3/uL Normal 138-453 [facility] Comment on above: Performed By: #### B FELICITA OSWALD, TROPI #### [facility] [address] [place], [place] [address] Pasteuriser Operator: Kathy Mohr MD RBC (Bld) [#/Vol] 4.61 10*6/uL Normal 3.95-5.11 [facility] Comment on above: Performed By: #### B FELICITA OSWALD, TROPI #### [facility] [address] [place], [facility] Pasteuriser Operator: Kathy Mohr MD WBC (Bld) [#/Vol] 13.3 10*3/uL High 3.5-11.3 [facility] Comment on above: Performed By: #### B FELICITA OSWALD, TROPI #### [facility] [address] [place] [address] Pasteuriser Operator: Kathy Mohr MD Troponinon 12-31-2021 Troponin, High Sens 8 ng/L Normal 0-14 [facility] Comment on above: Result Comment: High Sensitivity Troponin values cannot be compared with other Troponin methodologies. Patients with high levels of Biotin oral intake (i.e >5mg/day) may have falsely decreased Troponin levels. Samples collected within 8 hours of biotin intake may require additional information for diagnosis. Performed By: #### B MP, CDP, TROPI #### [facility] [address] [place] [address] Pasteuriser Operator: Kathy Mohr MD Troponin, High Sensitivity 8 ng/L 0 - 14 ng/L [facility] Comment on above: High Sensitivity Troponin values cannot be compared with other Troponin methodologies. Patients with high levels of Biotin oral intake (i.e >5mg/day) may have falsely decreased Troponin levels. Samples collected within 8 hours of biotin intake may require additional information for diagnosis. [facility] XR CHEST PORTABLEon 01-01-20 XR CHEST PORTABLE EXAMINATION: ONE XRAY VIEW OF THE CHEST 12/31/2021 9:35 am COMPARISON: Chest x-ray dated 12 December 2010 HISTORY: ORDERING SYSTEM PROVIDED HISTORY: chest pain TECHNOLOGIST PROVIDED HISTORY: chest pain FINDINGS: External pacer device on the left. No acute airspace infiltrate. No pneumothorax or pleural effusion. IMPRESSION: No acute cardiopulmonary findings Interpreted by: Gee Horan MD Signed by: Gee Horan MD 12/31/21 Final result Normal [facility] No acute cardiopulmonary findings [facility] CONSOLIDATED EXAMINATION: ONE XRAY VIEW OF THE CHEST 12/31/2021 9:35 am COMPARISON: Chest x-ray dated 12 December 2010 HISTORY: ORDERING SYSTEM PROVIDED HISTORY: chest pain TECHNOLOGIST PROVIDED HISTORY: chest pain FINDINGS: External pacer device on the left. No acute airspace infiltrate. No pneumothorax or pleural effusion. [facility] CONSOLIDATED Gee Horan M D - 12/31/2021 EXAMINATION: ONE XRAY VIEW OF THE CHEST 12/31/2021 9:35 am COMPARISON: Chest x-ray dated 12 December 2010 HISTORY: ORDERING SYSTEM PROVIDED HISTORY: chest pain TECHNOLOGIST PROVIDED HISTORY: chest pain FINDINGS: External pacer device on the left. No acute airspace infiltrate. No pneumothorax or pleural effusion. IMPRESSION: No acute cardiopulmonary findings [facility] Work Phone: Radiology Study observation (narrative) [facility] Work Phone: XR CHEST PORTABLEOrdered By: Gee Horan on 12-31-2021 [facility] Work Phone: Coding Summary.on 11-04-2020 Coding Summary. CD:[id number] G h0bWw+PGhlYWQ+FD7ODNY bK81sbGPnrN2RD9wVMG6Z DYCVMRVIOY5UOD5fsVM5I YiuM7ChjaPy WxgnpLQvXB86SDa9PFY3p AdlNKbmmR7vnREgE8n1Gv PtDJ06wK41CThrZZRqGwT 3LjZpbjsgbWFy U3ffDaBudAOoUzl+PHRhY mxlIHdpZHRoPScxMDAlJy LliEfdQJ1uYx7uVXSjRNL vbGxhcHNlOiBj d4izUFLdNBgsAR1ejYukO 4SrjYR2IGKyd4d0Fg70zB I+MYRqJMS1mAisHNceg93 4AjRhf9fvJCJ0 rWWqUHgjUVH2Y08ex9H3U FXtVEIpCGX6kOJ1qG3peN jlwcaoV9RqmKKqRsH3RIB 3kFYjxU5caDat aqyhmY8lDqw+C58AZT3NT ZUOHF7BAzz0N2WuJromjZ I+OZ80IJCpWZ21sXHniJP jh0femRq5PfCf CUXxUOU1cOwpOBbxu1DiF WUtP98etBUhd9M0GHMmaN jczXJfIlCatYC7nS3aYSp cdhrjo8bdnfft Njsdq1ppwe46mK15A06hQ UylUANlGEX8CZZaEIAfkE hcck4pgA8nJh9+BJgny3s fo5yvoAn0NuBo VVKhkbHaqYrxQAF9s9GtT w77B5FwlBoxq3VpDhx5rw 17xUAeh6W4xQJ8FXliAGG qbP9mZHohPtO2 XIUyQiJbrY83aNIsIGtgH m2poUteqTqdMR4pVDMdbx qwIXMzaY4bPEOuwATwlQl fGF5dMWNtbbsf i929RcTdTXO7XMFqgXXqD 8SxaK1cWhHsMIFcCTAqJ1 ZnnQSoDZuxK682VFfjSqO 6GLNzjcWbC5Ru DWVrgRcuGrB5j9L0Br0Vz 9NkavljMTU0UOdfWSZ7Jg K9GrBzOpQ2P8LhXks8KAT rcNrmAY6eJ2Dd HMCpidrorsberIM5ZOZtJ FNovY62kQDxGBklDo8pj0 Q7i908IJUgWGGenK94Fj2 udDogMTBwdCBU jG5mhfmtx3liatluDpJvM WGzRSw7LOy1CJLuxZbeWf EsLGX3GtL4YTF9iWWwsO4 yhOntfzkopI1o Oyc+R82lsG7tICN7PSY4i dsgUHHirdOqNN11TZ37E8 RyPjwvdGFibGU+PGRpdiB ckKlxFX1oYyBu p3yib9PtKJxoS2SqXCRpM CjlFeh4WCLbPUH9sYX1jO 2yIRJjDPmmz1X5lFJ7B6I fonAnpk4gk4au ARPnQXmuF63jtPSml9B4J QRzfPL6JXNmkRuvDqLibN 93Oyc+JXPbjYnrh2AyZne sz9frt7xpmZe6 GvSiMJLuwoSvwEmtXOP3e 8IwEj49I35wRKtvSPRcZJ XoNPZfQOPhvOhobp1egK5 wIi8+PGNvbCB3 eXP6wU5hJJMgEuU9BBumB 693SiFjnLAlPbfhh0ewv6 pbjTf4FlRcAJQjxnAcoIe iHEN2t6AxTb51 F06yENspRXPoKSMxXBKdF GZmuUmgps7vrT5dSl1+PC 0pf3rdek10uS36vMW+PHR lTXQ9kAleBUrk PVMwhF7sNHgoEaM1JVOnD cJdgO01bDAiJUwaLe9qvZ ohmGimCY9hYXTmcvaxr48 8CyGsr6yiZTNs oQVtPYdhDSP9K09zf8E0U MNqBPYdZUV9zCJ3aP2jsE lnbjogbGVmdDsgdmVydGl bZUllOIqzE214 IHRvcDsnPlBhdGllbnQgT fIcOFz0M1TyLnp3IJXqhT esIN7ytRKaBPqgUq3lkFs bfYxnHP4uLUDn bomhg302CqPit2vuVGNzr DPkTRosEUC8S17lr8O5ON OjOVPpWUT5sPF5dT2jcGj nbjogbGVmdDsg ekXwcXxwIAitSXcpV720V HRvcDsnPkJpcnRoIERhdG N7AV83IA73tQQzn3D0oKT 8V8SkMKFaxjpi wgdgzQU9JBAoBIRjpQ69X o7toRfiRd0iKMLtOEW2LU RjxTCtA6LqwJ8fKvQpGQC pWIJxZ7JgbLAy YGajC115SQhiFlG4DRZab gMtX9ZcRROgqKdxAsW8b8 Z2Kf0OJ4E9BE09VM23mYM bi3G8eTM9F4At BTLivmmniamraUT9PUWlY BMpxN24Lx6gkImlDb8vMM HyHLJ2FFJteQSqI5HjyL8 yOiAjMDAwMDAw S8IakIJiAHfnN521HLdfI bE4ETAwopAsJ7WlDPNwjR iyYlH4g4T2Ki2ANYj9EA7 2IW86fKBrd6V6 nPE1O2JqTFUynxvdpgwzz PN7DKMhFYJajZ75Cq4clF oqKd9kOINeNBV9JWLrqBH aJ5NniG0gHgPh ZWMbLSGgG2YktWAqRWkhW 769CBiyMvL8URAkdwTpG9 UqVYYtuFtjAaB5p3X0As2 QDSAsNE48WUX1 bPS0PG52ZQ00Q7RgPfciw GFibGU+PHRhYmxlIHdpZH RoPScxMDAlJyBzdHlsZT0 lGd1jKNIdVSRv aLjhjUJxGcZyx6ggEUTuP PowCG6rmHdkU9HhjLM4JF Yqp0y4Oc25H56zO5ReaTU +SVEhsAV4lAT6 vE0eHoPiBzY2SIbdI092R oKdkVEuYvsho4rdb5utjG s1EgP8SSZfvzTjbNhxSCD 8m2CcTz38B59t IHdpZHRoPSIxNSUiIHZhb Izpoc8pbA5oXt0+PGNvbC V8bBA3tP8tMzGoMzQ4MDi cI570CoHliPWp Coxdv3ldv0tnzKk5DjQpO EOicvUfoAfhMBW3n8QjEm 34D6TilWvej3WnHti3bc9 9bCAcs3X5pMO9 A3YmDXXctadddQFxeUxqQ V1wBJLjlrkwOROidV6mUK ObH6z9AnIrEwZ7MFuyP4F dvyJ7FAXbfRFb WEhrYKG5Q38xr2N1RLZaL KJkWLA2rDG9dP6guUeexy ogbGVmdDsgdmVydGljYWw gZUqhJ137FBWq sVakWQFrnL8qCTTjhRJwy TmyCV8rIFZrlrrrZgXMG0 gKBFfhPxGXS50WM8BzCbi vdGQ+PHRkIHN0 hFoaWIzmNATlvA9tZUKkO 5v3BpBpQzC8TLofT0DuZI EoivfbZk02iB8aAjVkTxE 9ISsdH2VzqqI3 FZNooFJhDVlwDMQ0B29jx 6S4ETMnEVHlPSI3hKT7jC 1hbGlnbjogbGVmdDsgdmV ydGljYWwtYWxp U433EUBvxMnaYbR7IzEyK uB6KUH0I4CcDww8XCTbtB qcTC2egRCkQRlbNd9cnPt aaUaaMQ8wJODi uyshIGCssT3tQRRqyIIzg ExuGK9pSVQslopvl177Jc TsSXB0JDRpbEXfH3MugC9 yOiAjMDAwMDAw P8RqxYZgBJsaX130ZRyrN iM0TMVccmQsZ3AgTLQsdA jpFgQ1c1X4Ui1uJPMDNYY yczwvdGQ+PHRk PYA6qIquVMrtDXSsfJ2iU XRiZ0p2FcTvUjY9RWatZ8 IfTSGsdcrcVs69yM2qLmW eDrS8GPtyG3Km ysH2XAHrmDJnKDvrFWQ4F 34pg2U3YWIeDSMyTUH2hY N3jK0mfFnlqhcqsSXrjFd gdmVydGljYWwt JJljL778RXXodLjhGrJeg WFsZTwvdGQ+VARoAOJ6kG ecRJbeNWKhzC6dSPYjZ4c 0DbIfAjH4PFkh H5JgXUAcjzmbWw80jB8nI tNkLrF6ULarV2CsbeW6OX VqkMFlXJfeEYU4U00nb5N 2IJGrCGVhVOJ1 lLI4lL7swPaxhoktoVDex DsgdmVydGljYWwtYWxpZ2 31GJQysAvoCkMsNYCfCY0 jeTwvdGQ+PC90 ry22Y0NkLujuRrf2JFYaI GP6fOV0yO5ySFLqVAdlt7 F7bWJ0L0NgbpCtyr6ca8u zCXDuTCkkI06a pXQus4P4IDEtrOW1QGOdd RinLzCdpU37Brz+PGNvbG agf8NgXkmij7whk3qcfRz 9IjMwJSIgdmFs xJkuELT6r0ZfBz81M97sD HdpZHRoPSIzMCUiIHZhbG bech4guU3sOa6+PGNvbCB 4dQT9zX3aXqWx PfT0BSwrP135FvUfjDIyU joqf1gkk6quaZz8QfEzNX RrbnXzaJzoHWQ9t1IxVq4 9C7CxaAetu2Ew Rzh1ad91uNIqb4G4yYP3Z 3BhZGRpbmctbGVmdDogMC 4mCBBcukohCZXtzD3vRDU oH5l1NtHtLmJ7 LYlrC1NhjcO4PSTytTDaR UMesIGMcT0xmrzrl7hbdb vgDlBtGGAmPDp1JLs0VXJ saWduOiBsZWZ0 IiU6PTK2tKEakK4sgIowq zezjM6lDkm+JLo6o6eecY KxNK4haTY0NE95NL29gHR tv8W0eXR5F0Td GDPawqlpazeoaFS4TQTfC DTadB41Hs4fiAyiBk3xRE EeBWM6BUWedJWsA5GlyR8 yOiAjMDAwMDAw N8JdsCUzNYswH728EIuzB qR7YHKoesQlI3WnEIHutD hpIuA5b2G7Lq3ALH93JV7 4KQ08bWAnu8P9 wBD3Z8UxBJFrymimhyswo WG0IWDxADAjrR29Ip1qmG pfWg9bVTLuZBV5KDMcrEJ sX3BunT3bHySu VQRaJRVhX3RiwWYkWLjcE 976IRbsXlB5MBGtpsIzX2 IyFHVftXzfQeS4f6V5Xd9 ENl71KF42HU42 eDMki8Z3sSW1X7WnMDExd rjsfcyuhPO4PJIeMIGepD 70Ok7esWxnBc3dTDUsACX 5XMKygLHzZ8Zu iM4kRrFlOWViIYXxA4Row EWuOJsjU268SEyqXkB2AG OtjrYoP4TwVWSgcGthBiP 9j9O5Ol9RYMop sum1S1EuPfxcnFR+PC90Y DTvBO31iQJauTMkw3ugwF e7TmFqWAJyNFG8tWzmXMp vk2NlGJBjI84m bGFw (more content not included)... Normal [facility] Outside Records Officeon Outside Records Office [id number]:127 Normal [facility] Radiology Outside Office Brokerage Coordinator yon 11-03-2020 Radiology Outside Office Copy [id number] .[id number]:127 Normal [facility] Referrals Officeon Referrals Office [id number] .[id number]:127 Normal [facility] .Manual Abson 10-26-2020 Basophils/Leukocytes Manual cnt (Bld) [Pure # fraction] 0.0 E9/L Normal 0.0-0.2 [facility] Comment on above: Performed By: #### 1 [id number], 4507558, 5109293, 92008617, 6432565, 82169272 ####[facility] [address] [place] [address] Eosinophils/Leukocyte s Manual cnt (Bld) [Pure # fraction] 0.1 E9/L Normal 0.0-0.5 [facility] Comment on above: Performed By: #### 1 4489901, 8093376, 9826471, 90706712, 3989618, 85331033 ####[facility] [address] [place] [address] Lymphocytes/Leukocyte s Manual cnt (Bld) [Pure # fraction] 2.9 E9/L Normal 1.0-4.0 [facility] Comment on above: Performed By: #### 1 8440717, 3725186, 0457296, 99470761, 0180549, 76509025 ####[place] [address] [place] [address] Monocytes/Leukocytes Manual cnt (Bld) [Pure # fraction] 0.7 E9/L Normal 0.2-1.0 [facility] Comment on above: Performed By: #### 1 9276400, 6211686, 3374556, 10784163, 6345954, 26965624 ####[place] [address] [place] [address] Neutrophils/Leukocyte s Auto (Bld) [Pure # fraction] 2.0 E9/L Normal 2.0-7.5 [facility] Comment on above: Performed By: #### 1 3179459, 7016784, 4142572, 57125892, 7237857, 62131977 ####[place] [address] [place] [address] B hCG Qualon 10-26-2020 Beta hCG Ql Negative Normal [facility] Comment on above: Performed By: #### 1 2344659, 4942109, 8503619, 44548319, 4198540, 80981081 ####[facility] [address] [place] [address] BMPon 10-26-2020 Creatinine [Mass/Vol] 0.9 mg/dL Normal 0.5-1.3 [facility] Comment on above: Performed By: #### 1 9109721, 0838755, 4179832, 99848329, 0678529, 20013310 ####[facility] [address] [place] [address] Urea nitrogen [Mass/Vol] 16 mg/dL Normal 5-21 [facility] Comment on above: Performed By: #### 1 5642516, 4959767, 8640859, 66737585, 3024200, 12594199 ####[facility] [address] [place] [place] [address] Urea nitrogen/Creatinine [Mass ratio] 18 No Units Normal 10-20 [facility] Comment on above: Performed By: #### 1 4604070, 6026423, 6626769, 64567112, 4207479, 43464173 ####[facility] [address] [place] [address] Anion gap [Moles/Vol] 8 mmol/L Normal 6-16 [facility] Comment on above: Performed By: #### 1 4272276, 9377356, 0643758, 74507392, 7027100, 56045583 ####[facility] [address] [place] [place] [address] Calcium [Mass/Vol] 8.5 mg/dL Low 8.9-11.1 [facility] Comment on above: Performed By: #### 1 7802406, 7241236, 2807391, 03637678, 2766002, 44747707 ####[facility] [address] [place] [place] [address] Chloride [Moles/Vol] 105 mmol/L Normal 101-111 [facility] Comment on above: Performed By: #### 1 5924660, 5298289, 6956760, 33091014, 3340289, 29067617 ####[facility] [address] [place] [place] [address] CO2 [Moles/Vol] 26 mmol/L Normal 21-31 [facility] Comment on above: Performed By: #### 1 3421254, 2880448, 7441203, 38615174, 4764572, 89279297 ####[facility] [address] [place] [address] Glucose [Mass/Vol] 105 mg/dL Normal 55-199 [facility] Comment on above: Result Comment: If t his glucose result represents a fasting glucose, interpretation should refer to the following reference range: 55-99 mg/dL Performed By: #### 1 2669195, 8186358, 6980594, 56775187, 9691799, 01870765 ####[facility] [address] [place] [address] Potassium [Moles/Vol] 3.6 mmol/L Normal 3.5-5.3 [facility] Comment on above: Performed By: #### 1 9879182, 9303791, 2223467, 38313036, 9375139, 84555906 ####[place] [address] [place] [address] Sodium [Moles/Vol] 135 mmol/L Normal 135-145 [facility] Comment on above: Performed By: #### 1 5738991, 1255616, 4653977, 14814993, 0771090, 37116658 ####[address] [address] CBC w/ Auto Diffon Erythrocyte distribution width (RBC) [Ratio] 13.7 % Normal 10.9-14.2 [facility] Comment on above: Performed By: #### 1 1081916, 8692508, 3479632, 15472802, 2651197, 86515273 ####[place] [address] [place] [address] Hematocrit (Bld) [Volume fraction] 40.3 % Normal 34.0-46.0 [facility] Comment on above: Performed By: #### 1 7932786, 8776129, 4566545, 08981175, 1816682, 09804579 ####[place] [address] [place] [address] Hemoglobin (Bld) [Mass/Vol] 13.3 g/dL Normal 12.0-16.0 [facility] Comment on above: Performed By: #### 1 5729572, 6742981, 6799847, 59719128, 1824730, 70955111 ####[facility] [address] [place] [address] MCH (RBC) [Entitic mass] 30.7 pg Normal 27.0-34.0 [facility] Comment on above: Performed By: #### 1 7093875, 5083180, 3447555, 27575804, 6677109, 71556504 ####[address] [address] MCHC (RBC) [Mass/Vol] 33.1 g/dL Normal 31.4-36.0 [facility] Comment on above: Performed By: #### 1 8547460, 0981307, 1092217, 35991953, 7569487, 13738375 ####[address] [address] MCV (RBC) [Entitic vol] 92.8 fL Normal 80.0-100.0 [facility] Comment on above: Performed By: #### 1 2155899, 4414065, 5419874, 68216126, 9490476, 76595806 ####[place] [address] Platelet mean volume (Bld) [Entitic vol] 7.8 fL Normal 6.4-10.8 [facility] Comment on above: Performed By: #### 1 0866235, 3243143, 2868233, 75075851, 4819477, 95161959 ####[address] [address] Platelets (Bld) [#/Vol] 202.0 E9/L Normal 150.0-500.0 [facility] Comment on above: Performed By: #### 1 8261043, 9408878, 4786741, 38914070, 5176003, 58186190 ####[address] [address] RBC (Bld) [#/Vol] 4.3 E12/L Normal 4.3-5.9 [facility] Comment on above: Performed By: #### 1 4644272, 5846314, 4055964, 49258028, 0571988, 38965909 ####[address] [place] [address] WBC corrected for nucl RBC Auto (Bld) [#/Vol] 5.6 E9/L Normal 4.0-11.0 [facility] Comment on above: Performed By: #### 1 2516716, 0772222, 9249100, 18575613, 1560734, 91805161 ####[facility] [address] [place] [address] Consent for Treatmenton 10-12 Consent for Treatment [id number]#1 .00CD:127 Normal [facility] Discharge Instructionson Discharge Instructions [id number]#1 .00CD:127 Normal [facility] ED Clinical Summaryon 2020 ED Clinical Summary [address] [address] ED Clinical Summary Person Information Name: JAQUELIN HI Lizzette/[facility] Age: 30 Years : 1990 Sex: Female Language: Lao PCP: SYDNEY LOPEZ CNP Marital Status: Single [...] 10/26/2020 04:39:09 10/26/2020 04:39:09 10/26/2020 04:39:09 AD[address]ESS: [address] [phone] PHYS DOC NOTES: MEDICAL INFORMATION: Prescriptions Given: New [...] Follow up: With: Address: When: SYDNEY LOPEZ [facility], [place] [phone] Business (1) In 3 days 10/29/2020 DIAGNOSIS: 1:Pneumonia Normal [facility] ED Note-Physicianon 10-27-19 ED Note-Physician Basic Information [...] Diff eGFR Manual Diff Rapid [place] [place]R Chest 2 Views Disposition Plan Discharge Prescription List Prescriptions Levaquin 500 mg Tab, 500 mg= 1 tab(s), Oral, q24hr Follow-up With When Contact Information SYDNEY LOPEZ In 3 days 10/29/2020 EDT [address] [place] [address]- [phone] Business (1) Additional Instructions: Patient Education Community-Acquired [...] Lymph Abs Man: 2.9 E9/L (10/26/20 03:05:00) Rock Abs Man: 0.7 E9/L (10/26/20 03:05:00) Eos [...] (10/26/20 03:05: (more content not included)... Normal [facility] Comment on above: Result Comment: Elec tronically [...] these instructions at home: Medicines ? Take kshg-hlk-vjltglb and prescription medicines only as told by [...] getting t (more content not included)... Normal [facility] ED Patient Summaryon 021 ED Patient Summary [place] [id number] Patient Discharge Instructions Person Information Name: JAQUELIN HI Age: 30 Years Arrival Date: 10/25/2020 22:48:29 Discharge Diagnosis: 1:Pneumonia Primary Care Physician: SYDNEY LOPEZ CNP Provider Information Primary Provider: Ralph Funes MD Advanced Merchandise Appraiser:None The exam and treatment you received in the Emergency Department were for an urgent problem and are not intended as complete care. It is important that you follow up with a doctor, nurse practitioner, or physician?s team assistant for ongoing care. If your symptoms become worse or you do not improve as expected and you are unable to reach your usual health care provider, you should return to the Emergency Department. We are available 24 hours a day. JAQUELIN HI has been given the following list of patient education materials, prescriptions and follow-up instructions: Follow-up Instructions: With: Address: When: SYDNEY JOHN [address] [place] [address] [phone] Business (1) In 3 days 10/29/2020 In the event that this physician does not participate in your insurance network, please consult with your insurance company to find a nearby participating provider. Patient Education Materials: Community-Acquired Pneumonia, Adult A MESSAGE TO ALL PATIENTS REGARDING OPIOIDS PRESCRIPTION OPIOIDS: WHAT YOU NEED TO KNOW Prescription opioids can be used to help relieve yhnnzasm-oh-oxaqwg pain and are often prescribed following a [...] be struggling with addiction, tell your health clinical care leader and ask for guidance or call [employer]?S National Helpline at 2-530-876-HELP. v Source: [place] Department of (more content not included)... Normal [facility] Manual Diffon 10-26-2020 Band form neutrophils/100 WBC (Bld) 0 % Normal 0-10 [facility] Comment on above: Order Comment: Order Added by Discern Expert. Performed By: #### 1 [id number], [id number], [id number], [id number], [id number] ####[facility] [address] [place] [address] Basophils/100 WBC (Bld) 0 % Normal 0-2 [facility] Comment on above: Order Comment: Order Added by Discern Expert. Performed By: #### 1 [id number], [id number], [id number], [id number], [id number], [id number] ####[facility] [address] [place] [address] Eosinophils/100 WBC (Bld) 1 % Normal 0-8 [facility] Comment on above: Order Comment: Order Added by Discern Expert. Performed By: #### 1 [id number], [id number], [id number], [id number], [id number], [id number] ####[facility] [address] [place] [address] Lymphocytes/100 WBC (Bld) 44 % Normal 14-50 [facility] Comment on above: Order Comment: Order Added by Stormy Expert. Performed By: #### 1 [id number], 5040424, 3090291, [id number], 1966431, [id number] ####[facility] [address] [place] [address] Monocytes/100 WBC (Bld) 13 % Normal 4-14 [facility] Comment on above: Order Comment: Order Added by Stormy Expert. Performed By: #### 1 [id number], 6104081, 2470943, [id number], [id number], [id number] ####[facility] [address] [place] [address] Morphology Basil (Bld) [Interp] Normal Normal [facility] Comment on above: Order Comment: Order Added by Discern Expert. Performed By: #### 1 [id number], 0834273, 3127741, [id number], 1417272, [id number] ####[facility] [address] [place] [address] Segmented neutrophils/100 WBC (Bld) 35 % Low 36-75 [facility] Comment on above: Order Comment: Order Added by Stormy Expert. Performed By: #### 1 [id number], 3647818, 2752662, 10521261, 8454350, [id number] ####[facility] [address] [place] [address] Variant lymphocytes LM Ql (Bld) 7 % Invalid Interpretation Code [facility] Comment on above: Order Comment: Order Added by Discern Expert. Performed By: #### 1 [id number], 6079250, 1516692, [id number], 2430040, [id number] ####[place] [address] [place] [address] Rapid COVID Antigen (MC)on 10-26-2020 Rapid COV Int NEG Ctl Pass Normal [facility] Comment on above: Performed By: #### 2 [id number] ####[address] [address] [place] [address] Rapid COV Int POS Ctl Pass Normal [facility] Comment on above: Performed By: #### 2 [id number] ####[address] [address] SARS-CoV-2 (COVID-19) RNA MADHAV+probe Ql (Unsp spec) Not detected Normal Not Detected [facility] Comment on above: Result Comment: [employer]? System for Rapid Detection of SARS-CoV-2 is [...] or revoked sooner. Performed By: #### 2 [id number] ####[address] [address] Employed in Healthcare NO Normal [facility] Comment on above: Performed By: #### 2 [id number] ####[address] [address] First Test Unknown Normal [facility] Comment on above: Performed By: #### 2 [id number] ####[address] [address] Hospitalized? NO Normal [facility] Comment on above: Performed By: #### 2 [id number] ####[address] [address] ICU NO [facility] Comment on above: Performed By: #### 2 [id number] ####[place] [address] [place] [address] ? Unknown Normal [facility] Comment on above: Performed By: #### 2 [id number] ####[address] [place] [address] Resides in a Congregate Care Setting NO [facility] Comment on above: Performed By: #### 2 [id number] ####[address] [address] Symptomatic as defined by [facility] YES Normal [facility] Comment on above: Performed By: #### 2 [id number] ####[facility] [address] [place] [address] XR Chest 2 Viewson XR Chest 2 [...] REPORT Dictated: 10/26/2020 10:55 am Joe Botello MD. Signed (Electronic Signature): 10/26/2020 10:55 am Signed by: Joe Botello MD Transcribed by: ANTONELLA Technologist: CASS Normal [facility] eGFRon 10-26-2020 GFR/1.73 sq M.predicted among blacks MDRD (S/P/Bld) [Vol rate/Area] mL/min/{1.73_m2} Normal >=59 [facility] Comment on above: Order Comment: Order added by Discern Expert. Result Comment: eGFR is race adjusted. AA=. Performed By: #### 1 [id number] ####[facility] [address] [place] [address] GFR/1.73 sq M.predicted among non-blacks MDRD (S/P/Bld) [Vol rate/Area] mL/min/{1.73_m2} Normal >=59 [facility] Comment on above: Order Comment: Order added by Discern Expert. Result Comment: Director Hospice Operations omid kidney disease could be indicated at eGFR's of less than 60 mL/min/1.73m2. Kidney failure is indicated at less than 15 mL/min/1.73m2. Performed By: #### 1 [id number] ####[facility] [address] [place] [address] Provider Letter [facility] Provider Letter [facility] October 15, 2020 SYDNEY LOPEZ, [address], [place] [address] Re: JAQUELIN HI Date of : 1990 Thank you for your referral of Jaquelin Hi who was seen on consultation on 10/08/2020, for Right axilla lump. I have enclosed my consultation note for your review. I will be happy to follow Jaquelin should her symptoms persist. Sincerely, Gordo Neff MD General Surgery [facility] Facesheeton 10-09-2020 Facesheet [id number]:127 [facility] Ambulatory Clinical Summaryo n 10-08-2020 Ambulatory Clinical Summary {[id number] [facility] Physician Referralon 021 Physician Referral [id number] .[id number]:127 [facility] Provider Letteron 06-16-2020 Provider Letter June 16, 2020 JAQUELIN HI [address] [place] [address] JAQUELIN HI 1990 Dear Jaquelin Hi, You [...] appreciate your understanding. Sincerely, [facility] [address], [place] [address] [facility] CNOVon 08-23-2018 CNOV Office Visit (PAMAVN ) JAQUELIN HI ([id number]) 1990 F Date Time Provider Department 08/23/18 2:15 PM NIXON LOCKE During your visit today, we recorded the following information about you: Pulse Respiration Blood pressure Weight 77/minute 16/minute 113/62 52.2 kg Height 1.549 m Nixon Locke MD 08/23/2018 2:38 PM Signed [facility] Initial Evaluation Subjective: This appointment was request by LOLA Suresh [address] [facility] [address] [facility] [address] for my opinion regarding the evaluation and management of the patient's Jaquelin Hi problems, and my final recommendation will be communicated back to the requesting physician by way of shared medical record or letter. A 28 year old Ms. Hi presents to [facility] Department, accompanied by grandmother, [...] SUPERVISED HOME EXERCISE PROGR (HEP): No 5. DISHCLOTH FOLDER: No PASSIVE CONSERVATIVE THERAPY LASTING 6 WEEKS [...] and Not distended Musculoskeletal: Ambulate with none team assistant device. Defibrillator noted at the the inferior of the left axillary. There is hypersensitive to light tough over the defibrillator implant area. The fascial is very tight on the left chest and extended to the left gluteal region. Full ROM of upper and lower extremities. Neurological: Cranial nerve exam: Normal Motor exam: Deltoid 5, Biceps 5, Triceps 5, Package Lift Operator 5 and Finger Extension 5 ASSESSMENT: Myofascial [...] the above and verbalized understanding. Thank you LOLA Bo [address] [facility] [address] for allowing me to participate in Jaquelin Hi's care. Nixon Locke MD Referring Provider: DARLYN FOSTER [[id number]] Allergies As of Date: 08/23/2018 Noted Allergy Reaction CECLOR (CEFACLOR) 08/23/2018 2 - Rash Date Reviewed: 08/23/2018 Reviewed by: Nixon Locke - Fully Assessed Reason for Visit: New Patient Evaluation [154] Cmt: thoracic radiculopathy, intercostal neuritis Primary Visit Diagnosis:Myofascial pain [M79.18] Order(s):CONSULT TO PHYSICAL THERAPY [9032] Order #: [id number]: 1 Prescriptions as of 08/23/2018 Sig: METOPROLOL SUCCINATE ER 100 M* Take 100 mg by mouth once lui* Problem List As Of Date: 08/23/2018 (None) Encounter Status:Closed by NIXNO LOCKE MD on 08/23/18 Normal [facility] PROGRESSon 08-23-2018 PROGRESS HNO ID: [id number] Author: Nixon Locke Service: ? Author Type: Physician Type: Progress Notes Filed: 08/23/2018 2:38 PM Note Text: [facility] Initial Evaluation Subjective: This appointment was request by LOLA Suresh [address] [place] [address] for my opinion regarding the evaluation and management of the patient's Jaquelin Hi problems, and my final recommendation will be communicated back to the requesting physician by way of shared medical record or letter. A 28 year old Ms. Hi presents to [facility], accompanied by grandmother, [...] SUPERVISED HOME EXERCISE PROGR (HEP): No 5. DISHCLOTH FOLDER: No PASSIVE CONSERVATIVE THERAPY LASTING 6 WEEKS [...] and Not distended Musculoskeletal: Ambulate with none team assistant device. Defibrillator noted at the the inferior of the left axillary. There is hypersensitive to light tough over the defibrillator implant area. The fascial is very tight on the left chest and extended to the left gluteal region. Full ROM of upper and lower extremities. Neurological: Cranial nerve exam: Normal Motor exam: Deltoid 5, Biceps 5, Triceps 5, Package Lift Operator 5 and Finger Extension 5 ASSESSMENT: Myofascial [...] Thank you Dr. Darlyn Foster, LOLA [address] [place] [address] for allowing me to participate in Jaquelin Hi's care. Nixon Locke MD Normal [facility] Vital Signs Date Time Vital Sign Value Performing Clinician Facility 03-23-2023 11:29-0500 Body height 157.5 cm Timbo Byrnes APRN-ROLLER INSPECTOR AND MENDER Work Phone: [employer] 03-23-2023 11:29-0500 Body mass index (BMI) [Ratio] 27.44 kg/m2 Timbo Byrnes SWITCH MAKER-ROLLER INSPECTOR AND MENDER [facility] 03-23-2023 11:29-0500 Body weight 68.04 kg Timbo Byrnes SWITCH MAKER-ROLLER INSPECTOR AND MENDER Work Phone: [employer] 03-23-2023 11:29-0500 Diastolic blood pressure 90 mm[Hg] Timbo Byrnes SWITCH MAKER-ROLLER INSPECTOR AND MENDER Work Phone: [facility] [employer] 03-23-2023 11:29-0500 Heart rate 90 /min Timbo Byrnes SWITCH MAKER-ROLLER INSPECTOR AND MENDER Work Phone: [facility] 03-23-2023 11:29-0500 SaO2% (BldA) [Mass fraction] 97 % Timbo Byrnes SWITCH MAKER-ROLLER INSPECTOR AND MENDER Work Phone: [facility] 03-23-2023 11:29-0500 Systolic blood pressure 142 mm[Hg] Timbo Byrnes SWITCH MAKER-ROLLER INSPECTOR AND MENDER Work Phone: [facility] 06-12-2022 07:30-0400 Body temperature 97.7 [degF] ROTARY BAR OPERATOR-C Sydney John Work Phone: [facility] 06-12-2022 07:30-0400 Diastolic blood pressure 75 mm[Hg] ROTARY BAR OPERATOR-C Sydney John Work Phone: [facility] 06-12-2022 07:30-0400 Heart rate 84 /min ROTARY BAR OPERATOR-C Sydney John Work Phone: [facility] 06-12-2022 07:30-0400 SaO2% (BldA) [Mass fraction] 96 % ROTARY BAR OPERATOR-C Sydney John Work Phone: [facility] 06-12-2022 07:30-0400 Systolic blood pressure 114 mm[Hg] ROTARY BAR OPERATOR-C Sydney John Work Phone: [facility] 06-11-2022 20:16-0400 Respiratory rate 16 /min ROTARY BAR OPERATOR-C Sydney John Work Phone: [facility] 06-08-2022 15:19-0400 Body height 157.48 cm ROTARY BAR OPERATOR-C Sydney John Work Phone: [facility] 06-07-2022 09:00-0400 Body weight 64.41 kg ROTARY BAR OPERATOR-C Sydney John Work Phone: [facility] 04-20-2022 07:30-0500 Body temperature 97.9 [degF] ROTARY BAR OPERATOR-C Sydney John Work Phone: [facility] 04-20-2022 07:30-0500 Diastolic blood pressure 90 mm[Hg] ROTARY BAR OPERATOR-C Sydney John Work Phone: [facility] 04-20-2022 07:30-0500 Heart rate 84 /min ROTARY BAR OPERATOR-C Sydney John Work Phone: [facility] 04-20-2022 07:30-0500 Respiratory rate 18 /min ROTARY BAR OPERATOR-C Sydney John Work Phone: [facility] 04-20-2022 07:30-0500 SaO2% (BldA) [Mass fraction] 98 % ROTARY BAR OPERATOR-C Sydney John Work Phone: [facility] 04-20-2022 07:30-0500 Systolic blood pressure 129 mm[Hg] ROTARY BAR OPERATOR-C Sydney John Work Phone: [facility] 04-19-2022 15:20-0500 Body height 157.48 cm ROTARY BAR OPERATOR-C Sydney John Work Phone: [facility] 04-19-2022 08:50-0500 Body weight 62.14 kg ROTARY BAR OPERATOR-C Sydney John Work Phone: [facility] 12-31-2021 11:01-0400 Diastolic blood pressure 63 mm[Hg] Tracy Sin DO Work Phone: [facility] 12-31-2021 11:01-0400 SaO2% (BldA) [Mass fraction] 98 % Tracy Sin DO Work Phone: [employer] [facility] 12-31-2021 11:01-0400 Systolic blood pressure 106 mm[Hg] Tracy Sin DO Work Phone: [employer] [facility] [employer] 12-31-2021 09:00-0400 Body temperature 97.11 [degF] Tracy Sin DO [facility] 12-31-2021 09:00-0400 Heart rate 60 /min Tracy Sin DO Work Phone: [facility] [employer] 12-31-2021 09:00-0400 Respiratory rate 16 /min Tracy Sin DO Work Phone: [facility] Encounters Encounter Date Encounter Type Care Provider Facility Start: 01-03-2024 End: 01-03-2024 Telephone encounter Jeanette Balbuena [facility] Cardiology Start: 06-27-2023 End: 06-27-2023 Emergency department patient visit LAUREN SEGOVIA [facility] Start: 06-25-2023 End: 06-26-2023 Emergency department patient visit DASHA ANGULO [facility] Start: 05-29-2023 End: 05-29-2023 Emergency department patient visit GEE DEL ROSARIO [facility] Start: 05-10-2023 End: 05-11-2023 Emergency department patient visit [facility] Start: 04-26-2023 End: 04-27-2023 Emergency department patient visit [facility] Start: 04-26-2023 ambulatory Pedro Licea acility:[facility] Start: 04-12-2023 End: 04-23-2023 Evaluation and management of inpatient Pedro Smith Facility:[facility] Start: 03-23-2023 End: 03-23-2023 ambulatory TIMBO BYRNES [facility] Start: 03-23-2023 End: 03-23-2023 Office outpatient visit 25 minutes Timbo Byrnes SWITCH MAKER-ROLLER INSPECTOR AND MENDER Work Phone: [facility] Comment on above: Presence of automati c (implantable) cardiac defibrillator (Primary Dx); Family history of first-degree relative with cardiomyopathy; History of hypertension; Hypertrophic cardiomyopathy (CMS-HCC) Start: 03-23-2023 End: 03-23-2023 Clinical Support [facility] Ppc Pacer [facility] Comment on above: Presence of automati c (implantable) cardiac defibrillator (Primary Dx) Start: 03-22-2023 Telephone encounter Aurelia Oswald [facility] Start: 03-20-2023 End: 03-21-2023 Emergency department patient visit SYDNEY S [facility] Start: 09-29-2022 Evaluation and manag ement of inpatient [facility] Start: 07-16-2022 End: 07-16-2022 ambulatory SYDNEY LOPEZ Facility:[facility] Start: 06-06-2022 End: 06-12-2022 Evaluation and management of inpatient ROTARY BAR OPERATOR-C Sydney Lopez Work Phone: [facility] Work Phone: Start: 06-06-2022 End: 06-06-[address] WILLIE SHORT . Facility:[facility] Start: 04-10-2022 End: 04-20-2022 Evaluation and management of inpatient ROTARY BAR OPERATOR-C Sydney Lopez Work Phone: [facility] Work Phone: Start: 04-09-2022 End: 04-10-2022 ambulatory SYDNEY LOPEZ Facility:[facility] Start: 02-03-2022 End: 02-03-2022 ambulatory SYDNEY LOPEZ Facility:[facility] Start: 01-15-2022 End: 01-16-2022 ambulatory SYDNEY LOPEZ Facility:[facility] Start: 12-31-2021 End: 12-31-2021 [facility] Start: 12-31-2021 End: 12-31-2021 Emergency department patient visit Tracy Sin DO Work Phone: [facility] Comment on above: Disorder of implanta ble defibrillator, initial encounter (Primary Dx) Start: 01-06-2018 End: 01-07-2018 Patient encounter procedure KATHY EMERY [facility] Start: 04-23-2017 End: 04-23-2017 Patient encounter procedure WILLIE SHORT Facility:[facility] Procedures Date Procedure Procedure Detail Performing Clinician Start: 03-23-2023 DEVICE INTERROGATION Timbo Byrnes SWITCH MAKER-ROLLER INSPECTOR AND MENDER Work Phone: Start: 03-23-2023 Follow-up visit Follow-up TIMBO BYRNES Start: 12-31-2021 Radiologic exam chest single view Tracy J Sin DO Work Phone: Start: 12-31-2021 Basic metabolic panel calcium total Tracy J Sin DO Work Phone: Start: 12-31-2021 Ecg routine ecg w/least 12 lds w/i&r Tracy J Sin DO Work Phone: Start: 08-05-2021 Microscopic observation [Identifier] in Cervix by Cyto stain Aurelia Akers FILM SPOOLER Start: 02-08-2018 H/O: tubal ligation S/P tubal ligation Aurelia Akers FILM SPOOLER Start: 01-06-2018 Doppler echo spectral display complete KATHY EMERY Start: 08-24-2017 H/O: section Previous section Aurelia Akers FILM SPOOLER Start: 07-20-2017 H/O: section Previous delivery, antepartum condition or complication Tracy Sin DO Work Phone: Start: 07-14-2017 H/O: section History of section Tracy Sin DO Work Phone: Plan of Treatment Date Care Activity Detail Author Start: 01-14-2028 DTaP,Tdap and Td Vaccines (3 - Td or Tdap) DTaP,Tdap and Td Vaccines (3 - Td or Tdap) [facility] Start: 01-14-2028 DTaP/Tdap/Td vaccine (3 - Td or Tdap) DTaP/Tdap/Td vaccine (3 - Td or Tdap) [facility] Start: 08-05-2024 Screening for malignant neoplasm of cervix Pap Smear [facility] Start: 06-26-2024 Adult BMI Screening Adult BMI Screening [facility] Start: 06-26-2024 Tobacco Screening Tobacco Screening [facility] Start: 03-20-2024 Tobacco Screening Tobacco Screening [facility] Start: 02-14-2024 Adult BMI Screening Adult BMI Screening [facility] Start: 01-04-2024 End: 01-04-2024 Clinical Support [facility] Start: 11-13-2023 Influenza vaccination Influenza Vaccine [facility] Start: 03-23-2023 End: 03-23-2023 Clinical Support [facility] Start: 11-12-2022 Influenza vaccination Influenza Vaccine [facility] Start: 06-12-2022 [facility] Start: 06-06-[address] [facility] Start: 04-20-2022 [facility] Start: 04-10-[address] [facility] Start: 01-21-2022 End: 01-21-2022 Patient encounter procedure 01/21/2022 Office Visit Pediatric Cardiology Hayder Mcallister MD [address] [place] [address] [place] [address] [facility] Start: 10-12-2021 Influenza vaccination Flu vaccine (#1) [facility] Start: 08-11-2019 Screening for malignant neoplasm of cervix [facility] Start: 2010 Screening for malignant neoplasm of cervix Pap smear [facility] Start: 08-11-2007 Adult BMI Follow Up Plan [facility] Start: 08-11-2007 Hepatitis C screening Hepatitis C screen [facility] Start: 2004 HIV screening HIV screen [facility] Start: 2001 Depression Screen Depression Screen [facility] Start: 2001 Depression Screening [facility] Start: 08-11-1995 Pneumococcal 0-64 years Vaccine (1 - PCV) Pneumococcal 0-64 years Vaccine (1 - PCV) [facility] Start: 1990 Varicella vaccine (1 of 2 - 2-dose childhood series) Varicella vaccine (1 of 2 - 2-dose childhood series) [facility] Start: 02-10-1990 COVID-19 Vaccine (#1) COVID-19 Vaccine (#1) [facility] [employer] Device Interrogation Device Inte [employer]rogation Cardiac Services Routine Presence of automatic (implantable) cardiac defibrillator Family history of first-degree relative with cardiomyopathy History of hypertension Hypertrophic cardiomyopathy (CMS-HCC) 03/23/[address] [facility] Work Phone: EKG 12 Lead EKG 12 Lead ECG STAT 12/31/2021 8:55 AM EDT [facility] Work Phone: Patient Education Depression, Ad ult (DC) [facility] DC Instructions [facility] Work Phone: Patient referral [facility] Work Phone: Immunizations Immunization Date Immunization Notes Care Provider Daniela de la rosa 01-13-2018 tetanus toxoid, redu chris diphtheria toxoid, and acellular pertussis vaccine, adsorbed Aurelia Oswald [facility] 07-12-2013 tetanus toxoid, redu chris diphtheria toxoid, and acellular pertussis vaccine, adsorbed Aurelia Oswald [facility] 12-14-2011 influenza virus vaccine, whole virus Aurelia Oswald [facility] 12-14-2011 influenza virus vaccine, unspecified formulation Aurelia Oswald [facility] 12-09-2010 influenza virus vaccine, whole virus Aurelia Oswald [facility] 12-24-2009 influenza virus vaccine, whole virus Aurelia Oswald [facility] 06-13-2008 human papilloma viru s vaccine, quadrivalent Aurelia Oswald [facility] 01-08-2008 influenza, seasonal, injectable Aurelia Oswald [facility] 12-28-2007 human papilloma viru s vaccine, quadrivalent Aurelia Oswald [facility] 10-23-2007 human papilloma viru s vaccine, quadrivalent Aurelia Oswald [facility] 01-30-2007 influenza, seasonal, injectable Aurelia Oswald [facility] 02-14-2006 influenza, seasonal, injectable Aurelia Oswald [facility] 12-24-2004 influenza, seasonal, injectable Aurelia Akers [facility] 01-27-2004 influenza virus vaccine, whole virus Aurelia Akers [facility] 12-31-2002 influenza, seasonal, injectable Aurelia Akers [facility] 08-22-2002 measles, mumps and rubella virus vaccine Aureliamarika Akers [facility] NEGATED: Highlighted row has not occurred!01-13-2018 measles, mumps and rubella virus vaccine Aurelia [facility] Comment on above: Deferred: - patient rubella immune NEGATED: Highlighted row has not occurred!01-13-2018 varicella virus vaccine Aurelia [facility] Comment on above: Deferred: Other - no t discussed Payers Date Payer Category Payer Self-pay 2002 Medicaid [place] [employer] [place] [employer] [id number] 2002-Present [phone] [address] [place] [address] [id number] 2002 Medicaid [place] [employer] [employer] [id number] 1989 Unknown [id number] 2.16.840.1.060383.3.579.2.593 1989 Unknown [id number] 2.16.840.1.577671.3.579.2.175 1989 Unknown [id number] 2.16.840.1.951951.3.579.2.173 1989 Unknown [id number] 2.16.840.1.267548.3.579.2.593 1989 Unknown [id number] 2.16.840.1.797282.3.579.2.593 1989 Unknown [id number] 2.16.840.1.472445.3.579.2.593 1989 Unknown [id number] 2.16.840.1.607626.3.579.2.593 1989 Unknown [id number] 2.16.840.1.178435.3.579.2.593 1989 Unknown [id number] 2.16.840.1.342587.3.579.2.903 1989 Unknown [id number] 2.16.840.1.703283.3.579.2.1285 1989 Unknown [id number] 2.16.840.1.559152.3.579.2.128 1989 Unknown [id number] 2.16.840.1.261444.3.579.2.1285 1989 Unknown [id number] 2.16.840.1.177882.3.579.2.1285 1989 Unknown [id number] 2.16.840.1.785008.3.579.2.1285 1989 Unknown [id number] 2.16.840.1.387746.3.579.2.128 1989 Unknown [id number] 2.16.840.1.492505.3.579.2.128 1989 Unknown [id number] 2.16.840.1.500122.3.579.2.1285 1989 Unknown [id number] 2.16.840.1.007171.3.579.2.1286 1959 Unknown [id number] Unknown [id number] 2.16.840.1.747162.3.579.2.531 Unknown [id number] 2.16.840.1.328510.3.579.2.531 Social History Date Type Detail Facility Start: 07-14-2017 End: 01-01-2022 Tobacco smoking status NHIS Ex-smoker [employer] Phone: Start: 06-07-2022 End: 08-21-2021 History of tobacco use Current smoker [employer] Phone: End: 08-21-2021 History of tobacco use Cigarette Smoker [employer] Phone: Start: 07-14-2017 End: 01-01-2022 Tobacco use and exposure Smokeless tobacco non-user [employer] Phone: Start: 12-22-2018 Alcohol intake Current drinke r of alcohol (finding) [employer] Phone: Start: 07-14-2017 History SDOH Alcohol Comment rare when not preg [employer] Phone: Start: 1990 Sex Assigned At Not on file B ON [employer] Phone: Start: 12-21-2021 End: 12-31-2021 Exposure to SARS-CoV-2 (event) Not sure [facility] Start: 1990 Sex Assigned At Female F [facility] Start: 03-20-2023 End: 06-27-2023 Alcohol intake Current non-drinker [facility] (finding) [facility] Start: 04-24-2020 End: 03-20-2023 History of Social function [facility] Start: 04-24-2020 End: 03-20-2023 Tobacco use panel [facility] Are you worried or concerned that in the next two months you may not have stable housing that you own, rent or stay in as a part of a household? No [facility] Start: 03-20-2023 Gender identity Identifies as female gender (finding) [facility] Start: 03-20-2023 Sexual orientation Bisexual (finding ) [facility] Start: 10-15-2014 Sex Female (finding) [facility] Medical Equipment Procedure Code Equipment Code Equipment Origin al Text Equipment Identifier Dates Generator Pcmkr 83.1x69.1mm Eb S-Icd 12.7mm 59.5cc [facility] - [id number] - [id number] Start: 01-04-2022 Goals Date Patient Goal Desired Activity /State Personal health goal Comment on above: Formatting of this n ote might be different from the original. Evaluation of progress towards goal: Safe dc transition home with family support. Functional Status Date Assessment Result Facility 06-12-2022 Functional status Patient at Baseline [facility] Work Phone: 04-20-2022 Functional status Patient at Baseline [facility] Work Phone: Mental Status Date Assessment Result Facility 06-12-2022 Cognitive function Cognitive Sta tus Patient at Baseline [facility] Work Phone: 04-20-2022 Cognitive function Cognitive Sta tus Patient at Baseline [facility] Work Phone: Clinical Notes 10-08-2020 to 01-03-2024 Telephone Encounter - Jeanette Balbuena [facility] - 01/03/2024 8:54 AM EDTTelephone Encounter - Jeanette Balbuena [facility] - 01/03/2024 8:54 AM SAYRA ShayROLLER INSPECTOR AND MENDER - 03/23/2023 12:00 PM EST Note Date & Type Note Facility 01-03-2024 Miscellaneous Notes Formattin g of this note might be different from the original. Patient phoned stating that she would not be able to keep both her device check and ROTARY BAR OPERATOR Appt scheduled for 01/04/2024, advised pt that next available ROTARY BAR OPERATOR appt with Dr. VENEGAS would be sometime in Mar 2024, per pt started to get irate stating that she is not a ROTARY BAR OPERATOR and had previously seen Dr Fish and Timbo Byrnes. Upon review of chart with pt, advised pt that for both of those appts that pt was a no show, pt then stated WHATEVER THEN! And hung up on science writer. Patients appt was neither cancelled nor rescheduled at this point. documented in this encounter [facility] 01-03-2024 Telephone encount er Note Patient phoned stating that she would not be able to keep both her device check and ROTARY BAR OPERATOR Appt scheduled for 01/04/2024, advised pt that next available ROTARY BAR OPERATOR appt with Dr. VENEGAS would be sometime in Mar 2024, per pt started to get irate stating that she is not a ROTARY BAR OPERATOR and had previously seen Dr Fish and Timbo Byrnes. Upon review of chart with pt, advised pt that for both of those appts that pt was a no show, pt then stated WHATEVER THEN! And hung up on science writer. Patients appt was neither cancelled nor rescheduled at this point. [facility] 03-23-2023 History of Presen t illness Narrative Jaquelin Gutierrez [place] Date of visit: 03/23/2023 Date of : 1990 Age: 32 y.o. Patient Active Problem List Diagnosis Thoracic radiculopathy Intercostal neuritis Medication management Hypertrophic cardiomyopathy ([facility]) History of abnormal cervical Pap smear History of marijuana use Personal history of kidney stones History of palpitations Neuropathy Family history of first-degree relative with cardiomyopathy History of AK (myocardial infarction) Previous section History of hypertension Poor dental hygiene Presence of automatic (implantable) cardiac defibrillator ICD (implantable cardioverter-defibrillator) in place S/P tubal ligation Other hemorrhoids Slow transit constipation Pelvic pain Trauma Chest pain, unspecified type Chest pain Cocaine abuse ([facility]) At high risk for suicide Allergies Allergen [...] Complaint Patient presents with Follow-up EST PT OV/MEDTRONIC DEVICE CHECK SCHED OTILIA PER DARLYN History of Present Illness Jaquelinmarika Hi Is a 32-year-old female here on routine follow-up with history of nonobstructive hypertrophic cardiomyopathy. She had been previously following pediatric Cardiology: Dr. Ruvalcaba and Dr. Jaquez. Genetic proven variant positive MYH7. She has 2 kids, her son tested positive as well following pediatric Cardiology. Patient had her original [employer] subcu ICD implanted 2016. Device is end of service warranting change out that was completed [facility] 01/04/2022. She requested be established ongoing with adult Cardiology. She [facility] in the [facility]. Device interrogation with appropriate battery and lead [...] seek medical attention and went to the [facility]. Do not have records accessible though will obtain. Patient's blood pressure has since normalized. Past Medical History: Diagnosis Date Angina pectoris ([facility]) Anxiety Cardiac defibrillator in place Depression no meds, intermittent. Self managed after father passing. 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 Palpitations PTSD (post-traumatic stress disorder) Seasonal allergies Smoker Tetrahydrocannabinol (THC) use disorder, mild, abuse Urolithiasis No data recorded No data recorded No data recorded Past Surgical History: Procedure Laterality Date A-V CARDIAC PACEMAKER INSERTION REPEAT WITH TUBAL LIGATION N/A 01/10/2018 Performed by Darlyn Mishra MD at [facility] OR SECTION CYSTOSCOPY EP - Device Left 01/04/2022 Performed by Nadir Leiva MD at [facility] CARDIAC CATH LABS INJECTION BLOCK INTERCOSTAL Left 5,6 ,7 Left 04/01/2017 Performed by Gordo Damon MD at [facility] INJECTION STEROID EPIDURAL T 5/6 N/A 02/07/2017 Performed by Gordo Damon MD at [facility] INTRAUTERINE DEVICE INSERTION LAPAROSCOPY LAPROSCOPIC ULTRASOUND GUIDED [...] Presence of automatic (implantable) cardiac defibrillator - [facility] Cardiology [facility], [place] - Device Interrogation; Future - Device Interrogation 2. Family history of first-degree relative with cardiomyopathy - [facility], [place] - Device Interrogation; Future - Device Interrogation 3. History of hypertension - [facility], [place] - Device Interrogation; Future - Device Interrogation 4. Hypertrophic cardiomyopathy (CMS-HCC) - [facility], [place] - Device Interrogation; Future - Device Interrogation Hypertrophic cardiomyopathy. Diagnosed at age 4 1. 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 [employer] subcutaneous ICD implanted August 29, 2015 [...] PCP: ALEK CATES Referring Physician: ALEK Martinez [address] [place] [address] ALEK Venegas 03/23/23 9163 documented in this encounter [facility] 03-23-2023 History of Presen t illness Narrative I agree with the findings in the scanned document. documented in this encounter [facility] 03-22-2023 Miscellaneous Notes Formattin g of this note might be different from the original. Called patient to remind them to bring their most current copy of their medication list with them to their appt. Patient verbalizes understanding. documented in this encounter [facility] 03-22-2023 Telephone encount er Note Called patient to remind them to bring their most current copy of their medication list with them to their appt. Patient verbalizes understanding. [facility] 06-12-2022 Discharge summary Note Date/Time June 12, 2022 9:56am [facility] [address] [place] [address] Discharge Summary Signed Patient: Jaquelin Hi MR#: [id number] : 1990 Acct:[id number] Age/Sex: 31 / F Adm Date: 3 Loc: Room: [address] [place] [address]: Sukhjinder Schroeder MD Copies to: MD Sukhjinder Brandt MD Pamela Sue Cramer, [facility]~ Providers Date of Discharge: 06/12/22 Discharging Provider: Demetra Smith Primary Care Provider: Sydney Lopez Discharge Diagnosis (1) Major depressive disorder, recurrent: Final Diagnosis Final Discharge Diagnosis: Borderline personality disorder Summary Hospital Course Hospital course: Ms. Hi is a 31 year old female who has a history of major depressive disorder, depression, anxiety, suicidal ideation, and a recent suicide attempt.?Patient was admitted to S. because she got into an argument with [...] with her and kids. She was offered detention but states that shelters are not forme [...] No Activity Restrictions Instructions: Depression, Adult (DC), [facility] Behavioral Health DC Instructions Prescriptions: New olanzapine [...] (Reason: Itching) Qty: 30 0RF Follow Up: [facility] [Outside] ( retention manager: (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 (insert date/time here) Intake: (Insert date/time here) Please bring a copy of your photo ID, insurance card, and proof of household income.? Psychiatry: (Insert date/time here) Group: (Insert date/time here ) ) [facility] Hotline [Outside] Santana Romero MD [Referring] - (Please contact Karla Lopez CNP for any medical needs ) Documented By: Pedro Smith MD 3 [id number] Signed By: <Electronically signed by Pedro Smith MD> 06/12/22 1008 [facility] Work Phone: 1(406) 617-636103-31-2023 Progress note Author Pedro ingram [facility] June 11, 2022 9:33am Note Date/Time June 11, 2022 9:3 3am [facility] [address] [place] [address] Psychiatry Progress Note Signed Patient: Jaquelin Hi MR#: [id number] : 1990 Acct:[id number] Age/Sex: 31 / F Adm Date: 3 Loc: 1S Room: [address] [place] [address] Type : ADM IN Attending Dr: Sukhjinder [...] <Electronically signed by Pedro Smith MD> 06/11/22 0949 [facility] Work Phone: 1(796) 146-124803-31-2023 Progress note Author Pedro ingram [facility] June 11, 2022 9:31am Note Date/Time June 11, 2022 9:3 1am [facility] [address] [place] [address] Psychiatry Progress Note Signed Patient: Jaquelin Hi MR#: [id number] : 1990 Acct:[id number] Age/Sex: 31 / F Adm Date: 3 Loc: 1S Room: [address] [place] [address] Type : ADM IN Attending Dr: Sukhjinder Schroeder MD Copies to: ~ Date of Service: 06/10/2022 Subjective Subjective Narrative: Jaquelin today admits that her depression is a 10 out of 10 and her anxiety is up there as well. She also admits to auditory hallucinations. She reports thather she heard her yclaou-wf-tui speaking with her prior to falling asleep [...] signed by Pedro Smith MD> 06/11/22 0931 [facility] Work Phone: 1(755) 928-455703-29-2023 Progress note Author Pedro ingram [facility] June 09, 2022 10:00am Note Date/Time June 09, 2022 10: 00am [facility] [address] [place] [address] Psychiatry Progress Note Signed Patient: Jaquelin Hi MR#: [id number] : 1990 Acct:[id number] Age/Sex: 31 / F Adm Date: 3 Loc: Room: [address] [place] [address] Type : ADM IN Attending Dr: Sukhjinder [...] signed by Pedro Smith MD> 06/09/22 1000 [facility] Work Phone: 1(166) 519-114403-28-2023 Progress note Author Pedro ingram [facility] June 08, 2022 9:12am Note Date/Time June 08, 2022 9:1 2am [facility] [address] [place] [address] Psychiatry Progress Note Signed Patient: Jaquelin Hi MR#: [id number] : 1990 Acct:[id number] Age/Sex: 31 / F Adm Date: 3 Loc: Room: [address] [place] [address] Type : ADM IN Attending Dr: Sukhjinder [...] signed by Pedro Smith MD> 06/08/22 0912 [facility] Work Phone: [phone]) 903-868503-28-2023 History and physical note Author Pedro ingram [facility] June 08, 2022 9:10am Note Date/Time June 08, 2022 9:1 0am [facility] [address] [place] [address] Psychiatry H&P Signed Patient: Jaquelin Hi MR#: [id number] : 1990 Acct:[id number] Age/Sex: 31 / F Adm Date: 3 Loc: 1S Room: [address] [place] [address] Type: ADM IN Attending Dr: Sukhjinder Schroeder MD Copies to: MD Sukhjinder Brandt MD Pamela Sue Cramer, [facility]~ Date of Service: 06/07/2022 HPI History of Present Illness History of present illness: Ms. Hi is a 31 year old female who has a history of major depressive disorder, depression, anxiety, suicidal ideation, and a recent suicide attempt. Patient was admitted to [facility] because she got into an argument with [...] Meds Medications and Allergies Allergies cefaclor [From [facility]] Allergy (Verified 04/10/22 03:02) Hives doxycycline Allergy [...] signed by Pedro Smith MD> 06/08/22 0910 [facility] Work Phone: 1([phone]) 938-364202-07-2023 Discharge summary Author Sukhjinder Schroeder [facility] April 20, 2022 11:53am Note Date/Time April 20, 2022 1 1:47am [facility] [address] [place] [address] Discharge Summary Signed Patient: Jaquelin Hi MR#: [id number] : 1990 Acct:[id number] Age/Sex: 31 / F Adm Date: 3 Loc: 1S Room: [address] [place] [address]: Sukhjinder Schroeder MD Copies to: MD Sydney Evans, SANJIV~ Providers Date of Discharge: 04/20/22 Discharging Provider: Sukhjinder Schroeder Primary Care Provider: Sydney Lopez Discharge Diagnosis (1) Major depressive disorder, recurrent: Final Diagnosis Final Discharge Diagnosis: MDD Summary Hospital Course Hospital course: According to admission note: Ms. Hi is a 31 year old female who [facility] [place] [facility] and [facility] ideation. Upon assessment, [...] she occasionally heard the voice of her ketgra-zc-nsf but denied any other hallucinations at this [...] No Activity Restrictions Instructions: Depression, Adult (DC), [facility] Behavioral Health DC Instructions Prescriptions: New trazodone [...] tablet 50 mg PO DAILY Follow Up: [facility] [Outside] [facility] [Outside] - 04/21/22 8:00 am (Case Management: You will receive a phone call from a case advocate on Tuesday04/21/22 between 8am and 12pm for discharge follow up. Financial Intake: Tuesday04/26/22 at 2:30pm with Jannette. Please bring your ID and proof of income. Nurse Assessment: Tuesday04/27/22 at 11am with nurse Inge. Please see attached instructions Group Therapy: You have been referred for day treatment program. Which will be discussed at one of the above appointments.) Sydney Lopez, ROTARY BAR OPERATOR-C [Primary Care Provider] - (Please call to schedule an appointment for any medical needs. ) Documented By: Sukhjinder Schroeder MD 04/20/22 1146 Signed By: <Electronically signed by Sukhjinder Schroeder MD> 04/20/22 1153 [facility] Work Phone: 1([phone]) 185-456102-06-2023 Progress note Author Sukhjinder Schroeder [facility] April 19, 2022 2:25pm Note Date/Time April 19, 2022 2 :24pm [facility] [address] [place] [address] Psychiatry Progress Note Signed Patient: Jaquelin Hi MR#: [id number] : 1990 Acct:[id number] Age/Sex: 31 / F Adm Date: 3 Loc: Room: [address] [place] [address] Type : ADM IN Attending Dr: Sukhjinder [...] her partner. She does report that her emt intermediate plan is to live with her grandmother. [...] 04/19/221421 Signed By: <Electronically signed by Sukhjinder Schreoder MD> 04/19/22 142 [facility] Work Phone: 1([phone]) 760-129902-05-2023 Progress note Author Pedro ingram [facility] April 18, 2022 9:45am Note Date/Time April 18, 2022 9 :45am [facility] [address] [place] [address] Psychiatry Progress Note Signed Patient: Jaquelin Hi MR#: [id number] : 1990 Acct:[id number] Age/Sex: 31 / F Adm Date: 3 Loc: Room: [address] [place] [address] Type : ADM IN Attending Dr: Sukhjinder [...] signed by Pedro Smith MD> 04/18/22 0945 [facility] Work Phone: 1(362) 172-716602-04-2023 Progress note Author Pedro ingram [facility] April 17, 2022 9:13am Note Date/Time April 17, 2022 9 :13am [facility] [address] [place] [address] Psychiatry Progress Note Signed Patient: Jaquelin Hi MR#: [id number] : 1990 Acct:[id number] Age/Sex: 31 / F Adm Date: 3 Loc: 1S Room: [address] [place] [address] Type : ADM IN Attending Dr: Sukhjinder [...] signed by Pedro Smith MD> 04/17/22 0913 [facility] Work Phone: 1(720) 691-896902-02-2023 Progress note Author Pedro ingram [facility] April 15, 2022 10:18am Note Date/Time April 15, 2022 1 0:16am [facility] [address] [place] [address] Psychiatry Progress Note Signed Patient: Jaquelin Hi MR#: [id number] : 1990 Acct:[id number] Age/Sex: 31 / F Adm Date: 3 Loc: 1S Room: [address] [place] [address] Type : ADM IN Attending Dr: Sukhjinder [...] signed by Pedro Smith MD> 04/15/22 1018 [facility] Work Phone: 1(469) 477-654302-01-2023 Progress note Author Pedro ingram [facility] April 14, 2022 9:58am Note Date/Time April 14, 2022 9 :58am [facility] [address] [place] [address] Psychiatry Progress Note Signed Patient: Jaquelin Hi MR#: [id number] : 1990 Acct:[id number] Age/Sex: 31 / F Adm Date: 3 Loc: Room: [address] [place] [address] Type : ADM IN Attending Dr: Sukhjinder [...] explained Documented By: Pedro Smith MD 3 [id number] Signed By: <Electronically signed by Pedro Smith MD> 04/14/22 0958 [facility] Work Phone: 1(108) 185-454901-31-2023 Progress note Author Pedro ingram [facility] April 13, 2022 9:18am Note Date/Time April 13, 2022 9 :18am [facility] [address] [place] [address] Psychiatry Progress Note Signed Patient: Jaquelin Hi MR#: [id number] : 1990 Acct:[id number] Age/Sex: 31 / F Adm Date: 3 Loc: Room: [address] [place] [address] Type : ADM IN Attending Dr: Sukhjinder [...] is tolerating her current medications. Per case advocate notes, spoke with grandmother and Aunt in regards to assisting with early childhood aide classroom while pt is in hospital, educated on [...] signed by Pedro Smith MD> 04/13/22 0918 [facility] Work Phone: [phone]) [phone] Progress note Author Pedro ingram [facility] April 12, 2022 10:08am Note Date/Time April 12, 2022 1 0:07am [facility] [address] [place] [address] Psychiatry Progress Note Signed Patient: Jaquelin Hi MR#: [id number] : 1990 Acct:[id number] Age/Sex: 31 / F Adm Date: 3 Loc: Room: [address] [place] [address] Type : ADM IN Attending Dr: Sukhjinder [...] signed by Pedro Smith MD> 04/12/22 1008 [facility] Work Phone: [phone]) [phone] Progress note Author Sukhjinder Schroeder [facility] April 11, 2022 9:28am Note Date/Time April 11, 2022 9 :29am [facility] [address] [place] [address] Psychiatry Progress Note Signed Patient: Jaquelin Hi MR#: [id number] : 1990 Acct:[id number] Age/Sex: 31 / F Adm Date: 3 Loc: Room: [address] [place] [address] Type : ADM IN Attending Dr: Sukhjinder [...] <Electronically signed by Sukhjinder Schroeder MD> 04/11/22927 [facility] Work Phone: [phone]) [phone] History and physical note Author Sukhjinder Schroeder [facility] April 10, 2022 12:33pm Note Date/Time April 10, 2022 1 2:33pm [facility] [address] [place] [address] Psychiatry H&P Signed Patient: Jaquelin Hi MR#: [id number] : 1990 Acct:[id number] Age/Sex: 31 / F Adm Date: 3 Loc: 1S Room: [address] [place] [address] Type: ADM IN Attending Dr: Sukhjinder Schroeder [...] she occasionally heard the voice of her ouoccj-ta-lvz but denied any other hallucinations at this [...] signed by Sukhjinder Schroeder MD> 04/10/22 1233 [facility] Work Phone: 1([phone]) 631-506410-20-2022 Hospital Discharge instructions* Discharge Instructions* Tracy Sin, DO - 12/31/2021 11:46 AM EDT Somebody will give you a call in the next 2 days. If you do not hear from anybody by tomorrow please give the [facility] in [place] a call at [phone]. * Attachments The following attachments cannot be sent through Care Everywhere. * ICD Shocks: General Info (Lao) [facility] [employer] Work Phone: 1([phone]) 724-276207-28-2021 NoteHPI Staff Karla Lopez referral for Rt Axilla [...] Follow-up With When Contact Information CAMRYN DAVE, Gordo Shankar, AN Only if needed [address] [place] [address]- Additional Instructions: Problem List/Past Medical History Ongoing [...] Tobacco Use:. Never Smokeless Tobacco Use:. Cigarettes, [facility]/2020[facility]Result Comment: Electronically Signed By: CAMRYN DAVE, Gordo Shankar\.br\Date and Time Signed: 10/08/20 15:12 EDTEvaluation note* Diagnosis Disorder of implantable defibrillator, initial encounter- Primary documented in this encounter [facility] Work Phone: evaluation note* Diagnosis Onset Date Resolution Status Major depressive disorder, recurrent acute [facility] Work Phone: Evaluation note* Diagnosis Onset Date Resolution Status Major depressive disorder, recurrent acute Major depressive disorder, recurrent acute [facility] Work Phone: Evaluation note* Diagnosis Presence of automatic (implantable) cardiac defibrillator- Primary Family history of first-degree relative with cardiomyopathy History of hypertension Personal history of other diseases of circulatory system Hypertrophic cardiomyopathy (CMS-HCC) Other primary cardiomyopathies [facility] Diagnosis Presence of automatic (implantable) cardiac defibrillator- Primary [facility] Additional Instructions Regular Diet No Activity [facility] Work Phone: InstructionsNot on filedocumented in this encounter [facility] filedocumented in this encounter [facility]ructionsNot on filedocumented in this encounter [facility]ructionsNot on filedocumented in this encounter [facility] Summary Purpose Family History No Family History Records FoundNo Family History Records FoundNo Family History Records FoundNo Family History Records FoundNo Family History Records FoundNo Family History Records FoundNo Family History Records FoundNo Family History Records FoundNo Family History Records Found Advance Directives Advance Directive Response Recorded Date/ Time Advance [...] Code 08/29/2020 2:16 AM 08/31/2020 10:31 PM Date Activated Date Inactivated Comments 07/22/2022 11:26 AM 07/23/2022 5:02 PM Date Activated Date Inactivated Comments 01/01/2022 2:22 AM 01/05/2022 10:08 PM Date Activated Date Inactivated Comments 08/29/2020 2:16 AM 08/31/2020 10:31 PM Chief Complaint and Reason for Visit Chief Complaint MDD Reason for Visit Major depressive dis order, recurrent Chief Complaint MDD MDD Reason for Visit Major depressive dis order, recurrent Major depressive disorder, recurrent Reason for Referral Specialty Diagnoses / Procedures Referred By Contac t Referred To Contact Diagnoses Presence of automatic (implantable) cardiac defibrillator ICD (implantable cardioverter-defibrillator) in place Family history of first-degree relative with cardiomyopathy History of AK (myocardial infarction) History of hypertension Hypertrophic cardiomyopathy (CMS-HCC) Procedures Device Interrogation Timbo Byrnes, SWITCH MAKER-ROLLER INSPECTOR AND MENDER [address] [place] [address] Referral ID Status Reason Start Date Expiration Date V isits Requested Visits Authorized [id number] Pending Review 03/23/2023 03/22/2024 1 1 Additional Source Comments INFORMATION SOURCE (unrecogn ized section and content) DATE CREATED AUTHOR 12/17/2018 [facility] DATE CREATED AUTHOR AUTHOR'S ORGANIZ ATION 12/17/2018 [facility] DATE CREATED AUTHOR AUTHOR'S ORGANIZ ATION 12/22/2018 [facility] DATE CREATED AUTHOR AUTHOR'S ORGANIZ ATION 11/05/2020 [facility] DATE CREATED AUTHOR AUTHOR'S ORGANIZ ATION [facility]/04/2022 [facility] DATE CREATED AUTHOR AUTHOR'S ORGANIZ ATION 07/21/2022 [facility] DATE CREATED AUTHOR AUTHOR'S ORGANIZ ATION 10/04/2022 [facility] DATE CREATED AUTHOR AUTHOR'S ORGANIZ ATION 06/28/2023 [facility] DATE CREATED AUTHOR AUTHOR'S ORGANIZ ATION 07/10/2023 [facility] Reason for Visit (unrecogniz ed section and content) Reason Comments Chest Pain Patient has a defibr illator in place and states she feel small shocks occurring and increasing shocks over the past month causing increased chest pain. Reason Comments Follow-up EST PT OV/MEDTRONIC DEVICE CHECK SCHED OTILIA PER DARLYN Specialty Diagnoses / Procedures Referred By Contac t Referred To Contact Cardiology Diagnoses Presence of automatic (implantable) cardiac defibrillator ICD (implantable cardioverter-defibrillator) in place Family history of first-degree relative with cardiomyopathy History of [place] (myocardial infarction) History of hypertension Hypertrophic cardiomyopathy (CMS-HCC) Jose Waters MD [address] [place] [address] [facility] [address] [id number] Referral ID Status Reason Start Date Expiration Date Visits Requested Visits Authorized [id number] Pending Review Specialty Services Required 3 03/01/2024 12 12 Reason Comments Device Check Care Teams (unrecognized sec tion and content) Team Status: Active Member Role Status Dates Sydney Lopez NP-Ami Primary Care Provider Active Team Status: Inactive Member Role Status Dates IZABELLA Lewis Primary Care Provider Active Sukhjinder Schroeder MD Admit Provider, Attending Provider Active Help Desk Agent Relationship Specialty Start Date End Date Sydney Lopez [address] [phone] PCP - General 11/20/20 Help Desk Agent Relationship Specialty Start Date End Date Sydney Lopez SWITCH MAKER-[employer]ER INSPECTOR [employer] MENDER [address] [place] [address] PCP - General Family Medicine 04/06/22 Help Desk Agent Relationship Specialty Start Date End Date Sydney Lopez SWITCH MAKER[employer] INS[employer]OR AND M[employer]ER [address] [place] [address] PCP - General Family Medicine 04/06/22 Help Desk Agent Relationship Specialty Start Date End Date Sydney Lopez APRN-ROLLER INSPECTOR AND MENDER [address] [phone] PCP - General Family Medicine 04/06/22 Help Desk Agent Relationship Specialty Start Date End Date Lauren Segovia APRN-SEWER [address] [place] [id number] PCP - General Family Medicine 06/25/23 FOR RECORDS PERTAINING TO PATIENTS WHO ARE [...] BE BASED ON THE PRIMARY CLINICAL RECORDS. [facility] provides no warranty or guarantee of the accuracy or completeness of information in this document.
== END 2024-02-25 23:05 | disposition left against medical advice (07) ==
LOC: ER 22:40
PROVIDERS: Emergency Provider Emergency Medicine; PCP Nurse Practitioner Family
DX: Z53.21 Procedure and treatment not carried out due to patient leaving prior to being seen by health care provider (principal)